=== PATIENT | male | born 1970 | race Caucasian/White ===

== ENCOUNTER 2021-06-06 06:29 | Inpatient (IN) | payer OTHER, SELFPAY ==
[2021-06-06] VITALS (64 sets, daily range): BP systolic 69–163; BP diastolic 27–127; PULSE 107–150; RESP 20–95; TEMP 36.6; O2SAT 32–99; BMI 31.6
--- NOTE | ~2021-06-06 | XR_ITS ---
EXAMINATION: XR chest 1V portable DATE: 06/22/2021 06:17 INDICATION: Respiratory failure. TECHNIQUE: A single frontal view of the chest was obtained. COMPARISON: Chest single view 06/21/2021 FINDINGS: There are airspace opacities in the lower lung zones, left worse than right. No pleural eff usion or pneumothorax. The heart size is normal. The endotracheal tube tip is 5.4 cm above the sridevi . The nasogastric tube tip is in the stomach. The nasoenteric tube tip is beyond the inferior margin of the radiograph, but at least to the stomach. A right upper extremity peripherally inserted central venous catheter (PICC) is seen with tip in the superior vena cava. IMPRESSION: 1. Improved airspace opacities in the lower lung zones, consistent with atelectasis versus pneumonia. Reviewed, dictated and finalized at location E. [employer]ESSIONALS IMPRESSION: 1. Improved airspace opacities in the lower lung zones, consistent with atelect asis versus pneumonia.
--- NOTE | ~2021-06-06 | XR_ITS ---
XR chest 1V portable DATE: 06/06/2021 07:36 INDICATION: Cough, shortness of breath, chest pain TECHNIQUE: Portable AP chest on 06/06/2021 at 0732 hours COMPARISON: 05/18/2018 AP and lateral chest FINDINGS: Normal heart size. No hilar or mediastinal enlargement. The lungs are clear of infiltrate o r consolidation. No pleural effusion or pulmonary vascular congestion or pneumothorax is detected. IMPRESSION: No active cardiopulmonary disease Reviewed, dictated and finalized at location A. LINE WRITER
--- NOTE | ~2021-06-06 | XR_ITS ---
EXAMINATION: XR chest 1V portable DATE: 06/09/2021 08:23 INDICATION: Acute respiratory failure TECHNIQUE: frontal view of the chest was obtained. COMPARISON: Chest radiograph dated 06/08/2021 FINDINGS: Endotracheal tube tip 3.3 cm above the sridevi. Nasogastric tube tip in proximal side port in the body of the stomach. Dual-lumen right internal jugular central venous catheter with distal tip at the hig h right atrium. Persistent basilar predominant gradient of hazy airspace opacities throughout both lungs with more de nse opacities in the bilateral lower lung zones consistent with moderate left and qyizi-zq-ndptercq r ight pleural effusions with associated atelectasis and/or pneumonia. No pneumothorax. The cardiomedia stinal silhouette is normal. IMPRESSION: 1. Moderate left and [id number] right pleural effusions with associated atelectasis and/or pne umonia in the lower lung zones. Reviewed, dictated and finalized at location A. RUMENTATION ENGINEER IMPRESSION: 1. Moderate left and [id number] right pleural effusions with associated atelectasis and/or pneumonia in the lower lung zones.
--- NOTE | ~2021-06-06 | XR_ITS ---
EXAMINATION: XR chest 1V portable EXAM DATE: 06/13/2021 05:33 INDICATION: Acute respiratory failure TECHNIQUE: Portable AP frontal chest x-ray was obtained. Comparison is made to prior examination from 06/12/2021. FINDINGS: Endotracheal tube tip is 4 centimeters above the sridevi. There is a right-sided IJ double- lumen catheter. Feeding tube is in position. There is a nasogastric tube seen with tip collimated off the study, but below the left hemidiaphragm. Bibasilar linear opacities consistent with atelectasis. Suspect additional layering pleural effusion s and superimposed pneumonia or edema. There is no pneumothorax suspected. Cardiomediastinal silho uette is normal. The bones and soft tissues are unremarkable. There is no significant interval change compared to prior exam. IMPRESSION: 1. Line and tube(s) in position. 2. Stable airspace disease and other findings as above. OS ARCHITECT Reviewed, dictated and finalized at location A.
--- NOTE | ~2021-06-06 | XR_ITS ---
EXAMINATION: XR chest 1V portable EXAM DATE: 06/15/2021 06:14 INDICATION: Acute respiratory failure . TECHNIQUE: Portable AP frontal chest x-ray was obtained. Comparison is made to prior examination from 06/14/2021. FINDINGS: Endotracheal tube tip is 4 centimeters above the sridevi. There is a right-sided IJ double -lumen catheter. There is a Dobhoff tube seen with tip collimated off the study, but below the left h emidiaphragm. Bibasilar linear opacities consistent with atelectasis. Suspect additional layering pleural effusion s and superimposed pneumonia or edema. There is no pneumothorax suspected. Cardiomediastinal silho uette is normal. The bones and soft tissues are unremarkable. There is no significant interval change compared to prior exam. IMPRESSION: 1. Line and tube(s) in position. 2. Stable airspace disease and other findings as above. ICE SUPERINTENDENT Reviewed, dictated and finalized at location A.
--- NOTE | ~2021-06-06 | XR_ITS ---
EXAMINATION: XR chest 1V portable DATE: 06/23/2021 06:10 INDICATION: Respiratory failure. TECHNIQUE: A single frontal view of the chest was obtained. COMPARISON: Chest single view 06/22/2021, chest CT 06/16/2021 FINDINGS: There are airspace opacities in the lower lung zones and left perihilar region. There is a small left pleural effusion. No pneumothorax. The heart size is normal. The endotracheal tube tip is 4.8 cm above the sridevi. The nasogastric tube tip is in the stomach. The nasoenteric tube tip is beyo nd the inferior margin of the radiograph, but at least to the proximal duodenum. A right upper extrem ity peripherally inserted central venous catheter (PICC) is seen with tip in the superior vena cava. IMPRESSION: 1. Worsened airspace opacities in the lower lung zones and left perihilar region, consistent with ate lectasis versus pneumonia. 2. Stable small left pleural effusion. Reviewed, dictated and finalized at location E. EMIC RECORDS SPECIALIST IMPRESSION: 1. Worsened airspace opacities in the lower lung zones and left perihilar regio n, consistent with atelectasis versus pneumonia. 2. Stable small left pleural effusion.
--- NOTE | ~2021-06-06 | XR_ITS ---
XR chest 1V portable DATE: 06/08/2021 10:33 INDICATION: Shortness of breath. Hypoxia. History of hypertension. TECHNIQUE: Portable AP chest on 06/08/2021 1025 hours COMPARISON: 06/06/2021 portable AP chest FINDINGS: There is pulmonary vascular congestion and redistribution. There is thickening of the minor fissure or fluid in the minor fissure. Bilateral pleural effusions. There are prominent bilateral pulmonary infiltrates, which are dilated centrally and in the lower eunice g zones, suggesting pulmonary edema. These findings are new since 06/06/2021. IMPRESSION: Congestive changes, pulmonary edema, bilateral pleural effusions, all new since 06/06/2021 Reviewed, dictated and finalized at location A. ATTENDANT IMPRESSION: Congestive changes, pulmonary edema, bilateral pleural effusions, a ll new since 06/06/2021
--- NOTE | ~2021-06-06 | XR_ITS ---
EXAMINATION: XR fl Dobhoff insert/rad w img DATE: 06/14/2021 13:40 INDICATION: Acute pancreatitis. TECHNIQUE: I inserted a wire into the nasoenteric tube and redirected into the duodenum under fluoros copic guidance. Fluoroscopy exposure time was 3.0 minutes. The number of images was 1. COMPARISON: Abdomen radiograph 06/14/21 FINDINGS: The nasoenteric tube tip is at the junction of the second and third portions of the duodenu m. IMPRESSION: 1. Fluoroscopy guided nasoenteric tube adjustment with tip at the junction of the second and third po rtions of the duodenum. Reviewed, dictated and finalized at location A. ABLE TRACKMAN IMPRESSION: 1. Fluoroscopy guided nasoenteric tube adjustment with tip at the junction of t he second and third portions of the duodenum.
--- NOTE | ~2021-06-06 | US_ITS ---
EXAMINATION: US abdomen limited EXAM DATE: 06/06/2021 14:35 INDICATION: Elevated liver enzymes. TECHNIQUE: Multiple grayscale and Doppler images of the abdomen right upper quadrant were obtained (michell y a technologist who performed the scan) and subsequently reviewed. Correlation is made to CT abdome n pelvis same date FINDINGS: Small amount of perihepatic fluid identified, ascites. Small amount of pericholecystic flui d as well. Pancreas not well-visualized due to bowel gas. There is echogenic liver parenchyma, hepatic steatosi s. There are no focal liver lesions identified. There is no evidence of intrahepatic biliary duct dilation. Portal venous flow was seen in the hepatopedal, normal direction and has normal Doppler wa veform. No right-sided hydronephrosis. Common bile duct measures 4 mm, which is normal. The gallbladder wall is normal in thickness, with mo derate amount of distention. No cholelithiasis. Technologist performing exam reports patient did not demonstrate sonographic Terry's sign. Please note that this sign is less reliable in patients who h ave received pain medication. IMPRESSION: 1. Small amount of ascites. 2. Hepatic steatosis. Reviewed, dictated and finalized at location G. HEALTH REGISTERED NURSE
--- NOTE | ~2021-06-06 | XR_ITS ---
EXAMINATION: XR chest PICC line DATE: 06/18/2021 12:09 INDICATION: Central line placement. TECHNIQUE: A single frontal view of the chest was obtained. COMPARISON: Chest single view 06/15/2021, CT abdomen and pelvis 06/14/2021 FINDINGS: There are airspace opacities in the mid and lower lung zones. There is a small left pleural effusion. No pneumothorax. The heart size is normal. The endotracheal tube tip is 4.5 cm above the c taylor. A right internal jugular central venous catheter is seen with tip in the right atrium. A right upper extremity peripherally inserted central venous catheter (PICC) is seen with tip in the superio r vena cava. The nasoenteric tube tip is beyond the inferior margin of the radiograph, but at least t o the stomach. IMPRESSION: 1. PICC tip in the superior vena cava. 2. Airspace opacities in the mid and lower lung zones with worsening on the right, consistent with at electasis versus pneumonia. 3. Stable small left pleural effusion. Reviewed, dictated and finalized at location A. NSIC ACCOUNTANT IMPRESSION: 1. PICC tip in the superior vena cava. 2. Airspace opacities in the mid and lower lung zones with worsening on the rig ht, consistent with atelectasis versus pneumonia. 3. Stable small left pleural effusion.
--- NOTE | ~2021-06-06 | CT_ITS ---
EXAMINATION: CT chest high resolution [facility] EXAM DATE: 06/16/2021 12:18 INDICATION: Pneumonia, severe sepsis. TECHNIQUE: Spiral CT of the chest without contrast. HRCT. Axial, coronal and sagittal images of the chest were reviewed. Coronal maximum intensity pixel images of chest reviewed. The dose-length prod uct (DLP) for this examination was 447.30 mGy-cm. The exposure was tailored according to patient siz e (auto mA exposure control), and iterative reconstruction (ASIR) was used as additional dose reducti on technique. There is no prior study for comparison. FINDINGS: Endotracheal tube is in position. There is small to moderate left pleural effusion. Small r ight pleural effusion. Completely collapsed left lower lobe, and multisegmental right lower lobe atel ectasis. Small amount of bronchus intermedius debris. No intralobular septal thickening on the HRCT. No coronary artery calcifications. Heart is normal in size. The interventricular septum is perceptibl e, suggesting patient is anemic. There is a right-sided venous line in position. Dobhoff feeding tube . Small to moderate perihepatic ascites. Retroperitoneal inflammation from acute pancreatitis. IMPRESSION: 1. Small to moderate left, small right pleural effusions. 2. Left lower lobe collapse, multi segmental right lower lobe atelectasis. 3. Small amount of bronchus intermedius debris. Reviewed, dictated and finalized at location A. NSED PRACTICAL NURSE CLINIC NURSE
--- NOTE | ~2021-06-06 | US_ITS ---
EXAMINATION: US renal BI EXAM DATE: 06/07/2021 10:56 INDICATION: Acute renal failure. TECHNIQUE: Multiple grayscale and Doppler images of the kidneys were obtained (by a technologist who performed the scan) and subsequently reviewed. There is no prior study for comparison. FINDINGS: Incidental note made of hepatic steatosis and small amount of the perihepatic ascites. Right kidney: There is normal contour and echogenicity. It measures 10.9 x 5.9 x 6.2 centimeters. T here are no focal renal lesions identified. There is no hydronephrosis. Left kidney: Poorly visualized. It measures 10.5 6.5 x 6.0 centimeters. No hydronephrosis. Quiroz catheter within a collapsed bladder. IMPRESSION: 1. No hydronephrosis. 2. Hepatic steatosis. Small ascites. Reviewed, dictated and finalized at location B. ITION PARTNER
--- NOTE | ~2021-06-06 | XR_ITS ---
EXAMINATION: XR chest 1V portable DATE: 06/19/2021 07:09 INDICATION: Respiratory failure. TECHNIQUE: A single frontal view of the chest was obtained. COMPARISON: Chest single view 06/18/2021 FINDINGS: There are airspace opacities in the mid and lower lung zones. There are small pleural effus ions. No pneumothorax. The heart size is normal. The endotracheal tube tip is 4.8 cm above the sridevi . A right internal jugular central venous catheter is seen with tip at the superior cavoatrial juncti on. A right upper extremity peripherally inserted central venous catheter (PICC) is seen with tip in the superior vena cava. The nasoenteric tube tip is beyond the inferior margin of the radiograph, but at least to the stomach. IMPRESSION: 1. Airspace opacities in the mid and lower lung zones with worsening on the right, consistent with at electasis versus pneumonia. 2. Small pleural effusions. Reviewed, dictated and finalized at location A. TRONICS INSPECTOR IMPRESSION: 1. Airspace opacities in the mid and lower lung zones with worsening on the rig ht, consistent with atelectasis versus pneumonia. 2. Small pleural effusions.
--- NOTE | ~2021-06-06 | XR_ITS ---
EXAMINATION: XR abdomen/kub 1V DATE: 06/06/2021 22:43 INDICATION: Nasogastric tube placement. TECHNIQUE: A supine view of the abdomen was obtained. COMPARISON: CT abdomen and pelvis 06/06/2021 FINDINGS: The lower abdomen is excluded. There are no visible dilated loops of bowel. The nasogastric tube tip is in the midesophagus. There is mild atelectasis in left lower lung zone. IMPRESSION: 1. Nasogastric tube tip in the midesophagus. Reviewed, dictated and finalized at location A. MAN
--- NOTE | ~2021-06-06 | XR_ITS ---
EXAMINATION: XR abdomen NG/feed tube insert DATE: 06/20/2021 08:24 INDICATION: Orogastric tube placement TECHNIQUE: A supine view of the abdomen and lower chest was obtained for evaluation of feeding tube placement. COMPARISON: None. FINDINGS: The weighted tip of a Dobbhoff type enteric feeding tube is positioned in the second portion of the d uodenum. The tip of a nasogastric tube is in the body of the stomach with proximal side-port at the l evel of the gastroesophageal junction. Small amount of gas in the stomach and gas throughout the marc sverse colon. No dilated loops of gas-filled bowel in the visualized abdomen. A central venous cathet er descends from the inferior vena cava with distal tip at the level of the superior cavoatrial junct ion. Mild opacities at the bilateral lung bases which could represent atelectasis and/or pneumonia. IMPRESSION: 1. Lines and tubes in expected position. The nasogastric tube tip is in the stomach would consider ad vancement by 2-[address] the proximal side-port below the level of the gastroesophageal junction. Reviewed, dictated and finalized at location A. DUMPER OPERATOR HELPER IMPRESSION: 1. Lines and tubes in expected position. The nasogastric tube tip is in the sto mach would consider advancement by 2-[address] the proximal side-port below the level of the gastroesophageal junction.
--- NOTE | ~2021-06-06 | XR_ITS ---
EXAMINATION: XR abdomen NG/feed tube insert DATE: 06/07/2021 08:43 INDICATION: Is a gastric tube placement TECHNIQUE: A supine view of the abdomen and lower chest was obtained for evaluation of feeding tube placement. COMPARISON: 06/06/2021 at 10:31 PM FINDINGS: Nasogastric tube has been advanced with distal tip at the gastric antrum and proximal side port in th e body of the stomach. Gas within a few nondilated loops of large and small bowel within the abdomen. Opacities the bilateral lower lung zones consistent with small bilateral pleural effusions and assoc iated basilar atelectasis and/or pneumonia. Heart size is normal. IMPRESSION: 1. Nasogastric tube in the stomach. 2. Bilateral small pleural effusions with associated basilar atelectasis and/or pneumonia. Reviewed, dictated and finalized at location A. TRONIC ASSEMBLY
--- NOTE | ~2021-06-06 | XR_ITS ---
EXAMINATION: XR chest ET placement DATE: 06/20/2021 00:56 INDICATION: Intubation. TECHNIQUE: A single frontal view of the chest was obtained. COMPARISON: Chest single view 06/19/2021, chest CT 06/16/2021 FINDINGS: There are mild airspace opacities in all right lung zones and left mid and lower lung zones . No pleural effusion or pneumothorax. The heart size is normal. The endotracheal tube tip is 3.9 cm above the sridevi. The nasoenteric tube tip is beyond the inferior margin of the radiograph, but at le ast to the stomach. A right upper extremity peripherally inserted central venous catheter (PICC) is s een with tip at the superior cavoatrial junction. A right internal jugular central venous catheter is seen with tip in the superior vena cava. IMPRESSION: 1. Airspace opacities in right lung and left mid and lower lung zones with worsening on the right and improvement on the left, consistent with atelectasis versus pneumonia. Reviewed, dictated and finalized at location A. GER CT IMPRESSION: 1. Airspace opacities in right lung and left mid and lower lung zones with wors ening on the right and improvement on the left, consistent with atelectasis chemo jacky pneumonia.
--- NOTE | ~2021-06-06 | CT_ITS ---
EXAMINATION: CT abdomen pelvis wo con EXAM DATE: 06/16/2021 12:18 INDICATION: Abdominal distension, pancreatitis, fevers. TECHNIQUE: Spiral CT of the abdomen and pelvis was performed without contrast. Axial, coronal and s agittal images of the abdomen and pelvis were reviewed. The dose-length product (DLP) for this exami [facility] was 1571.16 mGy-cm. The exposure was tailored according to patient size (auto mA exposure con trol), and iterative reconstruction (ASIR) was used as additional dose reduction technique. Compariso n is made to prior examination from 06/06/2021. FINDINGS: Small to moderate amount of ascites, mild increase in volume. Again there is extensive cho creatic inflammation. On prior study the pancreas was diffusely low in density, edematous. On this ex am there is more focal decreased density in the pancreatic body which could be pancreatic necrosis. Liver, adrenal glands, spleen are unremarkable. Probable small gallstones. There is no nephrolithias is or hydronephrosis. The prostate is unremarkable. The bladder is collapsed with Quiroz catheter b alloon anchor inside. There is no retroperitoneal or pelvic lymphadenopathy. Development of moderately edematous colonic wall consistent with cho colitis without pneumatosis or p ortal venous gas. There is colonic fluid, diarrhea. There is a rectal tube. The stomach and small bow el are unremarkable. No free intraperitoneal gas. Heart is normal in size. The interventricular sep shae is perceptible, suggesting patient is anemic. Small to moderate left, small right pleural effusio ns. Collapsed left lower lobe, multi segmental right lower lobe atelectasis. There are no osteoblasti c or osteolytic lesions identified. Dobhoff feeding tube is in position. IMPRESSION: 1. Severe acute pancreatitis with suspicion of developing sizable region of pancreatic necrosis. 2. Development of cho colitis and diarrhea. 3. Small to moderate left, small right pleural effusions. 4. Left lower lobe collapse, right lower lobe multisegmental atelectasis. Reviewed, dictated and finalized at location A. IBILITY CONSULTANT IMPRESSION: 1. Severe acute pancreatitis with suspicion of developing sizable region of pa ncreatic necrosis. 2. Development of cho colitis and diarrhea. 3. Small to moderate left, small right pleural effusions. 4. Left lower lobe collapse, right lower lobe multisegmental atelectasis.
--- NOTE | ~2021-06-06 | XR_ITS ---
EXAMINATION: XR chest 1V portable INDICATION: Respiratory distress TECHNIQUE: Portable AP chest at 1453 hours COMPARISON: 1253 hours FINDINGS: The endotracheal tube ends approximately 5.2 cm above the sridevi. The nasoenteric tube is f ollowed as far as the stomach. Its tip is beyond the inferior margin of the radiograph. There is a la rge bore right internal jugular catheter ending with its tip at the superior cavoatrial junction. A r ight upper extremity PICC ends with its tip in the midsuperior vena cava. There is no pneumothorax. S mall pleural effusions are present. There are minimal airspace opacities of the lung bases, unchanged . The cardiomediastinal silhouette is stable. IMPRESSION: 1. Stable bibasilar airspace opacities, consistent with atelectasis versus new. 2. Small pleural effusions. Reviewed, dictated and finalized at location B. ION SUPERVISOR
--- NOTE | ~2021-06-06 | XR_ITS ---
EXAMINATION: XR fl Dobhoff insert/rad w img DATE: 06/13/2021 15:13 INDICATION: Not tolerating tube feeds. TECHNIQUE: I placed a nasoenteric tube under fluoroscopic guidance. The number of images was 1. The f luoroscopy exposure time was 0.5 minutes. COMPARISON: CT abdomen and pelvis 06/06/2021 FINDINGS: The nasoenteric tube tip is in the stomach. IMPRESSION: 1. Fluoroscopy guided nasoenteric tube placement with tip in the stomach. Reviewed, dictated and finalized at location A. RVIEWING CLERK
--- NOTE | ~2021-06-06 | CT_ITS ---
EXAMINATION: CT brain wo con DATE: 06/06/2021 18:40 INDICATION: Altered mental status. TECHNIQUE: Computed tomography (CT) of the head was performed without intravenous contrast. The mA wa s adjusted according to patient size. Iterative reconstruction technique was employed. The dose-lengt h product was 605.33 mGy-cm. COMPARISON: Head CT 05/01/2018, brain MRI 05/02/2018 FINDINGS: There is no intracranial hemorrhage, acute infarction, or abnormal intracranial mass lesion . The ventricles are normal in size. Cavum septum pellucidum and vergae are noted. There is mild muco juan m thickening in the ethmoid sinuses. The orbits are normal. The mastoid air cells are normal. IMPRESSION: 1. Normal brain. Reviewed, dictated and finalized at location A. GROUND EQUIPMENT ERECTOR IMPRESSION: 1. Normal brain.
--- NOTE | ~2021-06-06 | XR_ITS ---
EXAMINATION: XR chest 1V portable EXAM DATE: 06/14/2021 06:07 INDICATION: Acute respiratory failure . TECHNIQUE: Portable AP frontal chest x-ray was obtained. Comparison is made to prior examination from 06/13/2021. FINDINGS: Endotracheal tube tip is 4 centimeters above the sridevi. There is a right-sided IJ double- lumen catheter. Feeding tube is in position. There is a Dobhoff tube seen with tip collimated off the study, but below the left hemidiaphragm. Bibasilar linear opacities consistent with atelectasis. Suspect additional layering pleural effusion s and superimposed pneumonia or edema. There is no pneumothorax suspected. Cardiomediastinal silho uette is normal. The bones and soft tissues are unremarkable. There is no significant interval change compared to prior exam. IMPRESSION: 1. Line and tube(s) in position. 2. Stable airspace disease and other findings as above. NEERING TECH Reviewed, dictated and finalized at location A.
--- NOTE | ~2021-06-06 | XR_ITS ---
EXAMINATION: XR abdomen NG/feed tube insert EXAM DATE: 06/08/2021 11:17 INDICATION: OG tube insertion. TECHNIQUE: Frontal projection(s) of the abdomen for interpretation. Comparison is made to prior exami nation from 06/07/2021, 06/06. FINDINGS: Feeding tube is in position. Lungs described on chest x-ray obtained same time, with notic eable worsening compared to 06/06. No dilated upper abdominal small bowel. There are no osseous abnorm alities identified. IMPRESSION: Feeding tube in position. Reviewed, dictated and finalized at location B. NSED MARRIAGE AND FAMILY THERAPIST IMPRESSION: Feeding tube in position.
--- NOTE | ~2021-06-06 | XR_ITS ---
EXAMINATION: XR abdomen obstructive series EXAM DATE: 06/13/2021 09:19 INDICATION: Not tolerating tube feeds TECHNIQUE: Frontal portable upright projection of the upper abdomen, frontal projection of the lower abdomen for interpretation. Comparison is made to prior examination from 06/08/2021. FINDINGS: Feeding tube is in expected position, tip and side-port both project over the gastric bubbl e. There is a single loop of severely distended air-filled upper abdominal small bowel, most likely f ocal ileus given patient's severe acute pancreatitis identified on recent CT. There is no evidence of free intraperitoneal gas on the upright projection. No other dilated loops of bowel, relative paucit y of bowel gas otherwise. There are mild bony degenerative changes. Small amount of basilar atelectas is. IMPRESSION: Single loop severely distended small bowel in the upper abdomen probably focal ileus give n recent CT findings. Feeding tube in position. Reviewed, dictated and finalized at location A. STED LIVING ASSOCIATE IMPRESSION: Single loop severely distended small bowel in the upper abdomen pro bably focal ileus given recent CT findings. Feeding tube in position.
--- NOTE | ~2021-06-06 | XR_ITS ---
EXAMINATION: XR chest ET placement EXAM DATE: 06/08/2021 11:16 INDICATION: check ET tube placement and central line placement TECHNIQUE: Portable AP frontal chest x-ray was obtained. Comparison is made to prior examination from earlier same date. FINDINGS: Endotracheal tube is in position. The nasogastric tube is in position. There is a right IJ double-lumen dialysis catheter. Moderate bilateral layering pleural effusions with adjacent atelectasis. Superimposed pneumonia or ed meagan also likely. There is no pneumothorax suspected. There is cardiomegaly. The bones and soft tis sues are unremarkable. IMPRESSION: 1. Line and tube(s) in position. 2. Diffuse pneumonia and/or edema. 3. Cardiomegaly, moderate pleural effusions. Reviewed, dictated and finalized at location B. PMENT OPERATOR WAREHOUSE
--- NOTE | ~2021-06-06 | US_ITS ---
EXAMINATION: US thoracentesis DATE: 06/19/2021 12:57 INDICATION: pleural effusion TECHNIQUE: The procedure and its risks, benefits, and alternatives were discussed with Sherly Fermin. Potential risks discussed included bleeding, infection, and pneumothorax. She understood the risks a nd agreed to proceed. The skin was prepped and draped in sterile fashion. 1% lidocaine was used for l ocal anesthesia. Under ultrasound guidance, a 5 Fr catheter with trochar was advanced into the left p leural effusion. Fluid was aspirated. The catheter was removed, and a dressing was applied. There wer e no immediate complications. FINDINGS: Ultrasound images demonstrate a left pleural effusion and the catheter within the fluid. IMPRESSION: 1. Successful ultrasound-guided thoracentesis yielding 175 mL of yellow fluid. Reviewed, dictated and finalized at location A. TRIMMER
--- NOTE | ~2021-06-06 | CT_ITS ---
EXAMINATION: CT abdomen pelvis wo con EXAM DATE: 06/06/2021 10:09 INDICATION: Abdominal pain. TECHNIQUE: Spiral CT of the abdomen and pelvis was performed without contrast. Axial, coronal and s agittal images of the abdomen and pelvis were reviewed. The dose-length product (DLP) for this exami nation was 777.46 mGy-cm. The exposure was tailored according to patient size (auto mA exposure cont rol), and iterative reconstruction (ASIR) was used as additional dose reduction technique. There is no prior study for comparison. FINDINGS: Extensive pancreatic, peripancreatic inflammation extending into the mesentery, retroperi toneum. Appearance suggests acute pancreatitis. Small amount of perihepatic, perisplenic fluid, small free pelvic fluid, probably reactive ascites. There is hepatic steatosis. Spleen, adrenal glands are unremarkable. Several low-density right renal lesions probably small cysts . Gallbladder is unremarkable. No biliary obstruction. There is no nephrolithiasis or hydronephros is. The prostate is unremarkable. High riding right testicle. The bladder is collapsed at time of imaging limiting evaluation. There is no retroperitoneal or pelvic lymphadenopathy. There is mild scattered arteriosclerotic disease. There are no findings to suggest appendicitis. The stomach and small bowel are unremarkable. There is expected amount of colonic stool. No free intraperitoneal gas. Bibasilar subsegmental atelecta sis. Small left pleural effusion. There are no osteoblastic or osteolytic lesions identified. IMPRESSION: 1. Findings consistent with severe acute pancreatitis. Small reactive ascites. Correlate with amylas e, lipase levels. 2. Basilar subsegmental atelectasis. 3. Small left pleural effusion. 4. Hepatic steatosis. Reviewed, dictated and finalized at location B. E SOLE WIRE BRUSHER IMPRESSION: 1. Findings consistent with severe acute pancreatitis. Small reactive ascites. Correlate with amylase, lipase levels. 2. Basilar subsegmental atelectasis. 3. Small left pleural effusion. 4. Hepatic steatosis.
--- NOTE | ~2021-06-06 | XR_ITS ---
XR chest 1V portable DATE: 06/11/2021 06:28 INDICATION: Acute respiratory failure TECHNIQUE: Portable AP chest on 06/11/2021 0516 hours COMPARISON: 06/09/2021 portable AP chest at 0817 hours FINDINGS: ET tube tip 3.9 cm above sridevi. NG tube in gastric fundus, proximal side-port approximatel y 6 cm distal to the diaphragmatic hiatus. Right internal jugular central venous catheter in right atrium. No pneumothorax. Heart size is normal. Mild congestive changes and interstitial prominence and mild pleural effusions. There are relatively central and to a greater extent lower lung infiltrates and bilateral lower lung atelectasis. IMPRESSION: Little interval change since 06/09/2021 Reviewed, dictated and finalized at location A. RVISOR SHUTTLE FITTING
--- NOTE | ~2021-06-06 | XR_ITS ---
EXAMINATION: XR chest 1V portable DATE: 06/21/2021 06:10 INDICATION: Respiratory failure. TECHNIQUE: A single frontal view of the chest was obtained. COMPARISON: Chest single view 06/20/2021, CT abdomen and pelvis 06/16/2021 FINDINGS: There are airspace opacities in right perihilar region and in left mid and lower lung zones . There is a small left pleural effusion. No pneumothorax. The heart size is normal. The endotracheal tube tip is 5.8 cm above the sridevi. The nasogastric tube tip is in the stomach. The nasoenteric tub e tip is beyond the inferior margin of the radiograph, but at least to the duodenum. A right upper ex tremity peripherally inserted central venous catheter (PICC) is seen with tip in the superior vena ca va. IMPRESSION: 1. Worsened airspace opacities in right perihilar region and in left mid and lower lung zones, consis tent with atelectasis versus pneumonia. 2. Worsened small left pleural effusion. Reviewed, dictated and finalized at location E. F DEVELOPMENT EDUCATOR IMPRESSION: 1. Worsened airspace opacities in right perihilar region and in left mid and lo wer lung zones, consistent with atelectasis versus pneumonia. 2. Worsened small left pleural effusion.
--- NOTE | ~2021-06-06 | XR_ITS ---
EXAMINATION: XR chest 1V portable EXAM DATE: 06/12/2021 06:00 INDICATION: Acute respiratory failure. TECHNIQUE: Portable AP frontal chest x-ray was obtained. Comparison is made to prior examination from 06/11/2021. FINDINGS: Endotracheal tube tip is 3 centimeters above the sridevi. There is a right-sided IJ double- lumen catheter. Feeding tube is in position. Bibasilar linear opacities consistent with atelectasis. Suspect additional layering pleural effusion s and superimposed pneumonia or edema. There is no pneumothorax suspected. The cardiomediastinal s ilhouette is prominent but magnified on this AP technique. The bones and soft tissues are unremarka ble. There is no significant interval change compared to prior exam. IMPRESSION: 1. Line and tube(s) in position. 2. Stable airspace disease and other findings as above. Reviewed, dictated and finalized at location A. WEAVER
--- NOTE | ~2021-06-06 | XR_ITS ---
EXAMINATION: XR abdomen NG/feed tube rechec DATE: 06/14/2021 11:52 INDICATION: Nasogastric tube placement. TECHNIQUE: An upright view of the abdomen was obtained. COMPARISON: Abdomen radiographs 06/13/2021 FINDINGS: The lower abdomen is excluded. The nasoenteric tube tip is in the stomach. There is a centr al venous catheter tip at superior cavoatrial junction. There are small pleural effusions. IMPRESSION: 1. Nasoenteric tube tip in the stomach. 2. Small pleural effusions. Reviewed, dictated and finalized at location A. OGRAPHIC PRINTING PRESS OPERATOR
--- NOTE | ~2021-06-06 | XR_ITS ---
EXAMINATION: XR_[id number]_CR DATE: 06/19/2021 12:58 INDICATION: Left pleural effusion. TECHNIQUE: A single frontal view of the chest was obtained. COMPARISON: Chest single view at 5:31 AM FINDINGS: There are airspace opacities at the lung bases. No pleural effusion or pneumothorax. The he art size is normal. The endotracheal tube tip is 7.6 cm above the sridevi. A right internal jugular ce ntral venous catheter is seen with tip at the superior cavoatrial junction. A right upper extremity p eripherally inserted central venous catheter (PICC) is seen with tip in the superior vena cava. The n asoenteric tube tip is beyond the inferior margin of the radiograph, but at least to the stomach. IMPRESSION: 1. Airspace opacities at the lung bases, consistent with atelectasis versus pneumonia. Reviewed, dictated and finalized at location A. WELL PULLER IMPRESSION: 1. Airspace opacities at the lung bases, consistent with atelectasis versus pne umonia.
--- NOTE | 2021-06-06 06:54 | ECG_ITS ---
Measurements Intervals [place] Rate: 142 P: 50 NM: 124 QRS: 56 QRSD: 70 T: 60 QT: 272 QTc: 419 Interpretive Statements SINUS TACHYCARDIA ABNORMAL ECG Electronically Signed On 06-06-2021 8:17:50 MATHEMATICS EDUCATION PROFESSOR by Justin Wing D.O.
[2021-06-06 07:27] LABS: Basophils Absolute Auto 0.1 K/mm3 (0.0-0.1); Basophils Percent Auto 0.7 % (0.2-1.2); Eosinophils Absolute Auto 0.2 K/mm3 (0-0.3); Eosinophils Percent Auto 1.6 % (0-4.4); Hematocrit 59.5 % (42.0-52.0); Hemoglobin 20.2 g/dL (14.0-18.0); Immature Granulocyte Absolute 0.07 K/mm3 (0.00-0.031); Immature Granulocyte Percent A 0.5 % (0-0.5); Lymphocytes Absolute Auto 0.82 K/mm3 (0.9-3.2); Lymphocytes Percent Auto 6.1 % (18.3-44.2); Mean Corpuscular HGB Conc 33.9 g/dl (32-36); Mean Corpuscular Hemoglobin 35.6 pg (26-34); Mean Corpuscular Volume 104.9 fl (80-100); Monocytes Absolute Auto 0.7 K/mm3 (0.1-0.6); Monocytes Percent Auto 5.1 % (2.6-8.5); Neutrophils Absolute Auto 11.5 K/mm3 (1.3-6.7); Nucleated Red Blood Cells Perc 0.2 % (0.0-0.2); Platelet Count Result 231 k/mm3 (150-375); Red Blood Count 5.67 M/mm3 (4.6-6.20); White Blood Count 13.4 K/mm3 (4.5-10.0)
[2021-06-06 07:55] LABS: Alveolar/Arterial O2 Gradient 29.3 mmHg; Base Excess ABG -13.9 mEq/l (+/-2.0); Fractional Inspired Oxygen 21 %; HCO3 ABG 7.8 mEq/l (22.0-26.0); Oxygen Content ABG 28.8 %vol (16.0-22.0); Oxygen Saturation ABG 97.5 % (95.0-100.0); Oxyhemoglobin 96.7 % THb (90.0-100.0); PO2 ABG 102.2 mmHg (80.0-100.0); PO2 FiO2 Ratio Arterial Blood 4.87 %; Total Hemoglobin 21.2 g/dL (12.0-18.0); pH ABG 7.328 (7.350-7.450)
[2021-06-06 07:57] LABS: Device ROOM AIR; Modified Allen's Test Pass; PCO2 ABG 15.2 mmHg (35.0-45.0); Site Drawn RIGHT RADIAL
[2021-06-06 07:59] LABS: Alanine Aminotransferase 68 U/L (4-50); Albumin Level 4.7 g/dL (3.5-5.1); Alkaline Phosphatase 65 U/L (38-126); Anion Gap 25 mmol/L (8-16); Aspartate Amino Transferase 90 U/L (17-59); Bilirubin,Total 1.3 mg/dL (0.2-1.3); Blood Urea Nitrogen 19 mg/dL (9-20); Calcium 10.3 mg/dL (8.4-10.2); Carbon Dioxide 14 mmol/L (22-30); Chloride 95 mmol/L (98-107); Estimated CRCL calculation 29 ml/min; Estimated Glomerular Filt Rate 24; Glucose 204 mg/dL (65-110); Potassium 4.2 mmol/L (3.4-5.0); Sodium 134 mmol/L (137-145)
--- NOTE | 2021-06-06 08:02 | ED.SOB ---
HPI - SOB/Dyspnea General Chief Complaint: Shortness of Breath/Dyspnea Stated Complaint: SOB, constipation Time Seen by Provider: 06/06/21 07:30 Source: patient and family Mode of arrival: ambulatory Limitations: no limitations History of Present Illness HPI Narrative: 50 years old white male presents with abdominal pain started yesterday at 11 AM, constant, diffuse associated with fever, chills, nausea, vomiting. History of exploratory appendectomy. Possible COVID exposure few days ago. Patient denies any coughing or headache. History of alcohol abuse, patient drinks daily. Last drink was 4 days ago Related Data Allergies Allergy/AdvReac Type Severity Reaction Status Date / Time cephalexin Allergy Unknown Rash Verified 06/06/21 06:47 Sulfa (Sulfonamide Allergy Swelling Verified 06/06/21 06:48 Antibiotics) of Lip/Tongue/Throat Review of Systems Review of Systems: CONSTITUTIONAL: Denies fever, chills, or sweats. EYES: Denies visual changes, redness, or discharge. ENT: Denies rhinorrhea, congestion, sore throat, or otalgia. CARDIOVASCULAR: Denies chest pain, palpitations, or edema. RESPIRATORY: Denies cough or dyspnea. GASTROINTESTINAL: Denies abdominal pain, nausea, vomiting, or diarrhea. GENITOURINARY: Denies dysuria or hematuria. SKIN: Denies rash or itching. MUSCULOSKELETAL: Denies back pain, joint pain, or myalgia. NEUROLOGIC: Denies headache, numbness, or weakness. PSYCHIATRIC: Denies anxiety or depression. PMFSH Family History Family History Mother Family history of malignant neoplasm of stomach Other Family history of malignant neoplasm Social History Social History Smoking status: Current every day smoker Smoking end date: 05/20/12 Alcohol intake: current Exam Narrative: General appearance: Well-developed, well-nourished Skin: Normal color Head: Normocephalic, nontraumatic Eyes: Clear conjunctiva ENT: Oropharynx normal, ears normal, nose normal Neck: Supple, nontender Chest and respiratory: Airway patent, no respiratory distress, no accessory muscle use Heart: Regular rate/rhythm Abdomen: Severe diffuse abdominal tenderness, guarding, rebound. Vascular: Normal peripheral pulses, normal capillary refill. Musculoskeletal: Normal range of motion, nontender back Neurologic: Alert and oriented ?3, TANNING DRUM OPERATOR is normal as tested, no gross motor deficit Course Course Emergency Course: Stable Consultations Consultation #1: Dr. Orellana Admit to hospitalist Date: 06/06/21 Time: 11:02 Vital Signs Vital signs: Vital Signs Temperature 36.6 C 06/06/21 06:41 Pulse Rate 143 H 06/06/21 06:41 Respiratory Rate 30 H 06/06/21 06:41 Blood Pressure 152/127 H 06/06/21 06:41 Pulse Oximetry 96 06/06/21 06:41 Temperature 36.6 C 06/06/21 06:41 Pulse Rate 143 H 06/06/21 06:53 Respiratory Rate 28 H 06/06/21 06:53 Blood Pressure 126/97 H 06/06/21 06:53 Pulse Oximetry 98 06/06/21 06:53 MDM - SOB/Dyspnea MDM Narrative Medical decision making narrative: Patient presents with abdominal pain. Differential diagnosis as below Differential Diagnosis Differential diagnosis: Likely other (Diverticulitis, diverticulitis with perforation, cystitis, small bowel obstruction, urinary tract infection) Lab Data Result diagrams: 06/06/21 07:16 06/06/21 07:16 Labs: Lab Results 06/06/21 06/06/21 06/06/21 Range/Units 07:16 07:16 07:16 WBC 13.4 H (4.5-10.0) K/mm3 RBC 5.67 (4.6-6.20) M/mm3 Hgb 20.2 H (14.0-18.0) g/dL Hct 59.5 H (42.0-52.0) % MCV 104.9 H (
[2021-06-06] MEDS: SODIUM CHLORIDE 0.9% IV 2,000 ML 999 ML IV CONT (08:49)
[2021-06-06 08:58] LABS: Prothrombin Time 13.4 Seconds (11.1-14.7)
[2021-06-06 08:59] LABS: Partial Thromboplastin Time 24.1 SECONDS (22.3-36.8)
[2021-06-06 09:18] LABS: CRP 14.4 mg/dL (<1.0)
[2021-06-06 09:27] LABS: Lactic Acid Reflex 8.6 mmol/L (0.7-2.1)
[2021-06-06] MEDS: HYDROmorphone HCL INJ (*CRX) 1 MG/ML SYR 0.5 MG IV PUSH (10:28)
[2021-06-06] MEDS: ONDANSETRON INJ 4 MG/2 ML VIAL IV PUSH (10:28)
[2021-06-06] MEDS: ERTAPENEM 1 GM/NS 50 ML 1 GM/50 ML BAG IVPB (10:30)
[2021-06-06] MEDS: SODIUM CHLORIDE 0.9% IV 2,700 ML/1,000 ML BAG 999 ML IV CONT (11:09)
[2021-06-06 11:28] LABS: SARS-CoV-2 RNA PCR Negative
[2021-06-06 12:03] LABS: Magnesium 2.9 mg/dL (1.6-2.3); Phosphorus 5.7 mg/dL (2.5-4.5)
[2021-06-06 12:08] LABS: Reflex Lactic Acid Yes or No Add Lactic
[2021-06-06 12:30] LABS: Lipase 4735 U/L (23-300)
--- NOTE | 2021-06-06 12:40 | PM.IMHP ---
H&P: HPI History of Present Illness Date/Time: 06/06/21 12:40 this is a 50-year-old male patient who came to the emergency room due to abdominal pain. This abdominal pain started around 11:00 a.m. yesterday. The patient does have a history of IBS with diarrhea but this cramping was different than his IBS. The patient was having difficulty breathing because his abdomen was distended. Patient has diffuse abdominal tenderness. The patient is not sure if he has been exposed to COVID-19 or not. The patient tells me he has not had any fever but he has had nausea vomiting and chills. He drinks on a daily basis at least 2 beers and a shot of whiskey every day. He last drank about 4 days ago. Patient's white count 13.4 H&H is 20.2 and 59.5 patient appears severely dehydrated. Arterial blood gas pH 7.3-8. CO2 was 15.2. Initially the patient's lactic was 8.6 and it did come down to 4.2. Phosphorus 5.7 magnesium 2.9. AST is 90 and ALT is 68. Patient was bolused with IV fluids the patient's stated that the patient's blood pressure dropped and that he turned rodriguez. There is no documentation to support that his blood pressure dropped. COVID test was negative. Abdominal CT was read as the following 1. Findings consistent with severe acute pancreatitis. Small reactive ascites. Correlate with amylase, lipase levels. 2. Basilar subsegmental atelectasis. 3. Small left pleural effusion. 4. Hepatic steatosis. Creatinine 2.8. C reactive protein is 14.4. His lipase was found to be 4735. Initially the patient was thought to be septic and he was initially started on Invanz and vancomycin as well as Levaquin. Those have been discontinued. The patient is on IV fluids and Dilaudid. The patient is being admitted to inpatient services on the date of service of 06/06/2021. Chief Complaint: Abdominal pain Review of Systems Review of Systems: All systems reviewed & are unremarkable except as noted in HPI and below Constitutional: Constitutional: Reports as per HPI and Reports no additional constitutional complaints Eyes: Eyes: Reports as per HPI and Reports no additional eye complaints ENT: Reports system reviewed and no additional complaints, except as documented and Reports Normal hearing present Cardiovascular: Cardiovascular: Reports no additional cardiovascular complaints Respiratory: Respiratory: Reports no additional respiratory complaints and Reports no additional respiratory complaints Gastrointestinal: Gastrointestinal: Reports as per HPI and Reports no additional gastrointestinal complaints Musculoskeletal: Musculoskeletal: Reports no additional musculoskeletal complaints Integumentary/Breasts: Skin/Breast: Reports system reviewed and no additional complaints, except as docu and Reports as per HPI Neurologic: Reports system reviewed and no additional complaints, except as documented, Reports as per HPI and Reports Normal hearing present Psychiatric: Psychiatric: Reports no additional psychiatric complaints and Reports as per HPI Endocrine: Endocrine: Reports no additional endocrine complaints Hematologic/Lymphatic: Hematologic/Lymphatic: Reports no additional hematologic/lymphatic complaints Allergic/Immunologic: Allergic/Immunologic: Reports no additional allergic/immunologic complaints [facility] Past Medical History Medical History (Updated 06/06/21 @ 13:36 by Renetta Mendez NP) IBS (irritable bowel syndrome) Surgical History Surgical History (Updated 06/06/21 @ 12:42 by Renetta Mendez NP) History of appendectomy S/P ORIF (open reduction internal fixation) fracture left arm left hand Family History Family History Mother Family history of malignant neoplasm of stomach Other Family history of malignant neoplasm Social History Social History (Updated 06/06/21 @ 13:24 by Renetta Mendez NP) Social History: The patient vapes and is not sure how much nicot
[2021-06-06 13:12] LABS: Lactic Acid 4.2 mmol/L (0.7-2.1)
[2021-06-06] MEDS: THIAMINE HCL INJ 100 MG, FOLIC ACID INJ 1 MG, MULTIVITAMINS-12 INJ VIAL 1 5 ML, MULTIVI... 125 MG IV CONT (13:15)
[2021-06-06] MEDS: LORazepam INJ (*CRX) 2 MG/ML VIAL 1 MG IV PUSH (13:16)
[2021-06-06 13:33] LABS: Cholesterol 293 mg/dL (0-200); HDL Direct 61 mg/dL; Triglycerides 474 mg/dL (<150)
[2021-06-06 13:44] LABS: LDL Cholesterol Direct 137 mg/dL
[2021-06-06 14:15] LABS: Add Urine Microscopic? YES; Bacteria Urine Trace /hpf; Squamous Epithelial Cell Urine Few /hpf (Few); WBC Urine 16-20 /hpf
[2021-06-06 14:16] LABS: Hyaline Casts Urine 20-29 /lpf; Mucus Urine Heavy /lpf
[2021-06-06 14:17] LABS: Appearance Urine Cloudy (Clear); Bilirubin Urine 1+ (Negative); Blood Urine 2+ (Negative); Glucose Urine UA Negative (Negative); Ketones Urine 1+ mg/dL (Negative); Leukocyte Esterase Ur Negative LEU/UL (Negative); Nitrate Urine Negative (Negative); Protein Urine 2+ mg/dL (Negative); Specific Grav Ur >= 1.030 (1.001-1.035); Urobilinogen Urine 0.2 mg/dL (<2.0)
[2021-06-06 14:18] LABS: Color Urine Dark Yellow (Yellow)
[2021-06-06 14:51] LABS: Lactic Acid Reflex 5.4 mmol/L (0.7-2.1)
[2021-06-06] MEDS: LORazepam INJ (*CRX) 2 MG/ML VIAL 0.5 MG IV PUSH (16:53)
[2021-06-06] MEDS: HYDROmorphone HCL INJ (*CRX) 1 MG/ML SYR IV PUSH ×2 (16:53→20:29)
--- NOTE | 2021-06-06 17:25 | PC.NURSE ---
hospitalist called and discussed patient's condition. states she will come assess and re-evaluate
[2021-06-06] MEDS: SODIUM CHLORIDE 0.9% IV 1,000 ML 250 ML IV CONT (17:40)
[2021-06-06 17:42] LABS: Lactic Acid Reflex 6.3 mmol/L (0.7-2.1)
[2021-06-06 18:12] LABS: Glucose Point of Care 101 mg/dl (65-105)
--- NOTE | 2021-06-06 18:20 | PC.NURSE ---
patient resting at this time. at bedside. O2 increased to 3L/NC by provider at this time
[2021-06-06 18:26] LABS: Alveolar/Arterial O2 Gradient 95.6 mmHg; Device NASAL CANNULA; Fractional Inspired Oxygen 28 %; HCO3 ABG 10.3 mEq/l (22.0-26.0); Modified Allen's Test Pass; Oxygen Content ABG 20.5 %vol (16.0-22.0); Oxygen Saturation ABG 91.2 % (95.0-100.0); Oxyhemoglobin 90.7 % THb (90.0-100.0); PCO2 ABG 27.2 mmHg (35.0-45.0); PO2 ABG 71.9 mmHg (80.0-100.0); PO2 FiO2 Ratio Arterial Blood 2.57 %; Site Drawn LEFT RADIAL; Total Hemoglobin 16.1 g/dL (12.0-18.0); pH ABG 7.198 (7.350-7.450)
[2021-06-06] MEDS: SODIUM CHLORIDE 0.9% IV 1,000 ML 999 ML IV CONT (18:50)
[2021-06-06] MEDS: SODIUM BICARBONATE 8.4% 150 MEQ in WATER, STERILE FOR INJECTION 950 ML 50 MEQ IV CONT (20:55)
[2021-06-06] MEDS: dexmedeTOMIDine 400 MCG/100 ML 400 MCG/100 ML BAG IV CONT (20:56)
--- NOTE | 2021-06-06 21:14 | ADMGEN ---
This patient, Rashid Fermin, was admitted to Intensive Care Unit-9. Patient/family oriented to hospital policies and general routines including ID bracelet, bed and alarms, visiting hours, pain management, procedures, bathroom and other care routines, personal items, smoking policy, room service/diet, and visiting hours. Information on how to activate the Rapid Response Team has been discussed. Patient/Family are encouraged to report perceived risks to care and to ask questions if they do not understand what they are told or what they should do.
[2021-06-06 21:49] LABS: Lactic Acid Reflex 5.1 mmol/L (0.7-2.1)
[2021-06-06 23:21] LABS: Glucose Point of Care 96 mg/dl (65-105)
--- NOTE | 2021-06-06 23:25 | PC.NURSE ---
Notified MELVA Jackson, of Lactic Acid results and continue to trend down, inserted NG tube and xray here to verify it, charge nurse present, it had curled in the esophagu, attempted to slide it down more, it just curled more, removed, inserted several more times and it appeared to be in the lung, inserted a couple more times with one it hannah out the mouth, will pass on to days
[2021-06-06 23:54] LABS: Alanine Aminotransferase 500 U/L (4-50); Albumin Level 3.4 g/dL (3.5-5.1); Alkaline Phosphatase 50 U/L (38-126); Anion Gap 13 mmol/L (8-16); Bilirubin,Total 1.1 mg/dL (0.2-1.3); Blood Urea Nitrogen 29 mg/dL (9-20); Calcium 7.2 mg/dL (8.4-10.2); Carbon Dioxide 13 mmol/L (22-30); Chloride 108 mmol/L (98-107); Estimated CRCL calculation 24 ml/min; Estimated Glomerular Filt Rate 16; Glucose 97 mg/dL (65-110); Magnesium 2.5 mg/dL (1.6-2.3); Potassium 5.9 mmol/L (3.4-5.0); Sodium 134 mmol/L (137-145)
[2021-06-07] VITALS (19 sets, daily range): BP systolic 88–154; BP diastolic 50–89; PULSE 122–139; RESP 23–39; TEMP 36.9–38.4; O2SAT 90–94
[2021-06-07 00:12] LABS: Aspartate Amino Transferase 1860 U/L (17-59)
[2021-06-07 00:34] LABS: Reflex Lactic Acid Yes or No Add Lactic
[2021-06-07] MEDS: ALBUTEROL SULFATE NEB 2.5 MG/0.5 ML INH 5 MG INHALATION (00:58)
[2021-06-07] MEDS: CALCIUM GLUC 1,000 MG/NS 50 ML 1,000 MG/50 ML BAG 100 MG IVPB (01:17)
[2021-06-07] MEDS: FUROSEMIDE INJ 40 MG/4 ML VIAL 20 MG IV PUSH (01:18)
[2021-06-07] MEDS: DEXTROSE 50% 25 GM/50 ML SYRINGE IV PUSH ×2 (01:18→07:45)
[2021-06-07] MEDS: INSULIN HUMAN REGULAR (*BKC) 100 UNITS/ML 10 UNITS IV PUSH (01:19)
[2021-06-07] MEDS: LACTATED RINGERS 1,000 ML 100 ML IV CONT (05:53)
--- NOTE | 2021-06-07 06:45 | PC.NURSE ---
Notified of pt not making any urine, of high potassium that was treated and unable to get labs at this time, pt staying cold and clammy
--- NOTE | 2021-06-07 07:27 | PM.CNNEP ---
Assessment and Plan Assessment and plan (1) Renal failure: Qualifiers: Renal failure chronicity: unspecified chronicity Qualified Code(s): N19 - Unspecified kidney failure Code(s): N19 - Unspecified kidney failure Status: Acute Assessment and Plan: The patient has no history of kidney disease according to him. His creatinine was normal in 2018 that we have nothing in between. His creatinine was 2.8 when he got here and 3.9 now. He is not making any urine. The ultrasound did not show any hydronephrosis. His urine has protein blood ketones and bilirubin. It is a very concentrated specimen as well. I suspect that the patient has at least dehydration but also probably ATN from pancreatitis. With his little urine as he is making, this would be beyond simple dehydration Rhabdo is a possibility because of his alcohol history we. Will check a CPK Acute GN and interstitial nephritis are unlikely in this clinical scenario. Will get an ultrasound of the kidneys to make sure there is nothing else going on. Will get urine electrolytes. Volume status is a question. His mouth is dry his urine is very concentrated and it would make sense that he has 3rd spacing into his belly causing intravascular volume depletion. His blood pressure is been somewhat soft as well and he has been getting IV fluids overnight. His chest x-ray is clear. His blood gas shows significant metabolic acidosis with respiratory acidosis. His abdominal distension may be inhibiting his ability to keep up. Will give him some IV bicarb. He is currently getting LR. His potassium is high at 5.9. He can not get Kayexalate because of his GI tract. I think we might need to do dialysis. Will see as potassium is after we supplement his bicarb and go from there. Will stop his LR and changed to a bicarb drip. (2) Acute pancreatitis: Qualifiers: Acute pancreatitis complication: unspecified Pancreatitis type: unspecified pancreatitis type Qualified Code(s): K85.90 - Acute pancreatitis without necrosis or infection, unspecified Code(s): K85.90 - Acute pancreatitis without necrosis or infection, unspecified Status: Acute Assessment and Plan: Getting supportive care. GI and surgery have been consulted. (3) Alcohol abuse: Code(s): F10.10 - Alcohol abuse, uncomplicated Status: Acute Assessment and Plan: Encouraged to stop. (4) IBS (irritable bowel syndrome): Code(s): K58.9 - Irritable bowel syndrome without diarrhea Status: Chronic History of Present Illness Reason for Consult Consult date: 06/07/21 Chief Complaint Chief complaint: acute pancreatitis History of Present Illness Narrative: Rashid is an unfortunate 50-year-old gentleman who has irritable bowel syndrome and heavy alcohol use, hepatic steatosis, and now pancreatitis. The patient tells me he was well until a couple of days ago when he started getting abdominal pain in abdominal distension. He also has had diarrhea. He has been short of breath since he got here because he can not take a deep breath he says. He has had some nausea and some vomiting but not much. He has not had anything to drink for about 4 days. He was seen in the emergency room. CT scan was done. Pancreatitis was diagnosed. His blood pressure was low so he has been given some IV fluids. He has not required pressors yet. He was admitted to the ICU. His creatinine was checked and was elevated so renal consultation was requested. He has made very little urine. They put a Quiroz catheter in and even flush the catheter to be sure but urine output is minimal. He says he has never had any problems with kidney disease. No bloody urine, foamy urine, kidney stones, or bladder infections. Review of Systems Constitutional: Constitutional: Reports no additional constitutional complaints Eyes: Eyes: Reports no additional eye complaints ENT: Report
[2021-06-07 07:59] LABS: Glucose Point of Care 63 mg/dl (65-105)
[2021-06-07] MEDS: SODIUM BICARBONATE 8.4% 50 MEQ/50 ML SYRINGE 150 MEQ IV PUSH (08:03)
[2021-06-07 08:10] LABS: Glucose Point of Care 121 mg/dl (65-105)
[2021-06-07 08:11] LABS: Hematocrit 44.5 % (42.0-52.0); Hemoglobin 14.4 g/dL (14.0-18.0); Mean Corpuscular HGB Conc 32.4 g/dl (32-36); Mean Corpuscular Hemoglobin 35.6 pg (26-34); Mean Corpuscular Volume 109.9 fl (80-100); Mean Platelet Volume 9.8 fl (7.4-10.4); Platelet Count Result 106 k/mm3 (150-375); Red Blood Count 4.05 M/mm3 (4.6-6.20); Red Cell Distribution Width 13.2 % (11.5-14.5); White Blood Count 8.1 K/mm3 (4.5-10.0)
[2021-06-07 08:13] LABS: Alveolar/Arterial O2 Gradient 133.6 mmHg; Base Excess ABG -14.2 mEq/l (+/-2.0); Fractional Inspired Oxygen 32 %; HCO3 ABG 11.1 mEq/l (22.0-26.0); Oxygen Content ABG 19.5 %vol (16.0-22.0); Oxygen Saturation ABG 89.8 % (95.0-100.0); Oxyhemoglobin 90.3 % THb (90.0-100.0); PCO2 ABG 25.7 mmHg (35.0-45.0); PO2 ABG 64.5 mmHg (80.0-100.0); PO2 FiO2 Ratio Arterial Blood 2.02 %; Total Hemoglobin 15.4 g/dL (12.0-18.0)
[2021-06-07 08:14] LABS: Device NASAL CANNULA; Modified Allen's Test Pass; Site Drawn RIGHT RADIAL; pH ABG 7.253 (7.350-7.450)
[2021-06-07 08:16] LABS: Ammonia 11 umol/L (9-30)
[2021-06-07 08:21] LABS: Lactic Acid Reflex 3.3 mmol/L (0.7-2.1)
[2021-06-07 08:39] LABS: Albumin Level 2.9 g/dL (3.5-5.1); Alkaline Phosphatase 57 U/L (38-126); Anion Gap 15 mmol/L (8-16); Bilirubin,Total 0.9 mg/dL (0.2-1.3); Blood Urea Nitrogen 40 mg/dL (9-20); Calcium 6.4 mg/dL (8.4-10.2); Carbon Dioxide 11 mmol/L (22-30); Chloride 108 mmol/L (98-107); Estimated CRCL calculation 16 ml/min; Estimated Glomerular Filt Rate 11; Glucose 141 mg/dL (65-110); Magnesium 2.4 mg/dL (1.6-2.3); Potassium 5.4 mmol/L (3.4-5.0); Sodium 134 mmol/L (137-145)
[2021-06-07] MEDS: SODIUM BICARBONATE 8.4% 150 MEQ in DEXTROSE 5% 1,000 ML 950 ML IV CONT (08:40)
[2021-06-07 08:45] LABS: Alanine Aminotransferase 2156 U/L (4-50)
[2021-06-07] MEDS: SODIUM BICARBONATE 8.4% 50 MEQ/50 ML SYRINGE 100 MEQ IV PUSH (09:03)
[2021-06-07] MEDS: HYDROmorphone HCL INJ (*CRX) 1 MG/ML SYR IV PUSH ×4 (09:04→20:12)
[2021-06-07 09:13] LABS: Aspartate Amino Transferase > 7500 U/L (17-59)
[2021-06-07 09:14] LABS: Creatine Kinase 6223 U/L (55-170); Lipase 4331 U/L (23-300)
[2021-06-07 09:15] LABS: Hepatitis B Surface Antigen Negative (Negative)
[2021-06-07] MEDS: CALCIUM GLUC 2,000 MG/NS 100ML 2,000 MG/100 ML BAG 100 MG IVPB (09:17)
[2021-06-07] MEDS: ERTAPENEM SODIUM 0.5 GM in SODIUM CHLORIDE 0.9% IV 50 ML IVPB (09:17)
[2021-06-07 09:22] LABS: Hepatitis B Core IgM Result Negative (Negative)
[2021-06-07 09:31] LABS: Hepatitis C Virus Antibody Negative (Negative)
--- NOTE | 2021-06-07 09:31 | WPDCNINT ---
Assessment and Plan Assessment and plan (1) Acute pancreatitis: Qualifiers: Acute pancreatitis complication: unspecified Pancreatitis type: unspecified pancreatitis type Qualified Code(s): K85.90 - Acute pancreatitis without necrosis or infection, unspecified Code(s): K85.90 - Acute pancreatitis without necrosis or infection, unspecified Status: Acute Assessment and Plan: Abdominal CT was read as the following 1. Findings consistent with severe acute pancreatitis. Small reactive ascites. Correlate with amylase, lipase levels. 2. Basilar subsegmental atelectasis. 3. Small left pleural effusion. 4. Hepatic steatosis. Lipase 4735 -> 4331 [address]PO NG tube in place IV fluids Pain control with IV p.r.n. Dilaudid GI and Surgery Consulted (2) Sepsis: Code(s): A41.9 - Sepsis, unspecified organism Status: Acute Assessment and Plan: Patient met criteria for sepsis with elevated lactic acid, WBC Likely secondary to severe pancreatitis Patient is on Invanz and vancomycin Blood and urine culture have been sent Patient received close to 6 L of fluid in last 24 hours Lactic acid is improving Continue IV fluids but change to IV bicarb due to hyperchloremia and metabolic acidosis He is maintaining his blood pressure hence does not in vasopressors at this (3) Dehydration: Code(s): E86.0 - Dehydration Status: Acute Assessment and Plan: Patient presented with significant hypovolemia and has received close to 6 L of fluid in last 24 hours Add albumin to minimize third-spacing Continue IV fluids with bicarb (4) Renal failure: Qualifiers: Renal failure chronicity: unspecified chronicity Qualified Code(s): N19 - Unspecified kidney failure Code(s): N19 - Unspecified kidney failure Status: Acute Assessment and Plan: Secondary to sepsis, it is hypokalemia, also has rhabdomyolysis He appears to have developed ATN IV fluids with bicarb Ultrasound did not show any hydronephrosis Nephrology consulted May need hemodialysis (5) Alcohol withdrawal: Code(s): F10.239 - Alcohol dependence with withdrawal, unspecified Status: Acute Assessment and Plan: Continue Precedex infusion Thiamine and folic acid (6) Metabolic acidosis: Code(s): E87.2 - Acidosis Status: Acute Assessment and Plan: Change IV fluids to IV fluid with bicarb He was given 2 amps of bicarb IV push this morning (7) Rhabdomyolysis: Code(s): M62.82 - Rhabdomyolysis Status: Acute Assessment and Plan: Continue IV fluids with bicarb Monitor CK level (8) Elevated liver enzymes: Code(s): R74.8 - Abnormal levels of other serum enzymes Status: Acute Assessment and Plan: Likely secondary to sepsis and shock Significant elevation of AST likely from rhabdomyolysis also Monitor levels Abdominal ultrasound reviewed Additional Plan DVT prophylaxis -Lovenox subQ Stress ulcer prophylaxis -PPI Nutrition -NPO Code Status - Full Code Total Critical Care Time - 35 minutes Due to a high probability of clinically significant, life threatening deterioration, the patient required my highest level of preparedness to intervene emergently and I personally spent this critical care time directly and personally managing the patient. This critical care time included obtaining a history; examining the patient; pulse oximetry; ordering and review of studies; arranging urgent treatment with development of a management plan; evaluation of patient's response to treatment; frequent reassessment; and discussions with other providers. It was exclusive of separately billable procedures and treating other patients and teaching time. Please see Assessment and Plan section and the rest of the note for further information on patient assessment and treatment Methods Study Analyst Consult Note Consult date: 06/07/21 HPI: Rashid Fermin is a 50 year old ma
[2021-06-07 09:56] LABS: Band Neutrophils Percent 21 % (0-6); Basophils Absolute Manual 0.08 K/mm3 (0.0-0.1); Basophils Percent Manual 1 % (0-1); Lymphocytes Absolute Manual 1.29 K/mm3 (1.1-4.5); Metamyelocytes Percent 1 %; Monocytes Absolute Manual 0.72 K/mm3 (0.1-0.90); Monocytes Percent Manual 9 % (3-9); Neutrophils Absolute Manual 5.91 K/mm3 (1.3-6.7); Neutrophils Percent Manual 52 % (46-73); Platelet Estimate Decreased (Adequate); Total Cells Counted 100
[2021-06-07] MEDS: FOLIC ACID 1 MG/0.2 ML INJ IV PUSH (10:02)
[2021-06-07] MEDS: PANTOPRAZOLE SODIUM IV 40 MG VIAL IV PUSH (10:02)
[2021-06-07 10:03] LABS: Lactate Dehydrogenase > 10000 U/L (313-618)
[2021-06-07 10:07] LABS: Hemoglobin A1C 5.2 % (<5.7)
[2021-06-07] MEDS: THIAMINE HCL 200 MG/2 ML VIAL 100 MG IV PUSH (10:19)
[2021-06-07 10:37] LABS: Ferritin > 2000.00 ng/mL (11.1-264)
--- NOTE | 2021-06-07 11:35 | PM.CNGS ---
Assessment and Plan Assessment and plan (1) Acute pancreatitis: Qualifiers: Acute pancreatitis complication: unspecified Pancreatitis type: unspecified pancreatitis type Qualified Code(s): K85.90 - Acute pancreatitis without necrosis or infection, unspecified Code(s): K85.90 - Acute pancreatitis without necrosis or infection, unspecified Status: Acute Assessment and Plan: The patient presents with severe acute pancreatitis likely secondary to alcohol abuse. CT scan reviewed and discussed with the patient. No evidence of cholelithiasis or biliary duct dilatation to suggest biliary pancreatitis. There is no evidence of necrotizing pancreatitis or fluid collection on imaging. He does appear septic and has now been transferred to the ICU. We would agree with current critical care management, IV fluid resuscitation, and pain control. Indication for surgery would be either infected pancreatic necrosis or a pancreatic abscess, which he does not have evidence of at this time. We may need to consider repeating a CT scan in the future depending on how he progresses, but would recommend to continue with current treatment for now. Could also consider using a [employer] pump for pain management if pain is poorly controlled once he is more alert. Continue to trend labs. Thank you for allowing us to see the patient in consultation and we will continue to follow along with you. (2) Sepsis: Code(s): A41.9 - Sepsis, unspecified organism Status: Acute Assessment and Plan: Sepsis criteria met with tachycardia, leukocytosis, tachypnea, fever, and lactic acidosis in the presence of known infection. He also has evidence of organ failure. Patient was started on empiric broad-spectrum IV antibiotics and has been receiving IV fluid resuscitation currently under critical care management. Lactic acid trending down. Continue to monitor labs. Blood cultures pending. Urine culture ordered, patient is currently not making any urine. (3) Renal failure: Qualifiers: Renal failure chronicity: unspecified chronicity Qualified Code(s): N19 - Unspecified kidney failure Code(s): N19 - Unspecified kidney failure Status: Acute Assessment and Plan: Acute renal failure with no known history of chronic kidney disease. Likely multifactorial. CK 6223. Creatinine climbing to 5.7, he is hyperkalemic, and is not making any urine. Renal ultrasound showed no hydronephrosis. Nephrology following. There is a concern that he may require hemodialysis. Monitor labs and how he progresses. (4) Rhabdomyolysis: Code(s): M62.82 - Rhabdomyolysis Status: Acute (5) Metabolic acidosis: Code(s): E87.2 - Acidosis Status: Acute Assessment and Plan: Currently on a bicarb drip in the ICU. (6) Dehydration: Code(s): E86.0 - Dehydration Status: Acute Assessment and Plan: Receiving IV fluid hydration. See plan above. (7) Elevated liver enzymes: Code(s): R74.8 - Abnormal levels of other serum enzymes Status: Acute Assessment and Plan: AST and ALT elevated. No evidence of cholelithiasis or biliary duct dilatation on imaging. Alk phos and bilirubin normal. Hepatitis panel ordered. Trend labs. (8) Alcohol withdrawal: Code(s): F10.239 - Alcohol dependence with withdrawal, unspecified Status: Acute Assessment and Plan: Currently on a Precedex drip. Additional Plan I have discussed the patient's case and plan of care with Dr. Hawley. History of Present Illness Consult details Consult date: 06/07/21 Reason for consult: other (Acute pancreatitis) Requesting physician: Renetta Mendez NP Narrative: This is a 50-year-old male with a history of alcohol abuse, hypertension, and IBS, who presented to the ER with complaints of abdominal pain starting about 2 days ago. He also reported chills, nausea, and vomiting. He is unsure if he had fever. Due t
[2021-06-07 12:17] LABS: Glucose Point of Care 91 mg/dl (65-105)
--- NOTE | 2021-06-07 13:41 | PC.NURSE ---
Updated spouse, lawson, on patient current condition and plan of care. Also mentioned location of belongings including patient's wedding ring.
--- NOTE | 2021-06-07 14:14 | WPDGICN ---
Assessment and Plan Assessment and plan (1) Acute pancreatitis: Qualifiers: Acute pancreatitis complication: unspecified Pancreatitis type: unspecified pancreatitis type Qualified Code(s): K85.90 - Acute pancreatitis without necrosis or infection, unspecified Code(s): K85.90 - Acute pancreatitis without necrosis or infection, unspecified Status: Acute Assessment and Plan: he has severe pancreatitis with multiorgan failure (TERENCE, metabolic acidosis, etc) currently in ICU, npo status, ngt in place CT scan reviewed (2) Alcohol withdrawal: Code(s): F10.239 - Alcohol dependence with withdrawal, unspecified Status: Acute Assessment and Plan: managed by ICU team thiamine, supportive care (3) Metabolic acidosis: Code(s): E87.2 - Acidosis Status: Acute Assessment and Plan: here with severe pancreatitis, dehydration and terence (4) Rhabdomyolysis: Code(s): M62.82 - Rhabdomyolysis Status: Acute Assessment and Plan: monitor (5) Elevated liver enzymes: Code(s): R74.8 - Abnormal levels of other serum enzymes Status: Acute Assessment and Plan: worsening liver function, will monitor for coagulopathy and DIC liver ultrasound showed steatosis but no cirrhosis also noted rhabdomyolysis that will cause more elevation of transaminases will check hepatitis panel and hiv (6) Renal failure: Qualifiers: Renal failure chronicity: unspecified chronicity Qualified Code(s): N19 - Unspecified kidney failure Code(s): N19 - Unspecified kidney failure Status: Acute Assessment and Plan: on fluids supportive care (7) Dehydration: Code(s): E86.0 - Dehydration Status: Acute (8) Sepsis: Code(s): A41.9 - Sepsis, unspecified organism Status: Acute Assessment and Plan: leukocytosis and fever on antibiotics GI Consult Note Consult date/time: 06/07/21 14:14 Reason for consult: severe acute pancreatitis, alcohol withdrawal, elevated liver enzymes, terence HPI: Rashid Fermin is a 50 year old male who is an alcoholic and was admitted yesterday with severe abdominal pain, nausea and vomiting. He is poor historian now as he is confused and currently in ICU because concerned of withdrawal. On arrival to ER he was found to have lactic acidosis with dehydration, TERENCE and severe acute pancreatitis. Also was tachycardic with a heart rate of 143, tachypneic. CT scan of the abdomen and pelvis reviewed and showed acute pancreatitis, small volume of ascites, and hepatic steatosis. Gallbladder appears normal with no cholelithiasis. Abdominal ultrasound showed hepatic steatosis and small volume of ascites, no cholelithiasis, and a normal caliber common bile duct. Labs showed a white blood cell count of 13,400, lactic acid 8.6 down to 3 now, creatinine 2.8 but climbed to 5.7, and lipase 4735. Chest x-ray showed no acute cardiopulmonary disease. He also became more confused when he was in the floor, CT brain was ordered, which was normal and transferred to ICU. NGT in place, abdomen is distended. He has not required pressors. Had fever 101F, COVID negative. Review of Systems Constitutional: Constitutional: Reports lethargy Eyes: Eyes: Reports no additional eye complaints ENT: Reports Normal hearing present Cardiovascular: Cardiovascular: Denies chest pain Respiratory: Respiratory: Denies hemoptysis Gastrointestinal: Gastrointestinal: Reports abdominal pain, Reports nausea and Reports vomiting Genitourinary: Genitourinary: Denies dysuria Integumentary/Breasts: Skin/Breast: Denies dry skin Neurologic: Reports confusion Psychiatric: Psychiatric: Reports anxiety and Reports confusion [facility] Past Medical History Medical History Hypertension IBS (irritable bowel syndrome) Surgical History Surgical History (Reviewed 06/07/21 @ 12:10 by Holley Merino
[2021-06-07 14:56] LABS: Anion Gap 11 mmol/L (8-16); Blood Urea Nitrogen 49 mg/dL (9-20); Calcium 6.2 mg/dL (8.4-10.2); Carbon Dioxide 24 mmol/L (22-30); Chloride 98 mmol/L (98-107); Estimated CRCL calculation 15 ml/min; Estimated Glomerular Filt Rate 9; Glucose 114 mg/dL (65-110); Potassium 5.3 mmol/L (3.4-5.0); Sodium 133 mmol/L (137-145)
[2021-06-07 14:59] LABS: HAV RESULT Negative (Negative)
[2021-06-07 15:46] LABS: Glucose Point of Care 131 mg/dl (65-105)
[2021-06-07] MEDS: DEXTROSE 5%/0.9% SOD CHL 1,000 ML 150 ML IV CONT ×2 (15:54→22:31)
[2021-06-07 16:33] LABS: Creatinine Urine 204.8 mg/dL; Sodium Urine Random 64 meq/L
[2021-06-07 17:05] LABS: Total Protein Urine Random 534 mg/dL; Ur Ttl Prot Creatinine Ratio 2.61 mg/mg (0-0.20)
[2021-06-07] MEDS: SODIUM POLYSTYRENE SULFONONATE 15 GM/60 ML BTL 60 GM RECTAL (18:30)
[2021-06-07 20:36] LABS: Glucose Point of Care 129 mg/dl (65-105)
[2021-06-07] MEDS: dexmedeTOMIDine 400 MCG/100 ML 400 MCG/100 ML BAG 8.98 MCG IV CONT (20:52)
[2021-06-07 23:13] LABS: Anion Gap 12 mmol/L (8-16); Blood Urea Nitrogen 51 mg/dL (9-20); Calcium 5.8 mg/dL (8.4-10.2); Carbon Dioxide 22 mmol/L (22-30); Chloride 103 mmol/L (98-107); Estimated CRCL calculation 13 ml/min; Estimated Glomerular Filt Rate 8; Glucose 150 mg/dL (65-110); Potassium 4.8 mmol/L (3.4-5.0); Sodium 137 mmol/L (137-145)
[2021-06-07 23:53] LABS: Glucose Point of Care 146 mg/dl (65-105)
[2021-06-08] VITALS (32 sets, daily range): BP systolic 41–132; BP diastolic 16–108; PULSE 96–139; RESP 25–43; TEMP 36.6–39.1; O2SAT 91–100
[2021-06-08] MEDS: HYDROmorphone HCL INJ (*CRX) 1 MG/ML SYR IV PUSH (01:52)
[2021-06-08 04:19] LABS: Glucose Point of Care 145 mg/dl (65-105)
[2021-06-08 04:53] LABS: Hematocrit 41.3 % (42.0-52.0); Hemoglobin 13.6 g/dL (14.0-18.0); Mean Corpuscular HGB Conc 32.9 g/dl (32-36); Mean Corpuscular Hemoglobin 35.7 pg (26-34); Mean Corpuscular Volume 108.4 fl (80-100); Mean Platelet Volume 10.1 fl (7.4-10.4); Platelet Count Result 107 k/mm3 (150-375); Red Blood Count 3.81 M/mm3 (4.6-6.20); Red Cell Distribution Width 13.6 % (11.5-14.5); White Blood Count 7.4 K/mm3 (4.5-10.0)
[2021-06-08] MEDS: DEXTROSE 5%/0.9% SOD CHL 1,000 ML 150 ML IV CONT ×3 (05:02→21:55)
[2021-06-08] MEDS: dexmedeTOMIDine 400 MCG/100 ML 400 MCG/100 ML BAG 15.72 MCG IV CONT (05:03)
[2021-06-08 05:06] LABS: Lactic Acid Reflex 2.2 mmol/L (0.7-2.1)
[2021-06-08 05:09] LABS: INR 1.1; Prothrombin Time 14.4 Seconds (11.1-14.7)
[2021-06-08 05:47] LABS: HIV 1/2 Ab P24 Ag Result Negative (Negative)
[2021-06-08 06:24] LABS: Alkaline Phosphatase 58 U/L (38-126); Anion Gap 13 mmol/L (8-16); Bilirubin,Total 0.8 mg/dL (0.2-1.3); Blood Urea Nitrogen 55 mg/dL (9-20); Calcium 5.5 mg/dL (8.4-10.2); Carbon Dioxide 23 mmol/L (22-30); Chloride 104 mmol/L (98-107); Creatine Kinase 9428 U/L (55-170); Estimated CRCL calculation 13 ml/min; Estimated Glomerular Filt Rate 8; Glucose 150 mg/dL (65-110); Lipase 1181 U/L (23-300); Magnesium 2.1 mg/dL (1.6-2.3); Phosphorus 6.4 mg/dL (2.5-4.5); Potassium 4.4 mmol/L (3.4-5.0); Sodium 140 mmol/L (137-145)
[2021-06-08 06:27] LABS: Alanine Aminotransferase 1096 U/L (4-50); Aspartate Amino Transferase 3865 U/L (17-59)
[2021-06-08 07:41] LABS: Glucose Point of Care 154 mg/dl (65-105)
[2021-06-08 07:49] LABS: Reflex Lactic Acid Yes or No Add Lactic
[2021-06-08 08:34] LABS: Lactic Acid 1.2 mmol/L (0.7-2.1)
--- NOTE | 2021-06-08 09:04 | PM.PNNEP ---
Progress Note: A&P Assessment and Plan (1) Renal failure: Qualifiers: Renal failure chronicity: unspecified chronicity Qualified Code(s): N19 - Unspecified kidney failure Code(s): N19 - Unspecified kidney failure Status: Acute Assessment and Plan: The patient has no history of kidney disease according to him. His creatinine was normal in 2018 that we have nothing in between. renal ultrasound shows no hydro, normal size kidneys. Urine electrolytes are borderline pre renal CPK is elevated at 9000 the patient has acute kidney injury. This is multifactorial. Dehydration is part of it. He is getting IV fluids. Pancreatitis is probably leading to ATN. Rhabdomyolysis also can be contributing to ATN He made a little bit more urine yesterday. Will try diuretics to see if we can stimulate any more urine output. Not that we want to diurese him but this would be more for a prognostic issue as if he started making more urine it would make the decision for /against dialysis a little easier. his electrolytes are not too bad. We would not take fluid off in dialysis. So I do not think we need to necessarily start dialysis today. Discussed at length wi th he had metabolic acidosis. This is now resolved. Is off the bicarb drip. (2) Acute pancreatitis: Qualifiers: Acute pancreatitis complication: unspecified Pancreatitis type: unspecified pancreatitis type Qualified Code(s): K85.90 - Acute pancreatitis without necrosis or infection, unspecified Code(s): K85.90 - Acute pancreatitis without necrosis or infection, unspecified Status: Acute Assessment and Plan: Getting supportive care. GI and surgery have been consulted. (3) Alcohol abuse: Code(s): F10.10 - Alcohol abuse, uncomplicated Status: Acute Assessment and Plan: Encouraged to stop. (4) IBS (irritable bowel syndrome): Code(s): K58.9 - Irritable bowel syndrome without diarrhea Status: Chronic Subjective Date/time seen: 06/08/21 09:04 Interval history: Rashid feels terrible. He denies shortness of breath but he is dyspneic. He still has a lot of belly pain. He is generally weak and just worn out. Review of Systems Cardiovascular: Cardiovascular: Reports no additional cardiovascular complaints Respiratory: Respiratory: Reports no additional respiratory complaints Gastrointestinal: Gastrointestinal: Reports no additional gastrointestinal complaints Genitourinary: Genitourinary: Reports no additional male genitourinary complaints Exam Narrative: WDWN male looks uncomfortable, confused, dyspneic. skin no rash head ncat lungs clear but decreased breath sounds at the bases cor reg no rub Or gallop abd BS+ distended and tender ext no edema. Objective Data Vital Signs Vital Signs: Vital Signs - 24 hr 06/07/21 09:52 06/07/21 10:00 06/07/21 12:00 Temperature 37.5 C 37.6 C Pulse Rate 139 H 127 H Respiratory Rate 29 H 25 H Blood Pressure 122/78 105/70 Pulse Oximetry 91 91 90 06/07/21 14:00 06/07/21 16:00 06/07/21 18:00 Temperature 38.2 C H Pulse Rate 124 H 128 H 134 H Respiratory Rate 23 H 29 H 34 H Blood Pressure 106/79 118/73 88/70 L Pulse Oximetry 93 92 94 06/07/21 19:03 06/07/21 20:00 06/07/21 20:52 Temperature 36.9 C Pulse Rate 134 H 134 H 134 H Respiratory Rate 34 H 34 H 34 H Blood Pressure 116/66 Pulse Oximetry 92 06/07/21 22:00 06/08/21 00:00 06/08/21 02:00 Temperature 37.3 C Pulse Rate 122 H 126 H 125 H Respiratory Rate 29 H 34 H 26 H Blood Pressure 127/77 128/108 H 114/57 L Pulse Oximetry 93 94 92 06/08/21 04:00 06/08/21 05:03 06/08/21 06:00 Temperature 36.6 C Pulse Rate 131 H 131 H 133 H Respiratory Rate 28 H 28 H 33 H Blood Pressure 127/75 132/77 Pulse Oximetry 95 91 Intake/Output Intake/Output: Intake & Output 06/05/21 06/06/21 06/07/21 06/08/21
[2021-06-08] MEDS: dexmedeTOMIDine 400 MCG/100 ML 400 MCG/100 ML BAG 22.45 MCG IV CONT (09:34)
[2021-06-08] MEDS: BUMETANIDE INJ 1 MG/4 ML VIAL 2 MG IV PUSH ×2 (09:36→16:35)
[2021-06-08] MEDS: ENOXAPARIN 30 MG/0.3 ML SYRINGE SUB-Q (09:37)
[2021-06-08] MEDS: THIAMINE HCL 200 MG/2 ML VIAL 100 MG IV PUSH (09:38)
[2021-06-08] MEDS: PANTOPRAZOLE SODIUM IV 40 MG VIAL IV PUSH (09:38)
[2021-06-08] MEDS: FOLIC ACID 1 MG/0.2 ML INJ IV PUSH (09:38)
[2021-06-08] MEDS: ERTAPENEM SODIUM 0.5 GM in SODIUM CHLORIDE 0.9% IV 50 ML IVPB (09:41)
--- NOTE | 2021-06-08 10:00 | WPDGIPROGNO ---
Progress Note: A&P Assessment and Plan (1) Acute pancreatitis: Qualifiers: Acute pancreatitis complication: unspecified Pancreatitis type: unspecified pancreatitis type Qualified Code(s): K85.90 - Acute pancreatitis without necrosis or infection, unspecified Code(s): K85.90 - Acute pancreatitis without necrosis or infection, unspecified Status: Acute Assessment and Plan: severe pancreatitis with multiorgan failure, now also encephalopathy with respiratory failure and he is intubated, also worsening renal failure lactic acid has improved elevated liver enzymes also could be related to ongoing SIRS with renal failure and rhabdomyolysis (2) Acute respiratory failure: Code(s): J96.00 - Acute respiratory failure, unspecified whether with hypoxia or hypercapnia Status: Acute Assessment and Plan: intubated today (3) Encephalopathy: Code(s): G93.40 - Encephalopathy, unspecified Status: Acute (4) Elevated liver enzymes: Code(s): R74.8 - Abnormal levels of other serum enzymes Status: Acute Assessment and Plan: continue to monitor inr normal (5) Rhabdomyolysis: Code(s): M62.82 - Rhabdomyolysis Status: Acute (6) Metabolic acidosis: Code(s): E87.2 - Acidosis Status: Acute Assessment and Plan: improved (7) Alcohol withdrawal: Code(s): F10.239 - Alcohol dependence with withdrawal, unspecified Status: Acute Assessment and Plan: banana bag, icu support (8) Sepsis: Code(s): A41.9 - Sepsis, unspecified organism Status: Acute (9) Renal failure: Qualifiers: Renal failure chronicity: unspecified chronicity Qualified Code(s): N19 - Unspecified kidney failure Code(s): N19 - Unspecified kidney failure Status: Acute Assessment and Plan: probably will need dialysis he just got HD catheter Subjective Date/time seen: 06/08/21 10:00 he was intubated earlier after was tachypneic and more confused, also noted worsening renal failure and now has dialysis catheter. NPO. Review of Systems Review of Systems: All systems reviewed & are unremarkable except as noted in HPI and below Exam Const: Other: acutely ill, now intubated HENMT: Other: ngt in place Neck: Neck: supple Resp: Auscultation: diminished lung sounds Cardio: Rate: regular rate GI: Inspection: distended Other: hypoactive bowel sounds Urinary Catheter: Urinary Catheter: patent and draining Skin: General skin exam: erythema Other: mottled skin legs Neuro: Other: unable to assess- just intubated Extrem: General: pedal edema Psych: Other: uanble to assess Objective Data Vital Signs Vital Signs: Vital Signs - 24 hr 06/07/21 16:00 06/07/21 18:00 06/07/21 19:03 Temperature 100.8 F H Pulse Rate 128 H 134 H 134 H Respiratory Rate 29 H 34 H 34 H Blood Pressure 118/73 88/70 L Pulse Oximetry 92 94 06/07/21 20:00 06/07/21 20:52 06/07/21 22:00 Temperature 98.5 F Pulse Rate 134 H 134 H 122 H Respiratory Rate 34 H 34 H 29 H Blood Pressure 116/66 127/77 Pulse Oximetry 92 93 06/08/21 00:00 06/08/21 02:00 06/08/21 04:00 Temperature 99.2 F 98 F Pulse Rate 126 H 125 H 131 H Respiratory Rate 34 H 26 H 28 H Blood Pressure 128/108 H 114/57 L 127/75 Pulse Oximetry 94 92 95 06/08/21 05:03 06/08/21 06:00 06/08/21 08:00 Temperature Pulse Rate 131 H 133 H 131 H Respiratory Rate 28 H 33 H 30 H Blood Pressure 132/77 127/73 Pulse Oximetry 91 92 06/08/21 09:30 06/08/21 09:34 06/08/21 09:44 Temperature Pulse Rate 139 H 138 H 129 H Respiratory Rate 33 H 30 H Blood Pressure Pulse Oximetry 94 06/08/21 10:00 06/08/21 11:00 06/08/21 11:19 Temperature Pulse Rate 133 H 106 H 104 H Respiratory Rate 43 H 25 H Blood Pressure 113/62 Pulse Oximetry 94 97 06/08/21 11:30 06/08/21 11:31 06/08/21 12:00 Temperature 99.2 F Pulse Rate 102 H
--- NOTE | 2021-06-08 11:15 | WPDPROCEDUR ---
Procedures Intubation Intubation Date: 06/08/21 Intubation Time: 10:30 Consent: Patient was full code and was obtunded. He was tachypneic in respiratory distress and hypoxic. Procedure done emergently. I did talk to him yesterday when he was awake that he may need intubation if clinically deteriorates and he was agreeable to it A pre-procedural Time-Out was completed immediately before starting the procedure and confirmed: Patient Identification, Site, Procedure, Patient Position and the Availability of Requisite Equipment: Yes Sedative: etomidate Mg given: 20 Paralytic: rocuronium Mg given: 50 Laryngoscope: fiber optic video scope Assist device used: fiber optic device ET tube size: 8 Tube secured depth (cm): 25 Tube secured location: lips Tube placement confirmation: visualized tube passing through cords, equal breath sounds bilaterally, no breath sounds over epigastrium and confirmation by capnometry Patient tolerated procedure: well Intubation complications: none
--- NOTE | 2021-06-08 11:16 | WPDPROCEDUR ---
Procedures Hemodialysis Catheter Placement Right IJ: Discussed w/ patient and/or surrogate, the non-emergent placement of a hemodialysis catheter, including it's clinincal necessity/indication & associated potential risks & complications.: Yes The patient and/or surrogate understand(s) and acknowledge(s) the need to proceed with hemodialysis catheter insertion as an important element of the patient's clinical management.: Yes Consent: Yesterday when patient per was admitted with renal failure, I spoke to patient and explained him that he may need dialysis if his kidney function worsens and we will need to place a dialysis catheter either in his groin or neck for hemodialysis. I explained him the procedure risks and benefits at that time. Patient was agreeable to hemodialysis and catheter placed. Today patient was obtunded. Patient has worsening renal function, rhabdomyolysis and now volume overload. Patient also had poor IV access. Hence dialysis catheter with pigtail was placed. HD Catheter Date: 06/08/21 HD Catheter Time: 10:45 Pre-procedural Time-Out was completed immediately before starting the procedure and confirmed: Patient Identification, Site, Procedure, Patient Position and the Availability of Requisite Equipment.: Yes Patient Position: supine Patient Placed on Monitor/Pulse Ox: Yes Provider Prep: mask, sterile gown, sterile gloves, Max. sterile barrier precautions, cap and hand hygiene Hemodialysis Catheter Prep: Chlorhexidine scrub and sterile full body sheet applied Ultrasound Used for Placement: Yes Hemodialysis Catheter Inserted: triple Length (cm): 20 Depth of Insertion (cm): 19 Post Procedure: sutured in place, good blood return, all ports aspirated, flushed, capped, transparent dressing and aseptic technique maintained throughout procedure Post Procedure X-Ray: tip of catheter in good position and no pneumothorax seen Patient Tolerated Procedure: well Complications: none
[2021-06-08] MEDS: MIDAZOLAM 100MG/NS 100ML(*CRX) 100 MG/100 ML BAG IV CONT (11:19)
[2021-06-08] MEDS: FENTANYL 2,500MCG/NS250ML(*CRX 2,500 MCG/250 ML BAG 10 MCG IV CONT (11:19)
--- NOTE | 2021-06-08 11:19 | WPDINTPN ---
Progress Note: A&P Assessment and Plan (1) Acute respiratory failure: Code(s): J96.00 - Acute respiratory failure, unspecified whether with hypoxia or hypercapnia Status: Acute Assessment and Plan: Secondary to pulmonary edema and pleural effusion Patient emergently intubated due to poor mental status and hypoxia Chest x-ray reviewed ABGs pending Vent settings reviewed He is on broad-spectrum antibiotics (2) Encephalopathy: Code(s): G93.40 - Encephalopathy, unspecified Status: Acute Assessment and Plan: Metabolic encephalopathy His ammonia and head CT were normal on presentation Currently sedated (3) Sepsis: Code(s): A41.9 - Sepsis, unspecified organism Status: Acute Assessment and Plan: Patient met criteria for sepsis with elevated lactic acid, WBC Likely secondary to severe pancreatitis Patient is on Invanz and vancomycin Blood and urine culture have been sent and pending till Patient received close to 10 L of fluid since admission appears to have developed volume overload Lactic acid has normalized Levophed to maintain blood pressure (4) Renal failure: Qualifiers: Renal failure chronicity: unspecified chronicity Qualified Code(s): N19 - Unspecified kidney failure Code(s): N19 - Unspecified kidney failure Status: Acute Assessment and Plan: Secondary to sepsis, it is hypokalemia, also has rhabdomyolysis He appears to have developed ATN IV fluids with bicarb were discontinued yesterday as patient's acidosis and improved and was switched to normal saline Ultrasound did not show any hydronephrosis Nephrology following His acidosis and potassium level adequate but his rhabdomyolysis is worse with elevated CK level. His urine output has remained poor. I spoke to Dr. Cerda this morning and he was given Bumex. Patient did not respond and and only 200 cc of urine output.Now patient appears to have developed volume overload and was intubated. Dialysis catheter has been placed. I will discuss with Dr. Cerda regarding initiating hemodialysis (5) Rhabdomyolysis: Code(s): M62.82 - Rhabdomyolysis Status: Acute Assessment and Plan: Continue IV fluids but at conservative level as patient now has volume overload CK level increased to 9428 (6) Acute pancreatitis: Qualifiers: Acute pancreatitis complication: unspecified Pancreatitis type: unspecified pancreatitis type Qualified Code(s): K85.90 - Acute pancreatitis without necrosis or infection, unspecified Code(s): K85.90 - Acute pancreatitis without necrosis or infection, unspecified Status: Acute Assessment and Plan: Abdominal CT was read as the following 1. Findings consistent with severe acute pancreatitis. Small reactive ascites. Correlate with amylase, lipase levels. 2. Basilar subsegmental atelectasis. 3. Small left pleural effusion. 4. Hepatic steatosis. Lipase 4735 -> 4331->11[address]PO NG tube in place IV fluids Pain control with IV fentanyl infusion GI and Surgery following (7) Dehydration: Code(s): E86.0 - Dehydration Status: Acute Assessment and Plan: Patient has received adequate amount of IV fluids (8) Alcohol withdrawal: Code(s): F10.239 - Alcohol dependence with withdrawal, unspecified Status: Acute Assessment and Plan: Patient was on Precedex infusion but now he has been switched to Versed and fentanyl Continue Thiamine and folic acid (9) Metabolic acidosis: Code(s): E87.2 - Acidosis Status: Acute Assessment and Plan: Improved after IV fluids bicarb which is off (10) Elevated liver enzymes: Code(s): R74.8 - Abnormal levels of other serum enzymes Status: Acute Assessment and Plan: Likely secondary to sepsis and shock Significant elevation of AST likely from rhabdomyolysis also Monitor levels which are improving Abdominal ultrasound revie
[2021-06-08 11:30] LABS: Alveolar/Arterial O2 Gradient 538.4 mmHg; Base Excess ABG -6.7 mEq/l (+/-2.0); Fractional Inspired Oxygen 90 %; HCO3 ABG 18.7 mEq/l (22.0-26.0); Oxygen Content ABG 15.8 %vol (16.0-22.0); Oxygen Saturation ABG 91.6 % (95.0-100.0); Oxyhemoglobin 91.5 % THb (90.0-100.0); PCO2 ABG 36.8 mmHg (35.0-45.0); PO2 ABG 65.6 mmHg (80.0-100.0); PO2 FiO2 Ratio Arterial Blood 0.73 %; Total Hemoglobin 12.3 g/dL (12.0-18.0); pH ABG 7.323 (7.350-7.450)
[2021-06-08] MEDS: NOREPINEPHRINE 8 MG/D5W 250 ML 8 MG/250 ML BAG 9.4 MG (11:30)
[2021-06-08 11:31] LABS: Arterial Blood Gas PEEP 5 cmH2O; Arterial Blood Gas Tidal Volume 450 ml; Arterial Blood Gas Vent Mode CMV; Arterial Blood Gas Ventilator rate 25 /MIN; Device VENTILATOR; Site Drawn LEFT BRACHIAL
[2021-06-08] MEDS: NOREPINEPHRINE 8 MG/D5W 250 ML 8 MG/250 ML BAG 9.38 MG IV CONT (11:31)
[2021-06-08] MEDS: SODIUM CHLORIDE 0.9% IV 500 ML IV CONT (11:31)
--- NOTE | 2021-06-08 11:31 | PM.PNGS ---
Progress Note: A&P Assessment and Plan (1) Acute pancreatitis: Qualifiers: Acute pancreatitis complication: unspecified Pancreatitis type: unspecified pancreatitis type Qualified Code(s): K85.90 - Acute pancreatitis without necrosis or infection, unspecified Code(s): K85.90 - Acute pancreatitis without necrosis or infection, unspecified Status: Acute Assessment and Plan: Severe acute pancreatitis with sepsis and now respiratory failure requiring intubation this morning. Lipase trending down to 1181, lactic acid down to 1.2 today. Continue IV fluids and critical care management. May consider repeating a CT scan of the abdomen and pelvis in the next 1-2 days to re-evaluate the pancreatitis. (2) Sepsis: Code(s): A41.9 - Sepsis, unspecified organism Status: Acute Assessment and Plan: Sepsis criteria met with tachycardia, leukocytosis, tachypnea, fever, and lactic acidosis in the presence of known infection. He also has evidence of multi-organ failure. Patient was started on empiric broad-spectrum IV antibiotics and has been receiving IV fluid resuscitation currently under critical care management. Lactic acid trending down to normal today. Continue to monitor labs. Blood cultures NGTD. Urine culture, no growth. (3) Rhabdomyolysis: Code(s): M62.82 - Rhabdomyolysis Status: Acute Assessment and Plan: CK up to 9,000 today. Creatinine climbing with minimal urine output. Temporary dialysis cath with pigtail being placed by Sonographer this morning and he is planning to speak to Nephrology about starting hemodialysis. (4) Acute respiratory failure: Code(s): J96.00 - Acute respiratory failure, unspecified whether with hypoxia or hypercapnia Status: Acute Assessment and Plan: Patient is volume overloaded with acute renal failure, and now with acute respiratory failure, being intubated this morning in the ICU. Management per Sonographer. (5) Alcohol withdrawal: Code(s): F10.239 - Alcohol dependence with withdrawal, unspecified Status: Acute Assessment and Plan: Currently on a Precedex drip. Sedation being managed by Sonographer. Additional Plan I have discussed the patient's case and plan of care with Dr. Hawley. Subjective Subjective Date/Time Seen: 06/08/21 10:31 Patient reports: diarrhea and fever ( Temp max of 101.2 F yesterday, afebrile this morning) Interval history: Patient seen and examined in the ICU this morning. He appears tachypneic with respiratory distress and somewhat lethargic. Sonographer is at the bedside and planning to intubate the patient shortly. The patient still reports having abdominal pain and appears uncomfortable. He reports nausea. With his respiratory distress, he is unable to answer other questions or hold any conversation. Lactic acid down to 1.2 this morning. Creatinine climbing with only 175 cc of urine output overnight. Review of Systems Review of Systems: ROS unobtainable: Yes unobtainable due to medical condition and unobtainable due to mental status Exam Const: General: acute distress respiratory, ill appearing acutely, lethargic and uncomfortable Limitations: altered mental status Resp: Effort & Inspection: labored, respiratory distress and tachypneic Auscultation: diminished lung sounds Cardio: Rate: tachycardic Rhythm: regular rhythm GI: Inspection: distended and no visible herniation GI Palp: Yes Firmness to palpation present (GI), Yes Tenderness to palpation present (GI) and Yes Guarding due to palpation present (GI) Auscultation: Hypoactive bowel sounds present Urinary Catheter: Urinary Catheter: patent and draining Skin: General skin exam: no jaundice, mottling (on rodrigo lower extremities from knees down to feet) and other (face appears flushed) Neuro: General: moves all extremities and no focal motor deficits Extrem: General: edema bilateral (1-2+ bilateral hands) Psych: Insight: L
[2021-06-08] MEDS: CALCIUM GLUC 2,000 MG/NS 100ML 2,000 MG/100 ML BAG 100 MG IVPB (12:10)
[2021-06-08 12:11] LABS: Glucose Point of Care 119 mg/dl (65-105)
[2021-06-08] MEDS: CENTRAL LINE FLUSH 10 ML IV PUSH ×3 (14:36→21:35)
[2021-06-08 16:22] LABS: Glucose Point of Care 136 mg/dl (65-105)
[2021-06-08] MEDS: ACETAMINOPHEN 325 MG TABLET 650 MG PO (16:50)
[2021-06-08] MEDS: MINERAL OIL/WHITE PETROLATUM OINTMENT 1 APPLIC EACH EYE (21:35)
[2021-06-08 21:40] LABS: Glucose Point of Care 148 mg/dl (65-105)
[2021-06-09] VITALS (48 sets, daily range): BP systolic 87–130; BP diastolic 62–79; PULSE 100–121; RESP 24–29; TEMP 37.9–38.5; O2SAT 96–100; BMI 33.5
[2021-06-09 00:15] LABS: Glucose Point of Care 245 mg/dl (65-105)
[2021-06-09] MEDS: INSULIN ASPART (*BKC) 100 UNITS/ML SUB-Q (00:18)
[2021-06-09] MEDS: ACETAMINOPHEN 325 MG TABLET 650 MG PO ×2 (01:00→16:10)
[2021-06-09 04:58] LABS: Glucose Point of Care 159 mg/dl (65-105)
[2021-06-09 05:16] LABS: Hematocrit 32.8 % (42.0-52.0); Hemoglobin 10.9 g/dL (14.0-18.0); Mean Corpuscular HGB Conc 33.2 g/dl (32-36); Mean Corpuscular Hemoglobin 35.3 pg (26-34); Mean Corpuscular Volume 106.1 fl (80-100); Platelet Count Result 90 k/mm3 (150-375); Red Blood Count 3.09 M/mm3 (4.6-6.20); White Blood Count 7.7 K/mm3 (4.5-10.0)
[2021-06-09 05:18] LABS: Alveolar/Arterial O2 Gradient 446.7 mmHg; Base Excess ABG -6.2 mEq/l (+/-2.0); Carboxyhemoglobin 0.3 % THb (0-2.0); Fractional Inspired Oxygen 80 %; HCO3 ABG 17.8 mEq/l (22.0-26.0); Methemoglobin ABG 0.2 %THb (0-1.5); Oxygen Content ABG 16.4 %vol (16.0-22.0); Oxyhemoglobin 95.7 % THb (90.0-100.0); PCO2 ABG 30.8 mmHg (35.0-45.0); PO2 ABG 91.4 mmHg (80.0-100.0); PO2 FiO2 Ratio Arterial Blood 1.14 %; Reduced Hemoglobin 3.8 %THb (0-5.0); Total Hemoglobin 12.1 g/dL (12.0-18.0)
[2021-06-09 05:19] LABS: Device VENTILATOR; Modified Allen's Test Pass; Site Drawn LEFT RADIAL
[2021-06-09] MEDS: DEXTROSE 5%/0.9% SOD CHL 1,000 ML 150 ML IV CONT ×3 (05:19→17:10)
[2021-06-09 05:20] LABS: Arterial Blood Gas PEEP 8 cmH2O; Arterial Blood Gas Tidal Volume 450 ml; Arterial Blood Gas Vent Mode CMV; Arterial Blood Gas Ventilator rate 25 /MIN
[2021-06-09] MEDS: CENTRAL LINE FLUSH 10 ML IV PUSH ×4 (05:20→19:50)
[2021-06-09 05:39] LABS: Alanine Aminotransferase 501 U/L (4-50); Albumin Level 2.6 g/dL (3.5-5.1); Alkaline Phosphatase 53 U/L (38-126); Anion Gap 9 mmol/L (8-16); Blood Urea Nitrogen 61 mg/dL (9-20); Calcium 4.8 mg/dL (8.4-10.2); Carbon Dioxide 20 mmol/L (22-30); Chloride 109 mmol/L (98-107); Estimated CRCL calculation 14 ml/min; Estimated Glomerular Filt Rate 8; Glucose 160 mg/dL (65-110); Lipase 338 U/L (23-300); Phosphorus 4.5 mg/dL (2.5-4.5); Potassium 3.7 mmol/L (3.4-5.0); Sodium 138 mmol/L (137-145)
[2021-06-09 05:47] LABS: Aspartate Amino Transferase 1113 U/L (17-59)
[2021-06-09 06:28] LABS: Creatine Kinase 5589 U/L (55-170)
--- NOTE | 2021-06-09 07:00 | PC.NURSE ---
rate change on levophed infusion on 06/08/21 at 2200 incorrect, wrong patient. Rate corrected at 2201
[2021-06-09] MEDS: NOREPINEPHRINE 8 MG/D5W 250 ML 8 MG/250 ML BAG 9.38 MG IV CONT (07:15)
[2021-06-09] MEDS: FENTANYL 2,500MCG/NS250ML(*CRX 2,500 MCG/250 ML BAG 12.5 MCG IV CONT (07:19)
[2021-06-09] MEDS: FOLIC ACID 1 MG/0.2 ML INJ IV PUSH (08:01)
[2021-06-09] MEDS: ENOXAPARIN 30 MG/0.3 ML SYRINGE SUB-Q (08:01)
[2021-06-09] MEDS: ERTAPENEM SODIUM 0.5 GM in SODIUM CHLORIDE 0.9% IV 50 ML IVPB (08:01)
[2021-06-09 08:02] LABS: Glucose Point of Care 147 mg/dl (65-105)
[2021-06-09] MEDS: PANTOPRAZOLE SODIUM IV 40 MG VIAL IV PUSH (08:02)
[2021-06-09] MEDS: BUMETANIDE INJ 1 MG/4 ML VIAL 2 MG IV PUSH ×2 (08:02→16:15)
[2021-06-09] MEDS: THIAMINE HCL 200 MG/2 ML VIAL 100 MG IV PUSH (08:02)
[2021-06-09] MEDS: MINERAL OIL/WHITE PETROLATUM OINTMENT 1 APPLIC EACH EYE ×2 (08:02→19:50)
--- NOTE | 2021-06-09 08:21 | PM.PNGS ---
Progress Note: A&P Assessment and Plan (1) Acute pancreatitis: Qualifiers: Acute pancreatitis complication: unspecified Pancreatitis type: unspecified pancreatitis type Qualified Code(s): K85.90 - Acute pancreatitis without necrosis or infection, unspecified Code(s): K85.90 - Acute pancreatitis without necrosis or infection, unspecified Status: Acute Assessment and Plan: severe acute pancreatitis with sepsis, multi-system organ failure, rhabdomyolysis, and either encephalopathy due to sepsis or alcohol withdrawal, difficult to tell. No indication for surgical treatment at this time. In fact does seem to be slowly improving with current critical care measures. Will follow peripherally. Discussed with multicultural internship, Dr. Patel. (2) Sepsis: Code(s): A41.9 - Sepsis, unspecified organism Status: Acute Assessment and Plan: With multi-system failure -respiratory, mental status, renal, as low platelets as well. (3) Acute respiratory failure: Code(s): J96.00 - Acute respiratory failure, unspecified whether with hypoxia or hypercapnia Status: Acute (4) Encephalopathy: Code(s): G93.40 - Encephalopathy, unspecified Status: Acute (5) Rhabdomyolysis: Code(s): M62.82 - Rhabdomyolysis Status: Acute (6) Alcohol withdrawal: Code(s): F10.239 - Alcohol dependence with withdrawal, unspecified Status: Acute (7) Renal failure: Qualifiers: Renal failure chronicity: unspecified chronicity Qualified Code(s): N19 - Unspecified kidney failure Code(s): N19 - Unspecified kidney failure Status: Acute Subjective Subjective Date/Time Seen: 06/09/21 08:21 Patient reports: other ( Intubated but arouses to tactile or verbal stimulus) Review of Systems Review of Systems: ROS unobtainable: Yes unobtainable due to endotracheal tube Exam GI: Inspection: Abdominal wall edema and distended GI Palp: Yes Firmness to palpation present (GI), Yes Tenderness to palpation present (GI), No Hernia present and No Palpable mass present Auscultation: absent bowel sounds Objective Data Vital Signs Vital Signs: Vital Signs - 24 hr 06/08/21 09:30 06/08/21 09:34 06/08/21 09:44 Temperature Pulse Rate 139 H 138 H 129 H Respiratory Rate 33 H 30 H Blood Pressure Pulse Oximetry 94 06/08/21 10:00 06/08/21 11:00 06/08/21 11:19 Temperature Pulse Rate 133 H 106 H 104 H Respiratory Rate 43 H 25 H Blood Pressure 113/62 Pulse Oximetry 94 97 06/08/21 11:30 06/08/21 11:31 06/08/21 12:00 Temperature 37.3 C Pulse Rate 102 H 102 H 101 H Respiratory Rate 25 H Blood Pressure 71/46 L 71/46 L 89/64 L Pulse Oximetry 100 06/08/21 14:00 06/08/21 14:15 06/08/21 14:23 Temperature 38.1 C H Pulse Rate 99 99 100 Respiratory Rate 25 H Blood Pressure 83/53 L 80/57 L Pulse Oximetry 100 99 06/08/21 15:36 06/08/21 16:00 06/08/21 16:02 Temperature 39.1 C H Pulse Rate 99 98 98 Respiratory Rate 25 H 25 H Blood Pressure 82/56 L 82/56 L Pulse Oximetry 99 99 06/08/21 16:50 06/08/21 17:33 06/08/21 17:40 Temperature 38.6 C H 38.7 C H Pulse Rate 97 Respiratory Rate Blood Pressure Pulse Oximetry 98 06/08/21 17:47 06/08/21 18:00 06/08/21 19:30 Temperature 38.7 C H Pulse Rate 97 96 96 Respiratory Rate 25 H 25 H Blood Pressure 86/61 L Pulse Oximetry 98 06/08/21 20:00 06/08/21 20:02 06/08/21 22:00 Temperature 38.4 C H 38.2 C H Pulse Rate 97 100 108 H Respiratory Rate 25 H 25 H Blood Pressure 106/75 41/16 L Pulse Oximetry 98 98 96 06/08/21 22:01 06/08/21 23:35 06/09/21 00:00 Temperature 38.2 C H Pulse Rate 115 H 105 H 101 H Respiratory Rate 25 H Blood Pressure 113/69 111/68 Pulse Oximetry 96 96 06/09/21 01:00 06/09/21 02:00 06/09/21 02:40 Temperature 38.5 C H 38.4 C H Pulse Rate 109 H 106 H Respiratory Rate 25 H Blood Pressure 113/74 Pulse
[2021-06-09] MEDS: MIDAZOLAM 100MG/NS 100ML(*CRX) 100 MG/100 ML BAG IV CONT (08:37)
[2021-06-09] MEDS: LORazepam INJ (*CRX) 2 MG/ML VIAL 0.5 MG IV PUSH (09:53)
--- NOTE | 2021-06-09 11:27 | P.PNNP_ITS ---
Progress Note: A&P Assessment and Plan (1) Renal failure: Qualifiers: Renal failure chronicity: unspecified chronicity Qualified Code(s): N19 - Unspecified kidney failure Code(s): N19 - Unspecified kidney failure Status: Acute Assessment and Plan: * no reported history of renal insufficiency/CKD * creatinine normal in 2018 but no more recent labs/blood work * evaluation to date: * renal ultrasound normal * borderline prerenal urine electrolytes * CPK elevated at 9000 * suspect multifactorial ATN: * dehydration/volume depletion * pancreatitis * rhabdomyolysis * HD today to optimize clearance and stabilize electrolytes and volume status * follow trend of repeat labs and UOP to assess for potential renal recovery (2) Acute pancreatitis: Qualifiers: Acute pancreatitis complication: unspecified Pancreatitis type: unspecified pancreatitis type Qualified Code(s): K85.90 - Acute pancreatitis without necrosis or infection, unspecified Code(s): K85.90 - Acute pancreatitis without necrosis or infection, unspecified Status: Acute Assessment and Plan: * as evidenced by admission imaging and lipase * lipase is trending down * s/p IVF resuscitation * pain control * GI and Surgery following (3) Acute respiratory failure: Code(s): J96.00 - Acute respiratory failure, unspecified whether with hypoxia or hypercapnia Status: Acute Assessment and Plan: * secondary to pulmonary edema + pleural effusion * intubated due to worsening mentatation, hypoxia, and inability to protect airway * follow CXR and ABGs - continue mechanical ventilation * weaning as tolerated (4) Sepsis: Code(s): A41.9 - Sepsis, unspecified organism Status: Acute Assessment and Plan: * as noted with elevated lactic acid and leukocytosis * lactic acid has since normalized * presumably due to severe pancreatitis * follow culture data (nagative so far) * on IV antibiotics * vasopressor support to maintain MAP (5) Alcohol abuse: Code(s): F10.10 - Alcohol abuse, uncomplicated Status: Acute Assessment and Plan: * watch for signs of withdrawal * sedated at this time Will continue to follow. Subjective Date/time seen: 06/09/21 11:27 Chart reviewed - assuming care from Dr. Cerda; tolerated hemodialysis treatmen t at the time of my visit (seen on HD at ~ 11:05); remains on low dose levophed along with sedation in association with mechanical ventilation; febrile on the last 24 hours; tolerating IV antibiotic therapy; no apparent distress noted. Exam Narrative: General: WD/WN male intubated/sedated Heart: normal S1 and S2; no rub Lungs: decreased breath sounds at bases Abdomen: soft, nontender, nondistended, decreased bowel sounds Extremities: no cyanosis or clubbing; no edema Skin: warm and dry Objective Data Vital Signs Vital Signs: Vital Signs Temp Pulse Resp BP Pulse Ox 06/09/21 11:15 121 H 87/71 L 06/09/21 10:00 37.9 C H 112 H 27 H 99/69 L 98 06/09/21 09:45 111 H 101/79 06/09/21 09:31 113 H 29 H 06/09/21 09:30 114 H 29 H 130/76 06/09/21 09:00 108 H 116/75 06/09/21 08:37 107 H 25 H 06/09/21 08:15 108 H 98 06/09/21 08:00 38.1 C H 107 H 25 H 111/74 98 06/09/21 07:51 107 H 113/75
--- NOTE | 2021-06-09 11:27 | PM.PNNEP ---
Progress Note: A&P Assessment and Plan (1) Renal failure: Qualifiers: Renal failure chronicity: unspecified chronicity Qualified Code(s): N19 - Unspecified kidney failure Code(s): N19 - Unspecified kidney failure Status: Acute Assessment and Plan: no reported history of renal insufficiency/CKD creatinine normal in 2018 but no more recent labs/blood work evaluation to date: renal ultrasound normal borderline prerenal urine electrolytes CPK elevated at 9000 suspect multifactorial ATN: dehydration/volume depletion pancreatitis rhabdomyolysis HD today to optimize clearance and stabilize electrolytes and volume status follow trend of repeat labs and UOP to assess for potential renal recovery (2) Acute pancreatitis: Qualifiers: Acute pancreatitis complication: unspecified Pancreatitis type: unspecified pancreatitis type Qualified Code(s): K85.90 - Acute pancreatitis without necrosis or infection, unspecified Code(s): K85.90 - Acute pancreatitis without necrosis or infection, unspecified Status: Acute Assessment and Plan: as evidenced by admission imaging and lipase lipase is trending down s/p IVF resuscitation pain control GI and Surgery following (3) Acute respiratory failure: Code(s): J96.00 - Acute respiratory failure, unspecified whether with hypoxia or hypercapnia Status: Acute Assessment and Plan: secondary to pulmonary edema + pleural effusion intubated due to worsening mentatation, hypoxia, and inability to protect airway follow CXR and ABGs - continue mechanical ventilation weaning as tolerated (4) Sepsis: Code(s): A41.9 - Sepsis, unspecified organism Status: Acute Assessment and Plan: as noted with elevated lactic acid and leukocytosis lactic acid has since normalized presumably due to severe pancreatitis follow culture data (nagative so far) on IV antibiotics vasopressor support to maintain MAP (5) Alcohol abuse: Code(s): F10.10 - Alcohol abuse, uncomplicated Status: Acute Assessment and Plan: watch for signs of withdrawal sedated at this time Will continue to follow. Subjective Date/time seen: 06/09/21 11:27 Chart reviewed - assuming care from Dr. Cerda; tolerated hemodialysis treatment at the time of my visit (seen on HD at ~ 11:05); remains on low dose levophed along with sedation in association with mechanical ventilation; febrile on the last 24 hours; tolerating IV antibiotic therapy; no apparent distress noted. Exam Narrative: General: WD/WN male intubated/sedated Heart: normal S1 and S2; no rub Lungs: decreased breath sounds at bases Abdomen: soft, nontender, nondistended, decreased bowel sounds Extremities: no cyanosis or clubbing; no edema Skin: warm and dry Objective Data Vital Signs Vital Signs: Vital Signs Temp Pulse Resp BP Pulse Ox 06/09/21 11:15 121 H 87/71 L 06/09/21 10:00 37.9 C H 112 H 27 H 99/69 L 98 06/09/21 09:45 111 H 101/79 06/09/21 09:31 113 H 29 H 06/09/21 09:30 114 H 29 H 130/76 06/09/21 09:00 108 H 116/75 06/09/21 08:37 107 H 25 H 06/09/21 08:15 108 H 98 06/09/21 08:00 38.1 C H 107 H 25 H 111/74 98 06/09/21 07:51 107 H 113/75 06/09/21 07:45 108 H 113/74 06/09/21 07:31 109 H 113/74 06/09/21 07:25 106 H 26 H 98 06/09/21 07:21 106 H 27 H 06/09/21 07:19 106 H 27 H 06/09/21 07:15 106 H 122/76 06/09/21 06:00 38.1 C H 102 H 25 H 122/76 99 06/09/21 05:59 102 H 27 H 06/09/21 04:45 103 H 99 06/09/21 04:00 38.3 C H 104 H 25 H 117/74 99 06/09/21 02:40 106 H 96 06/09/21 02:00 38.4 C H 109 H 25 H 113/74 96 06/09/21 01:00 38.5 C H 06/09/21 00:00 38.2 C H 101 H 25 H 111/68 96 06/08/21 23:35 105 H 96 06/08/21 22:01 115 H 113/69 06/08/21 22:00 38.2 C H
[2021-06-09 11:43] LABS: Glucose Point of Care 132 mg/dl (65-105)
[2021-06-09 12:00] LABS: Hepatitis B Surface Antigen Negative (Negative)
--- NOTE | 2021-06-09 12:58 | WPDINTPN ---
Progress Note: A&P Assessment and Plan (1) Acute respiratory failure: Code(s): J96.00 - Acute respiratory failure, unspecified whether with hypoxia or hypercapnia Status: Acute Assessment and Plan: Secondary to pulmonary edema and pleural effusion Patient emergently intubated on 06/08/2021 due to poor mental status and hypoxia Chest x-ray and ABGs reviewed, ventilator adjusted, currently on peep of 8 and 55% FiO2 Patient dialyzed on 06/09/2021 with removal of 3.5 L of fluid. Continue ertapenem and vancomycin (2) Encephalopathy: Code(s): G93.40 - Encephalopathy, unspecified Status: Acute Assessment and Plan: Metabolic encephalopathy His ammonia and head CT were normal on presentation Currently sedated (3) Sepsis: Code(s): A41.9 - Sepsis, unspecified organism Status: Acute Assessment and Plan: Patient met criteria for sepsis with elevated lactic acid, WBC Likely secondary to severe pancreatitis Patient is on Invanz and vancomycin 06/06/2021 blood and urine cultures are negative so far Patient received close to 10 L of fluid since admission appears to have developed volume overload Lactic acid has normalized Levophed to maintain blood pressure (4) Renal failure: Qualifiers: Renal failure chronicity: unspecified chronicity Qualified Code(s): N19 - Unspecified kidney failure Code(s): N19 - Unspecified kidney failure Status: Acute Assessment and Plan: Secondary to sepsis, it is hypokalemia, also has rhabdomyolysis He appears to have developed ATN Ultrasound did not show any hydronephrosis Nephrology following His acidosis and potassium level adequate but his rhabdomyolysis is worse with elevated CK level. His urine output has remained poor. Patient did receive Bumex 06/08/2021 per Nephrology -dialysis catheter was placed on 06/08/2021 and received his 1st dialysis on 06/09/2021 with removal 3500 mL of fluid (5) Rhabdomyolysis: Code(s): M62.82 - Rhabdomyolysis Status: Acute Assessment and Plan: Continue IV fluids but at conservative level as patient now has volume overload CK levels trending (6) Acute pancreatitis: Qualifiers: Acute pancreatitis complication: unspecified Pancreatitis type: unspecified pancreatitis type Qualified Code(s): K85.90 - Acute pancreatitis without necrosis or infection, unspecified Code(s): K85.90 - Acute pancreatitis without necrosis or infection, unspecified Status: Acute Assessment and Plan: Abdominal CT was read as the following 1. Findings consistent with severe acute pancreatitis. Small reactive ascites. Correlate with amylase, lipase levels. 2. Basilar subsegmental atelectasis. 3. Small left pleural effusion. 4. Hepatic steatosis. Lipase 4735 -> 4331->1181-> [address] NPO NG tube in place IV fluids Pain control with IV fentanyl infusion GI and Surgery following (7) Dehydration: Code(s): E86.0 - Dehydration Status: Acute Assessment and Plan: Patient has received adequate amount of IV fluids (8) Alcohol withdrawal: Code(s): F10.239 - Alcohol dependence with withdrawal, unspecified Status: Acute Assessment and Plan: Patient was on Precedex infusion but now he has been switched to Versed and fentanyl Continue Thiamine and folic acid (9) Metabolic acidosis: Code(s): E87.2 - Acidosis Status: Acute Assessment and Plan: Improved after IV fluids bicarb which is off -started dialysis 06/09/2021 (10) Elevated liver enzymes: Code(s): R74.8 - Abnormal levels of other serum enzymes Status: Acute Assessment and Plan: Likely secondary to sepsis and shock Significant elevation of AST likely from rhabdomyolysis also Monitor levels which are improving Abdominal ultrasound reviewed Additional Plan DVT prophylaxis -Lovenox subQ Stress ulcer prophylaxis -PPI Nutrition -NPO. Will give bow
--- NOTE | 2021-06-09 16:02 | WPDGIPROGNO ---
Progress Note: A&P Assessment and Plan (1) Acute pancreatitis: Qualifiers: Acute pancreatitis complication: unspecified Pancreatitis type: unspecified pancreatitis type Qualified Code(s): K85.90 - Acute pancreatitis without necrosis or infection, unspecified Code(s): K85.90 - Acute pancreatitis without necrosis or infection, unspecified Status: Acute Assessment and Plan: severe pancreatitis with multiorgan failure, intubated and low dose levophed, also covered with abx lactic acid, ck, liver enzymes trending down elevated liver enzymes related to ongoing sepsis, renal failure and rhabdomyolysis, probably also component of alcohol hepatitis but bilirubin is normal continue to monitor (2) Acute respiratory failure: Code(s): J96.00 - Acute respiratory failure, unspecified whether with hypoxia or hypercapnia Status: Acute Assessment and Plan: intubated, 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 (3) Encephalopathy: Code(s): G93.40 - Encephalopathy, unspecified Status: Acute (4) Elevated liver enzymes: Code(s): R74.8 - Abnormal levels of other serum enzymes Status: Acute Assessment and Plan: continue to monitor inr and bilirubin normal trending down (5) Rhabdomyolysis: Code(s): M62.82 - Rhabdomyolysis Status: Acute Assessment and Plan: s/p dialysis trending down (6) Metabolic acidosis: Code(s): E87.2 - Acidosis Status: Acute Assessment and Plan: improved (7) Alcohol withdrawal: Code(s): F10.239 - Alcohol dependence with withdrawal, unspecified Status: Acute Assessment and Plan: banana bag, icu support (8) Sepsis: Code(s): A41.9 - Sepsis, unspecified organism Status: Acute (9) Renal failure: Qualifiers: Renal failure chronicity: unspecified chronicity Qualified Code(s): N19 - Unspecified kidney failure Code(s): N19 - Unspecified kidney failure Status: Acute Assessment and Plan: s/p dialysis nephrology on board Subjective Date/time seen: 06/09/21 16:02 Interval history: s/p dialysis, he is on low dose of levophe. LFT's, CK and lipase trending down. Still intubated and sedated, opening eyes to stimuli Review of Systems Review of Systems: All systems reviewed & are unremarkable except as noted in HPI and below Exam Const: Other: intubated and sedated HENMT: Other: ngt in place Eyes: Other: eyes open to stimuli Neck: Neck: supple Resp: Auscultation: diminished lung sounds Cardio: Rate: regular rate GI: Inspection: distended GI Palp: Yes Tenderness to palpation present (GI) Other: hypoactive bowel sounds Urinary Catheter: Urinary Catheter: patent and draining Skin: General skin exam: no erythema Neuro: Other: unable to assess Extrem: General: pedal edema Psych: Other: uanble to assess Objective Data Vital Signs Vital Signs: Vital Signs - 24 hr 06/08/21 16:50 06/08/21 17:33 06/08/21 17:40 Temperature 101.4 F H 101.7 F H Pulse Rate 97 Respiratory Rate Blood Pressure Pulse Oximetry 98 06/08/21 17:47 06/08/21 18:00 06/08/21 19:30 Temperature 101.7 F H Pulse Rate 97 96 96 Respiratory Rate 25 H 25 H Blood Pressure 86/61 L Pulse Oximetry 98 06/08/21 20:00 06/08/21 20:02 06/08/21 22:00 Temperature 101.1 F H 100.8 F H Pulse Rate 97 100 108 H Respiratory Rate 25 H 25 H Blood Pressure 106/75 41/16 L Pulse Oximetry 98 98 96 06/08/21 22:01 06/08/21 23:35 06/09/21 00:00 Temperature 100.8 F H Pulse Rate 115 H 105 H 101 H Respiratory Rate 25 H Blood Pressure 113/69 111/68 Pulse Oximetry 96 96 06/09/21 01:00 06/09/21 02:00 06/09/21 02:40 Temperature 101.3 F H 101.2 F H Pulse Rate 109 H 106 H Respiratory Rate 25 H Blood Pressure 113/74 Pulse Oximetry 96 96 06/09/21 04:00 06/09/21 04:45 06/09/21 05:59 Temperature 101 F H Pulse Rate 104 H 103 H 102 H Respirato
[2021-06-09 16:21] LABS: Glucose Point of Care 154 mg/dl (65-105)
[2021-06-09 19:44] LABS: Glucose Point of Care 157 mg/dl (65-105)
[2021-06-09] MEDS: FENTANYL 2,500MCG/NS250ML(*CRX 2,500 MCG/250 ML BAG 17.5 MCG IV CONT (21:38)
[2021-06-09] MEDS: MIDAZOLAM 100MG/NS 100ML(*CRX) 100 MG/100 ML BAG 7 MG IV CONT (22:33)
[2021-06-10] VITALS (34 sets, daily range): BP systolic 107–127; BP diastolic 66–83; PULSE 103–114; RESP 22–28; TEMP 37.8–38.2; O2SAT 94–100
[2021-06-10 00:50] LABS: Glucose Point of Care 154 mg/dl (65-105)
[2021-06-10] MEDS: DEXTROSE 5%/0.9% SOD CHL 1,000 ML 150 ML IV CONT (01:24)
[2021-06-10 04:26] LABS: Hematocrit 31.5 % (42.0-52.0); Hemoglobin 10.4 g/dL (14.0-18.0); Mean Corpuscular Volume 106.1 fl (80-100); Mean Platelet Volume 10.7 fl (7.4-10.4); Platelet Count Result 93 k/mm3 (150-375); Red Blood Count 2.97 M/mm3 (4.6-6.20); Red Cell Distribution Width 14.1 % (11.5-14.5); White Blood Count 8.2 K/mm3 (4.5-10.0)
[2021-06-10 04:55] LABS: Lactic Acid Reflex 1.1 mmol/L (0.7-2.1)
[2021-06-10 05:10] LABS: Alanine Aminotransferase 296 U/L (4-50); Albumin Level 2.5 g/dL (3.5-5.1); Alkaline Phosphatase 58 U/L (38-126); Anion Gap 8 mmol/L (8-16); Aspartate Amino Transferase 362 U/L (17-59); Bilirubin,Total 1.4 mg/dL (0.2-1.3); Blood Urea Nitrogen 39 mg/dL (9-20); Calcium 5.6 mg/dL (8.4-10.2); Carbon Dioxide 25 mmol/L (22-30); Chloride 108 mmol/L (98-107); Creatine Kinase 2260 U/L (55-170); Estimated CRCL calculation 24 ml/min; Estimated Glomerular Filt Rate 16; Glucose 182 mg/dL (65-110); Lipase 111 U/L (23-300); Magnesium 1.8 mg/dL (1.6-2.3); Potassium 3.1 mmol/L (3.4-5.0); Sodium 141 mmol/L (137-145)
[2021-06-10 05:12] LABS: Alveolar/Arterial O2 Gradient 213.8 mmHg; Base Excess ABG -0.8 mEq/l (+/-2.0); Carboxyhemoglobin 0.3 % THb (0-2.0); Fractional Inspired Oxygen 45 %; HCO3 ABG 21.5 mEq/l (22.0-26.0); Methemoglobin ABG 0.1 %THb (0-1.5); Oxygen Content ABG 15.4 %vol (16.0-22.0); Oxygen Saturation ABG 96.2 % (95.0-100.0); Oxyhemoglobin 94.3 % THb (90.0-100.0); PCO2 ABG 28.4 mmHg (35.0-45.0); PO2 ABG 74.7 mmHg (80.0-100.0); PO2 FiO2 Ratio Arterial Blood 1.66 %; Reduced Hemoglobin 5.3 %THb (0-5.0); Total Hemoglobin 11.6 g/dL (12.0-18.0); pH ABG 7.497 (7.350-7.450)
[2021-06-10] MEDS: CENTRAL LINE FLUSH 10 ML IV PUSH ×4 (05:12→19:51)
[2021-06-10 05:13] LABS: Device VENTILATOR; Modified Allen's Test Unable to perform; Site Drawn RIGHT RADIAL
[2021-06-10 05:14] LABS: Arterial Blood Gas Ventilator rate 25 /MIN
[2021-06-10 05:15] LABS: Arterial Blood Gas PEEP 8 cmH2O; Arterial Blood Gas Tidal Volume 450 ml; Arterial Blood Gas Vent Mode CMV
[2021-06-10 07:42] LABS: Glucose Point of Care 178 mg/dl (65-105)
[2021-06-10] MEDS: FOLIC ACID 1 MG/0.2 ML INJ IV PUSH (08:17)
[2021-06-10] MEDS: KCL 20 MEQ/SW 100 ML 100 ML 50 MEQ IVPB (08:17)
[2021-06-10] MEDS: THIAMINE HCL 200 MG/2 ML VIAL 100 MG IV PUSH (08:18)
[2021-06-10] MEDS: MINERAL OIL/WHITE PETROLATUM OINTMENT 1 APPLIC EACH EYE ×2 (08:18→19:51)
[2021-06-10] MEDS: BUMETANIDE INJ 1 MG/4 ML VIAL 2 MG IV PUSH ×2 (08:18→16:31)
[2021-06-10] MEDS: PANTOPRAZOLE SODIUM IV 40 MG VIAL IV PUSH (08:18)
[2021-06-10] MEDS: ERTAPENEM SODIUM 0.5 GM in SODIUM CHLORIDE 0.9% IV 50 ML IVPB (09:05)
[2021-06-10] MEDS: MIDAZOLAM 100MG/NS 100ML(*CRX) 100 MG/100 ML BAG 7 MG IV CONT (10:04)
[2021-06-10] MEDS: FENTANYL 2,500MCG/NS250ML(*CRX 2,500 MCG/250 ML BAG 17.5 MCG IV CONT ×2 (10:07→23:24)
--- NOTE | 2021-06-10 12:02 | P.PNNP_ITS ---
Progress Note: A&P Assessment and Plan (1) Renal failure: Qualifiers: Renal failure chronicity: unspecified chronicity Qualified Code(s): N19 - Unspecified kidney failure Code(s): N19 - Unspecified kidney failure Status: Acute Assessment and Plan: * no reported history of renal insufficiency/CKD * creatinine normal in 2018 but no more recent labs/blood work * evaluation to date: * renal ultrasound normal * borderline prerenal urine electrolytes * CPK elevated at 9000 * suspect multifactorial ATN: * dehydration/volume depletion * pancreatitis * rhabdomyolysis * HD yesterdagto optimize clearance and stabilize electrolytes and volume status * increased urine output in the last 24 hours -- possible recovery? * follow trend of repeat labs and UOP (2) Acute pancreatitis: Qualifiers: Acute pancreatitis complication: unspecified Pancreatitis type: unspecified pancreatitis type Qualified Code(s): K85.90 - Acute pancreatitis without necrosis or infection, unspecified Code(s): K85.90 - Acute pancreatitis without necrosis or infection, unspecified Status: Acute Assessment and Plan: * as evidenced by admission imaging and lipase * lipase is trending down * s/p IVF resuscitation * pain control * GI and Surgery following (3) Acute respiratory failure: Code(s): J96.00 - Acute respiratory failure, unspecified whether with hypoxia or hypercapnia Status: Acute Assessment and Plan: * secondary to pulmonary edema + pleural effusion * intubated due to worsening mentatation, hypoxia, and inability to protect airway * follow CXR and ABGs - continue mechanical ventilation * weaning as tolerated (4) Sepsis: Code(s): A41.9 - Sepsis, unspecified organism Status: Acute Assessment and Plan: * as noted with elevated lactic acid and leukocytosis * lactic acid has since normalized * presumably due to severe pancreatitis * follow culture data (nagative so far) * on IV antibiotics * off vasopressor support (5) Alcohol abuse: Code(s): F10.10 - Alcohol abuse, uncomplicated Status: Acute Assessment and Plan: * watch for signs of withdrawal * sedated at this time Will continue to follow. Subjective Date/time seen: 06/10/21 12:02 Tolerated dialysis treatment yesterday without any issues or problems; low grade temperature overnight; remains hemodynamically stable off vasopressor support; improved urine output overnight noted; remains intubated/sedated and on mechanical ventilatory support. Exam Narrative: General: WD/WN male intubated/sedated Heart: normal S1 and S2; no rub Lungs: decreased breath sounds at bases Abdomen: soft, nontender, nondistended, decreased bowel sounds Extremities: no cyanosis or clubbing; no edema Skin: warm and intact Objective Data Vital Signs Vital Signs: Vital Signs Temp Pulse Resp BP Pulse Ox 06/10/21 12:00 38.2 C H 109 H 22 H 114/81 100 06/10/21 11:07 110 H 23 H 100 06/10/21 10:35 109 H 100 06/10/21 10:07 113 H 28 H 06/10/21 10:04 110 H 23 H 06/10/21 10:00 110 H 22 H 109/76 100 06/10/21 09:05 109 H 120/80 06/10/21 08:10 105 H 98 06/10/21 08:00 38.1 C H 103 H 25 H 119/75 99 06/10/21 07:21 107 H 25 H 98 06/10/21
--- NOTE | 2021-06-10 12:02 | PM.PNNEP ---
Progress Note: A&P Assessment and Plan (1) Renal failure: Qualifiers: Renal failure chronicity: unspecified chronicity Qualified Code(s): N19 - Unspecified kidney failure Code(s): N19 - Unspecified kidney failure Status: Acute Assessment and Plan: no reported history of renal insufficiency/CKD creatinine normal in 2018 but no more recent labs/blood work evaluation to date: renal ultrasound normal borderline prerenal urine electrolytes CPK elevated at 9000 suspect multifactorial ATN: dehydration/volume depletion pancreatitis rhabdomyolysis HD yesterdagto optimize clearance and stabilize electrolytes and volume status increased urine output in the last 24 hours -- possible recovery? follow trend of repeat labs and UOP (2) Acute pancreatitis: Qualifiers: Acute pancreatitis complication: unspecified Pancreatitis type: unspecified pancreatitis type Qualified Code(s): K85.90 - Acute pancreatitis without necrosis or infection, unspecified Code(s): K85.90 - Acute pancreatitis without necrosis or infection, unspecified Status: Acute Assessment and Plan: as evidenced by admission imaging and lipase lipase is trending down s/p IVF resuscitation pain control GI and Surgery following (3) Acute respiratory failure: Code(s): J96.00 - Acute respiratory failure, unspecified whether with hypoxia or hypercapnia Status: Acute Assessment and Plan: secondary to pulmonary edema + pleural effusion intubated due to worsening mentatation, hypoxia, and inability to protect airway follow CXR and ABGs - continue mechanical ventilation weaning as tolerated (4) Sepsis: Code(s): A41.9 - Sepsis, unspecified organism Status: Acute Assessment and Plan: as noted with elevated lactic acid and leukocytosis lactic acid has since normalized presumably due to severe pancreatitis follow culture data (nagative so far) on IV antibiotics off vasopressor support (5) Alcohol abuse: Code(s): F10.10 - Alcohol abuse, uncomplicated Status: Acute Assessment and Plan: watch for signs of withdrawal sedated at this time Will continue to follow. Subjective Date/time seen: 06/10/21 12:02 Tolerated dialysis treatment yesterday without any issues or problems; low grade temperature overnight; remains hemodynamically stable off vasopressor support; improved urine output overnight noted; remains intubated/sedated and on mechanical ventilatory support. Exam Narrative: General: WD/WN male intubated/sedated Heart: normal S1 and S2; no rub Lungs: decreased breath sounds at bases Abdomen: soft, nontender, nondistended, decreased bowel sounds Extremities: no cyanosis or clubbing; no edema Skin: warm and intact Objective Data Vital Signs Vital Signs: Vital Signs Temp Pulse Resp BP Pulse Ox 06/10/21 12:00 38.2 C H 109 H 22 H 114/81 100 06/10/21 11:07 110 H 23 H 100 06/10/21 10:35 109 H 100 06/10/21 10:07 113 H 28 H 06/10/21 10:04 110 H 23 H 06/10/21 10:00 110 H 22 H 109/76 100 06/10/21 09:05 109 H 120/80 06/10/21 08:10 105 H 98 06/10/21 08:00 38.1 C H 103 H 25 H 119/75 99 06/10/21 07:21 107 H 25 H 98 06/10/21 05:55 105 H 25 H 125/79 100 06/10/21 05:54 107 H 06/10/21 05:25 110 H 99 06/10/21 04:00 38.1 C H 107 H 25 H 107/66 100 06/10/21 02:35 112 H 100 06/10/21 02:00 38.1 C H 109 H 25 H 115/73 100 06/10/21 00:00 38.1 C H 108 H 25 H 115/71 100 06/09/21 23:10 109 H 99 06/09/21 22:00 37.9 C H 100 25 H 106/65 100 06/09/21 21:38 102 H 25 H 06/09/21 20:54 102 H 99 06/09/21 20:00 37.9 C H 104 H 25 H 106/64 100 Intake/Output Intake/Output: Intake & Output 06/07/21 06/08/21 06/09/21 06/10/21 23:59 23:59 23:59 23:59 Intake Total 2690 3750 5000 2130 Output Total
[2021-06-10] MEDS: ACETAMINOPHEN 325 MG TABLET 650 MG PO (12:10)
[2021-06-10 12:20] LABS: Glucose Point of Care 133 mg/dl (65-105)
--- NOTE | 2021-06-10 12:27 | WPDINTPN ---
Progress Note: A&P Assessment and Plan (1) Acute respiratory failure: Code(s): J96.00 - Acute respiratory failure, unspecified whether with hypoxia or hypercapnia Status: Acute Assessment and Plan: Secondary to pulmonary edema and pleural effusion Patient emergently intubated on 06/08/2021 due to poor mental status and hypoxia Chest x-ray and ABGs reviewed, ventilator adjusted, currently on peep of 8 and 45% FiO2 Patient dialyzed on 06/09/2021 with removal of 3500 mL of fluid. -patient also made adequate urine overnight Continue ertapenem and vancomycin (2) Encephalopathy: Code(s): G93.40 - Encephalopathy, unspecified Status: Acute Assessment and Plan: Metabolic encephalopathy His ammonia and head CT were normal on presentation Currently sedated (3) Sepsis: Code(s): A41.9 - Sepsis, unspecified organism Status: Acute Assessment and Plan: Patient met criteria for sepsis with elevated lactic acid, WBC Likely secondary to severe pancreatitis Patient is on Invanz and vancomycin 06/06/2021 blood and urine cultures are negative so far Patient received close to 10 L of fluid since admission appears to have developed volume overload Lactic acid has normalized Levophed to maintain blood pressure (4) Renal failure: Qualifiers: Renal failure chronicity: unspecified chronicity Qualified Code(s): N19 - Unspecified kidney failure Code(s): N19 - Unspecified kidney failure Status: Acute Assessment and Plan: Secondary to sepsis, it is hypokalemia, also has rhabdomyolysis He appears to have developed ATN Ultrasound did not show any hydronephrosis Nephrology following His acidosis and potassium level adequate but his rhabdomyolysis is worse with elevated CK level. His urine output has remained poor. Patient did receive Bumex 06/08/2021 per Nephrology -dialysis catheter was placed on 06/08/2021 and received his 1st dialysis on 06/09/2021 with removal 3500 mL of fluid -patient also started to put out adequate urine (5) Rhabdomyolysis: Code(s): M62.82 - Rhabdomyolysis Status: Acute Assessment and Plan: Continue IV fluids but at conservative level as patient now has volume overload CK levels trending (6) Acute pancreatitis: Qualifiers: Acute pancreatitis complication: unspecified Pancreatitis type: unspecified pancreatitis type Qualified Code(s): K85.90 - Acute pancreatitis without necrosis or infection, unspecified Code(s): K85.90 - Acute pancreatitis without necrosis or infection, unspecified Status: Acute Assessment and Plan: Abdominal CT was read as the following 1. Findings consistent with severe acute pancreatitis. Small reactive ascites. Correlate with amylase, lipase levels. 2. Basilar subsegmental atelectasis. 3. Small left pleural effusion. 4. Hepatic steatosis. Lipase 4735 -> 4331->1181-> 338-> [address] Will discontinue IV fluids, -start trickle tube feeds Pain control with IV fentanyl infusion GI and Surgery following (7) Dehydration: Code(s): E86.0 - Dehydration Status: Acute Assessment and Plan: Patient has received adequate amount of IV fluids (8) Alcohol withdrawal: Code(s): F10.239 - Alcohol dependence with withdrawal, unspecified Status: Acute Assessment and Plan: Patient was on Precedex infusion but now he has been switched to Versed and fentanyl Continue Thiamine and folic acid (9) Metabolic acidosis: Code(s): E87.2 - Acidosis Status: Acute Assessment and Plan: Improved after IV fluids bicarb which is off -started dialysis 06/09/2021 (10) Elevated liver enzymes: Code(s): R74.8 - Abnormal levels of other serum enzymes Status: Acute Assessment and Plan: Likely secondary to sepsis and shock Significant elevation of AST likely from rhabdomyolysis also Monitor levels which are improving
[2021-06-10] MEDS: ENOXAPARIN 30 MG/0.3 ML SYRINGE SUB-Q (12:45)
--- NOTE | 2021-06-10 13:08 | WPDGIPROGNO ---
Progress Note: A&P Assessment and Plan (1) Acute pancreatitis: Qualifiers: Acute pancreatitis complication: unspecified Pancreatitis type: unspecified pancreatitis type Qualified Code(s): K85.90 - Acute pancreatitis without necrosis or infection, unspecified Code(s): K85.90 - Acute pancreatitis without necrosis or infection, unspecified Status: Acute Assessment and Plan: severe pancreatitis with multiorgan failure, intubated, also covered with abx (low grade fever) off levophed and better urine output ck, liver enzymes continue to improve on low dose tube feeding now (2) Acute respiratory failure: Code(s): J96.00 - Acute respiratory failure, unspecified whether with hypoxia or hypercapnia Status: Acute Assessment and Plan: intubated, 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 (3) Encephalopathy: Code(s): G93.40 - Encephalopathy, unspecified Status: Acute Assessment and Plan: CT head on admission was ok (4) Elevated liver enzymes: Code(s): R74.8 - Abnormal levels of other serum enzymes Status: Acute Assessment and Plan: continue to monitor inr and bilirubin normal improving (5) Rhabdomyolysis: Code(s): M62.82 - Rhabdomyolysis Status: Acute Assessment and Plan: s/p dialysis trending down and making more urine now (6) Metabolic acidosis: Code(s): E87.2 - Acidosis Status: Acute Assessment and Plan: resolved (7) Alcohol withdrawal: Code(s): F10.239 - Alcohol dependence with withdrawal, unspecified Status: Acute Assessment and Plan: s/p banana bag, icu support (8) Sepsis: Code(s): A41.9 - Sepsis, unspecified organism Status: Acute (9) Renal failure: Qualifiers: Renal failure chronicity: unspecified chronicity Qualified Code(s): N19 - Unspecified kidney failure Code(s): N19 - Unspecified kidney failure Status: Acute Assessment and Plan: s/p dialysis nephrology on board Subjective Date/time seen: 06/10/21 13:08 Interval history: off levophed, urine output better, low grade fever 100.7, started on 10 ml/h tube feeding. Still intubated. Review of Systems Review of Systems: All systems reviewed & are unremarkable except as noted in HPI and below Exam Const: Other: intubated and sedated HENMT: Other: ngt in place, tube feeding Eyes: Other: eyes open to stimuli Neck: Neck: supple Resp: Auscultation: diminished lung sounds Cardio: Rate: regular rate GI: GI Palp: Yes Tenderness to palpation present (GI) Other: hypoactive bowel sounds, less distended Urinary Catheter: Urinary Catheter: patent and draining Skin: General skin exam: no erythema Neuro: Other: unable to assess Psych: Other: uanble to assess Objective Data Vital Signs Vital Signs: Vital Signs - 24 hr 06/09/21 13:13 06/09/21 13:14 06/09/21 13:15 Temperature Pulse Rate 109 H 108 H 109 H Respiratory Rate 25 H 25 H Blood Pressure 108/68 Pulse Oximetry 06/09/21 13:40 06/09/21 13:48 06/09/21 14:00 Temperature 100.5 F H Pulse Rate 108 H 107 H 111 H Respiratory Rate 24 H Blood Pressure 102/66 103/78 Pulse Oximetry 96 06/09/21 14:10 06/09/21 15:18 06/09/21 16:00 Temperature 100.6 F H Pulse Rate 112 H 104 H 104 H Respiratory Rate 25 H 25 H Blood Pressure 103/62 Pulse Oximetry 96 97 97 06/09/21 16:10 06/09/21 17:00 06/09/21 17:10 Temperature 100.6 F H 100.5 F H Pulse Rate 104 H Respiratory Rate Blood Pressure Pulse Oximetry 96 06/09/21 18:00 06/09/21 20:00 06/09/21 20:54 Temperature 100.2 F H 100.2 F H Pulse Rate 100 104 H 102 H Respiratory Rate 25 H 25 H Blood Pressure 101/64 106/64 Pulse Oximetry 97 100 99 06/09/21 21:38 06/09/21 22:00 06/09/21 23:10 Temperature 100.2 F H Pulse Rate 102 H 100 109 H Respiratory Rate 25 H 25 H Blood Pressure 106/65 Pulse Oximetry 100 99 06/10/21
[2021-06-10 16:29] LABS: Glucose Point of Care 117 mg/dl (65-105)
[2021-06-10 20:32] LABS: Glucose Point of Care 123 mg/dl (65-105)
[2021-06-10] MEDS: MIDAZOLAM 100MG/NS 100ML(*CRX) 100 MG/100 ML BAG 8 MG IV CONT (23:25)
[2021-06-10 23:39] LABS: Glucose Point of Care 125 mg/dl (65-105)
[2021-06-11] VITALS (28 sets, daily range): BP systolic 117–141; BP diastolic 77–92; PULSE 105–120; RESP 12–22; TEMP 37.2–38.2; O2SAT 95–100
[2021-06-11] MEDS: LORazepam INJ (*CRX) 2 MG/ML VIAL 0.5 MG IV PUSH (00:30)
[2021-06-11 05:03] LABS: Base Excess ABG -1.3 mEq/l (+/-2.0); pH ABG 7.535 (7.350-7.450)
[2021-06-11 05:04] LABS: Oxygen Content ABG 16.3 %vol (16.0-22.0); Total Hemoglobin 11.6 g/dL (12.0-18.0)
[2021-06-11 05:05] LABS: Carboxyhemoglobin 0.3 % THb (0-2.0); Device VENTILATOR; Fractional Inspired Oxygen 45 %; Methemoglobin ABG 0.3 %THb (0-1.5); Modified Allen's Test Pass; PO2 FiO2 Ratio Arterial Blood 3.65 %; Reduced Hemoglobin 1.5 %THb (0-5.0); Site Drawn RIGHT RADIAL
[2021-06-11 05:07] LABS: Arterial Blood Gas PEEP 8 cmH2O; Arterial Blood Gas Tidal Volume 450 ml; Arterial Blood Gas Vent Mode CMV; Arterial Blood Gas Ventilator rate 22 /MIN
[2021-06-11 06:16] LABS: Basophils Absolute Auto 0.1 K/mm3 (0.0-0.1); Basophils Percent Auto 0.7 % (0.2-1.2); Eosinophils Absolute Auto 0.1 K/mm3 (0-0.3); Eosinophils Percent Auto 0.4 % (0-4.4); Hematocrit 31.2 % (42.0-52.0); Hemoglobin 10.4 g/dL (14.0-18.0); Immature Granulocyte Absolute 0.54 K/mm3 (0.00-0.031); Immature Granulocyte Percent A 4.7 % (0-0.5); Lymphocytes Percent Auto 5.2 % (18.3-44.2); Mean Corpuscular HGB Conc 33.3 g/dl (32-36); Mean Corpuscular Hemoglobin 34.8 pg (26-34); Mean Corpuscular Volume 104.3 fl (80-100); Mean Platelet Volume 10.5 fl (7.4-10.4); Monocytes Percent Auto 8.7 % (2.6-8.5); Neutrophils Absolute Auto 9.2 K/mm3 (1.3-6.7); Neutrophils Percent Auto 80.3 % (45.5-73.1); Nucleated Red Blood Cells Absolute Auto 0.1 K/mm3 (0.0-0.012); Nucleated Red Blood Cells Perc 0.4 % (0.0-0.2); Platelet Count Result 172 k/mm3 (150-375); Red Blood Count 2.99 M/mm3 (4.6-6.20); Red Cell Distribution Width 14.6 % (11.5-14.5); White Blood Count 11.4 K/mm3 (4.5-10.0)
[2021-06-11 06:25] LABS: Lactic Acid Reflex 0.9 mmol/L (0.7-2.1); Partial Thromboplastin Time 27.5 SECONDS (22.3-36.8)
[2021-06-11] MEDS: CENTRAL LINE FLUSH 10 ML IV PUSH ×4 (06:46→21:02)
[2021-06-11 06:51] LABS: Glucose Point of Care 104 mg/dl (65-105)
[2021-06-11 07:29] LABS: Alanine Aminotransferase 187 U/L (4-50); Albumin Level 2.8 g/dL (3.5-5.1); Alkaline Phosphatase 70 U/L (38-126); Anion Gap 11 mmol/L (8-16); Aspartate Amino Transferase 136 U/L (17-59); Bilirubin,Total 1.4 mg/dL (0.2-1.3); Blood Urea Nitrogen 44 mg/dL (9-20); Calcium 6.6 mg/dL (8.4-10.2); Carbon Dioxide 24 mmol/L (22-30); Chloride 109 mmol/L (98-107); Creatine Kinase 924 U/L (55-170); Estimated CRCL calculation 33 ml/min; Estimated Glomerular Filt Rate 24; Glucose 121 mg/dL (65-110); Lipase 73 U/L (23-300); Magnesium 1.8 mg/dL (1.6-2.3); Sodium 144 mmol/L (137-145)
[2021-06-11 07:40] LABS: CRP 34.8 mg/dL (<1.0)
[2021-06-11 07:52] LABS: Glucose Point of Care 120 mg/dl (65-105)
[2021-06-11] MEDS: KCL 40 MEQ/WATER 100 ML 100 ML 25 ML IVPB (09:24)
[2021-06-11] MEDS: FOLIC ACID 1 MG/0.2 ML INJ IV PUSH (09:24)
[2021-06-11] MEDS: ERTAPENEM SODIUM 0.5 GM in SODIUM CHLORIDE 0.9% IV 50 ML IVPB (09:24)
[2021-06-11] MEDS: CALCIUM GLUC 2,000 MG/NS 100ML 2,000 MG/100 ML BAG 100 MG IVPB (09:25)
[2021-06-11] MEDS: PANTOPRAZOLE SODIUM IV 40 MG VIAL IV PUSH (09:26)
[2021-06-11] MEDS: MINERAL OIL/WHITE PETROLATUM OINTMENT 1 APPLIC EACH EYE ×2 (09:27→21:02)
[2021-06-11] MEDS: BUMETANIDE INJ 1 MG/4 ML VIAL 2 MG IV PUSH ×2 (09:27→16:10)
[2021-06-11] MEDS: THIAMINE HCL 200 MG/2 ML VIAL 100 MG IV PUSH (09:27)
[2021-06-11] MEDS: ENOXAPARIN 30 MG/0.3 ML SYRINGE SUB-Q (09:27)
--- NOTE | 2021-06-11 11:05 | WPDGIPROGNO ---
Progress Note: A&P Assessment and Plan (1) Acute pancreatitis: Qualifiers: Acute pancreatitis complication: unspecified Pancreatitis type: unspecified pancreatitis type Qualified Code(s): K85.90 - Acute pancreatitis without necrosis or infection, unspecified Code(s): K85.90 - Acute pancreatitis without necrosis or infection, unspecified Status: Acute Assessment and Plan: severe pancreatitis with multiorgan failure, intubated, also covered with abx (low grade fever) ck, liver enzymes continue to improve tube feeding on hold now because was symptomatic probably will need to ask radiology to advance Dobbhoff tube past the ligament of Treitz (post-pyloric) if unable to tolerate again (currently in gastric). (2) Acute respiratory failure: Code(s): J96.00 - Acute respiratory failure, unspecified whether with hypoxia or hypercapnia Status: Acute Assessment and Plan: intubated, check weigher on board (3) Encephalopathy: Code(s): G93.40 - Encephalopathy, unspecified Status: Acute Assessment and Plan: CT head on admission was ok (4) Elevated liver enzymes: Code(s): R74.8 - Abnormal levels of other serum enzymes Status: Acute Assessment and Plan: continue to monitor inr and bilirubin normal transaminases much improved since admission (5) Rhabdomyolysis: Code(s): M62.82 - Rhabdomyolysis Status: Acute Assessment and Plan: trending down (6) Metabolic acidosis: Code(s): E87.2 - Acidosis Status: Acute Assessment and Plan: resolved (7) Alcohol withdrawal: Code(s): F10.239 - Alcohol dependence with withdrawal, unspecified Status: Acute Assessment and Plan: s/p banana bag, icu support (8) Sepsis: Code(s): A41.9 - Sepsis, unspecified organism Status: Acute Assessment and Plan: low grade fever, on abx (9) Renal failure: Qualifiers: Renal failure chronicity: unspecified chronicity Qualified Code(s): N19 - Unspecified kidney failure Code(s): N19 - Unspecified kidney failure Status: Acute Assessment and Plan: creatinine is improving nephrology on board Subjective Date/time seen: 06/11/21 11:05 Interval history: RN noted that patient had more abdominal distension with tube feeding which was discontinued. Still intubated Review of Systems Review of Systems: All systems reviewed & are unremarkable except as noted in HPI and below Exam Const: Other: intubated and sedated, will open eyes to pain stimuli HENMT: Other: enteral tube in place Eyes: Other: eyes open to stimuli Neck: Neck: supple Resp: Auscultation: diminished lung sounds Cardio: Rate: regular rate GI: GI Palp: Yes Tenderness to palpation present (GI) Other: hypoactive bowel sounds, distended Urinary Catheter: Urinary Catheter: patent and draining Skin: General skin exam: no erythema Neuro: Other: unable to assess Extrem: General: normal to inspection Psych: Other: uanble to assess Objective Data Vital Signs Vital Signs: Vital Signs - 24 hr 06/10/21 11:07 06/10/21 12:00 06/10/21 12:10 Temperature 100.7 F H 100.7 F H Pulse Rate 110 H 109 H Respiratory Rate 23 H 22 H Blood Pressure 114/81 Pulse Oximetry 100 100 06/10/21 13:10 06/10/21 13:53 06/10/21 14:00 Temperature 100.6 F H 100.2 F H Pulse Rate 112 H 111 H Respiratory Rate 23 H Blood Pressure 119/81 Pulse Oximetry 100 98 06/10/21 15:15 06/10/21 16:00 06/10/21 17:05 Temperature 100.1 F H Pulse Rate 108 H 106 H 107 H Respiratory Rate 22 H 22 H Blood Pressure 117/83 Pulse Oximetry 98 98 97 06/10/21 18:00 06/10/21 18:40 06/10/21 19:10 Temperature Pulse Rate 110 H 113 H 108 H Respiratory Rate 22 H 28 H Blood Pressure 124/82 Pulse Oximetry 97 97 06/10/21 20:00 06/10/21 21:20 06/10/21 22:00 Temperature 100.5 F H Pulse Rate 108 H 107 H 110
--- NOTE | 2021-06-11 11:32 | WPDINTPN ---
Progress Note: A&P Assessment and Plan (1) Acute respiratory failure: Code(s): J96.00 - Acute respiratory failure, unspecified whether with hypoxia or hypercapnia Status: Acute Assessment and Plan: Secondary to pulmonary edema and pleural effusion Patient emergently intubated on 06/08/2021 due to poor mental status and hypoxia Chest x-ray and ABGs reviewed, ventilator adjusted, currently on peep of 8 and 45% FiO2 Patient dialyzed on 06/09/2021 with removal of 3500 mL of fluid. -patient also made adequate urine overnight Continue ertapenem and vancomycin (2) Encephalopathy: Code(s): G93.40 - Encephalopathy, unspecified Status: Acute Assessment and Plan: Metabolic encephalopathy His ammonia and head CT were normal on presentation Currently sedated (3) Sepsis: Code(s): A41.9 - Sepsis, unspecified organism Status: Acute Assessment and Plan: Patient met criteria for sepsis with elevated lactic acid, WBC Likely secondary to severe pancreatitis Patient is on Invanz and vancomycin 06/06/2021 blood and urine cultures are negative so far Patient received close to 10 L of fluid since admission appears to have developed volume overload Lactic acid has normalized Levophed to maintain blood pressure - multi organ failure likely related to acute pancreatitis (4) Renal failure: Qualifiers: Renal failure chronicity: unspecified chronicity Qualified Code(s): N19 - Unspecified kidney failure Code(s): N19 - Unspecified kidney failure Status: Acute Assessment and Plan: Secondary to sepsis, it is hypokalemia, also has rhabdomyolysis He appears to have developed ATN Ultrasound did not show any hydronephrosis Nephrology following -dialysis catheter was placed on 06/08/2021 and received his 1st dialysis on 06/09/2021 with removal 3500 mL of fluid - patient's CK level, creatinine in, lipase LFTs all trending in the right direction - continue Bumex per Nephrology, patient has had adequate urine output, urine creatinine improving (5) Rhabdomyolysis: Code(s): M62.82 - Rhabdomyolysis Status: Acute Assessment and Plan: improving Continue IV fluids but at conservative level as patient now has volume overload CK levels trending (6) Acute pancreatitis: Qualifiers: Acute pancreatitis complication: unspecified Pancreatitis type: unspecified pancreatitis type Qualified Code(s): K85.90 - Acute pancreatitis without necrosis or infection, unspecified Code(s): K85.90 - Acute pancreatitis without necrosis or infection, unspecified Status: Acute Assessment and Plan: Abdominal CT was read as the following 1. Findings consistent with severe acute pancreatitis. Small reactive ascites. Correlate with amylase, lipase levels. 2. Basilar subsegmental atelectasis. 3. Small left pleural effusion. 4. Hepatic steatosis. Lipase 4735 -> 4331->1181-> 338-> 111-> [address] Will discontinue IV fluids, - patient started on trickle tube feeds at 10 mL on 06/10/2021: Did not tolerate so tube feeds were held. Will restart her tube feeds again today, if he does not tolerate will have to start him on TPN Pain control with IV fentanyl infusion GI and Surgery following (7) Dehydration: Code(s): E86.0 - Dehydration Status: Acute Assessment and Plan: Patient has received adequate amount of IV fluids (8) Alcohol withdrawal: Code(s): F10.239 - Alcohol dependence with withdrawal, unspecified Status: Acute Assessment and Plan: currently on fentanyl and Versed infusion, may start Precedex infusion and start to wean fentanyl and Versed in preparation for spontaneous breathing trial Continue Thiamine and folic acid (9) Metabolic acidosis: Code(s): E87.2 - Acidosis Status: Acute Assessment and Plan: Improved after IV fluids bicarb which is off -started dialysis 06/09/2021 (
[2021-06-11 11:55] LABS: Glucose Point of Care 116 mg/dl (65-105)
--- NOTE | 2021-06-11 12:20 | P.PNNP_ITS ---
Progress Note: A&P Assessment and Plan (1) Renal failure: Qualifiers: Renal failure chronicity: unspecified chronicity Qualified Code(s): N19 - Unspecified kidney failure Code(s): N19 - Unspecified kidney failure Status: Acute Assessment and Plan: * no reported history of renal insufficiency/CKD * creatinine normal in 2018 but no more recent labs/blood work * evaluation to date: * renal ultrasound normal * borderline prerenal urine electrolytes * CPK elevated at 9000 * suspect multifactorial ATN: * dehydration/volume depletion * pancreatitis * rhabdomyolysis * last HD on Saturday (06/09/21) to optimize clearance and stabilize electrolytes along with volume status * increased urine output in the last 24 - 48 hours -- possible recovery? * tentatively plan holding HD tomorrow * follow trend of repeat labs and UOP (2) Acute pancreatitis: Qualifiers: Acute pancreatitis complication: unspecified Pancreatitis type: unspecified pancreatitis type Qualified Code(s): K85.90 - Acute pancreatitis without necrosis or infection, unspecified Code(s): K85.90 - Acute pancreatitis without necrosis or infection, unspecified Status: Acute Assessment and Plan: * as evidenced by admission imaging and lipase * lipase is trending down * s/p IVF resuscitation * pain control * GI and Surgery following (3) Acute respiratory failure: Code(s): J96.00 - Acute respiratory failure, unspecified whether with hypoxia or hypercapnia Status: Acute Assessment and Plan: * secondary to pulmonary edema + pleural effusion * intubated due to worsening mentatation, hypoxia, and inability to protect airway * follow CXR and ABGs - continue mechanical ventilation * weaning as tolerated (4) Sepsis: Code(s): A41.9 - Sepsis, unspecified organism Status: Acute Assessment and Plan: * as noted with elevated lactic acid and leukocytosis * lactic acid has since normalized * presumably due to severe pancreatitis * follow culture data (nagative so far) * on IV antibiotics * off vasopressor support (5) Alcohol abuse: Code(s): F10.10 - Alcohol abuse, uncomplicated Status: Acute Assessment and Plan: * watch for signs of withdrawal * sedated at this time Will continue to follow. Subjective Date/time seen: 06/11/21 12:20 Remains sedated and on mechanical ventilation; continues to make good urine output with improvement in creatinine noted; remains hemodynamically stable off vasopressor therapy as well; still with low grade temperatures/fevers; no apparent distress noted. Exam Narrative: General: WD/WN male intubated/sedated Heart: tachycardic, normal S1 and S2; no rub Lungs: decreased breath sounds at bases Abdomen: soft, nontender, nondistended, decreased bowel sounds Extremities: no cyanosis or clubbing; no edema Skin: no rash Objective Data Vital Signs Vital Signs: Vital Signs Temp Pulse Resp BP Pulse Ox 06/11/21 12:18 113 H 97 06/11/21 12:00 38.1 C H 114 H 21 H 132/82 100 06/11/21 10:00 38.2 C H 114 H 21 H 141/84 H 96 06/11/21 08:54 111 H 96 06/11/21 08:00 38.2 C H 111 H 22 H 125/82 96 06/11/21 06:00 38.2 C H 111 H 22 H 123/81 98 06/11/21 04:43 113 H 95 06/11/21 04:01 112 H 12
--- NOTE | 2021-06-11 12:20 | PM.PNNEP ---
Progress Note: A&P Assessment and Plan (1) Renal failure: Qualifiers: Renal failure chronicity: unspecified chronicity Qualified Code(s): N19 - Unspecified kidney failure Code(s): N19 - Unspecified kidney failure Status: Acute Assessment and Plan: no reported history of renal insufficiency/CKD creatinine normal in 2018 but no more recent labs/blood work evaluation to date: renal ultrasound normal borderline prerenal urine electrolytes CPK elevated at 9000 suspect multifactorial ATN: dehydration/volume depletion pancreatitis rhabdomyolysis last HD on Saturday (06/09/21) to optimize clearance and stabilize electrolytes along with volume status increased urine output in the last 24 - 48 hours -- possible recovery? tentatively plan holding HD tomorrow follow trend of repeat labs and UOP (2) Acute pancreatitis: Qualifiers: Acute pancreatitis complication: unspecified Pancreatitis type: unspecified pancreatitis type Qualified Code(s): K85.90 - Acute pancreatitis without necrosis or infection, unspecified Code(s): K85.90 - Acute pancreatitis without necrosis or infection, unspecified Status: Acute Assessment and Plan: as evidenced by admission imaging and lipase lipase is trending down s/p IVF resuscitation pain control GI and Surgery following (3) Acute respiratory failure: Code(s): J96.00 - Acute respiratory failure, unspecified whether with hypoxia or hypercapnia Status: Acute Assessment and Plan: secondary to pulmonary edema + pleural effusion intubated due to worsening mentatation, hypoxia, and inability to protect airway follow CXR and ABGs - continue mechanical ventilation weaning as tolerated (4) Sepsis: Code(s): A41.9 - Sepsis, unspecified organism Status: Acute Assessment and Plan: as noted with elevated lactic acid and leukocytosis lactic acid has since normalized presumably due to severe pancreatitis follow culture data (nagative so far) on IV antibiotics off vasopressor support (5) Alcohol abuse: Code(s): F10.10 - Alcohol abuse, uncomplicated Status: Acute Assessment and Plan: watch for signs of withdrawal sedated at this time Will continue to follow. Subjective Date/time seen: 06/11/21 12:20 Remains sedated and on mechanical ventilation; continues to make good urine output with improvement in creatinine noted; remains hemodynamically stable off vasopressor therapy as well; still with low grade temperatures/fevers; no apparent distress noted. Exam Narrative: General: WD/WN male intubated/sedated Heart: tachycardic, normal S1 and S2; no rub Lungs: decreased breath sounds at bases Abdomen: soft, nontender, nondistended, decreased bowel sounds Extremities: no cyanosis or clubbing; no edema Skin: no rash Objective Data Vital Signs Vital Signs: Vital Signs Temp Pulse Resp BP Pulse Ox 06/11/21 12:18 113 H 97 06/11/21 12:00 38.1 C H 114 H 21 H 132/82 100 06/11/21 10:00 38.2 C H 114 H 21 H 141/84 H 96 06/11/21 08:54 111 H 96 06/11/21 08:00 38.2 C H 111 H 22 H 125/82 96 06/11/21 06:00 38.2 C H 111 H 22 H 123/81 98 06/11/21 04:43 113 H 95 06/11/21 04:01 112 H 12 06/11/21 04:00 112 H 95 06/11/21 03:56 38.2 C H 112 H 22 H 126/81 96 06/11/21 02:10 111 H 97 06/11/21 02:00 111 H 22 H 122/78 97 06/11/21 00:00 112 H 06/10/21 23:58 98 06/10/21 23:42 38.2 C H 112 H 22 H 127/83 96 06/10/21 23:32 114 H 94 06/10/21 23:24 112 H 28 H 06/10/21 22:00 110 H 25 H 120/78 97 06/10/21 21:20 107 H 06/10/21 20:00 38.1 C H 108 H 22 H 124/79 97 06/10/21 19:10 108 H 97 06/10/21 18:40 113 H 28 H Intake/Output Intake/Output: Intake & Output 06/08/21 06/09/21 06/10/21 06/11/21 23:59 23:59 23:59 23:59 Intake Total 3
[2021-06-11] MEDS: FENTANYL 2,500MCG/NS250ML(*CRX 2,500 MCG/250 ML BAG 20 MCG IV CONT (12:28)
[2021-06-11] MEDS: MIDAZOLAM 100MG/NS 100ML(*CRX) 100 MG/100 ML BAG 8 MG IV CONT (12:30)
[2021-06-11 16:18] LABS: Glucose Point of Care 118 mg/dl (65-105)
[2021-06-11 18:55] LABS: Vancomycin Trough 8.7 ug/mL (10.0-20.0)
[2021-06-11 22:29] LABS: Glucose Point of Care 125 mg/dl (65-105)
[2021-06-12] VITALS (25 sets, daily range): BP systolic 120–136; BP diastolic 79–86; PULSE 103–125; RESP 17–27; TEMP 37.2–37.7; O2SAT 94–100
[2021-06-12 00:04] LABS: Glucose Point of Care 126 mg/dl (65-105)
[2021-06-12] MEDS: FENTANYL 2,500MCG/NS250ML(*CRX 2,500 MCG/250 ML BAG 20 MCG IV CONT ×2 (01:39→13:56)
[2021-06-12] MEDS: MIDAZOLAM 100MG/NS 100ML(*CRX) 100 MG/100 ML BAG 8 MG IV CONT ×2 (01:40→13:57)
[2021-06-12 03:42] LABS: Basophils Absolute Auto 0.1 K/mm3 (0.0-0.1); Basophils Percent Auto 0.7 % (0.2-1.2); Eosinophils Absolute Auto 0.1 K/mm3 (0-0.3); Eosinophils Percent Auto 0.4 % (0-4.4); Hematocrit 32.2 % (42.0-52.0); Hemoglobin 10.4 g/dL (14.0-18.0); Immature Granulocyte Absolute 0.67 K/mm3 (0.00-0.031); Immature Granulocyte Percent A 4.3 % (0-0.5); Lymphocytes Absolute Auto 0.78 K/mm3 (0.9-3.2); Mean Corpuscular HGB Conc 32.3 g/dl (32-36); Mean Corpuscular Hemoglobin 34.6 pg (26-34); Mean Platelet Volume 10.4 fl (7.4-10.4); Monocytes Percent Auto 6.2 % (2.6-8.5); Neutrophils Absolute Auto 13.1 K/mm3 (1.3-6.7); Neutrophils Percent Auto 83.4 % (45.5-73.1); Nucleated Red Blood Cells Perc 0.1 % (0.0-0.2); Platelet Count Result 246 k/mm3 (150-375); Red Blood Count 3.01 M/mm3 (4.6-6.20); Red Cell Distribution Width 14.9 % (11.5-14.5); White Blood Count 15.7 K/mm3 (4.5-10.0)
[2021-06-12 03:54] LABS: Lactic Acid Reflex 0.9 mmol/L (0.7-2.1)
[2021-06-12 03:57] LABS: Alanine Aminotransferase 132 U/L (4-50); Albumin Level 2.8 g/dL (3.5-5.1); Alkaline Phosphatase 75 U/L (38-126); Anion Gap 7 mmol/L (8-16); Aspartate Amino Transferase 94 U/L (17-59); Bilirubin,Total 1.1 mg/dL (0.2-1.3); Blood Urea Nitrogen 48 mg/dL (9-20); Calcium 7.8 mg/dL (8.4-10.2); Carbon Dioxide 28 mmol/L (22-30); Chloride 112 mmol/L (98-107); Creatine Kinase 309 U/L (55-170); Estimated CRCL calculation 39 ml/min; Estimated Glomerular Filt Rate 29; Glucose 144 mg/dL (65-110); Lipase 69 U/L (23-300); Partial Thromboplastin Time 32.6 SECONDS (22.3-36.8); Phosphorus 4.8 mg/dL (2.5-4.5); Potassium 3.1 mmol/L (3.4-5.0); Sodium 147 mmol/L (137-145)
[2021-06-12] MEDS: CENTRAL LINE FLUSH 10 ML IV PUSH ×4 (04:11→21:19)
[2021-06-12 05:13] LABS: Alveolar/Arterial O2 Gradient 110.6 mmHg; Base Excess ABG -1.6 mEq/l (+/-2.0); Carboxyhemoglobin 0.3 % THb (0-2.0); Fractional Inspired Oxygen 30 %; HCO3 ABG 21.7 mEq/l (22.0-26.0); Methemoglobin ABG 0.2 %THb (0-1.5); Oxygen Content ABG 14.6 %vol (16.0-22.0); Oxyhemoglobin 90.9 % THb (90.0-100.0); PO2 ABG 65.7 mmHg (80.0-100.0); PO2 FiO2 Ratio Arterial Blood 2.19 %; Reduced Hemoglobin 8.6 %THb (0-5.0); Total Hemoglobin 11.4 g/dL (12.0-18.0)
[2021-06-12 05:14] LABS: Arterial Blood Gas PEEP 8 cmH2O; Arterial Blood Gas Tidal Volume 450 ml; Arterial Blood Gas Vent Mode CMV; Arterial Blood Gas Ventilator rate 18 /MIN; Device VENTILATOR; Modified Allen's Test Pass; Site Drawn RIGHT RADIAL
--- NOTE | 2021-06-12 06:35 | P.PNNP_ITS ---
Progress Note: A&P Assessment and Plan (1) Renal failure: Qualifiers: Renal failure chronicity: unspecified chronicity Qualified Code(s): N19 - Unspecified kidney failure Code(s): N19 - Unspecified kidney failure Status: Acute Assessment and Plan: * no reported history of renal insufficiency/CKD * creatinine normal in 2018 but no more recent labs/blood work * evaluation to date: * renal ultrasound normal * borderline prerenal urine electrolytes * CPK elevated at 9000 * suspect multifactorial ATN: * dehydration/volume depletion * pancreatitis * rhabdomyolysis * last HD on Saturday (06/09/21) to optimize clearance and stabilize electrolytes along with volume status * He had 2750 of urine out yesterday. * His creatinine is dropping. It is 2.4 today. * Continue same diuretics because chest x-ray still has some fluid. Consider reducing dose down the line to improve DrDot Emerson issues. * We can hold off on dialysis today. * He has hypokalemia. Will supplement. * He has hypernatremia. * Probably due to free water loss. * Check urine osmolality but I doubt if this is DI. (2) Acute pancreatitis: Qualifiers: Acute pancreatitis complication: unspecified Pancreatitis type: un specified pancreatitis type Qualified Code(s): K85.90 - Acute pancreatitis without necrosis or infection, unspecified Code(s): K85.90 - Acute pancreatitis without necrosis or infection, unspecified Status: Acute Assessment and Plan: * as evidenced by admission imaging and lipase * lipase is now normal * To feedings were not tolerated yesterday. * pain control * GI and Surgery following (3) Acute respiratory failure: Code(s): J96.00 - Acute respiratory failure, unspecified whether with hypoxia or hypercapnia Status: Acute Assessment and Plan: * secondary to pulmonary edema + pleural effusion * intubated due to worsening mentatation, hypoxia, and inability to protect airway * follow CXR and ABGs - continue mechanical ventilation * weaning as tolerated (4) Sepsis: Code(s): A41.9 - Sepsis, unspecified organism Status: Acute Assessment and Plan: * as noted with elevated lactic acid and leukocytosis * lactic acid has since normalized * presumably due to severe pancreatitis * Blood cultures negative * on vancomycin and ertapenem * off vasopressor support (5) Alcohol abuse: Code(s): F10.10 - Alcohol abuse, uncomplicated Status: Acute Assessment and Plan: * watch for signs of withdrawal * sedated at this time Will continue to follow. Subjective Date/time seen: 06/12/21 06:35 Interval history: Patient is sedated on the ventilator. He is on antibiotics and sedatives. Exam Narrative: General: WD/WN male intubated/sedated Heart: tachycardic, normal S1 and S2; no rub or gallop Lungs: decreased breath sounds at bases Abdomen: soft, nontender, nondistended, decreased bowel sounds Extremities: no edema Skin: no rash Objective Data Vital Signs Vital Signs: Vital Signs - 24 hr 06/11/21 08:00 06/11/21 08:54 06/11/21 10:00 Temperature 38.2 C H 38.2 C H Pulse Rate 111 H 111 H 114 H Respiratory Rate 22 H 21 H Blood Pressure 125/82 141/84 H Pulse Oximetry 96 96 96 06/11/21 12:00 06/11/21 12:18 06/11/21 12:28 Temperature 38.1 C
--- NOTE | 2021-06-12 06:35 | PM.PNNEP ---
Progress Note: A&P Assessment and Plan (1) Renal failure: Qualifiers: Renal failure chronicity: unspecified chronicity Qualified Code(s): N19 - Unspecified kidney failure Code(s): N19 - Unspecified kidney failure Status: Acute Assessment and Plan: no reported history of renal insufficiency/CKD creatinine normal in 2018 but no more recent labs/blood work evaluation to date: renal ultrasound normal borderline prerenal urine electrolytes CPK elevated at 9000 suspect multifactorial ATN: dehydration/volume depletion pancreatitis rhabdomyolysis last HD on Saturday (06/09/21) to optimize clearance and stabilize electrolytes along with volume status He had 2750 of urine out yesterday. His creatinine is dropping. It is 2.4 today. Continue same diuretics because chest x-ray still has some fluid. Consider reducing dose down the line to improve Dr. Emerson issues. We can hold off on dialysis today. He has hypokalemia. Will supplement. He has hypernatremia. Probably due to free water loss. Check urine osmolality but I doubt if this is DI. (2) Acute pancreatitis: Qualifiers: Acute pancreatitis complication: unspecified Pancreatitis type: unspecified pancreatitis type Qualified Code(s): K85.90 - Acute pancreatitis without necrosis or infection, unspecified Code(s): K85.90 - Acute pancreatitis without necrosis or infection, unspecified Status: Acute Assessment and Plan: as evidenced by admission imaging and lipase lipase is now normal To feedings were not tolerated yesterday. pain control GI and Surgery following (3) Acute respiratory failure: Code(s): J96.00 - Acute respiratory failure, unspecified whether with hypoxia or hypercapnia Status: Acute Assessment and Plan: secondary to pulmonary edema + pleural effusion intubated due to worsening mentatation, hypoxia, and inability to protect airway follow CXR and ABGs - continue mechanical ventilation weaning as tolerated (4) Sepsis: Code(s): A41.9 - Sepsis, unspecified organism Status: Acute Assessment and Plan: as noted with elevated lactic acid and leukocytosis lactic acid has since normalized presumably due to severe pancreatitis Blood cultures negative on vancomycin and ertapenem off vasopressor support (5) Alcohol abuse: Code(s): F10.10 - Alcohol abuse, uncomplicated Status: Acute Assessment and Plan: watch for signs of withdrawal sedated at this time Will continue to follow. Subjective Date/time seen: 06/12/21 06:35 Interval history: Patient is sedated on the ventilator. He is on antibiotics and sedatives. Exam Narrative: General: WD/WN male intubated/sedated Heart: tachycardic, normal S1 and S2; no rub or gallop Lungs: decreased breath sounds at bases Abdomen: soft, nontender, nondistended, decreased bowel sounds Extremities: no edema Skin: no rash Objective Data Vital Signs Vital Signs: Vital Signs - 24 hr 06/11/21 08:00 06/11/21 08:54 06/11/21 10:00 Temperature 38.2 C H 38.2 C H Pulse Rate 111 H 111 H 114 H Respiratory Rate 22 H 21 H Blood Pressure 125/82 141/84 H Pulse Oximetry 96 96 96 06/11/21 12:00 06/11/21 12:18 06/11/21 12:28 Temperature 38.1 C H Pulse Rate 114 H 113 H 112 H Respiratory Rate 21 H 21 H Blood Pressure 132/82 Pulse Oximetry 100 97 06/11/21 12:30 06/11/21 14:00 06/11/21 14:45 Temperature 38.1 C H Pulse Rate 113 H 113 H 120 H Respiratory Rate 21 H 20 Blood Pressure 137/92 H Pulse Oximetry 98 96 06/11/21 16:00 06/11/21 16:52 06/11/21 18:00 Temperature 38.1 C H Pulse Rate 113 H 110 H 112 H Respiratory Rate 15 18 Blood Pressure 128/77 122/82 Pulse Oximetry 98 99 96 06/11/21 20:00 06/11/21 20:20 06/11/21 20:59 Temperature 37.3 C Pulse Rate 110 H 108 H 112 H Respiratory Rate 18 19 Blood Pressure 120/78 Pul
[2021-06-12] MEDS: PANTOPRAZOLE SODIUM IV 40 MG VIAL IV PUSH (07:59)
[2021-06-12] MEDS: KCL 40 MEQ/WATER 100 ML 100 ML 25 ML IVPB (07:59)
[2021-06-12] MEDS: FOLIC ACID 1 MG/0.2 ML INJ IV PUSH (07:59)
[2021-06-12] MEDS: MINERAL OIL/WHITE PETROLATUM OINTMENT 1 APPLIC EACH EYE ×2 (07:59→21:19)
[2021-06-12] MEDS: BUMETANIDE INJ 1 MG/4 ML VIAL 2 MG IV PUSH ×2 (07:59→17:35)
[2021-06-12] MEDS: ENOXAPARIN 30 MG/0.3 ML SYRINGE SUB-Q (08:00)
[2021-06-12] MEDS: THIAMINE HCL 200 MG/2 ML VIAL 100 MG IV PUSH (08:00)
[2021-06-12] MEDS: ERTAPENEM SODIUM 0.5 GM in SODIUM CHLORIDE 0.9% IV 50 ML IVPB (08:30)
--- NOTE | 2021-06-12 10:47 | WPDGIPROGNO ---
Progress Note: A&P Assessment and Plan (1) Acute pancreatitis: Qualifiers: Acute pancreatitis complication: unspecified Pancreatitis type: unspecified pancreatitis type Qualified Code(s): K85.90 - Acute pancreatitis without necrosis or infection, unspecified Code(s): K85.90 - Acute pancreatitis without necrosis or infection, unspecified Status: Acute Assessment and Plan: severe pancreatitis with multiorgan failure, intubated, also covered with abx (low grade fever) but laboratory data is improving (ck, liver enzymes) tolerating low dose of tube feeding at 20 ml/h, advance slowly on iv protonix (2) Acute respiratory failure: Code(s): J96.00 - Acute respiratory failure, unspecified whether with hypoxia or hypercapnia Status: Acute Assessment and Plan: 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, 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 (3) Encephalopathy: Code(s): G93.40 - Encephalopathy, unspecified Status: Acute Assessment and Plan: CT head on admission was ok now sedated but withdrawing to pain (4) Elevated liver enzymes: Code(s): R74.8 - Abnormal levels of other serum enzymes Status: Acute Assessment and Plan: transaminases keep coming down (5) Rhabdomyolysis: Code(s): M62.82 - Rhabdomyolysis Status: Acute Assessment and Plan: trending down (6) Alcohol withdrawal: Code(s): F10.239 - Alcohol dependence with withdrawal, unspecified Status: Acute Assessment and Plan: s/p banana bag, icu support thiamine iv (7) Sepsis: Code(s): A41.9 - Sepsis, unspecified organism Status: Acute Assessment and Plan: cultures negative, still on anbiotics wbc 15k (8) Renal failure: Qualifiers: Renal failure chronicity: unspecified chronicity Qualified Code(s): N19 - Unspecified kidney failure Code(s): N19 - Unspecified kidney failure Status: Acute Assessment and Plan: creatinine is improving nephrology on board last dialysis Saturday Subjective Date/time seen: 06/12/21 10:47 Interval history: still intubated, tolerating tube feeding at 20 ml/h, abdomen less distended Review of Systems Review of Systems: All systems reviewed & are unremarkable except as noted in HPI and below Exam Const: Other: intubated and sedated, will open eyes to pain stimuli HENMT: Other: OGT in place, tube feeding at 20ml/h Eyes: Other: eyes open to stimuli Neck: Neck: supple Resp: Auscultation: diminished lung sounds Cardio: Rate: regular rate GI: GI Palp: Yes Tenderness to palpation present (GI) Other: less distended,+ bowel sounds Urinary Catheter: Urinary Catheter: patent and draining Skin: General skin exam: no erythema Neuro: Other: unable to assess Extrem: General: normal to inspection Psych: Other: uanble to assess Objective Data Vital Signs Vital Signs: Vital Signs - 24 hr 06/11/21 12:00 06/11/21 12:18 06/11/21 12:28 Temperature 100.6 F H Pulse Rate 114 H 113 H 112 H Respiratory Rate 21 H 21 H Blood Pressure 132/82 Pulse Oximetry 100 97 06/11/21 12:30 06/11/21 14:00 06/11/21 14:45 Temperature 100.5 F H Pulse Rate 113 H 113 H 120 H Respiratory Rate 21 H 20 Blood Pressure 137/92 H Pulse Oximetry 98 96 06/11/21 16:00 06/11/21 16:52 06/11/21 18:00 Temperature 100.5 F H Pulse Rate 113 H 110 H 112 H Respiratory Rate 15 18 Blood Pressure 128/77 122/82 Pulse Oximetry 98 99 96 06/11/21 20:00 06/11/21 20:20 06/11/21 20:59 Temperature 99.2 F Pulse Rate 110 H 108 H 112 H Respiratory Rate 18 19 Blood Pressure 120/78 Pulse Oximetry 97 100 06/11/21 22:00 06/11/21 23:00 06/11/21 23:15 Temperature Pulse Rate 108 H 106 H 111 H Respiratory Rate 18 19 Blood Pressure 129/80 117/77 Pulse Oximetry 100 98 98 06/11/21 23:47 06/11/21 23:57 06/12/21 00:00 Temperature 99.0 F Pulse Rate 105 H 103 H Respiratory Rate 18 17 Blood Pressure 131
[2021-06-12 11:45] LABS: Glucose Point of Care 141 mg/dl (65-105)
--- NOTE | 2021-06-12 12:17 | PCFNICU ---
ICU Rounding Note: Pt current nutrition is Nepro at 20 ml/hr goal rate at 50 ml/hr over 22 hours. Last recorded weight is 102.1 kg-stable Bowel Motility:FMS Labs Reviewed:Mg 4.8,GFR 29, Alb 2.8,Hct 32.2,Hgb 10.4,BUN 48, Cr 2.4, Na 147, K 3.1 Meds Noted:Bumex, Fentanyl, Versed, Vancomycin, Thiamine, Folic Acid, Lovenox, Protonix Skin: WNL Additional Notes: Patient remains on mechanical vent and tube feedings of Nepro current at 20 ml/hr due to high residuals overnight. Plans to increased rate today. Goal rate at 50 ml/hr providing 1980 kcals/89 gms protein/800 ml water. Free water flush increased today to 70 ml q 4 hours due to Na 147 today. Agree with diet orders. Following daily in ICU rounds. Will monitor every Saturday and Saturday..
--- NOTE | 2021-06-12 13:42 | WPDINTPN ---
Progress Note: A&P Assessment and Plan (1) Acute respiratory failure: Code(s): J96.00 - Acute respiratory failure, unspecified whether with hypoxia or hypercapnia Status: Acute Assessment and Plan: Secondary to pulmonary edema and pleural effusion Patient emergently intubated on 06/08/2021 due to poor mental status and hypoxia Chest x-ray and ABGs reviewed, ventilator adjusted, currently on peep of 8 and 30% FiO2 Patient dialyzed on 06/09/2021 with removal of 3500 mL of fluid. -patient also made adequate urine overnight Continue ertapenem and vancomycin (2) Encephalopathy: Code(s): G93.40 - Encephalopathy, unspecified Status: Acute Assessment and Plan: Metabolic encephalopathy His ammonia and head CT were normal on presentation Currently sedated (3) Sepsis: Code(s): A41.9 - Sepsis, unspecified organism Status: Acute Assessment and Plan: Patient met criteria for sepsis with elevated lactic acid, WBC Likely secondary to severe pancreatitis Patient is on Invanz and vancomycin 06/06/2021 blood and urine cultures are negative so far Patient received close to 10 L of fluid since admission appears to have developed volume overload Lactic acid has normalized Levophed to maintain blood pressure - multi organ failure likely related to acute pancreatitis (4) Renal failure: Qualifiers: Renal failure chronicity: unspecified chronicity Qualified Code(s): N19 - Unspecified kidney failure Code(s): N19 - Unspecified kidney failure Status: Acute Assessment and Plan: Secondary to sepsis, it is hypokalemia, also has rhabdomyolysis He appears to have developed ATN Ultrasound did not show any hydronephrosis Nephrology following -dialysis catheter was placed on 06/08/2021 and received his 1st dialysis on 06/09/2021 with removal 3500 mL of fluid - patient's CK level, creatinine in, lipase, LFTs are all trending in the right direction - continue Bumex per Nephrology, patient has had adequate urine output, urine creatinine improving (5) Rhabdomyolysis: Code(s): M62.82 - Rhabdomyolysis Status: Acute Assessment and Plan: improving Continue IV fluids but at conservative level as patient now has volume overload CK levels trending (6) Acute pancreatitis: Qualifiers: Acute pancreatitis complication: unspecified Pancreatitis type: unspecified pancreatitis type Qualified Code(s): K85.90 - Acute pancreatitis without necrosis or infection, unspecified Code(s): K85.90 - Acute pancreatitis without necrosis or infection, unspecified Status: Acute Assessment and Plan: Abdominal CT was read as the following 1. Findings consistent with severe acute pancreatitis. Small reactive ascites. Correlate with amylase, lipase levels. 2. Basilar subsegmental atelectasis. 3. Small left pleural effusion. 4. Hepatic steatosis. Lipase 4735 -> 4331->1181-> 338-> 111-> 73-->[address] Will discontinue IV fluids, -patient tolerating tube feeds at 20 mL hour lesions to goal, GI is agreeable Pain control with IV fentanyl infusion GI and Surgery following (7) Dehydration: Code(s): E86.0 - Dehydration Status: Acute Assessment and Plan: Patient has received adequate amount of IV fluids (8) Alcohol withdrawal: Code(s): F10.239 - Alcohol dependence with withdrawal, unspecified Status: Acute Assessment and Plan: currently on fentanyl and Versed infusion, may start Precedex infusion and start to wean fentanyl and Versed in preparation for spontaneous breathing trial Continue Thiamine and folic acid (9) Metabolic acidosis: Code(s): E87.2 - Acidosis Status: Acute Assessment and Plan: Improved after IV fluids bicarb which is off -started dialysis 06/09/2021 (10) Elevated liver enzymes: Code(s): R74.8 - Abnormal levels of other serum enzymes Status: Acute
[2021-06-12 18:13] LABS: Glucose Point of Care 140 mg/dl (65-105)
[2021-06-13] VITALS (33 sets, daily range): BP systolic 108–166; BP diastolic 70–109; PULSE 104–146; RESP 18–37; TEMP 36.4–37.9; O2SAT 93–100
[2021-06-13] MEDS: ACETAMINOPHEN 325 MG TABLET 650 MG PO (00:16)
[2021-06-13 00:19] LABS: Glucose Point of Care 185 mg/dl (65-105)
[2021-06-13] MEDS: FENTANYL 2,500MCG/NS250ML(*CRX 2,500 MCG/250 ML BAG 20 MCG IV CONT ×2 (02:20→17:07)
[2021-06-13] MEDS: MIDAZOLAM 100MG/NS 100ML(*CRX) 100 MG/100 ML BAG 8 MG IV CONT ×2 (02:21→17:09)
[2021-06-13 04:52] LABS: Basophils Absolute Auto 0.2 K/mm3 (0.0-0.1); Basophils Percent Auto 0.9 % (0.2-1.2); Eosinophils Absolute Auto 0.2 K/mm3 (0-0.3); Eosinophils Percent Auto 0.8 % (0-4.4); Hematocrit 33.7 % (42.0-52.0); Hemoglobin 10.4 g/dL (14.0-18.0); Immature Granulocyte Absolute 0.67 K/mm3 (0.00-0.031); Immature Granulocyte Percent A 3.5 % (0-0.5); Lymphocytes Absolute Auto 0.73 K/mm3 (0.9-3.2); Lymphocytes Percent Auto 3.8 % (18.3-44.2); Mean Corpuscular HGB Conc 30.9 g/dl (32-36); Mean Corpuscular Hemoglobin 34.4 pg (26-34); Mean Corpuscular Volume 111.6 fl (80-100); Mean Platelet Volume 10.3 fl (7.4-10.4); Monocytes Percent Auto 5.3 % (2.6-8.5); Neutrophils Absolute Auto 16.6 K/mm3 (1.3-6.7); Neutrophils Percent Auto 85.7 % (45.5-73.1); Nucleated Red Blood Cells Perc 0.1 % (0.0-0.2); Platelet Count Result 302 k/mm3 (150-375); Red Blood Count 3.02 M/mm3 (4.6-6.20); White Blood Count 19.3 K/mm3 (4.5-10.0)
[2021-06-13 05:01] LABS: Partial Thromboplastin Time 24.7 SECONDS (22.3-36.8)
[2021-06-13 05:10] LABS: Alveolar/Arterial O2 Gradient 100.4 mmHg; Base Excess ABG 1.6 mEq/l (+/-2.0); Carboxyhemoglobin 0.1 % THb (0-2.0); Fractional Inspired Oxygen 30 %; Methemoglobin ABG 0.2 %THb (0-1.5); Oxygen Content ABG 14.4 %vol (16.0-22.0); Oxygen Saturation ABG 93.7 % (95.0-100.0); Oxyhemoglobin 92.2 % THb (90.0-100.0); PO2 ABG 66.5 mmHg (80.0-100.0); PO2 FiO2 Ratio Arterial Blood 2.22 %; Reduced Hemoglobin 7.5 %THb (0-5.0); Total Hemoglobin 11.1 g/dL (12.0-18.0); pH ABG 7.431 (7.350-7.450)
[2021-06-13 05:10] LABS: Alanine Aminotransferase 96 U/L (4-50); Alkaline Phosphatase 97 U/L (38-126); Anion Gap 6 mmol/L (8-16); Aspartate Amino Transferase 77 U/L (17-59); Bilirubin,Total 1.2 mg/dL (0.2-1.3); Blood Urea Nitrogen 52 mg/dL (9-20); Calcium 8.6 mg/dL (8.4-10.2); Carbon Dioxide 29 mmol/L (22-30); Chloride 115 mmol/L (98-107); Estimated CRCL calculation 41 ml/min; Estimated Glomerular Filt Rate 30; Glucose 147 mg/dL (65-110); Magnesium 2.3 mg/dL (1.6-2.3); Phosphorus 4.5 mg/dL (2.5-4.5); Potassium 3.3 mmol/L (3.4-5.0); Sodium 150 mmol/L (137-145)
[2021-06-13 05:11] LABS: Arterial Blood Gas PEEP 8 cmH2O; Arterial Blood Gas Tidal Volume 450 ml; Arterial Blood Gas Vent Mode CMV; Arterial Blood Gas Ventilator rate 18 /MIN; Device VENTILATOR; Modified Allen's Test Unable to perform; Site Drawn RIGHT RADIAL
[2021-06-13] MEDS: CENTRAL LINE FLUSH 10 ML IV PUSH ×3 (05:30→16:00)
[2021-06-13 05:32] LABS: Glucose Point of Care 128 mg/dl (65-105)
--- NOTE | 2021-06-13 06:19 | P.PNNP_ITS ---
Progress Note: A&P Assessment and Plan (1) Renal failure: Qualifiers: Renal failure chronicity: unspecified chronicity Qualified Code(s): N19 - Unspecified kidney failure Code(s): N19 - Unspecified kidney failure Status: Acute Assessment and Plan: * no reported history of renal insufficiency/CKD * creatinine normal in 2018 but no more recent labs/blood work * evaluation to date: * renal ultrasound normal * borderline prerenal urine electrolytes * CPK elevated at 9000 * suspect multifactorial ATN: * dehydration/volume depletion * pancreatitis * rhabdomyolysis * last HD on Saturday (06/09/21) to optimize clearance and stabilize electrolytes along with volume status * He had 2950 urine yesterday and 675 overnight. also has some output from the FMS * His creatinine is dropping mor slowly. It is 2.3 today. BUN sanna a bit. probably due to diuretics. * CXR shows some infiltrates. FiO2 is down to 30%. will reduce diuretics. to 1 bid. * no dialysis today. * He has hypokalemia. * probably due to diuretics and diarrhea. * Will supplement. Reducing bumex will help as well. * He has hypernatremia. * Probably due to free water loss. * U osmo pending. * on tf flushes. * give d5w for a liter. (2) Acute pancreatitis: Qualifiers: Acute pancreatitis complication: unspecified Pancreatitis type: unspecified pancreatitis type Qualified Code(s): K85.90 - Acute pancreatitis without necrosis or infection, unspecified Code(s): K85.90 - Acute pancreatitis without necrosis or infection, unspecified Status: Acute Assessment and Plan: * as evidenced by admission imaging and lipase * lipase is now normal * To feedings were not tolerated yesterday. * pain control * GI and Surgery following (3) Acute respiratory failure: Code(s): J96.00 - Acute respiratory failure, unspecified whether with hypoxia or hypercapnia Status: Acute Assessment and Plan: * secondary to pulmonary edema + pleural effusion * intubated due to worsening mentatation, hypoxia, and inability to protect airway * follow CXR and ABGs - continue mechanical ventilation * weaning as tolerated (4) Sepsis: Code(s): A41.9 - Sepsis, unspecified organism Status: Acute Assessment and Plan: * as noted with elevated lactic acid and leukocytosis * lactic acid has since normalized * presumably due to severe pancreatitis * Blood cultures negative * WBC on its way up. * on vancomycin and ertapenem (5) Alcohol abuse: Code(s): F10.10 - Alcohol abuse, uncomplicated Status: Acute Assessment and Plan: * watch for signs of withdrawal * sedated at this time Will continue to follow. Subjective Date/time seen: 06/13/21 06:19 Interval history: Patient is sedated on the ventilator. He is on antibiotics. getting TFs on fentanyl and midazolam. Exam Narrative: General: WD/WN male intubated/sedated Heart: tachycardic, normal S1 and S2; no rub or gallop Lungs: decreased breath sounds at bases Abdomen: distended, decreased bowel sounds, a little softer. Extremities: no edema nor cyanosis. Skin: no rash or sq nodules Objective Data Vital Signs Vital Signs: Vital Signs - 24 hr 06/12/21 08:00 06/12/21 08:22 06/12/21 10:00 Temperature 37.4 C Pulse Rate 104 H 108 H 104 H Respiratory Rate 27 H
--- NOTE | 2021-06-13 06:19 | PM.PNNEP ---
Progress Note: A&P Assessment and Plan (1) Renal failure: Qualifiers: Renal failure chronicity: unspecified chronicity Qualified Code(s): N19 - Unspecified kidney failure Code(s): N19 - Unspecified kidney failure Status: Acute Assessment and Plan: no reported history of renal insufficiency/CKD creatinine normal in 2018 but no more recent labs/blood work evaluation to date: renal ultrasound normal borderline prerenal urine electrolytes CPK elevated at 9000 suspect multifactorial ATN: dehydration/volume depletion pancreatitis rhabdomyolysis last HD on Saturday (06/09/21) to optimize clearance and stabilize electrolytes along with volume status He had 2950 urine yesterday and 675 overnight. also has some output from the FMS His creatinine is dropping mor slowly. It is 2.3 today. BUN sanna a bit. probably due to diuretics. CXR shows some infiltrates. FiO2 is down to 30%. will reduce diuretics. to 1 bid. no dialysis today. He has hypokalemia. probably due to diuretics and diarrhea. Will supplement. Reducing bumex will help as well. He has hypernatremia. Probably due to free water loss. U osmo pending. on tf flushes. give d5w for a liter. (2) Acute pancreatitis: Qualifiers: Acute pancreatitis complication: unspecified Pancreatitis type: unspecified pancreatitis type Qualified Code(s): K85.90 - Acute pancreatitis without necrosis or infection, unspecified Code(s): K85.90 - Acute pancreatitis without necrosis or infection, unspecified Status: Acute Assessment and Plan: as evidenced by admission imaging and lipase lipase is now normal To feedings were not tolerated yesterday. pain control GI and Surgery following (3) Acute respiratory failure: Code(s): J96.00 - Acute respiratory failure, unspecified whether with hypoxia or hypercapnia Status: Acute Assessment and Plan: secondary to pulmonary edema + pleural effusion intubated due to worsening mentatation, hypoxia, and inability to protect airway follow CXR and ABGs - continue mechanical ventilation weaning as tolerated (4) Sepsis: Code(s): A41.9 - Sepsis, unspecified organism Status: Acute Assessment and Plan: as noted with elevated lactic acid and leukocytosis lactic acid has since normalized presumably due to severe pancreatitis Blood cultures negative WBC on its way up. on vancomycin and ertapenem (5) Alcohol abuse: Code(s): F10.10 - Alcohol abuse, uncomplicated Status: Acute Assessment and Plan: watch for signs of withdrawal sedated at this time Will continue to follow. Subjective Date/time seen: 06/13/21 06:19 Interval history: Patient is sedated on the ventilator. He is on antibiotics. getting TFs on fentanyl and midazolam. Exam Narrative: General: WD/WN male intubated/sedated Heart: tachycardic, normal S1 and S2; no rub or gallop Lungs: decreased breath sounds at bases Abdomen: distended, decreased bowel sounds, a little softer. Extremities: no edema nor cyanosis. Skin: no rash or sq nodules Objective Data Vital Signs Vital Signs: Vital Signs - 24 hr 06/12/21 08:00 06/12/21 08:22 06/12/21 10:00 Temperature 37.4 C Pulse Rate 104 H 108 H 104 H Respiratory Rate 27 H 18 Blood Pressure 131/86 124/79 Pulse Oximetry 95 96 95 06/12/21 10:50 06/12/21 12:00 06/12/21 13:20 Temperature Pulse Rate 105 H 109 H 108 H Respiratory Rate 18 Blood Pressure 127/85 Pulse Oximetry 96 94 94 06/12/21 13:56 06/12/21 13:57 06/12/21 14:00 Temperature 37.7 C H Pulse Rate 110 H 107 H 108 H Respiratory Rate 18 18 18 Blood Pressure 120/84 Pulse Oximetry 94 06/12/21 16:00 06/12/21 17:15 06/12/21 18:00 Temperature 37.2 C Pulse Rate 115 H 111 H 109 H Respiratory Rate 18 18 Blood Pressure 123/81 136/83 Pulse Oximetry 95 94 94 06/12/21 20:
[2021-06-13] MEDS: KCL 40 MEQ/WATER 100 ML 100 ML 25 ML IVPB (08:26)
[2021-06-13] MEDS: DEXTROSE 5% 1,000 ML 1,000 ML 100 ML IV CONT (08:37)
[2021-06-13] MEDS: BUMETANIDE INJ 1 MG/4 ML VIAL IV PUSH ×2 (08:39→17:11)
[2021-06-13] MEDS: MINERAL OIL/WHITE PETROLATUM OINTMENT 1 APPLIC EACH EYE ×2 (08:40→19:32)
[2021-06-13] MEDS: ENOXAPARIN 30 MG/0.3 ML SYRINGE SUB-Q (08:40)
[2021-06-13] MEDS: THIAMINE HCL 200 MG/2 ML VIAL 100 MG IV PUSH (08:41)
[2021-06-13] MEDS: PANTOPRAZOLE SODIUM IV 40 MG VIAL IV PUSH (08:41)
[2021-06-13] MEDS: FOLIC ACID 1 MG/0.2 ML INJ IV PUSH (08:49)
[2021-06-13] MEDS: ERTAPENEM 1 GM/NS 50 ML 1 GM/50 ML BAG IVPB (09:54)
[2021-06-13] MEDS: PROPOFOL IV EMULSION 100 ML 3.03 MG IV CONT (10:53)
--- NOTE | 2021-06-13 12:09 | PCNFU ---
Nutrition Follow-Up Complete: Inadequate Oral Intake as related to Mechanical vent as evidenced by NPO. Goal: Meet estimated nutritional needs Patient has limited progress towards goal. We will continue current goal. Pt current nutrition is Nepro. Last recorded weight is 101.1 kg, stable Bowel Motility:FMS Labs Reviewed:Glu 147,BUN 52, K 3.3,Na 150, Cr 2.3,Hct 33.7,Hgb 10.4,Alb 3.0 Meds Noted:Bumex,Versed, Fentanyl, Propofol 10 mics-160 kcals, Thiamine, Folic Acid, Lovenox, Vancomycin, Dextrose 5%, Potassium Chloride. Skin: WNL Additional Notes: Patient currently on mechanical vent. Abdominal obstructive series showing ileus. Tube feeding on hold. OG tube to suction. Propofol 10 mics is providing an additional 150 kcals. Will monitor in ICU rounds and reassessing every Saturday and Saturday.
--- NOTE | 2021-06-13 12:22 | WPDGIPROGNO ---
Progress Note: A&P Assessment and Plan (1) Acute pancreatitis: Qualifiers: Acute pancreatitis complication: unspecified Pancreatitis type: unspecified pancreatitis type Qualified Code(s): K85.90 - Acute pancreatitis without necrosis or infection, unspecified Code(s): K85.90 - Acute pancreatitis without necrosis or infection, unspecified Status: Acute Assessment and Plan: severe pancreatitis with multiorgan failure, intubated, also covered with abx (low grade fever) did not tolerate tube feeding, KUB showed dilated single small bowel probably ileus recommend IR to place Dobbhoff tube beyond ligament Treitz and hopefully he could tolerate enteral feeding that way on iv protonix (2) Acute respiratory failure: Code(s): J96.00 - Acute respiratory failure, unspecified whether with hypoxia or hypercapnia Status: Acute Assessment and Plan: 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, 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 (3) Encephalopathy: Code(s): G93.40 - Encephalopathy, unspecified Status: Acute Assessment and Plan: CT head on admission was ok now sedated but withdrawing to pain (4) Elevated liver enzymes: Code(s): R74.8 - Abnormal levels of other serum enzymes Status: Acute Assessment and Plan: transaminases down to 70's (5) Rhabdomyolysis: Code(s): M62.82 - Rhabdomyolysis Status: Acute Assessment and Plan: trending down (6) Alcohol withdrawal: Code(s): F10.239 - Alcohol dependence with withdrawal, unspecified Status: Acute Assessment and Plan: s/p banana bag, icu support thiamine iv (7) Sepsis: Code(s): A41.9 - Sepsis, unspecified organism Status: Acute Assessment and Plan: cultures negative, still on anbiotics wbc elevated continue to monitor, if persistent then may need CT scan a/p (8) Renal failure: Qualifiers: Renal failure chronicity: unspecified chronicity Qualified Code(s): N19 - Unspecified kidney failure Code(s): N19 - Unspecified kidney failure Status: Acute Assessment and Plan: creatinine is improving nephrology on board Subjective Date/time seen: 06/13/21 12:22 Interval history: he had high residuals again and OGT now to suction. Review of Systems Review of Systems: All systems reviewed & are unremarkable except as noted in HPI and below Exam Const: Other: intubated and sedated, will open eyes to pain stimuli HENMT: Other: OGT in place,now to suction Eyes: Other: eyes open to stimuli Neck: Neck: supple Resp: Auscultation: diminished lung sounds Cardio: Rate: regular rate GI: Inspection: distended GI Palp: Yes Tenderness to palpation present (GI) Other: + bowel sounds Urinary Catheter: Urinary Catheter: patent and draining Skin: General skin exam: no erythema Neuro: Other: unable to assess Extrem: General: normal to inspection Psych: Other: uanble to assess Objective Data Vital Signs Vital Signs: Vital Signs - 24 hr 06/12/21 13:20 06/12/21 13:56 06/12/21 13:57 Temperature Pulse Rate 108 H 110 H 107 H Respiratory Rate 18 18 Blood Pressure Pulse Oximetry 94 06/12/21 14:00 06/12/21 16:00 06/12/21 17:15 Temperature 99.9 F H Pulse Rate 108 H 115 H 111 H Respiratory Rate 18 18 Blood Pressure 120/84 123/81 Pulse Oximetry 94 95 94 06/12/21 18:00 06/12/21 20:00 06/12/21 22:00 Temperature 99.0 F 99.5 F Pulse Rate 109 H 116 H 111 H Respiratory Rate 18 18 18 Blood Pressure 136/83 127/86 120/82 Pulse Oximetry 94 95 95 06/12/21 23:00 06/13/21 00:00 06/13/21 00:16 Temperature 100.2 F H 100.2 F H Pulse Rate 110 H 111 H Respiratory Rate 20 Blood Pressure 125/85 Pulse Oximetry 98 96 06/13/21 01:00 06/13/21 02:00 06/13/21 02:20 Temperature 97.6 F Pulse Rate 110 H 109 H Respiratory Rate 18 18 Blood Pressure 128/80 Pulse Oximetry 97 06/13/21 02:21 06/13/21 04:00 06/13/21 05:05 Tempera
[2021-06-13 12:24] LABS: Glucose Point of Care 161 mg/dl (65-105)
--- NOTE | 2021-06-13 14:11 | P.PNINT_ITS ---
Progress Note: A&P Assessment and Plan (1) Acute respiratory failure: Code(s): J96.00 - Acute respiratory failure, unspecified whether with hypoxia or hypercapnia Status: Acute Assessment and Plan: Secondary to pulmonary edema and pleural effusion Patient emergently intubated on 06/08/2021 due to poor mental status and hypoxia Chest x-ray and ABGs reviewed, ventilator adjusted, currently on peep of 8 and 40% FiO2 Patient dialyzed on 06/09/2021 with removal of 3500 mL of fluid. -patient also made adequate urine overnight Continue ertapenem and vancomycin (2) Encephalopathy: Code(s): G93.40 - Encephalopathy, unspecified Status: Acute Assessment and Plan: Metabolic encephalopathy His ammonia and head CT were normal on presentation Currently sedated (3) Sepsis: Code(s): A41.9 - Sepsis, unspecified organism Status: Acute Assessment and Plan: Patient met criteria for sepsis with elevated lactic acid, WBC Likely secondary to severe pancreatitis Patient is on Invanz and vancomycin 06/06/2021 blood and urine cultures are negative so far Patient received close to 10 L of fluid since admission appears to have developed volume overload Lactic acid has normalized Levophed to maintain blood pressure - multi organ failure likely related to acute pancreatitis (4) Renal failure: Qualifiers: Renal failure chronicity: unspecified chronicity Qualified Code(s): N19 - Unspecified kidney failure Code(s): N19 - Unspecified kidney failure Status: Acute Assessment and Plan: Secondary to sepsis, it is hypokalemia, also has rhabdomyolysis He appears to have developed ATN Ultrasound did not show any hydronephrosis Nephrology following -dialysis catheter was placed on 06/08/2021 and received his 1st dialysis on 06/09/2021 with removal 3500 mL of fluid - patient's CK level, creatinine in, lipase, LFTs are all trending in the right direction - continue Bumex per Nephrology, patient has had adequate urine output, urine creatinine improving (5) Rhabdomyolysis: Code(s): M62.82 - Rhabdomyolysis Status: Acute Assessment and Plan: improving Continue IV fluids but at conservative level as patient now has volume overload CK levels trending (6) Acute pancreatitis: Qualifiers: Acute pancreatitis complication: unspecified Pancreatitis type: unspecified pancreatitis type Qualified Code(s): K85.90 - Acute pancreatitis without necrosis or infection, unspecified Code(s): K85.90 - Acute pancreatitis without necrosis or infection, unspecified Status: Acute Assessment and Plan: Abdominal CT was read as the following 1. Findings consistent with severe acute pancreatitis. Small reactive ascites. Correlate with amylase, lipase levels. 2. Basilar subsegmental atelectasis. 3. Small left pleural effusion. 4. Hepatic steatosis. Lipase 4735 -> 4331->1181-> 338-> 111-> 73-->[address] Will discontinue IV fluids, -patient tolerating tube feeds at 20 mL hour lesions to goal, GI is agreeable Pain control with IV fentanyl infusion GI and Surgery following (7) Dehydration: Code(s): E86.0 - Dehydration Status: Acute Assessment and Plan: Patient has received adequate amount of IV fluids (8) Alcohol withdrawal: Code(s): F10.239 - Alcohol dependence with withdrawal, unspecified Status: Acute Assessment and Plan: currently on fentanyl and Versed infusion, may start Precedex infusion and start to wean fentany
[2021-06-13 19:27] LABS: Glucose Point of Care 109 mg/dl (65-105)
[2021-06-13 23:41] LABS: Glucose Point of Care 151 mg/dl (65-105)
[2021-06-14] VITALS (35 sets, daily range): BP systolic 103–120; BP diastolic 60–73; PULSE 96–118; RESP 16–20; TEMP 36.7–38.8; O2SAT 95–100
[2021-06-14] MEDS: CENTRAL LINE FLUSH 10 ML IV PUSH ×5 (00:06→22:43)
[2021-06-14] MEDS: MIDAZOLAM 100MG/NS 100ML(*CRX) 100 MG/100 ML BAG 8 MG IV CONT ×2 (04:03→16:38)
[2021-06-14 04:10] LABS: Hematocrit 31.6 % (42.0-52.0); Hemoglobin 9.9 g/dL (14.0-18.0); Mean Corpuscular HGB Conc 31.3 g/dl (32-36); Mean Corpuscular Hemoglobin 35.4 pg (26-34); Mean Corpuscular Volume 112.9 fl (80-100); Mean Platelet Volume 10.7 fl (7.4-10.4); Platelet Count Result 338 k/mm3 (150-375); White Blood Count 20.4 K/mm3 (4.5-10.0)
[2021-06-14 04:21] LABS: Alanine Aminotransferase 75 U/L (4-50); Albumin Level 2.8 g/dL (3.5-5.1); Alkaline Phosphatase 101 U/L (38-126); Anion Gap 9 mmol/L (8-16); Aspartate Amino Transferase 75 U/L (17-59); Bilirubin,Total 1.6 mg/dL (0.2-1.3); Blood Urea Nitrogen 57 mg/dL (9-20); Calcium 8.5 mg/dL (8.4-10.2); Carbon Dioxide 24 mmol/L (22-30); Chloride 117 mmol/L (98-107); Estimated CRCL calculation 36 ml/min; Estimated Glomerular Filt Rate 26; Glucose 124 mg/dL (65-110); Magnesium 2.3 mg/dL (1.6-2.3); Phosphorus 5.3 mg/dL (2.5-4.5); Potassium 3.4 mmol/L (3.4-5.0); Sodium 150 mmol/L (137-145)
[2021-06-14 04:33] LABS: Partial Thromboplastin Time 23.4 SECONDS (22.3-36.8)
[2021-06-14 04:51] LABS: Band Neutrophils Percent 4 % (0-6); Lymphocytes Absolute Manual 0.61 K/mm3 (1.1-4.5); Monocytes Absolute Manual 0.61 K/mm3 (0.1-0.90); Monocytes Percent Manual 3 % (3-9); Neutrophils Absolute Manual 19.17 K/mm3 (1.3-6.7); Neutrophils Percent Manual 90 % (46-73); Platelet Estimate Adequate (Adequate); Stomatocytes 1+ (NORMAL); Total Cells Counted 100
[2021-06-14 04:51] LABS: Alveolar/Arterial O2 Gradient 94.2 mmHg; Base Excess ABG -1.5 mEq/l (+/-2.0); Carboxyhemoglobin 0.3 % THb (0-2.0); Fractional Inspired Oxygen 30 %; HCO3 ABG 22.6 mEq/l (22.0-26.0); Methemoglobin ABG 0.3 %THb (0-1.5); Oxygen Content ABG 15.5 %vol (16.0-22.0); Oxygen Saturation ABG 95.7 % (95.0-100.0); Oxyhemoglobin 93.8 % THb (90.0-100.0); PCO2 ABG 36.1 mmHg (35.0-45.0); PO2 ABG 77.3 mmHg (80.0-100.0); PO2 FiO2 Ratio Arterial Blood 2.58 %; Reduced Hemoglobin 5.6 %THb (0-5.0); Total Hemoglobin 11.7 g/dL (12.0-18.0); pH ABG 7.415 (7.350-7.450)
[2021-06-14 04:52] LABS: Device VENTILATOR; Modified Allen's Test Pass; Site Drawn RIGHT RADIAL
[2021-06-14 04:53] LABS: Arterial Blood Gas PEEP 8 cmH2O; Arterial Blood Gas Tidal Volume 450 ml; Arterial Blood Gas Vent Mode CMV; Arterial Blood Gas Ventilator rate 18 /MIN
[2021-06-14 05:14] LABS: Glucose Point of Care 119 mg/dl (65-105)
[2021-06-14] MEDS: FENTANYL 2,500MCG/NS250ML(*CRX 2,500 MCG/250 ML BAG 20 MCG IV CONT ×2 (05:23→16:39)
[2021-06-14] MEDS: PANTOPRAZOLE SODIUM IV 40 MG VIAL IV PUSH (08:21)
[2021-06-14] MEDS: THIAMINE HCL 200 MG/2 ML VIAL 100 MG IV PUSH (08:21)
[2021-06-14] MEDS: ENOXAPARIN 30 MG/0.3 ML SYRINGE SUB-Q (08:21)
[2021-06-14] MEDS: FOLIC ACID 1 MG/0.2 ML INJ IV PUSH (08:21)
[2021-06-14] MEDS: BUMETANIDE INJ 1 MG/4 ML VIAL IV PUSH (08:21)
[2021-06-14] MEDS: MINERAL OIL/WHITE PETROLATUM OINTMENT 1 APPLIC EACH EYE ×2 (08:22→20:35)
[2021-06-14] MEDS: KCL 40 MEQ/WATER 100 ML 100 ML 25 ML IVPB (09:20)
[2021-06-14] MEDS: ERTAPENEM 1 GM/NS 50 ML 1 GM/50 ML BAG IVPB (09:32)
[2021-06-14] MEDS: levoFLOXacin 500 MG/D5W 100 ML 500 MG/100 ML BAG 100 MG IVPB (09:32)
[2021-06-14 09:53] LABS: Add Urine Microscopic? YES; Appearance Urine Turbid (Clear); Bilirubin Urine Negative (Negative); Blood Urine 2+ (Negative); Color Urine Yellow (Yellow); Glucose Urine UA Negative (Negative); Ketones Urine Negative (Negative); Leukocyte Esterase Ur Negative LEU/UL (Negative); Nitrate Urine Negative (Negative); Protein Urine Negative (Negative); Specific Grav Ur 1.011 (1.001-1.035); Urobilinogen Urine Negative mg/dL (<2.0)
--- NOTE | 2021-06-14 11:50 | WPDGIPROGNO ---
Progress Note: A&P Assessment and Plan (1) Acute pancreatitis: Qualifiers: Acute pancreatitis complication: unspecified Pancreatitis type: unspecified pancreatitis type Qualified Code(s): K85.90 - Acute pancreatitis without necrosis or infection, unspecified Code(s): K85.90 - Acute pancreatitis without necrosis or infection, unspecified Status: Acute Assessment and Plan: severe pancreatitis with multiorgan failure, intubated, also covered with abx (low grade fever) IR placed Dobbhoff tube but in the stomach, will try to advance beyond ligament Treitz and hopefully he could tolerate enteral feeding on iv protonix (2) Acute respiratory failure: Code(s): J96.00 - Acute respiratory failure, unspecified whether with hypoxia or hypercapnia Status: Acute Assessment and Plan: 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, 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 (3) Encephalopathy: Code(s): G93.40 - Encephalopathy, unspecified Status: Acute Assessment and Plan: CT head on admission was ok now sedated but withdrawing to pain (4) Elevated liver enzymes: Code(s): R74.8 - Abnormal levels of other serum enzymes Status: Acute Assessment and Plan: transaminases down to 70's (5) Alcohol withdrawal: Code(s): F10.239 - Alcohol dependence with withdrawal, unspecified Status: Acute Assessment and Plan: s/p banana bag, icu support thiamine iv (6) Sepsis: Code(s): A41.9 - Sepsis, unspecified organism Status: Acute Assessment and Plan: cultures negative, still on anbiotics wbc elevated continue to monitor, if persistent then may need CT scan a/p (7) Renal failure: Qualifiers: Renal failure chronicity: unspecified chronicity Qualified Code(s): N19 - Unspecified kidney failure Code(s): N19 - Unspecified kidney failure Status: Acute Assessment and Plan: creatinine mid 2's nephrology on board Subjective Date/time seen: 06/14/21 11:50 Interval history: DHT placed and tip is in stomach, he was started on tube feeding and tolerating for now. Review of Systems Review of Systems: All systems reviewed & are unremarkable except as noted in HPI and below Exam Const: Other: intubated and sedated, will open eyes to pain stimuli HENMT: Other: DHT in place Eyes: Other: eyes open to stimuli Neck: Neck: supple Resp: Auscultation: diminished lung sounds Cardio: Rate: regular rate GI: Inspection: distended GI Palp: Yes Tenderness to palpation present (GI) Other: + bowel sounds Urinary Catheter: Urinary Catheter: patent and draining Skin: General skin exam: no erythema Neuro: Other: unable to assess Extrem: General: normal to inspection Psych: Other: uanble to assess Objective Data Vital Signs Vital Signs: Vital Signs - 24 hr 06/13/21 12:00 06/13/21 13:23 06/13/21 14:00 Temperature 99.5 F Pulse Rate 131 H 127 H 116 H Respiratory Rate 21 H 19 Blood Pressure 166/109 H 117/78 Pulse Oximetry 95 95 98 06/13/21 15:03 06/13/21 15:04 06/13/21 16:00 Temperature 99.4 F Pulse Rate 108 H 108 H 108 H Respiratory Rate 18 18 18 Blood Pressure 108/73 Pulse Oximetry 100 06/13/21 17:00 06/13/21 17:07 06/13/21 17:09 Temperature Pulse Rate 109 H 108 H 108 H Respiratory Rate 18 18 Blood Pressure Pulse Oximetry 99 06/13/21 17:39 06/13/21 18:00 06/13/21 20:00 Temperature 97.9 F Pulse Rate 110 H 112 H 108 H Respiratory Rate 18 18 18 Blood Pressure 113/70 119/71 Pulse Oximetry 98 98 06/13/21 20:41 06/13/21 22:00 06/13/21 23:20 Temperature Pulse Rate 107 H 108 H 109 H Respiratory Rate 18 Blood Pressure 116/71 Pulse Oximetry 98 98 98 06/14/21 00:00 06/14/21 02:00 06/14/21 02:22 Temperature 98.2 F Pulse Rate 108 H 110 H 112 H Respiratory Rate 18 18 Blood Pressure 112/69 112/73 Pulse Oximetry 97 99 97 06/14/21 04:00 06/14/21 04:03 06/14/21 04:12 Temperature 9
[2021-06-14 12:09] LABS: Glucose Point of Care 104 mg/dl (65-105)
--- NOTE | 2021-06-14 12:11 | PCFNICU ---
ICU Rounding Note: Pt current nutrition is Nepro at 30 ml/hr Last recorded weight is 96.1 kg, down from 102.9 kg on admit. Bowel Motility:FMS Labs Reviewed: Glu 124,BUN 26, Na 150, Hct 31.6,Hgb 9.9,BUN 26, Alb 2.8,Hct 31.8 Meds Noted:Versed, Fentanyl, Bumex, Thiamine, Protonix, Lovenox, Folic Acid, Potassium Chloride. Skin: WNL Additional Notes: Patient remains on mechanical vent and tube feedings of Nepro at 30 ml/hr had been on hold. Dobbhoff placed and tube feedings to restart. Propofol has been discontinued. Recommend: goal rate of tube feedings 55 ml/hr, which would provide 2178 kcals/98 gms protein/880 ml water. Free water flush 30 ml q 4 hours. White count elevated. Agree with diet orders at this time. Following daily in ICU rounds. Will monitor every Saturday and Saturday.
--- NOTE | 2021-06-14 12:28 | P.PNNP_ITS ---
Progress Note: A&P Assessment and Plan (1) Renal failure: Qualifiers: Renal failure chronicity: unspecified chronicity Qualified Code(s): N19 - Unspecified kidney failure Code(s): N19 - Unspecified kidney failure Status: Acute Assessment and Plan: * no reported history of renal insufficiency/CKD * creatinine normal in 2018 but no more recent labs/blood work * evaluation to date: * renal ultrasound normal * borderline prerenal urine electrolytes * CPK elevated at 9000 * suspect multifactorial ATN: * dehydration/volume depletion * pancreatitis * rhabdomyolysis * last HD on Saturday (06/09/21) to optimize clearance and stabilize electrolytes along with volume status * Urine output 3475 yesterday. * Creatinine is up a little bit. * He does not have any swelling and his FiO2 is only 30% so I think we could stop the IV diuretics.. * He has hypokalemia. * probably due to diuretics and diarrhea. * Will supplement. Stopping bumex will help as well. * He has hypernatremia. * Probably due to free water loss. * U osmo pending. * on tf flushes. * give d5w for a liter * Stopping diuretics will help this as well (2) Acute pancreatitis: Qualifiers: Acute pancreatitis complication: unspecified Pancreatitis type: unspecified pancreatitis type Qualified Code(s): K85.90 - Acute pancreatitis without necrosis or infection, unspecified Code(s): K85.90 - Acute pancreatitis without necrosis or infection, unspecified Status: Acute Assessment and Plan: * as evidenced by admission imaging and lipase * lipase is now normal * To feedings were not tolerated yesterday. * pain control * GI and Surgery following (3) Acute respiratory failure: Code(s): J96.00 - Acute respiratory failure, unspecified whether with hypoxia or hypercapnia Status: Acute Assessment and Plan: * secondary to pulmonary edema + pleural effusion * intubated due to worsening mentatation, hypoxia, and inability to protect airway * follow CXR and ABGs - continue mechanical ventilation * weaning as tolerated * Oxygenation is much improved. (4) Sepsis: Code(s): A41.9 - Sepsis, unspecified organism Status: Acute Assessment and Plan: * as noted with elevated lactic acid and leukocytosis * lactic acid has since normalized * presumably due to severe pancreatitis * Blood cultures negative * WBC seems to be plateauing * on vancomycin and ertapenem (5) Alcohol abuse: Code(s): F10.10 - Alcohol abuse, uncomplicated Status: Acute Assessment and Plan: * sedated at this time Will continue to follow. Subjective Date/time seen: 06/14/21 12:28 Interval history: Patient is sedated on the ventilator. He is sedated. Tolerating tube feeding at a slow rate Exam Narrative: General: WD/WN male intubated/sedated Heart: tachycardic, normal S1 and S2; no rub Lungs: Mildly coarse bilaterally Abdomen: distended, decreased bowel sounds, a little softer. Extremities: no edema nor cyanosis. Skin: no rash Objective Data Vital Signs Vital Signs: Vital Signs - 24 hr 06/13/21 13:23 06/13/21 14:00 06/13/21 15:03 Temperature Pulse Rate 127 H 116 H 108 H Respiratory Rate 19 18 Blood Pressure 117/78 Pulse Oximetry 95 98 06/13/21 15:04 06/13/21 16:00
--- NOTE | 2021-06-14 12:28 | PM.PNNEP ---
Progress Note: A&P Assessment and Plan (1) Renal failure: Qualifiers: Renal failure chronicity: unspecified chronicity Qualified Code(s): N19 - Unspecified kidney failure Code(s): N19 - Unspecified kidney failure Status: Acute Assessment and Plan: no reported history of renal insufficiency/CKD creatinine normal in 2018 but no more recent labs/blood work evaluation to date: renal ultrasound normal borderline prerenal urine electrolytes CPK elevated at 9000 suspect multifactorial ATN: dehydration/volume depletion pancreatitis rhabdomyolysis last HD on Saturday (06/09/21) to optimize clearance and stabilize electrolytes along with volume status Urine output 3475 yesterday. Creatinine is up a little bit. He does not have any swelling and his FiO2 is only 30% so I think we could stop the IV diuretics.. He has hypokalemia. probably due to diuretics and diarrhea. Will supplement. Stopping bumex will help as well. He has hypernatremia. Probably due to free water loss. U osmo pending. on tf flushes. give d5w for a liter Stopping diuretics will help this as well (2) Acute pancreatitis: Qualifiers: Acute pancreatitis complication: unspecified Pancreatitis type: unspecified pancreatitis type Qualified Code(s): K85.90 - Acute pancreatitis without necrosis or infection, unspecified Code(s): K85.90 - Acute pancreatitis without necrosis or infection, unspecified Status: Acute Assessment and Plan: as evidenced by admission imaging and lipase lipase is now normal To feedings were not tolerated yesterday. pain control GI and Surgery following (3) Acute respiratory failure: Code(s): J96.00 - Acute respiratory failure, unspecified whether with hypoxia or hypercapnia Status: Acute Assessment and Plan: secondary to pulmonary edema + pleural effusion intubated due to worsening mentatation, hypoxia, and inability to protect airway follow CXR and ABGs - continue mechanical ventilation weaning as tolerated Oxygenation is much improved. (4) Sepsis: Code(s): A41.9 - Sepsis, unspecified organism Status: Acute Assessment and Plan: as noted with elevated lactic acid and leukocytosis lactic acid has since normalized presumably due to severe pancreatitis Blood cultures negative WBC seems to be plateauing on vancomycin and ertapenem (5) Alcohol abuse: Code(s): F10.10 - Alcohol abuse, uncomplicated Status: Acute Assessment and Plan: sedated at this time Will continue to follow. Subjective Date/time seen: 06/14/21 12:28 Interval history: Patient is sedated on the ventilator. He is sedated. Tolerating tube feeding at a slow rate Exam Narrative: General: WD/WN male intubated/sedated Heart: tachycardic, normal S1 and S2; no rub Lungs: Mildly coarse bilaterally Abdomen: distended, decreased bowel sounds, a little softer. Extremities: no edema nor cyanosis. Skin: no rash Objective Data Vital Signs Vital Signs: Vital Signs - 24 hr 06/13/21 13:23 06/13/21 14:00 06/13/21 15:03 Temperature Pulse Rate 127 H 116 H 108 H Respiratory Rate 19 18 Blood Pressure 117/78 Pulse Oximetry 95 98 06/13/21 15:04 06/13/21 16:00 06/13/21 17:00 Temperature 37.4 C Pulse Rate 108 H 108 H 109 H Respiratory Rate 18 18 Blood Pressure 108/73 Pulse Oximetry 100 99 06/13/21 17:07 06/13/21 17:09 06/13/21 17:39 Temperature Pulse Rate 108 H 108 H 110 H Respiratory Rate 18 18 18 Blood Pressure Pulse Oximetry 06/13/21 18:00 06/13/21 20:00 06/13/21 20:41 Temperature 36.6 C Pulse Rate 112 H 108 H 107 H Respiratory Rate 18 18 Blood Pressure 113/70 119/71 Pulse Oximetry 98 98 98 06/13/21 22:00 06/13/21 23:20 06/14/21 00:00 Temperature 36.8 C Pulse Rate 108 H 109 H 108 H Respiratory Rate 18 18 Blood Pressure 116/71 112/6
[2021-06-14] MEDS: DEXTROSE 5% 1,000 ML 1,000 ML 100 ML IV CONT (12:49)
--- NOTE | 2021-06-14 13:35 | WPDINTPN ---
Progress Note: A&P Assessment and Plan (1) Acute respiratory failure: Code(s): J96.00 - Acute respiratory failure, unspecified whether with hypoxia or hypercapnia Status: Acute Assessment and Plan: Secondary to pulmonary edema and pleural effusion Patient emergently intubated on 06/08/2021 due to poor mental status and hypoxia Chest x-ray and ABGs reviewed, ventilator adjusted, currently on peep of 8 and 40% FiO2 Patient dialyzed on 06/09/2021 with removal of 3500 mL of fluid. -patient also made adequate urine overnight Continue ertapenem and vancomycin (2) Encephalopathy: Code(s): G93.40 - Encephalopathy, unspecified Status: Acute Assessment and Plan: Metabolic encephalopathy His ammonia and head CT were normal on presentation Currently sedated (3) Sepsis: Code(s): A41.9 - Sepsis, unspecified organism Status: Acute Assessment and Plan: Patient met criteria for sepsis with elevated lactic acid, WBC Likely secondary to severe pancreatitis Patient is on Invanz and vancomycin 06/06/2021 blood and urine cultures are negative so far Patient received close to 10 L of fluid since admission appears to have developed volume overload Lactic acid has normalized Levophed to maintain blood pressure - multi organ failure likely related to acute pancreatitis inside according storm secondary to acute pancreatitis -patient has been febrile, with elevated WBC count, will add levofloxacin -will send panculture 06/14/2021 (4) Renal failure: Qualifiers: Renal failure chronicity: unspecified chronicity Qualified Code(s): N19 - Unspecified kidney failure Code(s): N19 - Unspecified kidney failure Status: Acute Assessment and Plan: Secondary to sepsis, it is hypokalemia, also has rhabdomyolysis He appears to have developed ATN Ultrasound did not show any hydronephrosis Nephrology following -dialysis catheter was placed on 06/08/2021 and received his 1st dialysis on 06/09/2021 with removal 3500 mL of fluid - patient's CK level, creatinine in, lipase, LFTs are all trending in the right direction -discussed with Nephrology, HYPERNATREMIA; hold bumex, added D5 water (5) Rhabdomyolysis: Code(s): M62.82 - Rhabdomyolysis Status: Acute Assessment and Plan: improving Continue IV fluids but at conservative level as patient now has volume overload CK levels trending (6) Acute pancreatitis: Qualifiers: Acute pancreatitis complication: unspecified Pancreatitis type: unspecified pancreatitis type Qualified Code(s): K85.90 - Acute pancreatitis without necrosis or infection, unspecified Code(s): K85.90 - Acute pancreatitis without necrosis or infection, unspecified Status: Acute Assessment and Plan: Abdominal CT was read as the following 1. Findings consistent with severe acute pancreatitis. Small reactive ascites. Correlate with amylase, lipase levels. 2. Basilar subsegmental atelectasis. 3. Small left pleural effusion. 4. Hepatic steatosis. Lipase 4735 -> 4331->1181-> 338-> 111-> 73-->[address] Will discontinue IV fluids, -patient tolerating tube feeds at 20 mL hour lesions to goal, GI is agreeable Pain control with IV fentanyl infusion GI and Surgery following (7) Dehydration: Code(s): E86.0 - Dehydration Status: Acute Assessment and Plan: Patient has received adequate amount of IV fluids (8) Alcohol withdrawal: Code(s): F10.239 - Alcohol dependence with withdrawal, unspecified Status: Acute Assessment and Plan: currently on fentanyl and Versed infusion, may start Precedex infusion and start to wean fentanyl and Versed in preparation for spontaneous breathing trial Continue Thiamine and folic acid (9) Metabolic acidosis: Code(s): E87.2 - Acidosis Status: Acute Assessment and Plan: Improved after IV fluids bicarb which is off -started di
[2021-06-14 15:56] LABS: Sodium 149 mmol/L (137-145)
[2021-06-14 18:09] LABS: Glucose Point of Care 140 mg/dl (65-105)
[2021-06-15] VITALS (48 sets, daily range): BP systolic 103–129; BP diastolic 60–73; PULSE 100–124; RESP 17–26; TEMP 36.6–39.1; O2SAT 94–100; BMI 30.9
[2021-06-15] MEDS: DEXTROSE 5% 1,000 ML 1,000 ML 100 ML IV CONT ×2 (00:17→10:11)
[2021-06-15 00:32] LABS: Glucose Point of Care 169 mg/dl (65-105)
[2021-06-15] MEDS: ACETAMINOPHEN 325 MG TABLET 650 MG PO ×2 (03:50→20:23)
[2021-06-15 05:01] LABS: Basophils Absolute Auto 0.1 K/mm3 (0.0-0.1); Basophils Percent Auto 0.6 % (0.2-1.2); Eosinophils Absolute Auto 0.2 K/mm3 (0-0.3); Eosinophils Percent Auto 1.2 % (0-4.4); Hematocrit 31.2 % (42.0-52.0); Hemoglobin 9.6 g/dL (14.0-18.0); Immature Granulocyte Absolute 0.59 K/mm3 (0.00-0.031); Immature Granulocyte Percent A 3.1 % (0-0.5); Lymphocytes Absolute Auto 0.83 K/mm3 (0.9-3.2); Lymphocytes Percent Auto 4.4 % (18.3-44.2); Mean Corpuscular HGB Conc 30.8 g/dl (32-36); Mean Corpuscular Hemoglobin 35.3 pg (26-34); Mean Corpuscular Volume 114.7 fl (80-100); Mean Platelet Volume 11.2 fl (7.4-10.4); Neutrophils Absolute Auto 16.1 K/mm3 (1.3-6.7); Neutrophils Percent Auto 85.7 % (45.5-73.1); Nucleated Red Blood Cells Perc 0.1 % (0.0-0.2); Platelet Count Result 356 k/mm3 (150-375); Red Blood Count 2.72 M/mm3 (4.6-6.20); Red Cell Distribution Width 15.1 % (11.5-14.5); White Blood Count 18.9 K/mm3 (4.5-10.0)
[2021-06-15 05:11] LABS: Partial Thromboplastin Time 28.1 SECONDS (22.3-36.8)
[2021-06-15 05:15] LABS: Alveolar/Arterial O2 Gradient 76.8 mmHg; Carboxyhemoglobin 0.3 % THb (0-2.0); Fractional Inspired Oxygen 28 %; HCO3 ABG 21.2 mEq/l (22.0-26.0); Methemoglobin ABG 0.2 %THb (0-1.5); Oxygen Content ABG 16.5 %vol (16.0-22.0); Oxygen Saturation ABG 96.1 % (95.0-100.0); Oxyhemoglobin 94.5 % THb (90.0-100.0); PCO2 ABG 34.9 mmHg (35.0-45.0); PO2 ABG 81.7 mmHg (80.0-100.0); PO2 FiO2 Ratio Arterial Blood 2.92 %; Total Hemoglobin 12.4 g/dL (12.0-18.0); pH ABG 7.401 (7.350-7.450)
[2021-06-15 05:16] LABS: Device VENTILATOR; Modified Allen's Test Pass; Site Drawn LEFT RADIAL
[2021-06-15 05:17] LABS: Arterial Blood Gas PEEP 8 cmH2O; Arterial Blood Gas Tidal Volume 450 ml; Arterial Blood Gas Vent Mode CMV; Arterial Blood Gas Ventilator rate 18 /MIN
[2021-06-15] MEDS: MIDAZOLAM 100MG/NS 100ML(*CRX) 100 MG/100 ML BAG 8 MG IV CONT ×2 (05:28→16:59)
[2021-06-15] MEDS: FENTANYL 2,500MCG/NS250ML(*CRX 2,500 MCG/250 ML BAG 20 MCG IV CONT ×2 (05:33→16:57)
[2021-06-15] MEDS: CENTRAL LINE FLUSH 10 ML IV PUSH ×4 (05:59→20:23)
[2021-06-15 06:01] LABS: Glucose Point of Care 170 mg/dl (65-105)
[2021-06-15] MEDS: FOLIC ACID 1 MG/0.2 ML INJ IV PUSH (08:32)
[2021-06-15] MEDS: PANTOPRAZOLE SODIUM IV 40 MG VIAL IV PUSH (08:32)
[2021-06-15] MEDS: levoFLOXacin 250 MG/D5W 50 ML 250 MG/50 ML BAG 50 MG IVPB (08:32)
[2021-06-15] MEDS: ENOXAPARIN 30 MG/0.3 ML SYRINGE SUB-Q (08:32)
[2021-06-15] MEDS: THIAMINE HCL 200 MG/2 ML VIAL 100 MG IV PUSH (08:32)
[2021-06-15] MEDS: MINERAL OIL/WHITE PETROLATUM OINTMENT 1 APPLIC EACH EYE ×2 (08:32→20:23)
[2021-06-15] MEDS: ERTAPENEM 1 GM/NS 50 ML 1 GM/50 ML BAG IVPB (08:33)
[2021-06-15 09:26] LABS: Alanine Aminotransferase 66 U/L (4-50); Albumin Level 2.4 g/dL (3.5-5.1); Alkaline Phosphatase 107 U/L (38-126); Anion Gap 12 mmol/L (8-16); Aspartate Amino Transferase 80 U/L (17-59); Bilirubin,Total 0.9 mg/dL (0.2-1.3); Blood Urea Nitrogen 68 mg/dL (9-20); Calcium 8.4 mg/dL (8.4-10.2); Carbon Dioxide 21 mmol/L (22-30); Chloride 114 mmol/L (98-107); Estimated CRCL calculation 33 ml/min; Estimated Glomerular Filt Rate 25; Glucose 183 mg/dL (65-110); Magnesium 2.4 mg/dL (1.6-2.3); Phosphorus 5.6 mg/dL (2.5-4.5); Potassium 4.1 mmol/L (3.4-5.0); Sodium 147 mmol/L (137-145)
--- NOTE | 2021-06-15 10:46 | P.PNNP_ITS ---
Progress Note: A&P Assessment and Plan (1) Renal failure: Qualifiers: Renal failure chronicity: unspecified chronicity Qualified Code(s): N19 - Unspecified kidney failure Code(s): N19 - Unspecified kidney failure Status: Acute Assessment and Plan: * no reported history of renal insufficiency/CKD * creatinine normal in 2018 but no more recent labs/blood work * evaluation to date: * renal ultrasound normal * borderline prerenal urine electrolytes * CPK elevated at 9000 * suspect multifactorial ATN: * dehydration/volume depletion * pancreatitis * rhabdomyolysis * last HD on Saturday (06/09/21) to optimize clearance and stabilize electrolytes along with volume status * Urine output 2100 yesterday. * Creatinine is up a little bit again. He does have diarrhea so could have some volume depletion. * He is off the diuretics. * Will change tube feedings to see if that helps the diarrhea. * He is getting some fluid with his D5W * He has hypokalemia. * This is good today. * He has hypernatremia. * Probably due to free water loss. Due to diarrhea and high insensible loss from his fevers. * U osmo pending. * on tf flushes. * giving d5w as well. * Tube feedings to change from Nepro to vital which has more free water. (2) Acute pancreatitis: Qualifiers: Acute pancreatitis complication: unspecified Pancreatitis type: unspecified pancreatitis type Qualified Code(s): K85.90 - Acute pancreatitis without necrosis or infection, unspecified Code(s): K85.90 - Acute pancreatitis without necrosis or infection, unspecified Status: Acute Assessment and Plan: * as evidenced by admission imaging and lipase * lipase is now normal * To feedings were not tolerated yesterday. * pain control * GI and Surgery following (3) Acute respiratory failure: Code(s): J96.00 - Acute respiratory failure, unspecified whether with hypoxia or hypercapnia Status: Acute Assessment and Plan: * secondary to pulmonary edema + pleural effusion * intubated due to worsening mentatation, hypoxia, and inability to protect airway * follow CXR and ABGs - continue mechanical ventilation * weaning as tolerated * Oxygenation is much improved. (4) Sepsis: Code(s): A41.9 - Sepsis, unspecified organism Status: Acute Assessment and Plan: * as noted with elevated lactic acid and leukocytosis * lactic acid has since normalized * presumably due to severe pancreatitis * Blood cultures negative * WBC down a little bit. * on vancomycin and ertapenem (5) Alcohol abuse: Code(s): F10.10 - Alcohol abuse, uncomplicated Status: Acute Assessment and Plan: * sedated at this time Will continue to follow. Subjective Date/time seen: 06/15/21 10:47 Interval history: Patient is sedated on the ventilator. He is sedated. Tolerating Nepro tube feedings. He does have diarrhea. Exam Narrative: General: WD/WN male intubated/sedated Heart: tachycardic, normal S1 and S2; no rub Lungs: Mildly coarse bilaterally Abdomen: distended, decreased bowel sounds, a little softer. Extremities: no edema nor cyanosis. Skin: Moist. No rash or subQ nodules Objective Data Vital Signs Vital Signs: Vital Signs - 24 hr 06/14/21 11:42 06/14/21 12:00 06/14/21 14:00 Temperature 37.4 C Pulse Rate 110
--- NOTE | 2021-06-15 10:46 | PM.PNNEP ---
Progress Note: A&P Assessment and Plan (1) Renal failure: Qualifiers: Renal failure chronicity: unspecified chronicity Qualified Code(s): N19 - Unspecified kidney failure Code(s): N19 - Unspecified kidney failure Status: Acute Assessment and Plan: no reported history of renal insufficiency/CKD creatinine normal in 2018 but no more recent labs/blood work evaluation to date: renal ultrasound normal borderline prerenal urine electrolytes CPK elevated at 9000 suspect multifactorial ATN: dehydration/volume depletion pancreatitis rhabdomyolysis last HD on Saturday (06/09/21) to optimize clearance and stabilize electrolytes along with volume status Urine output 2100 yesterday. Creatinine is up a little bit again. He does have diarrhea so could have some volume depletion. He is off the diuretics. Will change tube feedings to see if that helps the diarrhea. He is getting some fluid with his D5W He has hypokalemia. This is good today. He has hypernatremia. Probably due to free water loss. Due to diarrhea and high insensible loss from his fevers. U osmo pending. on tf flushes. giving d5w as well. Tube feedings to change from Nepro to vital which has more free water. (2) Acute pancreatitis: Qualifiers: Acute pancreatitis complication: unspecified Pancreatitis type: unspecified pancreatitis type Qualified Code(s): K85.90 - Acute pancreatitis without necrosis or infection, unspecified Code(s): K85.90 - Acute pancreatitis without necrosis or infection, unspecified Status: Acute Assessment and Plan: as evidenced by admission imaging and lipase lipase is now normal To feedings were not tolerated yesterday. pain control GI and Surgery following (3) Acute respiratory failure: Code(s): J96.00 - Acute respiratory failure, unspecified whether with hypoxia or hypercapnia Status: Acute Assessment and Plan: secondary to pulmonary edema + pleural effusion intubated due to worsening mentatation, hypoxia, and inability to protect airway follow CXR and ABGs - continue mechanical ventilation weaning as tolerated Oxygenation is much improved. (4) Sepsis: Code(s): A41.9 - Sepsis, unspecified organism Status: Acute Assessment and Plan: as noted with elevated lactic acid and leukocytosis lactic acid has since normalized presumably due to severe pancreatitis Blood cultures negative WBC down a little bit. on vancomycin and ertapenem (5) Alcohol abuse: Code(s): F10.10 - Alcohol abuse, uncomplicated Status: Acute Assessment and Plan: sedated at this time Will continue to follow. Subjective Date/time seen: 06/15/21 10:47 Interval history: Patient is sedated on the ventilator. He is sedated. Tolerating Nepro tube feedings. He does have diarrhea. Exam Narrative: General: WD/WN male intubated/sedated Heart: tachycardic, normal S1 and S2; no rub Lungs: Mildly coarse bilaterally Abdomen: distended, decreased bowel sounds, a little softer. Extremities: no edema nor cyanosis. Skin: Moist. No rash or subQ nodules Objective Data Vital Signs Vital Signs: Vital Signs - 24 hr 06/14/21 11:42 06/14/21 12:00 06/14/21 14:00 Temperature 37.4 C Pulse Rate 110 H 101 H 96 Respiratory Rate 18 18 Blood Pressure 106/66 105/68 Pulse Oximetry 98 98 98 06/14/21 14:17 06/14/21 15:50 06/14/21 16:00 Temperature 37.7 C H Pulse Rate 99 99 Respiratory Rate 18 Blood Pressure 103/65 Pulse Oximetry 99 97 100 06/14/21 16:39 06/14/21 16:50 06/14/21 18:00 Temperature Pulse Rate 103 H 99 104 H Respiratory Rate 18 18 Blood Pressure 113/66 Pulse Oximetry 96 100 06/14/21 19:01 06/14/21 20:00 06/14/21 20:01 Temperature 37.1 C Pulse Rate 110 H 108 H 107 H Respiratory Rate 17 18 18 Blood Pressure 115/60 115/70 Pulse Oximetry 100
--- NOTE | 2021-06-15 11:36 | PCFNICU ---
ICU Rounding Note: Pt current nutrition is Vital High Protein at 70 ml/hr over 22 hours. Last recorded weight is 95.2 kg, down from 102.9 kg Bowel Motility: FMS Labs Reviewed:Na 147, Hct 31.2,Hgb 9.6, PO4 5.6,Cr 2.7,BUN 68 Meds Noted:Fentanyl, Versed, Bumex, Vancomycin, Lovenox, Folic Acid, Thiamine, Protonix, Levophed. Skin: WNL Additional Notes: Patient remains on mechanical vent. Tube feeding formula change today to low fat formula of Vital High Protein at 70 ml/hr over 22 hours. Tube feeding will providing 1540 kcals/135 gms protein/ 1287 ml water. Meeting 77% caloric needs/100% protein needs. Free water flush 30 ml q 4 hours, Na 147 today. Agree with diet order. Following daily in ICU rounds. Will monitor every Saturday and Saturday.
[2021-06-15 12:00] LABS: Glucose Point of Care 154 mg/dl (65-105)
--- NOTE | 2021-06-15 12:57 | WPDINTPN ---
Progress Note: A&P Assessment and Plan (1) Acute respiratory failure: Code(s): J96.00 - Acute respiratory failure, unspecified whether with hypoxia or hypercapnia Status: Acute Assessment and Plan: Secondary to pulmonary edema and pleural effusion Patient emergently intubated on 06/08/2021 due to poor mental status and hypoxia Chest x-ray and ABGs reviewed, ventilator adjusted, currently on peep of 8 and 30% FiO2 Patient dialyzed on 06/09/2021 with removal of 3500 mL of fluid. After which she has been having adequate urine output. -continue bronchodilators -sedated with fentanyl, Versed and propofol infusion Continue ertapenem and vancomycin, added Levaquin 06/14/2021 (2) Encephalopathy: Code(s): G93.40 - Encephalopathy, unspecified Status: Acute Assessment and Plan: Metabolic encephalopathy His ammonia and head CT were normal on presentation Currently sedated (3) Sepsis: Code(s): A41.9 - Sepsis, unspecified organism Status: Acute Assessment and Plan: Patient met criteria for sepsis with elevated lactic acid, WBC Likely secondary to severe pancreatitis 06/06/2021 blood and urine cultures are negative so far Patient received close to 10 L of fluid since admission appears to have developed volume overload, urology started diuresing the patient. After which she became hypernatremic so diuretics which discontinued. Lactic acid has normalized Patient currently off all pressors - multi organ failure likely related to acute pancreatitis inside according storm secondary to acute pancreatitis -patient has been febrile, continue Invanz, vancomycin, added Levaquin -06/14/2021: Blood cultures negative x2, sputum and urine cultures are pending 06/14/2021: UA was negative WBC count trending down (4) Renal failure: Qualifiers: Renal failure chronicity: unspecified chronicity Qualified Code(s): N19 - Unspecified kidney failure Code(s): N19 - Unspecified kidney failure Status: Acute Assessment and Plan: Secondary to sepsis, it is hypokalemia, also has rhabdomyolysis He appears to have developed ATN Ultrasound did not show any hydronephrosis Nephrology following -dialysis catheter was placed on 06/08/2021 and received his 1st dialysis on 06/09/2021 with removal 3500 mL of fluid - patient's CK level, creatinine in, lipase, LFTs are all trending in the right direction -discussed with Nephrology, HYPERNATREMIA; hold bumex, patient was started on D5 water, sodium levels improving (5) Rhabdomyolysis: Code(s): M62.82 - Rhabdomyolysis Status: Acute Assessment and Plan: Resolved Continue IV fluids but at conservative level as patient now has volume overload (6) Acute pancreatitis: Qualifiers: Acute pancreatitis complication: unspecified Pancreatitis type: unspecified pancreatitis type Qualified Code(s): K85.90 - Acute pancreatitis without necrosis or infection, unspecified Code(s): K85.90 - Acute pancreatitis without necrosis or infection, unspecified Status: Acute Assessment and Plan: Abdominal CT was read as the following 1. Findings consistent with severe acute pancreatitis. Small reactive ascites. Correlate with amylase, lipase levels. 2. Basilar subsegmental atelectasis. 3. Small left pleural effusion. 4. Hepatic steatosis. Lipase 4735 -> 4331->1181-> 338-> 111-> 73-->[address] Will discontinue IV fluids, -patient tolerating tube feeds at 20 mL hour lesions to goal, GI is agreeable Pain control with IV fentanyl infusion GI and Surgery following (7) Dehydration: Code(s): E86.0 - Dehydration Status: Acute Assessment and Plan: Resolved (8) Alcohol withdrawal: Code(s): F10.239 - Alcohol dependence with withdrawal, unspecified Status: Acute Assessment and Plan: currently on fentanyl and Versed infusion, may start Precedex infusion and start to wea
--- NOTE | 2021-06-15 12:59 | WPDGIPROGNO ---
Progress Note: A&P Assessment and Plan (1) Acute pancreatitis: Qualifiers: Acute pancreatitis complication: unspecified Pancreatitis type: unspecified pancreatitis type Qualified Code(s): K85.90 - Acute pancreatitis without necrosis or infection, unspecified Code(s): K85.90 - Acute pancreatitis without necrosis or infection, unspecified Status: Acute Assessment and Plan: severe pancreatitis with multiorgan failure, intubated, also covered with abx IR advanced Dobbhoff tube beyond ligament Treitz and now he is back on tube feeding but will change formula because he has been having more loose stool on iv protonix I think that he will benefit from pancreatic enzymes to treat diarrhea once he can start having diet but difficult to use right now because small lumen of DH tube and risk of tube blockage (2) Acute respiratory failure: Code(s): J96.00 - Acute respiratory failure, unspecified whether with hypoxia or hypercapnia Status: Acute Assessment and Plan: 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, 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 (3) Elevated liver enzymes: Code(s): R74.8 - Abnormal levels of other serum enzymes Status: Acute Assessment and Plan: transaminases down to 70-80's and stable last few days (4) Alcohol withdrawal: Code(s): F10.239 - Alcohol dependence with withdrawal, unspecified Status: Acute Assessment and Plan: s/p banana bag, icu support thiamine iv (5) Sepsis: Code(s): A41.9 - Sepsis, unspecified organism Status: Acute Assessment and Plan: cultures negative, still on anbiotics wbc elevated (6) Renal failure: Qualifiers: Renal failure chronicity: unspecified chronicity Qualified Code(s): N19 - Unspecified kidney failure Code(s): N19 - Unspecified kidney failure Status: Acute Assessment and Plan: creatinine mid 2's, has not required more dialysis nephrology on board Subjective Date/time seen: 06/15/21 12:59 Interval history: DHT advanced yesterday to duodenum, patient tolerating feeding at 50 ml/h, noted more stool output yesterday, he is also making urine and has not required dialysis lately. Review of Systems Review of Systems: All systems reviewed & are unremarkable except as noted in HPI and below Exam Const: Other: intubated and sedated, will open eyes to pain stimuli HENMT: Other: DHT in place Eyes: Other: eyes open to stimuli Neck: Neck: supple Resp: Auscultation: diminished lung sounds Cardio: Rate: regular rate GI: Inspection: distended GI Palp: Yes Tenderness to palpation present (GI) Other: + bowel sounds Urinary Catheter: Urinary Catheter: patent and draining Skin: General skin exam: no erythema Neuro: Other: unable to assess Extrem: General: normal to inspection Psych: Other: uanble to assess Objective Data Vital Signs Vital Signs: Vital Signs - 24 hr 06/14/21 14:00 06/14/21 14:17 06/14/21 15:50 Temperature Pulse Rate 96 99 Respiratory Rate 18 Blood Pressure 105/68 Pulse Oximetry 98 99 97 06/14/21 16:00 06/14/21 16:39 06/14/21 16:50 Temperature 99.9 F H Pulse Rate 99 103 H 99 Respiratory Rate 18 18 Blood Pressure 103/65 Pulse Oximetry 100 96 06/14/21 18:00 06/14/21 19:01 06/14/21 20:00 Temperature 98.7 F Pulse Rate 104 H 110 H 108 H Respiratory Rate 18 17 18 Blood Pressure 113/66 115/60 Pulse Oximetry 100 100 100 06/14/21 20:01 06/14/21 20:35 06/14/21 21:01 Temperature Pulse Rate 107 H 109 H 114 H Respiratory Rate 18 19 Blood Pressure 115/70 118/68 Pulse Oximetry 99 100 06/14/21 22:00 06/14/21 22:01 06/14/21 22:14 Temperature Pulse Rate 114 H 110 H 116 H Respiratory Rate 16 19 Blood Pressure 120/68 Pulse Oximetry 06/14/21 22:15 06/14/21 23:01 06/14/21 23:30 Temperature Pulse Rate 111 H 117 H 118 H Respiratory Rate 16 20 20 Blood Pressure 108/71 Pulse Oximetry 100 100 06/14/21 23
[2021-06-15] MEDS: IPRATROPIUM BR 0.02% INH SOLN 0.5 MG/2.5 ML VIAL INHALATION ×2 (14:40→20:06)
[2021-06-15] MEDS: LEVALBUTEROL NEB 1.25 MG/3 ML 0.63 MG INHALATION ×2 (14:40→20:07)
[2021-06-15 17:25] LABS: Glucose Point of Care 145 mg/dl (65-105)
[2021-06-15 19:31] LABS: Vancomycin Trough 15.3 ug/mL (10.0-20.0)
--- NOTE | 2021-06-15 19:54 | PC.NURSE ---
Per pharmacy, vanc trough 15.3. Administer dose.
[2021-06-15] MEDS: DEXTROSE 5% 1,000 ML 1,000 ML 50 ML IV CONT (22:31)
[2021-06-15 23:54] LABS: Glucose Point of Care 149 mg/dl (65-105)
[2021-06-16] VITALS (36 sets, daily range): BP systolic 102–139; BP diastolic 56–76; PULSE 101–119; RESP 16–23; TEMP 37.5–39.1; O2SAT 97–100
[2021-06-16] MEDS: ACETAMINOPHEN 325 MG TABLET 650 MG PO ×4 (00:34→23:48)
[2021-06-16] MEDS: IPRATROPIUM BR 0.02% INH SOLN 0.5 MG/2.5 ML VIAL INHALATION ×4 (01:45→19:45)
[2021-06-16] MEDS: LEVALBUTEROL NEB 1.25 MG/3 ML 0.63 MG INHALATION ×4 (01:45→19:45)
[2021-06-16 03:43] LABS: Osmolality, Urine 399 mOsm/kg (50-1200)
[2021-06-16 04:55] LABS: Alveolar/Arterial O2 Gradient 24.7 mmHg; Base Excess ABG -6.6 mEq/l (+/-2.0); Carboxyhemoglobin 0.2 % THb (0-2.0); Fractional Inspired Oxygen 25 %; HCO3 ABG 17.5 mEq/l (22.0-26.0); Methemoglobin ABG 0.2 %THb (0-1.5); Oxygen Content ABG 10.2 %vol (16.0-22.0); Oxygen Saturation ABG 98.4 % (95.0-100.0); PO2 ABG 119.1 mmHg (80.0-100.0); PO2 FiO2 Ratio Arterial Blood 4.76 %; Reduced Hemoglobin 2.6 %THb (0-5.0); pH ABG 7.399 (7.350-7.450)
[2021-06-16 04:57] LABS: Arterial Blood Gas PEEP 8 cmH2O; Arterial Blood Gas Vent Mode CMV; Arterial Blood Gas Ventilator rate 18 /MIN; Device VENTILATOR; Site Drawn RIGHT BRACHIAL; Total Hemoglobin 7.3 g/dL (12.0-18.0)
[2021-06-16 04:58] LABS: Arterial Blood Gas Tidal Volume 450 ml
[2021-06-16 05:24] LABS: Hematocrit 33.5 % (42.0-52.0); Hemoglobin 9.3 g/dL (14.0-18.0); Mean Corpuscular HGB Conc 27.8 g/dl (32-36); Mean Corpuscular Hemoglobin 35.1 pg (26-34); Mean Corpuscular Volume 126.4 fl (80-100); Mean Platelet Volume 11.1 fl (7.4-10.4); Platelet Count Result 293 k/mm3 (150-375); Red Blood Count 2.65 M/mm3 (4.6-6.20); Red Cell Distribution Width 15.5 % (11.5-14.5); White Blood Count 15.1 K/mm3 (4.5-10.0)
[2021-06-16 05:41] LABS: Albumin Level 2.6 g/dL (3.5-5.1); Anion Gap 8 mmol/L (8-16); Blood Urea Nitrogen 69 mg/dL (9-20); Calcium 8.2 mg/dL (8.4-10.2); Carbon Dioxide 18 mmol/L (22-30); Chloride 116 mmol/L (98-107); Creatine Kinase 188 U/L (55-170); Estimated CRCL calculation 33 ml/min; Estimated Glomerular Filt Rate 25; Glucose 148 mg/dL (65-110); Phosphorus 6.3 mg/dL (2.5-4.5); Potassium 3.6 mmol/L (3.4-5.0); Sodium 142 mmol/L (137-145)
[2021-06-16 05:53] LABS: Alanine Aminotransferase 68 U/L (4-50); Albumin Level 2.6 g/dL (3.5-5.1); Alkaline Phosphatase 100 U/L (38-126); Anion Gap 11 mmol/L (8-16); Aspartate Amino Transferase 75 U/L (17-59); Bilirubin,Total 0.8 mg/dL (0.2-1.3); Blood Urea Nitrogen 70 mg/dL (9-20); Calcium 8.3 mg/dL (8.4-10.2); Carbon Dioxide 16 mmol/L (22-30); Chloride 116 mmol/L (98-107); Estimated CRCL calculation 33 ml/min; Estimated Glomerular Filt Rate 25; Glucose 147 mg/dL (65-110); Magnesium 2.7 mg/dL (1.6-2.3); Phosphorus 6.3 mg/dL (2.5-4.5); Potassium 3.6 mmol/L (3.4-5.0); Sodium 143 mmol/L (137-145)
[2021-06-16] MEDS: FENTANYL 2,500MCG/NS250ML(*CRX 2,500 MCG/250 ML BAG 20 MCG IV CONT ×2 (06:04→17:14)
[2021-06-16] MEDS: MIDAZOLAM 100MG/NS 100ML(*CRX) 100 MG/100 ML BAG 8 MG IV CONT (06:05)
[2021-06-16] MEDS: CENTRAL LINE FLUSH 10 ML IV PUSH ×4 (06:06→20:00)
[2021-06-16] MEDS: SODIUM BICARBONATE 8.4% 50 MEQ/50 ML SYRINGE IV PUSH (08:28)
[2021-06-16] MEDS: MINERAL OIL/WHITE PETROLATUM OINTMENT 1 APPLIC EACH EYE ×2 (08:29→20:00)
[2021-06-16] MEDS: THIAMINE HCL 200 MG/2 ML VIAL 100 MG IV PUSH (08:29)
[2021-06-16] MEDS: PANTOPRAZOLE SODIUM IV 40 MG VIAL IV PUSH (08:29)
[2021-06-16] MEDS: ERTAPENEM 1 GM/NS 50 ML 1 GM/50 ML BAG IVPB (08:30)
[2021-06-16] MEDS: FOLIC ACID 1 MG/0.2 ML INJ IV PUSH (08:30)
[2021-06-16] MEDS: ENOXAPARIN 30 MG/0.3 ML SYRINGE SUB-Q (08:31)
[2021-06-16] MEDS: levoFLOXacin 250 MG/D5W 50 ML 250 MG/50 ML BAG 50 MG IVPB (09:18)
--- NOTE | 2021-06-16 09:57 | P.PNNP_ITS ---
Progress Note: A&P Assessment and Plan (1) Renal failure: Qualifiers: Renal failure chronicity: unspecified chronicity Qualified Code(s): N19 - Unspecified kidney failure Code(s): N19 - Unspecified kidney failure Status: Acute Assessment and Plan: * no reported history of renal insufficiency/CKD * creatinine normal in 2018 but no more recent labs/blood work * evaluation to date: * renal ultrasound normal * borderline prerenal urine electrolytes * CPK elevated at 9000 * suspect multifactorial ATN: * dehydration/volume depletion * pancreatitis * rhabdomyolysis * last HD on Saturday (06/09/21) to optimize clearance and stabilize electrolytes along with volume status * Urine output 1200 yesterday. * Creatinine is the same today at 2.7. * He is off the diuretics. * Current intake includes obligate medications, vital, tube feeding flushes, and D5W at 50. * He had hypokalemia. This is resolved. * He had hypernatremia. This is resolved. * he has non anion gap metabolic acidosis. * This is likely related to his diarrhea and also his renal insufficiency with poor ammonia secretion. * Will give bicarbonate tablets. (2) Acute pancreatitis: Qualifiers: Acute pancreatitis complication: unspecified Pancreatitis type: unspecified pancreatitis type Qualified Code(s): K85.90 - Acute pancreatitis without necrosis or infection, unspecified Code(s): K85.90 - Acute pancreatitis without necrosis or infection, unspecified Status: Acute Assessment and Plan: * as evidenced by admission imaging and lipase * lipase is now normal * Tube feedings tolerated. (3) Acute respiratory failure: Code(s): J96.00 - Acute respiratory failure, unspecified whether with hypoxia or hypercapnia Status: Acute Assessment and Plan: * secondary to pulmonary edema + pleural effusion * on supportive care, pulm toilet, (4) Sepsis: Code(s): A41.9 - Sepsis, unspecified organism Status: Acute Assessment and Plan: * as noted with elevated lactic acid and leukocytosis * lactic acid has since normalized * presumably due to severe pancreatitis * on vancomycin, levofloxacin and ertapenem (5) Alcohol abuse: Code(s): F10.10 - Alcohol abuse, uncomplicated Status: Acute Assessment and Plan: * sedated at this time Subjective Date/time seen: 06/16/21 09:57 Interval history: Patient is sedated on the ventilator. He is sedated. He cannot give a history or review of systems. Tolerating Nepro tube feedings. These were changed from Nepro to vital yesterday. He does have diarrhea. Exam Narrative: General: WD/WN male intubated/sedated Heart: tachycardic, normal S1 and S2; no rub or gallop Lungs: Mildly coarse to auscultation Abdomen: distended, decreased bowel sounds, a little softer. Extremities: no edema nor cyanosis. Skin: Moist. No rash or subQ nodules Objective Data Vital Signs Vital Signs: Vital Signs - 24 hr 06/15/21 10:00 06/15/21 12:00 06/15/21 14:00 Temperature 37.2 C Pulse Rate 109 H 116 H 112 H Respiratory Rate 18 20 18 Blood Pressure 121/61 129/61 120/71 Pulse Oximetry 98 98 98 06/15/21 14:41 06/15/21 14:44 06/15/21 14:45 Temperature Pulse Rate 112 H 111 H 111 H Respiratory Rate 18
--- NOTE | 2021-06-16 09:57 | PM.PNNEP ---
Progress Note: A&P Assessment and Plan (1) Renal failure: Qualifiers: Renal failure chronicity: unspecified chronicity Qualified Code(s): N19 - Unspecified kidney failure Code(s): N19 - Unspecified kidney failure Status: Acute Assessment and Plan: no reported history of renal insufficiency/CKD creatinine normal in 2018 but no more recent labs/blood work evaluation to date: renal ultrasound normal borderline prerenal urine electrolytes CPK elevated at 9000 suspect multifactorial ATN: dehydration/volume depletion pancreatitis rhabdomyolysis last HD on Saturday (06/09/21) to optimize clearance and stabilize electrolytes along with volume status Urine output 1200 yesterday. Creatinine is the same today at 2.7. He is off the diuretics. Current intake includes obligate medications, vital, tube feeding flushes, and D5W at 50. He had hypokalemia. This is resolved. He had hypernatremia. This is resolved. he has non anion gap metabolic acidosis. This is likely related to his diarrhea and also his renal insufficiency with poor ammonia secretion. Will give bicarbonate tablets. (2) Acute pancreatitis: Qualifiers: Acute pancreatitis complication: unspecified Pancreatitis type: unspecified pancreatitis type Qualified Code(s): K85.90 - Acute pancreatitis without necrosis or infection, unspecified Code(s): K85.90 - Acute pancreatitis without necrosis or infection, unspecified Status: Acute Assessment and Plan: as evidenced by admission imaging and lipase lipase is now normal Tube feedings tolerated. (3) Acute respiratory failure: Code(s): J96.00 - Acute respiratory failure, unspecified whether with hypoxia or hypercapnia Status: Acute Assessment and Plan: secondary to pulmonary edema + pleural effusion on supportive care, pulm toilet, (4) Sepsis: Code(s): A41.9 - Sepsis, unspecified organism Status: Acute Assessment and Plan: as noted with elevated lactic acid and leukocytosis lactic acid has since normalized presumably due to severe pancreatitis on vancomycin, levofloxacin and ertapenem (5) Alcohol abuse: Code(s): F10.10 - Alcohol abuse, uncomplicated Status: Acute Assessment and Plan: sedated at this time Subjective Date/time seen: 06/16/21 09:57 Interval history: Patient is sedated on the ventilator. He is sedated. He cannot give a history or review of systems. Tolerating Nepro tube feedings. These were changed from Nepro to vital yesterday. He does have diarrhea. Exam Narrative: General: WD/WN male intubated/sedated Heart: tachycardic, normal S1 and S2; no rub or gallop Lungs: Mildly coarse to auscultation Abdomen: distended, decreased bowel sounds, a little softer. Extremities: no edema nor cyanosis. Skin: Moist. No rash or subQ nodules Objective Data Vital Signs Vital Signs: Vital Signs - 24 hr 06/15/21 10:00 06/15/21 12:00 06/15/21 14:00 Temperature 37.2 C Pulse Rate 109 H 116 H 112 H Respiratory Rate 18 20 18 Blood Pressure 121/61 129/61 120/71 Pulse Oximetry 98 98 98 06/15/21 14:41 06/15/21 14:44 06/15/21 14:45 Temperature Pulse Rate 112 H 111 H 111 H Respiratory Rate 18 17 Blood Pressure Pulse Oximetry 99 06/15/21 15:53 06/15/21 16:00 06/15/21 16:32 Temperature 37.4 C Pulse Rate 114 H 115 H Respiratory Rate 17 20 Blood Pressure 123/60 Pulse Oximetry 99 100 06/15/21 16:57 06/15/21 17:11 06/15/21 18:00 Temperature Pulse Rate 115 H 116 H 120 H Respiratory Rate 20 20 Blood Pressure 127/69 Pulse Oximetry 98 96 06/15/21 20:00 06/15/21 20:07 06/15/21 20:14 Temperature 39.1 C H Pulse Rate 121 H 123 H 124 H Respiratory Rate 23 H 20 Blood Pressure 128/66 Pulse Oximetry 96 97 06/15/21 20:18 06/15/21 20:23 06/15/21 21:23 Temperature 39.1 C H 38.3 C H Pulse
[2021-06-16 11:12] LABS: Glucose Point of Care 134 mg/dl (65-105)
--- NOTE | 2021-06-16 12:21 | PCNFU ---
Nutrition Follow-Up Complete: Inadequate Oral Intake as related to Mechanical vent as evidenced by NPO. Goal: Meet estimated nutritional needs We will continue current goal. Pt current nutrition is Vital HP at 60 ml/hr over 22 hours. Last recorded weight is 100.2 kg-stable Bowel Motility:FMS Labs Reviewed:GFR 25, BUN 70, Cr 2.7, Glu 147,Ca 8.3, Alb 2.6 Meds Noted:Fentanyl, Versed, Vancomycin, Lovenox, Folic Acid, Protonix, Thiamine, Bumex Skin: WNL Additional Notes: Patient remains on mechanical vent. Tube feedings had been stopped of Vital HP. Awaiting CT scan. Nutrition Recommendation: Tube feedings of Vital HP at goal rate of 70 ml/hr provide 1540 kcals/135 gms protein/1287 ml water. Free water flush 30 ml q 4 hours. Agree with diet orders. Will reassess every Saturday and Saturday, following in ICU rounds.
--- NOTE | 2021-06-16 12:23 | WPDGIPROGNO ---
Progress Note: A&P Assessment and Plan (1) Acute pancreatitis: Qualifiers: Acute pancreatitis complication: unspecified Pancreatitis type: unspecified pancreatitis type Qualified Code(s): K85.90 - Acute pancreatitis without necrosis or infection, unspecified Code(s): K85.90 - Acute pancreatitis without necrosis or infection, unspecified Status: Acute Assessment and Plan: severe pancreatitis due to alcohol with multiorgan failure, intubated, also covered with abx since admission transaminases were quite high on admission and now down to 70's, renal failure improved but last 2 days with fever and metabolic acidosis again despite antibiotics (also could be explained from recent diarrhea)- will give oral bicarb, also persistent leukocytosis ~ 15k probably eventually he will need pancreatic enzymes if persistent diarrhea agree with getting another CT scan a/p IR advanced Dobbhoff tube beyond ligament Treitz, he has been tolerating tube feeding (2) Acute respiratory failure: Code(s): J96.00 - Acute respiratory failure, unspecified whether with hypoxia or hypercapnia Status: Acute Assessment and Plan: 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, 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 (3) Elevated liver enzymes: Code(s): R74.8 - Abnormal levels of other serum enzymes Status: Acute Assessment and Plan: transaminases down to 70-80's and stable last few days will repeat CT Scan a/p (4) Alcohol withdrawal: Code(s): F10.239 - Alcohol dependence with withdrawal, unspecified Status: Acute Assessment and Plan: s/p banana bag, icu support thiamine iv (5) Sepsis: Code(s): A41.9 - Sepsis, unspecified organism Status: Acute Assessment and Plan: cultures negative, still on anbiotics wbc elevated will get CT scan (6) Renal failure: Qualifiers: Renal failure chronicity: unspecified chronicity Qualified Code(s): N19 - Unspecified kidney failure Code(s): N19 - Unspecified kidney failure Status: Acute Assessment and Plan: creatinine stable at 2.7, he has not required more dialysis nephrology on board Subjective Date/time seen: 06/16/21 12:23 Interval history: he was tolerating tube feeding using DH tube but last couple of days with fever, also noted metabolic acidosis again therefore he is getting CT Scan a/p Review of Systems Review of Systems: All systems reviewed & are unremarkable except as noted in HPI and below Exam Const: Other: intubated and sedated, will open eyes to pain stimuli HENMT: Other: DHT in place Eyes: Other: eyes open to stimuli Neck: Neck: supple Resp: Auscultation: diminished lung sounds Cardio: Rate: regular rate GI: Inspection: distended GI Palp: Yes Tenderness to palpation present (GI) Other: + bowel sounds Urinary Catheter: Urinary Catheter: patent and draining Skin: General skin exam: no erythema Neuro: Other: unable to assess Extrem: General: normal to inspection Psych: Other: uanble to assess Objective Data Vital Signs Vital Signs: Vital Signs - 24 hr 06/15/21 14:00 06/15/21 14:41 06/15/21 14:44 Temperature Pulse Rate 112 H 112 H 111 H Respiratory Rate 18 18 Blood Pressure 120/71 Pulse Oximetry 98 99 06/15/21 14:45 06/15/21 15:53 06/15/21 16:00 Temperature 99.3 F Pulse Rate 111 H 114 H Respiratory Rate 17 17 Blood Pressure 123/60 Pulse Oximetry 99 100 06/15/21 16:32 06/15/21 16:57 06/15/21 17:11 Temperature Pulse Rate 115 H 115 H 116 H Respiratory Rate 20 20 Blood Pressure Pulse Oximetry 98 06/15/21 18:00 06/15/21 20:00 06/15/21 20:07 Temperature 102.4 F H Pulse Rate 120 H 121 H 123 H Respiratory Rate 20 23 H 20 Blood Pressure 127/69 128/66 Pulse Oximetry 96 96 06/15/21 20:14 06/15/21 20:18 06/15/21 20:23 Temperature 102.4 F H Pulse Rate 124 H 124 H Respiratory Rate 26 H Blood Pressure Pulse Oximetry 97 06/15/21 2
--- NOTE | 2021-06-16 13:38 | WPDINTPN ---
Progress Note: A&P Assessment and Plan (1) Acute respiratory failure: Code(s): J96.00 - Acute respiratory failure, unspecified whether with hypoxia or hypercapnia Status: Acute Assessment and Plan: Secondary to pulmonary edema and pleural effusion Patient emergently intubated on 06/08/2021 due to poor mental status and hypoxia Chest x-ray and ABGs reviewed, ventilator adjusted, currently on peep of 8 and 30% FiO2 Patient dialyzed on 06/09/2021 with removal of 3500 mL of fluid. After which she has been having adequate urine output. -continue bronchodilators -sedated with fentanyl, Versed and propofol infusion Continue ertapenem and vancomycin, added Levaquin 06/14/2021 -added Pulmozyme (06/16) as chest CT showed left lower lobe collapse, right lower lobe multi segmental atelectasis. (2) Encephalopathy: Code(s): G93.40 - Encephalopathy, unspecified Status: Acute Assessment and Plan: Metabolic encephalopathy His ammonia and head CT were normal on presentation Currently sedated (3) Sepsis: Code(s): A41.9 - Sepsis, unspecified organism Status: Acute Assessment and Plan: Patient met criteria for sepsis with elevated lactic acid, WBC Likely secondary to severe pancreatitis 06/06/2021 blood and urine cultures are negative so far Patient received close to 10 L of fluid since admission appears to have developed volume overload, urology started diuresing the patient. After which she became hypernatremic so diuretics which discontinued. Lactic acid has normalized Patient currently off all pressors - multi organ failure likely related to acute pancreatitis inside according storm secondary to acute pancreatitis -patient has been febrile, continue Invanz, vancomycin, added Levaquin -06/14/2021: Blood cultures negative x2, sputum and urine cultures are pending 06/14/2021: UA was negative WBC count trending down. CONTINUES TO BE FEBRILE CT CHEST ABDOMEN AND PELVIS ON 06/16/2021 -severe acute pancreatitis with suspicion of developing sizable region of pancreatic necrosis, pancolitis and diarrhea, small to moderate left, small right pleural effusion, left lower lobe collapse, right lower lobe multi segmental atelectasis. (4) Renal failure: Qualifiers: Renal failure chronicity: unspecified chronicity Qualified Code(s): N19 - Unspecified kidney failure Code(s): N19 - Unspecified kidney failure Status: Acute Assessment and Plan: Secondary to sepsis, it is hypokalemia, also has rhabdomyolysis He appears to have developed ATN Ultrasound did not show any hydronephrosis Nephrology following -dialysis catheter was placed on 06/08/2021 and received his 1st dialysis on 06/09/2021 with removal 3500 mL of fluid - patient's CK level, creatinine in, lipase, LFTs are all trending in the right direction -discussed with Nephrology, HYPERNATREMIA; improving, currently 143 this morning continue D5 water (5) Rhabdomyolysis: Code(s): M62.82 - Rhabdomyolysis Status: Acute Assessment and Plan: Resolved Continue IV fluids but at conservative level as patient now has volume overload (6) Acute pancreatitis: Qualifiers: Acute pancreatitis complication: unspecified Pancreatitis type: unspecified pancreatitis type Qualified Code(s): K85.90 - Acute pancreatitis without necrosis or infection, unspecified Code(s): K85.90 - Acute pancreatitis without necrosis or infection, unspecified Status: Acute Assessment and Plan: Abdominal CT was read as the following 1. Findings consistent with severe acute pancreatitis. Small reactive ascites. Correlate with amylase, lipase levels. 2. Basilar subsegmental atelectasis. 3. Small left pleural effusion. 4. Hepatic steatosis. Lipase 4735 -> 4331->1181-> 338-> 111-> 73-->[address] Will discontinue IV fluids, -patient tolerating tube feeds at 20 mL hour lesions to goal, GI is agreeable Pa
[2021-06-16] MEDS: SODIUM BICARBONATE TAB 650 MG TABLET 1300 MG FEED TUBE (16:11)
[2021-06-16] MEDS: MIDAZOLAM 100MG/NS 100ML(*CRX) 100 MG/100 ML BAG 7 MG IV CONT (17:12)
[2021-06-16 17:15] LABS: Glucose Point of Care 147 mg/dl (65-105)
[2021-06-16] MEDS: DEXTROSE 5% 1,000 ML 1,000 ML 50 ML IV CONT (17:22)
[2021-06-16] MEDS: DORNASE ALFA INH SOLN 1 MG/ML 2.5 ML AMP 2.5 MG INHALATION (19:45)
[2021-06-16 23:49] LABS: Glucose Point of Care 177 mg/dl (65-105)
[2021-06-17] VITALS (47 sets, daily range): BP systolic 104–126; BP diastolic 60–73; PULSE 102–124; RESP 18–27; TEMP 37.3–38.8; O2SAT 92–100
[2021-06-17] MEDS: IPRATROPIUM BR 0.02% INH SOLN 0.5 MG/2.5 ML VIAL INHALATION ×2 (01:50→14:14)
[2021-06-17] MEDS: LEVALBUTEROL NEB 1.25 MG/3 ML 0.63 MG INHALATION ×3 (01:50→20:33)
[2021-06-17 05:03] LABS: Base Excess ABG -4.6 mEq/l (+/-2.0); HCO3 ABG 18.6 mEq/l (22.0-26.0); Total Hemoglobin 9.4 g/dL (12.0-18.0); pH ABG 7.444 (7.350-7.450)
[2021-06-17 05:04] LABS: Carboxyhemoglobin 0.2 % THb (0-2.0); Methemoglobin ABG 0.4 %THb (0-1.5); Oxygen Content ABG 13.3 %vol (16.0-22.0); PO2 FiO2 Ratio Arterial Blood 6.79 %; Reduced Hemoglobin 1.9 %THb (0-5.0)
[2021-06-17 05:05] LABS: Device VENTILATOR; Modified Allen's Test Pass; Site Drawn LEFT RADIAL
[2021-06-17 05:06] LABS: Arterial Blood Gas PEEP 8 cmH2O; Arterial Blood Gas Tidal Volume 450 ml; Arterial Blood Gas Vent Mode CMV; Arterial Blood Gas Ventilator rate 18 /MIN; Fractional Inspired Oxygen 25 %
[2021-06-17 05:06] LABS: Hematocrit 27.9 % (42.0-52.0); Hemoglobin 8.4 g/dL (14.0-18.0); Mean Corpuscular HGB Conc 30.1 g/dl (32-36); Mean Corpuscular Hemoglobin 34.7 pg (26-34); Mean Corpuscular Volume 115.3 fl (80-100); Mean Platelet Volume 11.6 fl (7.4-10.4); Platelet Count Result 291 k/mm3 (150-375); Red Blood Count 2.42 M/mm3 (4.6-6.20); Red Cell Distribution Width 14.8 % (11.5-14.5); White Blood Count 14.3 K/mm3 (4.5-10.0)
[2021-06-17 05:35] LABS: Alanine Aminotransferase 52 U/L (4-50); Albumin Level 2.5 g/dL (3.5-5.1); Alkaline Phosphatase 100 U/L (38-126); Anion Gap 6 mmol/L (8-16); Aspartate Amino Transferase 68 U/L (17-59); Bilirubin,Total 0.6 mg/dL (0.2-1.3); Blood Urea Nitrogen 86 mg/dL (9-20); Calcium 7.9 mg/dL (8.4-10.2); Carbon Dioxide 20 mmol/L (22-30); Chloride 113 mmol/L (98-107); Estimated CRCL calculation 33 ml/min; Estimated Glomerular Filt Rate 24; Glucose 180 mg/dL (65-110); Magnesium 2.6 mg/dL (1.6-2.3); Potassium 3.8 mmol/L (3.4-5.0); Sodium 139 mmol/L (137-145)
[2021-06-17] MEDS: FENTANYL 2,500MCG/NS250ML(*CRX 2,500 MCG/250 ML BAG 17.5 MCG IV CONT ×2 (06:02→19:06)
[2021-06-17] MEDS: CENTRAL LINE FLUSH 10 ML IV PUSH ×4 (06:03→19:55)
[2021-06-17] MEDS: ENOXAPARIN 30 MG/0.3 ML SYRINGE SUB-Q (08:53)
[2021-06-17] MEDS: SODIUM BICARBONATE TAB 650 MG TABLET 1300 MG FEED TUBE ×2 (08:53→16:00)
[2021-06-17] MEDS: PANTOPRAZOLE SODIUM IV 40 MG VIAL IV PUSH (08:54)
[2021-06-17] MEDS: MIDAZOLAM 100MG/NS 100ML(*CRX) 100 MG/100 ML BAG IV CONT (08:54)
[2021-06-17] MEDS: THIAMINE HCL 200 MG/2 ML VIAL 100 MG IV PUSH (08:54)
[2021-06-17] MEDS: MINERAL OIL/WHITE PETROLATUM OINTMENT 1 APPLIC EACH EYE ×2 (08:54→19:55)
--- NOTE | 2021-06-17 08:55 | P.PNNP_ITS ---
Progress Note: A&P Assessment and Plan (1) Renal failure: Qualifiers: Renal failure chronicity: unspecified chronicity Qualified Code(s): N19 - Unspecified kidney failure Code(s): N19 - Unspecified kidney failure Status: Acute Assessment and Plan: * no reported history of renal insufficiency/CKD * creatinine normal in 2018 but no more recent labs/blood work * evaluation to date: * renal ultrasound normal * borderline prerenal urine electrolytes * CPK elevated at 9000 * suspect multifactorial ATN: * dehydration/volume depletion * pancreatitis * rhabdomyolysis * last HD on Saturday (06/09/21) to optimize clearance and stabilize electrolytes along with volume status * Urine output 1500 yesterday. * Creatinine is stable. * He is off the diuretics. * Current intake includes obligate medications, vital, tube feeding flushes, and D5W at 50. * He has a little bit of swelling. Will stop the D5. * He had hypokalemia. This is resolved. * He had hypernatremia. This is resolved. * he has non anion gap metabolic acidosis. * This is likely related to his diarrhea and also his renal insufficiency with poor ammonia secretion. * On bicarbonate tablets. (2) Acute pancreatitis: Qualifiers: Acute pancreatitis complication: unspecified Pancreatitis type: unspecified pancreatitis type Qualified Code(s): K85.90 - Acute pancreatitis without necrosis or infection, unspecified Code(s): K85.90 - Acute pancreatitis without necrosis or infection, unspecified Status: Acute Assessment and Plan: * as evidenced by admission imaging and lipase * lipase is now normal * Tube feedings tolerated. (3) Acute respiratory failure: Code(s): J96.00 - Acute respiratory failure, unspecified whether with hypoxia or hypercapnia Status: Acute Assessment and Plan: * secondary to pulmonary edema + pleural effusion * on supportive care, pulm toilet, (4) Sepsis: Code(s): A41.9 - Sepsis, unspecified organism Status: Acute Assessment and Plan: * as noted with elevated lactic acid and leukocytosis * lactic acid has since normalized * presumably due to severe pancreatitis * on vancomycin, levofloxacin and ertapenem (5) Alcohol abuse: Code(s): F10.10 - Alcohol abuse, uncomplicated Status: Acute Assessment and Plan: * sedated at this time Subjective Date/time seen: 06/17/21 08:55 Interval history: Patient is on the ventilator. He is sedated. He cannot give a history or review of systems. Tolerating Nepro tube feedings. These were changed from Nepro to vital yesterday. He does have diarrhea. He has an FMS. Stool output 1100 yesterday. Exam Narrative: General: WD/WN male intubated/sedated Heart: Regular rhythm, fast heart rate, no rub or gallop. Lungs: Mildly coarse to auscultation Abdomen: distended, decreased bowel sounds, a little softer. Extremities: 1+ bilateral edema but no cyanosis. Skin: Moist. No rash or subQ nodules Objective Data Vital Signs Vital Signs: Vital Signs - 24 hr 06/16/21 09:17 06/16/21 10:00 06/16/21 12:00 Temperature 37.5 C 37.5 C 37.7 C H Pulse Rate 106 H 110 H Respiratory Rate 16 17 Blood Pressure 107/65 113/59 L Pulse Oximetry 100 100 06/16/21 12:20 06/16/21 13:28 06/16/21 14:00
--- NOTE | 2021-06-17 08:55 | PM.PNNEP ---
Progress Note: A&P Assessment and Plan (1) Renal failure: Qualifiers: Renal failure chronicity: unspecified chronicity Qualified Code(s): N19 - Unspecified kidney failure Code(s): N19 - Unspecified kidney failure Status: Acute Assessment and Plan: no reported history of renal insufficiency/CKD creatinine normal in 2018 but no more recent labs/blood work evaluation to date: renal ultrasound normal borderline prerenal urine electrolytes CPK elevated at 9000 suspect multifactorial ATN: dehydration/volume depletion pancreatitis rhabdomyolysis last HD on Saturday (06/09/21) to optimize clearance and stabilize electrolytes along with volume status Urine output 1500 yesterday. Creatinine is stable. He is off the diuretics. Current intake includes obligate medications, vital, tube feeding flushes, and D5W at 50. He has a little bit of swelling. Will stop the D5. He had hypokalemia. This is resolved. He had hypernatremia. This is resolved. he has non anion gap metabolic acidosis. This is likely related to his diarrhea and also his renal insufficiency with poor ammonia secretion. On bicarbonate tablets. (2) Acute pancreatitis: Qualifiers: Acute pancreatitis complication: unspecified Pancreatitis type: unspecified pancreatitis type Qualified Code(s): K85.90 - Acute pancreatitis without necrosis or infection, unspecified Code(s): K85.90 - Acute pancreatitis without necrosis or infection, unspecified Status: Acute Assessment and Plan: as evidenced by admission imaging and lipase lipase is now normal Tube feedings tolerated. (3) Acute respiratory failure: Code(s): J96.00 - Acute respiratory failure, unspecified whether with hypoxia or hypercapnia Status: Acute Assessment and Plan: secondary to pulmonary edema + pleural effusion on supportive care, pulm toilet, (4) Sepsis: Code(s): A41.9 - Sepsis, unspecified organism Status: Acute Assessment and Plan: as noted with elevated lactic acid and leukocytosis lactic acid has since normalized presumably due to severe pancreatitis on vancomycin, levofloxacin and ertapenem (5) Alcohol abuse: Code(s): F10.10 - Alcohol abuse, uncomplicated Status: Acute Assessment and Plan: sedated at this time Subjective Date/time seen: 06/17/21 08:55 Interval history: Patient is on the ventilator. He is sedated. He cannot give a history or review of systems. Tolerating Nepro tube feedings. These were changed from Nepro to vital yesterday. He does have diarrhea. He has an FMS. Stool output 1100 yesterday. Exam Narrative: General: WD/WN male intubated/sedated Heart: Regular rhythm, fast heart rate, no rub or gallop. Lungs: Mildly coarse to auscultation Abdomen: distended, decreased bowel sounds, a little softer. Extremities: 1+ bilateral edema but no cyanosis. Skin: Moist. No rash or subQ nodules Objective Data Vital Signs Vital Signs: Vital Signs - 24 hr 06/16/21 09:17 06/16/21 10:00 06/16/21 12:00 Temperature 37.5 C 37.5 C 37.7 C H Pulse Rate 106 H 110 H Respiratory Rate 16 17 Blood Pressure 107/65 113/59 L Pulse Oximetry 100 100 06/16/21 12:20 06/16/21 13:28 06/16/21 14:00 Temperature 37.7 C H Pulse Rate 110 H 107 H 108 H Respiratory Rate 18 18 Blood Pressure 111/57 L Pulse Oximetry 100 98 06/16/21 15:21 06/16/21 16:00 06/16/21 16:10 Temperature 38.4 C H 38.4 C H Pulse Rate 111 H 112 H Respiratory Rate 18 Blood Pressure 107/68 Pulse Oximetry 98 99 06/16/21 17:06 06/16/21 17:10 06/16/21 17:12 Temperature 37.6 C H Pulse Rate 108 H 108 H Respiratory Rate 17 21 H Blood Pressure Pulse Oximetry 06/16/21 17:14 06/16/21 17:40 06/16/21 18:00 Temperature 37.6 C H Pulse Rate 108 H 104 H 104 H Respiratory Rate 21 H 19 Blood Pressure 102/56 L
[2021-06-17] MEDS: ACETAMINOPHEN 325 MG TABLET 650 MG PO ×3 (09:12→20:00)
[2021-06-17] MEDS: FOLIC ACID 1 MG/0.2 ML INJ IV PUSH (09:14)
[2021-06-17] MEDS: ERTAPENEM 1 GM/NS 50 ML 1 GM/50 ML BAG IVPB (09:14)
[2021-06-17] MEDS: levoFLOXacin 250 MG/D5W 50 ML 250 MG/50 ML BAG 50 MG IVPB (09:15)
--- NOTE | 2021-06-17 10:51 | WPDINTPN ---
Progress Note: A&P Assessment and Plan (1) Acute respiratory failure: Code(s): J96.00 - Acute respiratory failure, unspecified whether with hypoxia or hypercapnia Status: Acute Assessment and Plan: Secondary to pulmonary edema and pleural effusion Patient emergently intubated on 06/08/2021 due to poor mental status and hypoxia Chest x-ray and ABGs reviewed, ventilator adjusted, currently on peep of 8 and 30% FiO2 Patient dialyzed on 06/09/2021 with removal of 3500 mL of fluid. After which she has been having adequate urine output. -continue bronchodilators -sedated with fentanyl, Versed and propofol infusion Continue ertapenem and vancomycin, added Levaquin 06/14/2021 -continue Pulmozyme (06/16) -continue bronchodilators (2) Encephalopathy: Code(s): G93.40 - Encephalopathy, unspecified Status: Acute Assessment and Plan: Metabolic encephalopathy His ammonia and head CT were normal on presentation Currently sedated (3) Sepsis: Code(s): A41.9 - Sepsis, unspecified organism Status: Acute Assessment and Plan: Patient met criteria for sepsis with elevated lactic acid, WBC Likely secondary to severe pancreatitis 06/06/2021 blood and urine cultures are negative so far Patient received close to 10 L of fluid since admission appears to have developed volume overload, urology started diuresing the patient. After which she became hypernatremic so diuretics which discontinued. Lactic acid has normalized Patient currently off all pressors - multi organ failure likely related to acute pancreatitis inside according storm secondary to acute pancreatitis -patient has been febrile, continue Invanz, vancomycin, added Levaquin -06/14/2021: Blood cultures negative x2, sputum and urine cultures are pending 06/14/2021: UA was negative WBC count trending down. CONTINUES TO BE FEBRILE CT CHEST ABDOMEN AND PELVIS ON 06/16/2021 -severe acute pancreatitis with suspicion of developing sizable region of pancreatic necrosis, pancolitis and diarrhea, small to moderate left, small right pleural effusion, left lower lobe collapse, right lower lobe multi segmental atelectasis. 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 Will check with Interventional Radiology. (4) Renal failure: Qualifiers: Renal failure chronicity: unspecified chronicity Qualified Code(s): N19 - Unspecified kidney failure Code(s): N19 - Unspecified kidney failure Status: Acute Assessment and Plan: Secondary to sepsis, it is hypokalemia, also has rhabdomyolysis He appears to have developed ATN Ultrasound did not show any hydronephrosis Nephrology following -dialysis catheter was placed on 06/08/2021 and received his 1st dialysis on 06/09/2021 with removal 3500 mL of fluid - patient's CK level, creatinine in, lipase, LFTs are all trending in the right direction -discussed with Nephrology, HYPERNATREMIA; improving, currently 139 this morning, discontinue D5 water. Nephrology is agreeable also (5) Rhabdomyolysis: Code(s): M62.82 - Rhabdomyolysis Status: Acute Assessment and Plan: Resolved Off all IV fluids (6) Acute pancreatitis: Qualifiers: Acute pancreatitis complication: unspecified Pancreatitis type: unspecified pancreatitis type Qualified Code(s): K85.90 - Acute pancreatitis without necrosis or infection, unspecified Code(s): K85.90 - Acute pancreatitis without necrosis or infection, unspecified Status: Acute Assessment and Plan: Abdominal CT was read as the following 1. Findings consistent with severe acute pancreatitis. Small reactive ascites. Correlate with amylase, lipase levels. 2. Basilar subsegmental atelectasis. 3. Small left pleural effusion. 4. Hepatic steatosis. Lipase 4735 -> 4331->1181-> 338-> 111-
[2021-06-17 12:38] LABS: Glucose Point of Care 158 mg/dl (65-105)
[2021-06-17] MEDS: TOLNAFTATE 1% POWDER 45 GM BTL 1 APPLIC TOPICAL (15:35)
[2021-06-17 18:14] LABS: Glucose Point of Care 156 mg/dl (65-105)
[2021-06-17] MEDS: DORNASE ALFA INH SOLN 1 MG/ML 2.5 ML AMP 2.5 MG INHALATION (20:33)
[2021-06-17 23:42] LABS: Glucose Point of Care 194 mg/dl (65-105)
[2021-06-18] VITALS (37 sets, daily range): BP systolic 106–144; BP diastolic 60–92; PULSE 101–121; RESP 18–30; TEMP 37.3–38.3; O2SAT 96–100
[2021-06-18] MEDS: MIDAZOLAM 100MG/NS 100ML(*CRX) 100 MG/100 ML BAG 6 MG IV CONT ×2 (01:56→18:36)
[2021-06-18] MEDS: LEVALBUTEROL NEB 1.25 MG/3 ML 0.63 MG INHALATION ×4 (02:21→19:21)
[2021-06-18] MEDS: IPRATROPIUM BR 0.02% INH SOLN 0.5 MG/2.5 ML VIAL INHALATION ×4 (02:21→19:21)
[2021-06-18 04:19] LABS: Alveolar/Arterial O2 Gradient 101.9 mmHg; Base Excess ABG -3.5 mEq/l (+/-2.0); Carboxyhemoglobin 0.3 % THb (0-2.0); Fractional Inspired Oxygen 30 %; HCO3 ABG 18.5 mEq/l (22.0-26.0); Methemoglobin ABG 0.3 %THb (0-1.5); Oxygen Saturation ABG 96.9 % (95.0-100.0); Oxyhemoglobin 94.8 % THb (90.0-100.0); PCO2 ABG 25.6 mmHg (35.0-45.0); PO2 ABG 81.9 mmHg (80.0-100.0); PO2 FiO2 Ratio Arterial Blood 2.73 %; Reduced Hemoglobin 4.6 %THb (0-5.0); Total Hemoglobin 13.5 g/dL (12.0-18.0); pH ABG 7.476 (7.350-7.450)
[2021-06-18 04:20] LABS: Arterial Blood Gas Vent Mode PRESSURE CONTROL; Arterial Blood Gas Ventilator rate 18 /MIN; Device VENTILATOR; Modified Allen's Test Pass; Site Drawn LEFT RADIAL
[2021-06-18 04:21] LABS: Arterial Blood Gas PEEP 5 cmH2O; Arterial Blood Gas Pressure Support 40 cmH2O
[2021-06-18] MEDS: CENTRAL LINE FLUSH 10 ML IV PUSH ×3 (05:26→20:36)
[2021-06-18 05:48] LABS: Hemoglobin 8.2 g/dL (14.0-18.0); Mean Corpuscular HGB Conc 30.4 g/dl (32-36); Mean Corpuscular Hemoglobin 34.6 pg (26-34); Mean Corpuscular Volume 113.9 fl (80-100); Mean Platelet Volume 11.7 fl (7.4-10.4); Platelet Count Result 315 k/mm3 (150-375); Red Blood Count 2.37 M/mm3 (4.6-6.20); Red Cell Distribution Width 14.8 % (11.5-14.5); White Blood Count 12.8 K/mm3 (4.5-10.0)
[2021-06-18 06:10] LABS: Alanine Aminotransferase 55 U/L (4-50); Albumin Level 2.5 g/dL (3.5-5.1); Alkaline Phosphatase 130 U/L (38-126); Anion Gap 8 mmol/L (8-16); Aspartate Amino Transferase 75 U/L (17-59); Bilirubin,Total 0.4 mg/dL (0.2-1.3); Blood Urea Nitrogen 93 mg/dL (9-20); Calcium 8.1 mg/dL (8.4-10.2); Carbon Dioxide 19 mmol/L (22-30); Chloride 116 mmol/L (98-107); Estimated CRCL calculation 37 ml/min; Estimated Glomerular Filt Rate 27; Glucose 212 mg/dL (65-110); Phosphorus 4.2 mg/dL (2.5-4.5); Potassium 3.1 mmol/L (3.4-5.0); Sodium 143 mmol/L (137-145)
[2021-06-18 06:45] LABS: Glucose Point of Care 179 mg/dl (65-105)
[2021-06-18] MEDS: ENOXAPARIN 30 MG/0.3 ML SYRINGE SUB-Q (08:10)
[2021-06-18] MEDS: THIAMINE HCL 200 MG/2 ML VIAL 100 MG IV PUSH (08:10)
[2021-06-18] MEDS: PANTOPRAZOLE SODIUM IV 40 MG VIAL IV PUSH (08:10)
[2021-06-18] MEDS: SODIUM BICARBONATE TAB 650 MG TABLET 1300 MG FEED TUBE ×2 (08:10→16:38)
[2021-06-18] MEDS: FOLIC ACID 1 MG/0.2 ML INJ IV PUSH (08:11)
[2021-06-18] MEDS: levoFLOXacin 250 MG/D5W 50 ML 250 MG/50 ML BAG 50 MG IVPB (08:11)
[2021-06-18] MEDS: MINERAL OIL/WHITE PETROLATUM OINTMENT 1 APPLIC EACH EYE ×2 (08:11→20:36)
[2021-06-18] MEDS: ERTAPENEM 1 GM/NS 50 ML 1 GM/50 ML BAG IVPB (08:12)
[2021-06-18] MEDS: DORNASE ALFA INH SOLN 1 MG/ML 2.5 ML AMP 2.5 MG INHALATION ×2 (08:19→19:20)
[2021-06-18] MEDS: FENTANYL 2,500MCG/NS250ML(*CRX 2,500 MCG/250 ML BAG 17.5 MCG IV CONT (09:15)
[2021-06-18] MEDS: KCL 40 MEQ/WATER 100 ML 100 ML 25 ML IVPB (09:17)
--- NOTE | 2021-06-18 09:49 | P.PNNP_ITS ---
Progress Note: A&P Assessment and Plan (1) Renal failure: Qualifiers: Renal failure chronicity: unspecified chronicity Qualified Code(s): N19 - Unspecified kidney failure Code(s): N19 - Unspecified kidney failure Status: Acute Assessment and Plan: * no reported history of renal insufficiency/CKD * creatinine normal in 2018 but no more recent labs/blood work * evaluation to date: * renal ultrasound normal * borderline prerenal urine electrolytes * CPK elevated at 9000 * suspect multifactorial ATN: * dehydration/volume depletion * pancreatitis * rhabdomyolysis * last HD on Saturday (06/09/21) to optimize clearance and stabilize electrolytes along with volume status * Urine output 1300 yesterday. * Creatinine is stable. * He is off the diuretics. * he is off IV fluids other than obligate fluids related to medications. * Creatinine is stable. Most likely he has persistent mild ATN due to the pancreatic necrosis. * He had hypokalemia. This is resolved. * He had hypernatremia. This is resolved. * he has non anion gap metabolic acidosis. * On bicarbonate tablets. * CO2 is up and down (2) Acute pancreatitis: Qualifiers: Acute pancreatitis complication: unspecified Pancreatitis type: unspecified pancreatitis type Qualified Code(s): K85.90 - Acute pancreatitis without necrosis or infection, unspecified Code(s): K85.90 - Acute pancreatitis without necrosis or infection, unspecified Status: Acute Assessment and Plan: * as evidenced by admission imaging and lipase * lipase is now normal * last CT shows areas of pancreatic necrosis. * Tube feedings tolerated. (3) Acute respiratory failure: Code(s): J96.00 - Acute respiratory failure, unspecified whether with hypoxia or hypercapnia Status: Acute Assessment and Plan: * secondary to pulmonary edema + pleural effusion * on supportive care, pulm toilet, (4) Sepsis: Code(s): A41.9 - Sepsis, unspecified organism Status: Acute Assessment and Plan: * as noted with elevated lactic acid and leukocytosis * lactic acid has since normalized * presumably due to severe pancreatitis * on vancomycin, levofloxacin and ertapenem * no fevers. Cell count down to 12. (5) Alcohol abuse: Code(s): F10.10 - Alcohol abuse, uncomplicated Status: Acute Assessment and Plan: * sedated at this time Subjective Date/time seen: 06/18/21 09:49 Interval history: Patient is on the ventilator. He is sedated. He cannot give a history or review of systems. Tolerating Vital tube feedings He does have diarrhea. He has an FMS. volume seems down. Exam Narrative: General: WD/WN male intubated/sedated Heart: Regular rhythm, fast heart rate, no rub or gallop. Lungs: Mildly coarse to auscultation Abdomen: distended, decreased bowel sounds, a little softer. Extremities: 1+ bilateral edema but no cyanosis. Skin: No rash Objective Data Vital Signs Vital Signs: Vital Signs - 24 hr 06/17/21 10:00 06/17/21 11:50 06/17/21 12:00 Temperature 38.1 C H Pulse Rate 115 H 115 H 117 H Respiratory Rate 21 H 23 H Blood Pressure 105/60 105/60 Pulse Oximetry 95 95 96 06/17/21 13:27 06/17/21 13:28 06/17/21 14:00 Temperature 38.1 C H Pulse Rate
--- NOTE | 2021-06-18 09:49 | PM.PNNEP ---
Progress Note: A&P Assessment and Plan (1) Renal failure: Qualifiers: Renal failure chronicity: unspecified chronicity Qualified Code(s): N19 - Unspecified kidney failure Code(s): N19 - Unspecified kidney failure Status: Acute Assessment and Plan: no reported history of renal insufficiency/CKD creatinine normal in 2018 but no more recent labs/blood work evaluation to date: renal ultrasound normal borderline prerenal urine electrolytes CPK elevated at 9000 suspect multifactorial ATN: dehydration/volume depletion pancreatitis rhabdomyolysis last HD on Saturday (06/09/21) to optimize clearance and stabilize electrolytes along with volume status Urine output 1300 yesterday. Creatinine is stable. He is off the diuretics. he is off IV fluids other than obligate fluids related to medications. Creatinine is stable. Most likely he has persistent mild ATN due to the pancreatic necrosis. He had hypokalemia. This is resolved. He had hypernatremia. This is resolved. he has non anion gap metabolic acidosis. On bicarbonate tablets. CO2 is up and down (2) Acute pancreatitis: Qualifiers: Acute pancreatitis complication: unspecified Pancreatitis type: unspecified pancreatitis type Qualified Code(s): K85.90 - Acute pancreatitis without necrosis or infection, unspecified Code(s): K85.90 - Acute pancreatitis without necrosis or infection, unspecified Status: Acute Assessment and Plan: as evidenced by admission imaging and lipase lipase is now normal last CT shows areas of pancreatic necrosis. Tube feedings tolerated. (3) Acute respiratory failure: Code(s): J96.00 - Acute respiratory failure, unspecified whether with hypoxia or hypercapnia Status: Acute Assessment and Plan: secondary to pulmonary edema + pleural effusion on supportive care, pulm toilet, (4) Sepsis: Code(s): A41.9 - Sepsis, unspecified organism Status: Acute Assessment and Plan: as noted with elevated lactic acid and leukocytosis lactic acid has since normalized presumably due to severe pancreatitis on vancomycin, levofloxacin and ertapenem no fevers. Cell count down to 12. (5) Alcohol abuse: Code(s): F10.10 - Alcohol abuse, uncomplicated Status: Acute Assessment and Plan: sedated at this time Subjective Date/time seen: 06/18/21 09:49 Interval history: Patient is on the ventilator. He is sedated. He cannot give a history or review of systems. Tolerating Vital tube feedings He does have diarrhea. He has an FMS. volume seems down. Exam Narrative: General: WD/WN male intubated/sedated Heart: Regular rhythm, fast heart rate, no rub or gallop. Lungs: Mildly coarse to auscultation Abdomen: distended, decreased bowel sounds, a little softer. Extremities: 1+ bilateral edema but no cyanosis. Skin: No rash Objective Data Vital Signs Vital Signs: Vital Signs - 24 hr 06/17/21 10:00 06/17/21 11:50 06/17/21 12:00 Temperature 38.1 C H Pulse Rate 115 H 115 H 117 H Respiratory Rate 21 H 23 H Blood Pressure 105/60 105/60 Pulse Oximetry 95 95 96 06/17/21 13:27 06/17/21 13:28 06/17/21 14:00 Temperature 38.1 C H Pulse Rate 117 H 124 H Respiratory Rate 24 H 26 H Blood Pressure 126/70 Pulse Oximetry 94 06/17/21 14:14 06/17/21 14:17 06/17/21 14:27 Temperature Pulse Rate 119 H 122 H 122 H Respiratory Rate 22 H 27 H Blood Pressure Pulse Oximetry 92 06/17/21 14:49 06/17/21 15:34 06/17/21 15:35 Temperature 37.8 C H Pulse Rate 124 H 117 H Respiratory Rate 19 Blood Pressure Pulse Oximetry 95 06/17/21 15:37 06/17/21 16:00 06/17/21 18:00 Temperature 37.8 C H 37.3 C Pulse Rate 117 H 115 H 104 H Respiratory Rate 19 18 18 Blood Pressure 106/62 107/66 Pulse Oximetry 98 100 06/17/21 18:03 06/17/21 18:04
[2021-06-18] MEDS: TOLNAFTATE 1% POWDER 45 GM BTL 1 APPLIC TOPICAL ×2 (11:21→20:48)
--- NOTE | 2021-06-18 11:26 | P.PNINT_ITS ---
Progress Note: A&P Assessment and Plan (1) Acute respiratory failure: Code(s): J96.00 - Acute respiratory failure, unspecified whether with hypoxia or hypercapnia Status: Acute Assessment and Plan: Secondary to pulmonary edema and pleural effusion Patient emergently intubated on 06/08/2021 due to poor mental status and hypoxia Chest x-ray and ABGs reviewed, ventilator adjusted, currently on peep of 8 and 30% FiO2 Patient dialyzed on 06/09/2021 with removal of 3500 mL of fluid. After which she has been having adequate urine output. -continue bronchodilators -sedated with fentanyl, Versed and propofol infusion Continue ertapenem and vancomycin, added Levaquin 06/14/2021 -continue Pulmozyme (06/16) -continue bronchodilators (2) Encephalopathy: Code(s): G93.40 - Encephalopathy, unspecified Status: Acute Assessment and Plan: Metabolic encephalopathy His ammonia and head CT were normal on presentation Currently sedated (3) Sepsis: Code(s): A41.9 - Sepsis, unspecified organism Status: Acute Assessment and Plan: Patient met criteria for sepsis with elevated lactic acid, WBC Likely secondary to severe pancreatitis 06/06/2021 blood and urine cultures are negative so far Patient received close to 10 L of fluid since admission appears to have developed volume overload, urology started diuresing the patient. After which she became hypernatremic so diuretics which discontinued. Lactic acid has normalized Patient currently off all pressors - multi organ failure likely related to acute pancreatitis inside according storm secondary to acute pancreatitis -patient has been febrile, continue Invanz, vancomycin, added Levaquin -06/14/2021: Blood cultures negative x2, sputum and urine cultures are pending 06/14/2021: UA was negative WBC count trending down. CONTINUES TO BE FEBRILE CT CHEST ABDOMEN AND PELVIS ON 06/16/2021 -severe acute pancreatitis with suspicion of developing sizable region of pancreatic necrosis, pancolitis and diarrhea, small to moderate left, small right pleural effusion, left lower lobe collapse, right lower lobe multi segmental atelectasis. 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 Will check with I nterventional Radiology. (4) Renal failure: Qualifiers: Renal failure chronicity: unspecified chronicity Qualified Code(s): N19 - Unspecified kidney failure Code(s): N19 - Unspecified kidney failure Status: Acute Assessment and Plan: Secondary to sepsis, it is hypokalemia, also has rhabdomyolysis He appears to have developed ATN Ultrasound did not show any hydronephrosis Nephrology following -dialysis catheter was placed on 06/08/2021 and received his 1st dialysis on 06/09/2021 with removal 3500 mL of fluid - patient's CK level, creatinine in, lipase, LFTs are all trending in the right direction -discussed with Nephrology, HYPERNATREMIA; improved. Continue tube feed flushes, D5 water was discontinued (5) Rhabdomyolysis: Code(s): M62.82 - Rhabdomyolysis Status: Acute Assessment and Plan: Resolved Off all IV fluids (6) Acute pancreatitis: Qualifiers: Acute pancreatitis complication: unspecified Pancreatitis type: unspecified pancreatitis type Qualified Code(s): K85.90 - Acute pancreatitis without necrosis or infection, unspecified Code(s): K85.90 - Acute pancreatitis without necrosis or infection, unspecified S
[2021-06-18] MEDS: ACETAMINOPHEN 325 MG TABLET 650 MG PO (11:31)
[2021-06-18 11:38] LABS: Glucose Point of Care 185 mg/dl (65-105)
[2021-06-18 17:41] LABS: Glucose Point of Care 180 mg/dl (65-105)
[2021-06-18] MEDS: ROCURONIUM BROMIDE 50 MG/5 ML VIAL IV PUSH (17:59)
[2021-06-18 19:59] LABS: Vancomycin Trough 17.6 ug/mL (10.0-20.0)
[2021-06-18] MEDS: FENTANYL 2,500MCG/NS250ML(*CRX 2,500 MCG/250 ML BAG 20 MCG IV CONT (22:44)
[2021-06-19] VITALS (39 sets, daily range): BP systolic 97–125; BP diastolic 55–72; PULSE 11–122; RESP 18–25; TEMP 37.6–38.4; O2SAT 93–98
[2021-06-19 00:45] LABS: Glucose Point of Care 190 mg/dl (65-105)
[2021-06-19] MEDS: IPRATROPIUM BR 0.02% INH SOLN 0.5 MG/2.5 ML VIAL INHALATION ×4 (02:33→20:00)
[2021-06-19] MEDS: LEVALBUTEROL NEB 1.25 MG/3 ML 0.63 MG INHALATION ×4 (02:34→20:00)
[2021-06-19] MEDS: CENTRAL LINE FLUSH 10 ML IV PUSH ×4 (04:38→20:41)
[2021-06-19 04:41] LABS: pH ABG 7.488 (7.350-7.450)
[2021-06-19 04:42] LABS: Base Excess ABG -2.4 mEq/l (+/-2.0)
[2021-06-19 04:46] LABS: Total Hemoglobin 7.8 g/dL (12.0-18.0)
[2021-06-19 04:47] LABS: Carboxyhemoglobin 0.3 % THb (0-2.0); Oxygen Content ABG 10.5 %vol (16.0-22.0)
[2021-06-19 04:48] LABS: Device VENTILATOR; Fractional Inspired Oxygen 30 %; Modified Allen's Test Pass; PO2 FiO2 Ratio Arterial Blood 2.71 %; Site Drawn RIGHT RADIAL
[2021-06-19 04:49] LABS: Arterial Blood Gas PEEP 5 cmH2O; Arterial Blood Gas Vent Mode PRESSURE CONTROL; Arterial Blood Gas Ventilator rate 18 /MIN; Peak Inspiratory Pressure 40 cmH2O
[2021-06-19 04:56] LABS: Basophils Absolute Auto 0.1 K/mm3 (0.0-0.1); Basophils Percent Auto 0.6 % (0.2-1.2); Eosinophils Absolute Auto 0.2 K/mm3 (0-0.3); Eosinophils Percent Auto 1.3 % (0-4.4); Hematocrit 25.8 % (42.0-52.0); Immature Granulocyte Percent A 2.5 % (0-0.5); Lymphocytes Absolute Auto 1.02 K/mm3 (0.9-3.2); Lymphocytes Percent Auto 8.7 % (18.3-44.2); Mean Corpuscular Hemoglobin 34.5 pg (26-34); Mean Corpuscular Volume 111.2 fl (80-100); Monocytes Absolute Auto 0.7 K/mm3 (0.1-0.6); Monocytes Percent Auto 6.3 % (2.6-8.5); Neutrophils Absolute Auto 9.5 K/mm3 (1.3-6.7); Neutrophils Percent Auto 80.6 % (45.5-73.1); Platelet Count Result 361 k/mm3 (150-375); Red Blood Count 2.32 M/mm3 (4.6-6.20); Red Cell Distribution Width 14.7 % (11.5-14.5); White Blood Count 11.8 K/mm3 (4.5-10.0)
[2021-06-19 05:05] LABS: INR 1.1; Prothrombin Time 14.2 Seconds (11.1-14.7)
[2021-06-19 05:06] LABS: Partial Thromboplastin Time 30.9 SECONDS (22.3-36.8)
[2021-06-19 05:09] LABS: Lactic Acid Reflex 1.6 mmol/L (0.7-2.1)
[2021-06-19 05:09] LABS: Alanine Aminotransferase 82 U/L (4-50); Albumin Level 2.4 g/dL (3.5-5.1); Alkaline Phosphatase 153 U/L (38-126); Anion Gap 5 mmol/L (8-16); Aspartate Amino Transferase 128 U/L (17-59); Bilirubin,Total 0.4 mg/dL (0.2-1.3); Blood Urea Nitrogen 91 mg/dL (9-20); Calcium 8.3 mg/dL (8.4-10.2); Carbon Dioxide 24 mmol/L (22-30); Chloride 123 mmol/L (98-107); Creatine Kinase 36 U/L (55-170); Estimated CRCL calculation 40 ml/min; Estimated Glomerular Filt Rate 30; Glucose 203 mg/dL (65-110); Lipase 69 U/L (23-300); Magnesium 3.3 mg/dL (1.6-2.3); Potassium 3.4 mmol/L (3.4-5.0); Sodium 152 mmol/L (137-145)
[2021-06-19 06:21] LABS: Glucose Point of Care 189 mg/dl (65-105)
[2021-06-19] MEDS: DORNASE ALFA INH SOLN 1 MG/ML 2.5 ML AMP 2.5 MG INHALATION ×3 (08:09→20:00)
[2021-06-19] MEDS: ERTAPENEM 1 GM/NS 50 ML 1 GM/50 ML BAG IVPB (09:16)
[2021-06-19] MEDS: levoFLOXacin 250 MG/D5W 50 ML 250 MG/50 ML BAG 50 MG IVPB (09:16)
[2021-06-19] MEDS: FOLIC ACID 1 MG/0.2 ML INJ IV PUSH (09:16)
[2021-06-19] MEDS: DEXTROSE 5% 1,000 ML 1,000 ML 75 ML IV CONT ×2 (09:17→20:30)
[2021-06-19] MEDS: THIAMINE HCL 200 MG/2 ML VIAL 100 MG IV PUSH (09:18)
[2021-06-19] MEDS: PANTOPRAZOLE SODIUM IV 40 MG VIAL IV PUSH (09:18)
[2021-06-19] MEDS: MINERAL OIL/WHITE PETROLATUM OINTMENT 1 APPLIC EACH EYE ×2 (09:18→20:30)
[2021-06-19] MEDS: SODIUM BICARBONATE TAB 650 MG TABLET 1300 MG FEED TUBE (09:18)
[2021-06-19] MEDS: TOLNAFTATE 1% POWDER 45 GM BTL 1 APPLIC TOPICAL ×2 (09:19→20:29)
[2021-06-19] MEDS: INSULIN GLARGINE (*BKC) 100 UNITS/ML 15 UNITS SUB-Q (09:19)
[2021-06-19] MEDS: FENTANYL 2,500MCG/NS250ML(*CRX 2,500 MCG/250 ML BAG 20 MCG IV CONT (10:26)
[2021-06-19] MEDS: MIDAZOLAM 100MG/NS 100ML(*CRX) 100 MG/100 ML BAG 6 MG IV CONT (10:27)
--- NOTE | 2021-06-19 10:57 | P.PNNP_ITS ---
Progress Note: A&P Assessment and Plan (1) Renal failure: Qualifiers: Renal failure chronicity: unspecified chronicity Qualified Code(s): N19 - Unspecified kidney failure Code(s): N19 - Unspecified kidney failure Status: Acute Assessment and Plan: * no reported history of renal insufficiency/CKD * creatinine normal in 2018 but no more recent labs/blood work * evaluation to date: * renal ultrasound normal * borderline prerenal urine electrolytes * CPK elevated at 9000 * suspect multifactorial ATN: * dehydration/volume depletion * pancreatitis * rhabdomyolysis * last HD on Saturday (06/09/21) to optimize clearance and stabilize electrolytes along with volume status * Urine output 01/06/2055 yesterday. * Creatinine is stable. * He is off the diuretics. * he is off IV fluids other than obligate fluids related to medications. * Creatinine is stable. Most likely he has persistent mild ATN due to the pancreatic necrosis. * He had hypokalemia. This is resolved. * He had hypernatremia. * This has returned. * This may be due to increased stool volume. He also has increased insensible loss. * Will restart D5W. * he has non anion gap metabolic acidosis. * This is better now. Will reduce bicarbonate supplement (2) Acute pancreatitis: Qualifiers: Acute pancreatitis complication: unspecified Pancreatitis type: unspecified pancreatitis type Qualified Code(s): K85.90 - Acute pancreatitis without necrosis or infection, unspecified Code(s): K85.90 - Acute pancreatitis without necrosis or infection, unspecified Status: Acute Assessment and Plan: * as evidenced by admission imaging and lipase * lipase is now normal * last CT shows areas of pancreatic necrosis. * Tube feedings tolerated. (3) Acute respiratory failure: Code(s): J96.00 - Acute respiratory failure, unspecified whether with hypoxia or hypercapnia Status: Acute Assessment and Plan: * secondary to pulmonary edema + pleural effusion * on supportive care, pulm toilet, (4) Sepsis: Code(s): A41.9 - Sepsis, unspecified organism Status: Acute Assessment and Plan: * as noted with elevated lactic acid and leukocytosis * lactic acid has since normalized * presumably due to severe pancreatitis * on vancomycin, levofloxacin and ertapenem * no fevers. Cell count down to 12. (5) Alcohol abuse: Code(s): F10.10 - Alcohol abuse, uncomplicated Status: Acute Assessment and Plan: * sedated at this time Subjective Date/time seen: 06/19/21 10:57 Interval history: Patient is on the ventilator. He is sedated. He cannot give a history or review of systems. Doing well with tube feedings. He still has quite a bit of liquid stool output Exam Narrative: WDWN ill looking gentleman on the ventilator and IVs skin no rash head ncat lungs course cor reg no rub abd BS+ nontender and soft ext no edema. Objective Data Vital Signs Vital Signs: Vital Signs - 24 hr 06/18/21 11:31 06/18/21 12:00 06/18/21 13:12 Temperature 37.8 C H 37.8 C H Pulse Rate 109 H 110 H Respiratory Rate 18 19 Blood Pressure 107/70 Pulse Oximetry 98 99 06/18/21 13:46 06/18/21 14:00 06/18/21 15:53 Temperature Pulse Rate 11
--- NOTE | 2021-06-19 10:57 | PM.PNNEP ---
Progress Note: A&P Assessment and Plan (1) Renal failure: Qualifiers: Renal failure chronicity: unspecified chronicity Qualified Code(s): N19 - Unspecified kidney failure Code(s): N19 - Unspecified kidney failure Status: Acute Assessment and Plan: no reported history of renal insufficiency/CKD creatinine normal in 2018 but no more recent labs/blood work evaluation to date: renal ultrasound normal borderline prerenal urine electrolytes CPK elevated at 9000 suspect multifactorial ATN: dehydration/volume depletion pancreatitis rhabdomyolysis last HD on Saturday (06/09/21) to optimize clearance and stabilize electrolytes along with volume status Urine output 01/06/2055 yesterday. Creatinine is stable. He is off the diuretics. he is off IV fluids other than obligate fluids related to medications. Creatinine is stable. Most likely he has persistent mild ATN due to the pancreatic necrosis. He had hypokalemia. This is resolved. He had hypernatremia. This has returned. This may be due to increased stool volume. He also has increased insensible loss. Will restart D5W. he has non anion gap metabolic acidosis. This is better now. 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 Tube feedings tolerated. (3) Acute respiratory failure: Code(s): J96.00 - Acute respiratory failure, unspecified whether with hypoxia or hypercapnia Status: Acute Assessment and Plan: secondary to pulmonary edema + pleural effusion on supportive care, pulm toilet, (4) Sepsis: Code(s): A41.9 - Sepsis, unspecified organism Status: Acute Assessment and Plan: as noted with elevated lactic acid and leukocytosis lactic acid has since normalized presumably due to severe pancreatitis on vancomycin, levofloxacin and ertapenem no fevers. Cell count down to 12. (5) Alcohol abuse: Code(s): F10.10 - Alcohol abuse, uncomplicated Status: Acute Assessment and Plan: sedated at this time Subjective Date/time seen: 06/19/21 10:57 Interval history: Patient is on the ventilator. He is sedated. He cannot give a history or review of systems. Doing well with tube feedings. He still has quite a bit of liquid stool output Exam Narrative: WDWN ill looking gentleman on the ventilator and IVs skin no rash head ncat lungs course cor reg no rub abd BS+ nontender and soft ext no edema. Objective Data Vital Signs Vital Signs: Vital Signs - 24 hr 06/18/21 11:31 06/18/21 12:00 06/18/21 13:12 Temperature 37.8 C H 37.8 C H Pulse Rate 109 H 110 H Respiratory Rate 18 19 Blood Pressure 107/70 Pulse Oximetry 98 99 06/18/21 13:46 06/18/21 14:00 06/18/21 15:53 Temperature Pulse Rate 112 H 110 H 120 H Respiratory Rate 18 18 18 Blood Pressure 106/64 Pulse Oximetry 98 06/18/21 15:54 06/18/21 16:00 06/18/21 16:30 Temperature 37.3 C 37.3 C Pulse Rate 120 H 121 H Respiratory Rate 18 20 Blood Pressure 144/92 H Pulse Oximetry 96 06/18/21 17:00 06/18/21 18:00 06/18/21 18:36 Temperature Pulse Rate 113 H 110 H 107 H Respiratory Rate 18 18 Blood Pressure 114/66 Pulse Oximetry 99 100 06/18/21 19:17 06/18/21 19:19 06/18/21 19:38 Temperature Pulse Rate 108 H 108 H 112 H Respiratory Rate 18 18 Blood Pressure Pulse Oximetry 98 06/18/21 20:00 06/18/21 20:48 06/18/21 20:49 Temperatur
[2021-06-19 11:15] LABS: Glucose Point of Care 235 mg/dl (65-105)
[2021-06-19] MEDS: INSULIN ASPART (*BKC) 100 UNITS/ML SUB-Q (11:23)
--- NOTE | 2021-06-19 11:39 | PCFNICU ---
ICU Rounding Note: Pt current nutrition is Vital HP at 70 ml/hr over 22 hours. Last recorded weight is 101.3 kg-stable Bowel Motility:FMS Labs Reviewed:Glu 203, Cr 2.3,BUN 91, Na 152, Alb 2.4 Meds Noted:Versed, Fentanyl, Bumex, Lovenox, Folic Acid, Thiamine, Protonix, Vancomycin, Versed, Atrovent, Levaquin. Skin: WNL Additional Notes: Patient remains on mechanical vent. Tube feeding of Vital HP are currently on hold for thoracenteses today. Free water flush increased to 200 ml q 4 hours, Na 152 today. Agree with diet orders. Following daily in ICU rounds. Will monitor every Saturday and Saturday.
--- NOTE | 2021-06-19 11:55 | WPDINTPN ---
Progress Note: A&P Assessment and Plan (1) Acute respiratory failure: Code(s): J96.00 - Acute respiratory failure, unspecified whether with hypoxia or hypercapnia Status: Acute Assessment and Plan: Secondary to pulmonary edema and pleural effusion Patient emergently intubated on 06/08/2021 due to poor mental status and hypoxia Chest x-ray and ABGs reviewed, ventilator adjusted, currently on peep of 8 and 30% FiO2 Patient dialyzed on 06/09/2021 with removal of 3500 mL of fluid. After which she has been having adequate urine output. CT shows collapse of left lower lobe -requested diagnostic and therapeutic thoracentesis on left side -continue bronchodilators, dornase -will place patient right side down and try to open up the left lower lobe -may need a bronchoscopy -sedated with fentanyl, Versed and propofol infusion - Continue ertapenem and vancomycin, added Levaquin 06/14/2021 (2) Sepsis: Code(s): A41.9 - Sepsis, unspecified organism Status: Acute Assessment and Plan: Patient met criteria for sepsis with elevated lactic acid, WBC Likely secondary to severe pancreatitis 06/06/2021 blood and urine cultures are negative so far Patient received close to 10 L of fluid since admission appears to have developed volume overload, urology started diuresing the patient. After which she became hypernatremic so diuretics which discontinued. Lactic acid has normalized Patient currently off all pressors - multi organ failure likely related to acute pancreatitis inside according storm secondary to acute pancreatitis -patient has been febrile, continue Invanz, vancomycin, added Levaquin -06/14/2021: Blood cultures negative x2, sputum and urine cultures are pending 06/14/2021: UA was negative WBC count trending down. CONTINUES TO BE FEBRILE CT CHEST ABDOMEN AND PELVIS ON 06/16/2021 -severe acute pancreatitis with suspicion of developing sizable region of pancreatic necrosis, pancolitis and diarrhea, small to moderate left, small right pleural effusion, left lower lobe collapse, right lower lobe multi segmental atelectasis. -discussed with GI, continue tube feeds Fever and elevated WBC count can be secondary to infection of necrosis versus pneumonia/atelectasis that he has -plan for diagnostic and therapeutic thoracentesis on left side today -will try non invasive measures to see if atelectasis on the left side improves otherwise he may need bronchoscopy. -called [facility] for transfer as he may need drainage versus surgery in case he developed infection of necrosis (3) Renal failure: Qualifiers: Renal failure chronicity: unspecified chronicity Qualified Code(s): N19 - Unspecified kidney failure Code(s): N19 - Unspecified kidney failure Status: Acute Assessment and Plan: Secondary to sepsis ands rhabdomyolysis He appears to have developed ATN Ultrasound did not show any hydronephrosis Nephrology following -dialysis catheter was placed on 06/08/2021 and received his 1st dialysis on 06/09/2021 with removal 3500 mL of fluid - patient's CK level, creatinine in, lipase, LFTs are all trending in the right direction -discussed with Nephrology, HYPERNATREMIA- Increase free water flushes (4) Rhabdomyolysis: Code(s): M62.82 - Rhabdomyolysis Status: Acute Assessment and Plan: Resolved Off all IV fluids (5) Acute pancreatitis: Qualifiers: Acute pancreatitis complication: unspecified Pancreatitis type: unspecified pancreatitis type Qualified Code(s): K85.90 - Acute pancreatitis without necrosis or infection, unspecified Code(s): K85.90 - Acute pancreatitis without necrosis or infection, unspecified Status: Acute Assessment and Plan: Abdominal CT was read as the following 1. Findings consistent with severe acute pancreatitis. Small reactive ascites. Correlate with amylase, lipase levels. 2. Basilar subsegmental atel
[2021-06-19 12:50] LABS: pH Pleural Fluid 7.405 (7.210-7.500)
--- NOTE | 2021-06-19 13:23 | WPDGIPROGNO ---
Progress Note: A&P Assessment and Plan (1) Acute pancreatitis: Qualifiers: Acute pancreatitis complication: unspecified Pancreatitis type: unspecified pancreatitis type Qualified Code(s): K85.90 - Acute pancreatitis without necrosis or infection, unspecified Code(s): K85.90 - Acute pancreatitis without necrosis or infection, unspecified Status: Acute Assessment and Plan: repeat CT scan Saturday showed pancreatic necrosis but no obvious collection to drain and bilirubin is normal but given severity of pancreatitis on presentation with multiorgan failure, I think will be reasonable to transfer to tertiary hospital in case he decompensates and if does not have significant improvement continue icu care, he has been tolerating tube feeding now that DHT is beyond 3rd portion duodenum will get thoracentesis today and pulmonary evaluation because CT chest findings. (2) Elevated liver enzymes: Code(s): R74.8 - Abnormal levels of other serum enzymes Status: Acute Assessment and Plan: transaminases 80-100 range now with normal bilirubin (3) Acute respiratory failure: Code(s): J96.00 - Acute respiratory failure, unspecified whether with hypoxia or hypercapnia Status: Acute Assessment and Plan: still intubated, thoracentesis pending and hopefully extubation soon- per icu (4) Renal failure: Qualifiers: Renal failure chronicity: unspecified chronicity Qualified Code(s): N19 - Unspecified kidney failure Code(s): N19 - Unspecified kidney failure Status: Acute Assessment and Plan: creatinine stable ~ 2.3 (5) Alcohol abuse: Code(s): F10.10 - Alcohol abuse, uncomplicated Status: Acute (6) Atelectasis: Code(s): J98.11 - Atelectasis Status: Acute Subjective Date/time seen: 06/19/21 13:23 Interval history: CT scan on Saturday showed necrotic pancreatitis and also had atelectasis with pleural effusion, still intubated and will get thoracentesis. He has been tolerating TF using DHT that is in 3rd portion duodenum. Review of Systems Review of Systems: All systems reviewed & are unremarkable except as noted in HPI and below Exam Const: Other: intubated and sedated, will open eyes to pain stimuli HENMT: Other: DHT in place Eyes: Other: eyes open to stimuli Neck: Neck: supple Resp: Auscultation: diminished lung sounds Cardio: Rate: regular rate GI: Inspection: distended GI Palp: Yes Tenderness to palpation present (GI) Other: + bowel sounds Urinary Catheter: Urinary Catheter: patent and draining Skin: General skin exam: no erythema Neuro: Other: unable to assess Extrem: General: pedal edema bilaterally Psych: Other: uanble to assess Objective Data Vital Signs Vital Signs: Vital Signs - 24 hr 06/18/21 13:46 06/18/21 14:00 06/18/21 15:53 Temperature Pulse Rate 112 H 110 H 120 H Respiratory Rate 18 18 18 Blood Pressure 106/64 Pulse Oximetry 98 06/18/21 15:54 06/18/21 16:00 06/18/21 16:30 Temperature 99.1 F 99.1 F Pulse Rate 120 H 121 H Respiratory Rate 18 20 Blood Pressure 144/92 H Pulse Oximetry 96 06/18/21 17:00 06/18/21 18:00 06/18/21 18:36 Temperature Pulse Rate 113 H 110 H 107 H Respiratory Rate 18 18 Blood Pressure 114/66 Pulse Oximetry 99 100 06/18/21 19:17 06/18/21 19:19 06/18/21 19:38 Temperature Pulse Rate 108 H 108 H 112 H Respiratory Rate 18 18 Blood Pressure Pulse Oximetry 98 06/18/21 20:00 06/18/21 20:48 06/18/21 20:49 Temperature 100.3 F H Pulse Rate 111 H 108 H 101 H Respiratory Rate 18 18 30 H Blood Pressure 115/60 Pulse Oximetry 100 06/18/21 22:00 06/18/21 22:44 06/18/21 23:02 Temperature Pulse Rate 103 H 106 H 105 H Respiratory Rate 18 30 H Blood Pressure 115/67 Pulse Oximetry 99 96 06/19/21 00:00 06/19/21 02:00 06/19/21 02:31 Temperature 100.2 F H Pulse Rate 106 H 108 H 108 H Respi
[2021-06-19 14:05] LABS: Albumin Level 2.4 g/dL (3.5-5.1); Cholesterol 82 mg/dL (0-200); Glucose 198 mg/dL (65-110); Lactate Dehydrogenase 1009 U/L (313-618)
[2021-06-19 14:08] LABS: Appearance Pleural Fluid Cloudy (Clear); Color Pleural Fluid Yellow (Colorless); Pleural fluid source Pleural fluid
[2021-06-19 14:09] LABS: Lymphocytes Pleural Fluid 14 %; Monocytes Pleural Fluid 1 %; Neutrophils Pleural Fluid 54 % (0-25)
[2021-06-19 14:10] LABS: Other Cells Pleural Fluid 31 %
[2021-06-19] MEDS: MIDAZOLAM HCL (*CRX) 2 MG/2 ML VIAL 4 MG IV PUSH (14:52)
[2021-06-19 17:08] LABS: Anion Gap 6 mmol/L (8-16); Blood Urea Nitrogen 92 mg/dL (9-20); Calcium 8.2 mg/dL (8.4-10.2); Carbon Dioxide 23 mmol/L (22-30); Chloride 121 mmol/L (98-107); Estimated CRCL calculation 39 ml/min; Estimated Glomerular Filt Rate 29; Glucose 110 mg/dL (65-110); Potassium 3.5 mmol/L (3.4-5.0); Sodium 150 mmol/L (137-145)
[2021-06-19 17:17] LABS: Glucose Point of Care 92 mg/dl (65-105)
[2021-06-19] MEDS: SODIUM BICARBONATE TAB 650 MG TABLET FEED TUBE (17:17)
[2021-06-19] MEDS: ACETAMINOPHEN 325 MG TABLET 650 MG PO (17:17)
[2021-06-19] MEDS: FENTANYL 2,500MCG/NS250ML(*CRX 2,500 MCG/250 ML BAG 15 MCG IV CONT (23:21)
[2021-06-20] VITALS (39 sets, daily range): BP systolic 104–142; BP diastolic 54–77; PULSE 101–135; RESP 18–21; TEMP 37.3–38.5; O2SAT 91–100
[2021-06-20] MEDS: ETOMIDATE 20 MG/10 ML AMPUL IV PUSH (00:45)
[2021-06-20] MEDS: SUCCINYLCHOLINE CHLORIDE 20 MG/ML 10 ML VIAL 100 MG IV PUSH (00:46)
[2021-06-20] MEDS: ROCURONIUM BROMIDE 50 MG/5 ML VIAL 100 MG IV PUSH (00:52)
--- NOTE | 2021-06-20 00:56 | ED.PROCEDURE ---
Procedures Intubation Intubation Date: 06/20/21 Intubation Time: 00:35 A pre-procedural Time-Out was completed immediately before starting the procedure and confirmed: Patient Identification, Site, Procedure, Patient Position and the Availability of Requisite Equipment: No Sedative: etomidate Mg given: 20 Paralytic: rocuronium Mg given: 100 Laryngoscope: fiber optic video scope ET tube size: cuffed Tube secured depth (cm): 24 Tube secured location: teeth Tube placement confirmation: visualized tube passing through cords, equal breath sounds bilaterally, no breath sounds over epigastrium and confirmation by capnometry Patient tolerated procedure: well Intubation complications: difficult intubation and other (Substantial regurgitation and extensive suctioning to visualize cords; success on first attempt)
--- NOTE | 2021-06-20 01:19 | PC.NURSE ---
ET tube pulled out while patient repositioning 06/20/21 at 0030. Pt bagged with oral airway in place and reintubated per Dr Ackerman with a 8.0 ET tube and 25 at the lip. Placement verified per Xray. FIO2 on ventilator increased to 100%.
[2021-06-20 01:43] LABS: Glucose Point of Care 116 mg/dl (65-105)
[2021-06-20] MEDS: IPRATROPIUM BR 0.02% INH SOLN 0.5 MG/2.5 ML VIAL INHALATION ×4 (01:55→19:39)
[2021-06-20] MEDS: LEVALBUTEROL NEB 1.25 MG/3 ML 0.63 MG INHALATION ×4 (01:55→19:39)
[2021-06-20] MEDS: MIDAZOLAM 100MG/NS 100ML(*CRX) 100 MG/100 ML BAG 6 MG IV CONT ×2 (04:51→18:04)
[2021-06-20] MEDS: CENTRAL LINE FLUSH 10 ML IV PUSH ×4 (04:54→21:26)
[2021-06-20 04:55] LABS: Hematocrit 26.5 % (42.0-52.0); Hemoglobin 8.2 g/dL (14.0-18.0); Mean Corpuscular HGB Conc 30.9 g/dl (32-36); Mean Corpuscular Hemoglobin 33.9 pg (26-34); Mean Corpuscular Volume 109.5 fl (80-100); Mean Platelet Volume 10.7 fl (7.4-10.4); Platelet Count Result 417 k/mm3 (150-375); Red Blood Count 2.42 M/mm3 (4.6-6.20); Red Cell Distribution Width 15.2 % (11.5-14.5); White Blood Count 12.5 K/mm3 (4.5-10.0)
[2021-06-20 04:56] LABS: Alveolar/Arterial O2 Gradient 194.3 mmHg; Base Excess ABG -3.2 mEq/l (+/-2.0); Carboxyhemoglobin 0.2 % THb (0-2.0); Fractional Inspired Oxygen 40 %; Methemoglobin ABG 0.3 %THb (0-1.5); Oxygen Content ABG 11.5 %vol (16.0-22.0); Oxygen Saturation ABG 94.3 % (95.0-100.0); PCO2 ABG 24.6 mmHg (35.0-45.0); PO2 ABG 62.6 mmHg (80.0-100.0); PO2 FiO2 Ratio Arterial Blood 1.56 %; Reduced Hemoglobin 8.5 %THb (0-5.0); Total Hemoglobin 8.9 g/dL (12.0-18.0)
[2021-06-20 04:58] LABS: Device VENTILATOR; Modified Allen's Test Pass; Site Drawn RIGHT RADIAL; pH ABG 7.505 (7.350-7.450)
[2021-06-20 04:59] LABS: Arterial Blood Gas PEEP 5 cmH2O; Arterial Blood Gas Vent Mode PRESSURE CONTROL; Arterial Blood Gas Ventilator rate 18 /MIN
[2021-06-20 05:09] LABS: Add Urine Microscopic? YES; Appearance Urine Cloudy (Clear); Bacteria Urine Trace /hpf; Bilirubin Urine Negative (Negative); Blood Urine 2+ (Negative); Color Urine Yellow (Yellow); Glucose Urine UA Negative (Negative); Ketones Urine Negative (Negative); Leukocyte Esterase Ur Negative LEU/UL (NEGATIVE); Mucus Urine Rare /lpf; Nitrate Urine Negative (Negative); Protein Urine Negative (Negative); Specific Grav Ur 1.014 (1.001-1.035); Urobilinogen Urine Negative mg/dL (<2.0)
[2021-06-20 05:15] LABS: Alanine Aminotransferase 248 U/L (4-50); Albumin Level 2.5 g/dL (3.5-5.1); Alkaline Phosphatase 208 U/L (38-126); Anion Gap 6 mmol/L (8-16); Aspartate Amino Transferase 418 U/L (17-59); Bilirubin,Total 0.5 mg/dL (0.2-1.3); Blood Urea Nitrogen 87 mg/dL (9-20); Calcium 8.2 mg/dL (8.4-10.2); Carbon Dioxide 24 mmol/L (22-30); Chloride 122 mmol/L (98-107); Estimated CRCL calculation 40 ml/min; Estimated Glomerular Filt Rate 30; Glucose 120 mg/dL (65-110); Lipase 68 U/L (23-300); Magnesium 3.2 mg/dL (1.6-2.3); Phosphorus 5.6 mg/dL (2.5-4.5); Potassium 3.4 mmol/L (3.4-5.0); Sodium 152 mmol/L (137-145)
[2021-06-20 05:58] LABS: Band Neutrophils Percent 18 % (0-6); Metamyelocytes Percent 2 %; Monocytes Absolute Manual 0.62 K/mm3 (0.1-0.90); Monocytes Percent Manual 5 % (3-9); Neutrophils Absolute Manual 10.12 K/mm3 (1.3-6.7); Neutrophils Percent Manual 63 % (46-73); Platelet Estimate Increased (Adequate); Total Cells Counted 100
[2021-06-20 05:59] LABS: Anisocytosis 2+ (NORMAL); Hypochromasia 2+ (NORMAL)
--- NOTE | 2021-06-20 06:40 | P.PNNP_ITS ---
Progress Note: A&P Assessment and Plan (1) Renal failure: Qualifiers: Renal failure chronicity: unspecified chronicity Qualified Code(s): N19 - Unspecified kidney failure Code(s): N19 - Unspecified kidney failure Status: Acute Assessment and Plan: * no reported history of renal insufficiency/CKD * creatinine normal in 2018 but no more recent labs/blood work * evaluation to date: * renal ultrasound normal * borderline prerenal urine electrolytes * CPK elevated at 9000 * suspect multifactorial ATN: * dehydration/volume depletion * pancreatitis: Now has necrosis * rhabdomyolysis: Resolved * last HD on Saturday (06/09/21) to optimize clearance and stabilize electrolytes along with volume status. We can pull out the temporary dialysis catheter. * Urine output 1355 yesterday. Stool output 100cc. * He is off the diuretics. * Persistent ATN due to pancreatic necrosis. * Creatinine is minimally better. * He has hypernatremia. * Most likely due to free water loss. * Urine specific gravity is somewhat inappropriately high although that is not a perfect surrogate for urine osmolality. The urine osmolality is pending. It seems like this is a combination of free water loss and may be some impairment of free water retention due to his ATN. Will continue D5W and free water per Dobbhoff tube. * Will continue D5W. * Non anion gap metabolic acidosis. * This is better. Will stop the bicarb. (2) Acute pancreatitis: Qualifiers: Acute pancreatitis complication: unspecified Pancreatitis type: unspecified pancreatitis type Qualified Code(s): K85.90 - Acute pancreatitis without necrosis or infection, unspecified Code(s): K85.90 - Acute pancreatitis without necrosis or infection, unspecified Status: Acute Assessment and Plan: * as evidenced by admission imaging and lipase * lipase is now normal * last CT shows areas of pancreatic necrosis. * Tube feedings tolerated. * Liver enzymes now on the rise. * Will recheck a CPK to make sure this is and rhabdo again. * Will check an LDH and haptoglobin as well, however his hemoglobin is relatively stable.. (3) Acute respiratory failure: Code(s): J96.00 - Acute respiratory failure, unspecified whether with hypoxia or hypercapnia Status: Acute Assessment and Plan: * secondary to pulmonary edema + pleural effusion * on supportive care, pulm toilet, (4) Sepsis: Code(s): A41.9 - Sepsis, unspecified organism Status: Acute Assessment and Plan: * Pleural fluid cultures are pending * Blood cultures from the 06/11 are negative * Sputum is growing yeast * on vancomycin, levofloxacin and ertapenem * T-max 38.5? overnight. White cell count 12.5 (5) Alcohol abuse: Code(s): F10.10 - Alcohol abuse, uncomplicated Status: Acute Assessment and Plan: * sedated at this time Subjective Date/time seen: 06/20/21 06:40 Interval history: Patient is on the ventilator. He is sedated. He cannot give a history or review of systems. Still very ill. He is tolerating tube feedings. He is getting free water flushes [id number] q.4 hours. Although both T feedings and free water flushes were interrupted overnight because ET tube was temporarily out leading to holding of the enteral feedings/fluid.. His stool output is not all that high. Overnight he only made a little more than 100cc. Exam Narrative: WDWN ill looking gentleman on the v
--- NOTE | 2021-06-20 06:40 | PM.PNNEP ---
Progress Note: A&P Assessment and Plan (1) Renal failure: Qualifiers: Renal failure chronicity: unspecified chronicity Qualified Code(s): N19 - Unspecified kidney failure Code(s): N19 - Unspecified kidney failure Status: Acute Assessment and Plan: no reported history of renal insufficiency/CKD creatinine normal in 2018 but no more recent labs/blood work evaluation to date: renal ultrasound normal borderline prerenal urine electrolytes CPK elevated at 9000 suspect multifactorial ATN: dehydration/volume depletion pancreatitis: Now has necrosis rhabdomyolysis: Resolved last HD on Saturday (06/09/21) to optimize clearance and stabilize electrolytes along with volume status. We can pull out the temporary dialysis catheter. Urine output 1355 yesterday. Stool output 100cc. He is off the diuretics. Persistent ATN due to pancreatic necrosis. Creatinine is minimally better. He has hypernatremia. Most likely due to free water loss. Urine specific gravity is somewhat inappropriately high although that is not a perfect surrogate for urine osmolality. The urine osmolality is pending. It seems like this is a combination of free water loss and may be some impairment of free water retention due to his ATN. Will continue D5W and free water per Dobbhoff tube. Will continue D5W. Non anion gap metabolic acidosis. This is better. Will stop the bicarb. (2) Acute pancreatitis: Qualifiers: Acute pancreatitis complication: unspecified Pancreatitis type: unspecified pancreatitis type Qualified Code(s): K85.90 - Acute pancreatitis without necrosis or infection, unspecified Code(s): K85.90 - Acute pancreatitis without necrosis or infection, unspecified Status: Acute Assessment and Plan: as evidenced by admission imaging and lipase lipase is now normal last CT shows areas of pancreatic necrosis. Tube feedings tolerated. Liver enzymes now on the rise. Will recheck a CPK to make sure this is and rhabdo again. Will check an LDH and haptoglobin as well, however his hemoglobin is relatively stable.. (3) Acute respiratory failure: Code(s): J96.00 - Acute respiratory failure, unspecified whether with hypoxia or hypercapnia Status: Acute Assessment and Plan: secondary to pulmonary edema + pleural effusion on supportive care, pulm toilet, (4) Sepsis: Code(s): A41.9 - Sepsis, unspecified organism Status: Acute Assessment and Plan: Pleural fluid cultures are pending Blood cultures from the 06/11 are negative Sputum is growing yeast on vancomycin, levofloxacin and ertapenem T-max 38.5? overnight. White cell count 12.5 (5) Alcohol abuse: Code(s): F10.10 - Alcohol abuse, uncomplicated Status: Acute Assessment and Plan: sedated at this time Subjective Date/time seen: 06/20/21 06:40 Interval history: Patient is on the ventilator. He is sedated. He cannot give a history or review of systems. Still very ill. He is tolerating tube feedings. He is getting free water flushes [id number] q.4 hours. Although both T feedings and free water flushes were interrupted overnight because ET tube was temporarily out leading to holding of the enteral feedings/fluid.. His stool output is not all that high. Overnight he only made a little more than 100cc. Exam Narrative: WDWN ill looking gentleman on the ventilator and IVs skin no rash head ncat lungs course cor reg no rub abd BS+ nontender and soft. It is distended. ext 1+ edema. Objective Data Vital Signs Vital Signs: Vital Signs - 24 hr 06/19/21 08:00 06/19/21 08:09 06/19/21 08:10 Temperature 37.6 C H Pulse Rate 112 H 112 H 113 H Respiratory Rate 18 19 Blood Pressure 111/67 Pulse Oximetry 97 97 06/19/21 08:16 06/19/21 10:00 06/19/21 10:26 Temperature Pulse Rate 116 H 114 H 111 H Respiratory Rate
[2021-06-20] MEDS: ERTAPENEM 1 GM/NS 50 ML 1 GM/50 ML BAG IVPB (08:09)
[2021-06-20] MEDS: levoFLOXacin 250 MG/D5W 50 ML 250 MG/50 ML BAG 50 MG IVPB (08:10)
[2021-06-20] MEDS: FOLIC ACID 1 MG/0.2 ML INJ IV PUSH (08:10)
[2021-06-20] MEDS: MINERAL OIL/WHITE PETROLATUM OINTMENT 1 APPLIC EACH EYE ×2 (08:33→21:25)
[2021-06-20] MEDS: PANTOPRAZOLE SODIUM IV 40 MG VIAL IV PUSH (08:33)
[2021-06-20] MEDS: ENOXAPARIN 30 MG/0.3 ML SYRINGE SUB-Q (08:33)
[2021-06-20] MEDS: TOLNAFTATE 1% POWDER 45 GM BTL 1 APPLIC TOPICAL ×2 (08:34→21:25)
[2021-06-20] MEDS: SODIUM BICARBONATE TAB 650 MG TABLET FEED TUBE ×2 (08:34→17:03)
[2021-06-20] MEDS: THIAMINE HCL 200 MG/2 ML VIAL 100 MG IV PUSH (08:34)
[2021-06-20] MEDS: DORNASE ALFA INH SOLN 1 MG/ML 2.5 ML AMP 2.5 MG INHALATION ×2 (08:50→19:40)
[2021-06-20 10:47] LABS: Creatine Kinase 76 U/L (55-170); Lactate Dehydrogenase 1675 U/L (313-618)
[2021-06-20 11:43] LABS: Glucose Point of Care 170 mg/dl (65-105)
--- NOTE | 2021-06-20 11:57 | PCNFU ---
Nutrition Follow-Up Complete: Inadequate Oral Intake as related to Mechanical vent as evidenced by NPO. Goal: Meet estimated nutritional needs Patient will continue with current goal. Pt current nutrition is Vital HP at 70 ml/hr over 22hours. Last recorded weight is 96 kg-stable Bowel Motility:FMS Labs Reviewed:Glu 120, Cr 2.3,BUN 87,GFR 30, Na 152,Alb 2.5,Hct 26.5,Hgb 8.2 Meds Noted:Protonix, Thiamine, Folic Acid, NovoLog, Lovenox, Bumex, Vancomycin, Levaquin, Atrovent. Skin: WNL Additional Notes: patient remain on mechanical vent and tube feeding of Vital HP at 70 ml/hr over 22 hours. Free water flush increased from 200 ml to 300 ml q 4 hours, Na 152 today. OG tube placed today. Tube feeding at goal rate is providing 1540 kcals/135 gms protein/1287 ml water. Agree with diet orders. Will monitor in ICU rounds and reassess every Saturday and Saturday.
[2021-06-20] MEDS: FENTANYL 2,500MCG/NS250ML(*CRX 2,500 MCG/250 ML BAG 20 MCG IV CONT (12:17)
[2021-06-20] MEDS: DEXTROSE 5% 1,000 ML 1,000 ML 75 ML IV CONT ×2 (12:18→17:06)
--- NOTE | 2021-06-20 13:52 | WPDINTPN ---
Progress Note: A&P Assessment and Plan (1) Acute respiratory failure: Code(s): J96.00 - Acute respiratory failure, unspecified whether with hypoxia or hypercapnia Status: Acute Assessment and Plan: Secondary to pulmonary edema and pleural effusion Patient emergently intubated on 06/08/2021 due to poor mental status and hypoxia /-self extubated and reintubated Chest x-ray and ABGs reviewed, ventilator adjusted decreased pressure controll to 32 Patient dialyzed on 06/09/2021 with removal of 3500 mL of fluid. After which she has been having adequate urine output. CT shows collapse of left lower lobe 06/19 underwent thoracentesis on left side with 175 mL fluid was removed. Pleural fluid pH was 7.4 but other studies are pending -chest x-ray reviewed and shows improvement on the left side -continue bronchodilators, dornase -sedated with fentanyl, Versed and propofol infusion - Continue ertapenem and vancomycin, added Levaquin 06/14/2021 (2) Sepsis: Code(s): A41.9 - Sepsis, unspecified organism Status: Acute Assessment and Plan: Patient met criteria for sepsis with elevated lactic acid, WBC Likely secondary to severe pancreatitis 06/06/2021 blood and urine cultures are negative so far Patient received close to 10 L of fluid since admission appears to have developed volume overload, urology started diuresing the patient. After which she became hypernatremic so diuretics which discontinued. Lactic acid has normalized Patient currently off all pressors - multi organ failure likely related to acute pancreatitis inside according storm secondary to acute pancreatitis -patient has been febrile, continue Invanz, vancomycin, added Levaquin -06/14/2021: Blood cultures negative x2, sputum and urine cultures are pending 06/14/2021: UA was negative WBC count trending down. CONTINUES TO BE FEBRILE CT CHEST ABDOMEN AND PELVIS ON 06/16/2021 -severe acute pancreatitis with suspicion of developing sizable region of pancreatic necrosis, pancolitis and diarrhea, small to moderate left, small right pleural effusion, left lower lobe collapse, right lower lobe multi segmental atelectasis. -discussed with GI, continue tube feeds - Fever and elevated WBC count can be secondary to infection of necrosis versus pneumonia/atelectasis that he has -thoracentesis done yesterday and pH 7.4. Other studies are pending -chest x-ray shows improvement on the left side (3) Renal failure: Qualifiers: Renal failure chronicity: unspecified chronicity Qualified Code(s): N19 - Unspecified kidney failure Code(s): N19 - Unspecified kidney failure Status: Acute Assessment and Plan: Secondary to sepsis ands rhabdomyolysis He appears to have developed ATN Ultrasound did not show any hydronephrosis Nephrology following -dialysis catheter was placed on 06/08/2021 and received his 1st dialysis on 06/09/2021 with removal 3500 mL of fluid - patient's CK level, creatinine in, lipase, LFTs are all trending in the right direction -discussed with Nephrology, HYPERNATREMIA- Increase free water flushes and increase D5 water (4) Rhabdomyolysis: Code(s): M62.82 - Rhabdomyolysis Status: Acute Assessment and Plan: Resolved Off all IV fluids (5) Acute pancreatitis: Qualifiers: Acute pancreatitis complication: unspecified Pancreatitis type: unspecified pancreatitis type Qualified Code(s): K85.90 - Acute pancreatitis without necrosis or infection, unspecified Code(s): K85.90 - Acute pancreatitis without necrosis or infection, unspecified Status: Acute Assessment and Plan: Abdominal CT was read as the following 1. Findings consistent with severe acute pancreatitis. Small reactive ascites. Correlate with amylase, lipase levels. 2. Basilar subsegmental atelectasis. 3. Small left pleural effusion. 4. Hepatic steatosis. 06/16/2021: Repeat CT scan shows severe acute pancre
--- NOTE | 2021-06-20 16:06 | WPDGIPROGNO ---
Progress Note: A&P Assessment and Plan (1) Acute pancreatitis: Qualifiers: Acute pancreatitis complication: unspecified Pancreatitis type: unspecified pancreatitis type Qualified Code(s): K85.90 - Acute pancreatitis without necrosis or infection, unspecified Code(s): K85.90 - Acute pancreatitis without necrosis or infection, unspecified Status: Acute Assessment and Plan: repeat CT scan Saturday showed pancreatic necrosis but no obvious collection to drain and bilirubin is normal but given severity of pancreatitis on presentation with multiorgan failure, he already was accepted as transfer to [facility] given complexity of case continue icu care, he has been tolerating tube feeding now that DHT is beyond 3rd portion duodenum he self-extubated yesterday and was reintubated (2) Elevated liver enzymes: Code(s): R74.8 - Abnormal levels of other serum enzymes Status: Acute Assessment and Plan: noted increase of liver enzymes again continue to monitor he is on abx (3) Acute respiratory failure: Code(s): J96.00 - Acute respiratory failure, unspecified whether with hypoxia or hypercapnia Status: Acute Assessment and Plan: was reintubated again (4) Renal failure: Qualifiers: Renal failure chronicity: unspecified chronicity Qualified Code(s): N19 - Unspecified kidney failure Code(s): N19 - Unspecified kidney failure Status: Acute Assessment and Plan: by nephrology, required dialysis on admission (5) Alcohol abuse: Code(s): F10.10 - Alcohol abuse, uncomplicated Status: Acute (6) Atelectasis: Code(s): J98.11 - Atelectasis Status: Acute Subjective Date/time seen: 06/20/21 16:06 Interval history: yesterdat self-extubated and was reintubated by ER physician. Large amount of secretions were seen and also airway edema was seen during intubation, still with fever but otherwise vitals stable Review of Systems Review of Systems: All systems reviewed & are unremarkable except as noted in HPI and below Exam Const: Other: intubated and sedated, will open eyes to pain stimuli HENMT: Other: DHT in place Also OGT in place Eyes: Other: eyes open to stimuli Neck: Neck: supple Resp: Auscultation: diminished lung sounds Cardio: Rate: regular rate GI: Inspection: distended GI Palp: Yes Tenderness to palpation present (GI) Other: + bowel sounds Urinary Catheter: Urinary Catheter: patent and draining Skin: General skin exam: no erythema Neuro: Other: unable to assess Extrem: General: pedal edema bilaterally Psych: Other: uanble to assess Objective Data Vital Signs Vital Signs: Vital Signs - 24 hr 06/19/21 17:17 06/19/21 18:00 06/19/21 20:00 Temperature 101 F H 101.1 F H Pulse Rate 113 H 112 H Respiratory Rate 18 18 Blood Pressure 97/55 L 112/55 L Pulse Oximetry 96 97 06/19/21 20:01 06/19/21 20:02 06/19/21 20:11 Temperature Pulse Rate 107 H 105 H 105 H Respiratory Rate 18 18 Blood Pressure Pulse Oximetry 95 06/19/21 20:28 06/19/21 20:31 06/19/21 20:32 Temperature 101.1 F H Pulse Rate 110 H 120 H Respiratory Rate 20 20 Blood Pressure Pulse Oximetry 06/19/21 22:00 06/19/21 23:11 06/19/21 23:17 Temperature Pulse Rate 106 H 104 H 104 H Respiratory Rate 18 18 Blood Pressure 115/70 Pulse Oximetry 97 96 06/19/21 23:21 06/20/21 00:00 06/20/21 00:55 Temperature 101.3 F H Pulse Rate 104 H 107 H 135 H Respiratory Rate 18 18 Blood Pressure 119/67 Pulse Oximetry 100 91 06/20/21 01:16 06/20/21 01:17 06/20/21 01:30 Temperature Pulse Rate 124 H 124 H 120 H Respiratory Rate 18 18 18 Blood Pressure 135/77 Pulse Oximetry 97 06/20/21 01:55 06/20/21 02:00 06/20/21 02:05 Temperature Pulse Rate 101 H 110 H 101 H Respiratory Rate 18 18 18 Blood Pressure 115/70 Pulse Oximetry 99 99 06/20/21 03:55
[2021-06-20 17:20] LABS: Anion Gap 6 mmol/L (8-16); Blood Urea Nitrogen 65 mg/dL (9-20); Calcium 6.6 mg/dL (8.4-10.2); Carbon Dioxide 19 mmol/L (22-30); Chloride 100 mmol/L (98-107); Estimated CRCL calculation 50 ml/min; Estimated Glomerular Filt Rate 40; Potassium 2.9 mmol/L (3.4-5.0); Sodium 125 mmol/L (137-145)
[2021-06-20 17:40] LABS: Glucose 799 mg/dL (65-110)
[2021-06-20] MEDS: INSULIN ASPART (*BKC) 100 UNITS/ML SUB-Q (17:46)
[2021-06-20 17:55] LABS: Glucose Point of Care 211 mg/dl (65-105)
[2021-06-20 18:17] LABS: Anion Gap 7 mmol/L (8-16); Blood Urea Nitrogen 77 mg/dL (9-20); Carbon Dioxide 23 mmol/L (22-30); Chloride 118 mmol/L (98-107); Estimated CRCL calculation 45 ml/min; Estimated Glomerular Filt Rate 35; Glucose 214 mg/dL (65-110); Potassium 3.4 mmol/L (3.4-5.0); Sodium 148 mmol/L (137-145)
[2021-06-20 19:48] LABS: Vancomycin Trough 11.6 ug/mL (10.0-20.0)
[2021-06-21] VITALS (38 sets, daily range): BP systolic 113–146; BP diastolic 56–89; PULSE 101–127; RESP 18–33; TEMP 37.1–38.6; O2SAT 92–100
[2021-06-21] MEDS: FENTANYL 2,500MCG/NS250ML(*CRX 2,500 MCG/250 ML BAG 20 MCG IV CONT ×2 (00:20→12:31)
[2021-06-21 00:26] LABS: Glucose Point of Care 230 mg/dl (65-105)
[2021-06-21] MEDS: INSULIN ASPART (*BKC) 100 UNITS/ML SUB-Q ×2 (00:27→05:54)
[2021-06-21] MEDS: IPRATROPIUM BR 0.02% INH SOLN 0.5 MG/2.5 ML VIAL INHALATION ×4 (01:33→20:47)
[2021-06-21] MEDS: LEVALBUTEROL NEB 1.25 MG/3 ML 0.63 MG INHALATION ×4 (01:33→20:48)
[2021-06-21] MEDS: DEXTROSE 5% 1,000 ML 1,000 ML 125 ML IV CONT (03:23)
[2021-06-21] MEDS: ACETAMINOPHEN 325 MG TABLET 650 MG PO ×2 (04:20→16:11)
[2021-06-21 04:44] LABS: Alveolar/Arterial O2 Gradient 84.7 mmHg; Base Excess ABG -4.1 mEq/l (+/-2.0); Carboxyhemoglobin 0.3 % THb (0-2.0); Fractional Inspired Oxygen 25 %; HCO3 ABG 18.9 mEq/l (22.0-26.0); Methemoglobin ABG 0.4 %THb (0-1.5); Oxygen Content ABG 12.1 %vol (16.0-22.0); Oxygen Saturation ABG 92.8 % (95.0-100.0); Oxyhemoglobin 88.9 % THb (90.0-100.0); PCO2 ABG 27.7 mmHg (35.0-45.0); PO2 ABG 60.7 mmHg (80.0-100.0); PO2 FiO2 Ratio Arterial Blood 2.43 %; Reduced Hemoglobin 10.4 %THb (0-5.0); Total Hemoglobin 9.6 g/dL (12.0-18.0); pH ABG 7.452 (7.350-7.450)
[2021-06-21 04:45] LABS: Arterial Blood Gas Vent Mode PRESSURE CONTROL; Arterial Blood Gas Ventilator rate 18 /MIN; Device VENTILATOR; Modified Allen's Test Pass; Site Drawn RIGHT RADIAL
[2021-06-21 04:46] LABS: Arterial Blood Gas PEEP 8 cmH2O; Peak Inspiratory Pressure 32 cmH2O
[2021-06-21 05:55] LABS: Hematocrit 25.2 % (42.0-52.0); Hemoglobin 7.8 g/dL (14.0-18.0); Mean Corpuscular Hemoglobin 34.2 pg (26-34); Mean Corpuscular Volume 110.5 fl (80-100); Mean Platelet Volume 10.9 fl (7.4-10.4); Platelet Count Result 416 k/mm3 (150-375); Red Blood Count 2.28 M/mm3 (4.6-6.20); White Blood Count 18.9 K/mm3 (4.5-10.0)
[2021-06-21] MEDS: CENTRAL LINE FLUSH 10 ML IV PUSH ×3 (05:55→18:49)
[2021-06-21 05:58] LABS: Glucose Point of Care 231 mg/dl (65-105)
[2021-06-21 06:04] LABS: Alanine Aminotransferase 144 U/L (4-50); Albumin Level 2.6 g/dL (3.5-5.1); Alkaline Phosphatase 150 U/L (38-126); Anion Gap 5 mmol/L (8-16); Aspartate Amino Transferase 99 U/L (17-59); Bilirubin,Total 0.4 mg/dL (0.2-1.3); Blood Urea Nitrogen 74 mg/dL (9-20); Calcium 8.1 mg/dL (8.4-10.2); Carbon Dioxide 24 mmol/L (22-30); Chloride 115 mmol/L (98-107); Estimated CRCL calculation 45 ml/min; Estimated Glomerular Filt Rate 35; Glucose 202 mg/dL (65-110); Phosphorus 5.2 mg/dL (2.5-4.5); Potassium 3.4 mmol/L (3.4-5.0); Sodium 144 mmol/L (137-145)
--- NOTE | 2021-06-21 06:55 | P.PNNP_ITS ---
Progress Note: A&P Assessment and Plan (1) Renal failure: Qualifiers: Renal failure chronicity: unspecified chronicity Qualified Code(s): N19 - Unspecified kidney failure Code(s): N19 - Unspecified kidney failure Status: Acute Assessment and Plan: * no reported history of renal insufficiency/CKD * creatinine normal in 2018 but no more recent labs/blood work * evaluation to date: * renal ultrasound normal * borderline prerenal urine electrolytes * CPK elevated at 9000 * suspect multifactorial ATN: * dehydration/volume depletion * pancreatitis: Now has necrosis * rhabdomyolysis: Resolved * last HD on Saturday (06/09/21) to optimize clearance and stabilize electrolytes along with volume status. We can pull out the temporary dialysis catheter. Will discuss with Signing * Urine output 2600 yesterday. Stool output 100cc. NG tube output 1000 * He is off the diuretics. * Persistent ATN due to pancreatic necrosis. * Creatinine is about the same at 2.0 * He has hypernatremia. * Most likely due to free water loss. Stool, gastric output, insensible loss. * Sodium 144 today. * Will continue D5W. * Non anion gap metabolic acidosis. * This is better. Will stop the bicarb. (2) Acute pancreatitis: Qualifiers: Acute pancreatitis complication: unspecified Pancreatitis type: unspecified pancreatitis type Qualified Code(s): K85.90 - Acute pancreatitis without necrosis or infection, unspecified Code(s): K85.90 - Acute pancreatitis without necrosis or infection, unspecified Status: Acute Assessment and Plan: * as evidenced by admission imaging and lipase * lipase is now normal * last CT shows areas of pancreatic necrosis. * Tube feedings tolerated. * Liver enzymes improved. * CK normal. * LDH is moderately high (3) Acute respiratory failure: Code(s): J96.00 - Acute respiratory failure, unspecified whether with hypoxia or hypercapnia Status: Acute Assessment and Plan: * secondary to pulmonary edema + pleural effusion * on supportive care, pulm toilet, (4) Sepsis: Code(s): A41.9 - Sepsis, unspecified organism Status: Acute Assessment and Plan: * Pleural fluid cultures are pending * Blood cultures from the are negative * Sputum is growing yeast * on vancomycin, levofloxacin and ertapenem (5) Alcohol abuse: Code(s): F10.10 - Alcohol abuse, uncomplicated Status: Acute Assessment and Plan: * sedated at this time Subjective Date/time seen: 06/21/21 06:55 Interval history: Patient is on the ventilator. He is sedated. He cannot give a history or review of systems. Still very ill. He is getting tube feedings per Dobbhoff tube in the 3rd part of the duodenum. Stool output is around 100 per day. He has an NG tube to suction which is about 1000 per day. Exam Narrative: WDWN ill looking gentleman on the ventilator and IVs skin no rash or subQ nodules head ncat lungs course bilaterally cor reg no rub or gallop abd BS+ and hypoactive, nontender and soft. It is distended. ext 1+ edema. Objective Data Vital Signs Vital Signs: Vital Signs - 24 hr 06/20/21 07:40 06/20/21 08:00 06/20/21 08:50 Temperature 38.3 C H Pulse Rate 113 H 112 H 110 H Respiratory Rate 18 18 Blood Pressure 109/54 L Pulse Oximetry 99 1
--- NOTE | 2021-06-21 06:55 | PM.PNNEP ---
Progress Note: A&P Assessment and Plan (1) Renal failure: Qualifiers: Renal failure chronicity: unspecified chronicity Qualified Code(s): N19 - Unspecified kidney failure Code(s): N19 - Unspecified kidney failure Status: Acute Assessment and Plan: no reported history of renal insufficiency/CKD creatinine normal in 2018 but no more recent labs/blood work evaluation to date: renal ultrasound normal borderline prerenal urine electrolytes CPK elevated at 9000 suspect multifactorial ATN: dehydration/volume depletion pancreatitis: Now has necrosis rhabdomyolysis: Resolved last HD on Saturday (06/09/21) to optimize clearance and stabilize electrolytes along with volume status. We can pull out the temporary dialysis catheter. Will discuss with Signing Urine output 2600 yesterday. Stool output 100cc. NG tube output 1000 He is off the diuretics. Persistent ATN due to pancreatic necrosis. Creatinine is about the same at 2.0 He has hypernatremia. Most likely due to free water loss. Stool, gastric output, insensible loss. Sodium 144 today. Will continue D5W. Non anion gap metabolic acidosis. This is better. Will stop the bicarb. (2) Acute pancreatitis: Qualifiers: Acute pancreatitis complication: unspecified Pancreatitis type: unspecified pancreatitis type Qualified Code(s): K85.90 - Acute pancreatitis without necrosis or infection, unspecified Code(s): K85.90 - Acute pancreatitis without necrosis or infection, unspecified Status: Acute Assessment and Plan: as evidenced by admission imaging and lipase lipase is now normal last CT shows areas of pancreatic necrosis. Tube feedings tolerated. Liver enzymes improved. CK normal. LDH is moderately high (3) Acute respiratory failure: Code(s): J96.00 - Acute respiratory failure, unspecified whether with hypoxia or hypercapnia Status: Acute Assessment and Plan: secondary to pulmonary edema + pleural effusion on supportive care, pulm toilet, (4) Sepsis: Code(s): A41.9 - Sepsis, unspecified organism Status: Acute Assessment and Plan: Pleural fluid cultures are pending Blood cultures from the are negative Sputum is growing yeast on vancomycin, levofloxacin and ertapenem (5) Alcohol abuse: Code(s): F10.10 - Alcohol abuse, uncomplicated Status: Acute Assessment and Plan: sedated at this time Subjective Date/time seen: 06/21/21 06:55 Interval history: Patient is on the ventilator. He is sedated. He cannot give a history or review of systems. Still very ill. He is getting tube feedings per Dobbhoff tube in the 3rd part of the duodenum. Stool output is around 100 per day. He has an NG tube to suction which is about 1000 per day. Exam Narrative: WDWN ill looking gentleman on the ventilator and IVs skin no rash or subQ nodules head ncat lungs course bilaterally cor reg no rub or gallop abd BS+ and hypoactive, nontender and soft. It is distended. ext 1+ edema. Objective Data Vital Signs Vital Signs: Vital Signs - 24 hr 06/20/21 07:40 06/20/21 08:00 06/20/21 08:50 Temperature 38.3 C H Pulse Rate 113 H 112 H 110 H Respiratory Rate 18 18 Blood Pressure 109/54 L Pulse Oximetry 99 100 96 06/20/21 08:53 06/20/21 09:10 06/20/21 10:00 Temperature Pulse Rate 109 H 108 H 108 H Respiratory Rate 18 18 18 Blood Pressure 142/55 H Pulse Oximetry 96 06/20/21 11:46 06/20/21 11:47 06/20/21 12:00 Temperature 37.3 C Pulse Rate 112 H 113 H 111 H Respiratory Rate 18 18 Blood Pressure 104/68 Pulse Oximetry 96 96 97 06/20/21 12:17 06/20/21 14:00 06/20/21 14:40 Temperature Pulse Rate 111 H 108 H 107 H Respiratory Rate 18 18 18 Blood Pressure 111/63 Pulse Oximetry 96 06/20/21 14:55 06/20/21 16:00 06/20/21 17:47 Temperature 37.5 C Pulse
[2021-06-21 07:41] LABS: Anisocytosis 1+ (NORMAL); Band Neutrophils Percent 6 % (0-6); Eosinophils Absolute Manual 0.37 K/mm3 (0.02-0.5); Eosinophils Percent Manual 2 % (0-4); Hypochromasia 1+ (NORMAL); Lymphocytes Absolute Manual 1.32 K/mm3 (1.1-4.5); Monocytes Absolute Manual 0.56 K/mm3 (0.1-0.90); Monocytes Percent Manual 3 % (3-9); Neutrophils Absolute Manual 16.63 K/mm3 (1.3-6.7); Neutrophils Percent Manual 82 % (46-73); Platelet Estimate Adequate (Adequate); Stomatocytes 1+ (NORMAL); Total Cells Counted 100
--- NOTE | 2021-06-21 08:23 | WPDINTPN ---
Progress Note: A&P Assessment and Plan (1) Acute respiratory failure: Code(s): J96.00 - Acute respiratory failure, unspecified whether with hypoxia or hypercapnia Status: Acute Assessment and Plan: Secondary to pulmonary edema and pleural effusion initially but likely has developed a pneumonia Patient emergently intubated on 06/08/2021 due to poor mental status and hypoxia 06/20-self extubated and reintubated Chest x-ray reviewed ABGs reviewed, ventilator adjusted decreased pressure controll to 32 CT shows collapse of left lower lobe 06/19 underwent thoracentesis on left side with 175 mL fluid was removed. Pleural fluid pH was 7.4 but other studies are pending -patient has increased secretions now and could have aspirated when he self-extubated versus he developed a secondary pneumonia -continue bronchodilators, dornase -sedated with fentanyl, Versed infusion - Continue ertapenem and vancomycin, Levaquin was added 06/14/2021 (2) Sepsis: Code(s): A41.9 - Sepsis, unspecified organism Status: Acute Assessment and Plan: Patient met criteria for sepsis with elevated lactic acid, WBC Likely secondary to severe pancreatitis 06/06/2021 blood and urine cultures are negative so far Patient currently off all pressors - multi organ failure likely related to acute pancreatitis inside according storm secondary to acute pancreatitis -patient has been febrile, continue - Continue ertapenem and vancomycin, Levaquin was added 06/14/2021 -06/14/2021: Blood cultures negative x2, sputum and urine cultures are unremarkable 06/14/2021: UA was negative CT CHEST ABDOMEN AND PELVIS ON 06/16/2021 -severe acute pancreatitis with suspicion of developing sizable region of pancreatic necrosis, pancolitis and diarrhea, small to moderate left, small right pleural effusion, left lower lobe collapse, right lower lobe multi segmental atelectasis. -increased respiratory secretions suggest the patient may have to pneumonia. He did had some a good amount secretions and self-extubated himself on 06/20 WBCs elevated and he continues to be febrile - Fever and elevated WBC count can be secondary to infection of necrosis versus pneumonia/atelectasis that he has -thoracentesis done yesterday and pH 7.4. Other studies are pending -will send repeat set of cultures -remove HD catheter (3) Renal failure: Qualifiers: Renal failure chronicity: unspecified chronicity Qualified Code(s): N19 - Unspecified kidney failure Code(s): N19 - Unspecified kidney failure Status: Acute Assessment and Plan: Secondary to sepsis ands rhabdomyolysis He appears to have developed ATN Ultrasound did not show any hydronephrosis Nephrology following -dialysis catheter was placed on 06/08/2021 and received his 1st dialysis on 06/09/2021 with removal 3500 mL of fluid - patient's CK level, creatinine in, lipase, LFTs are all trending in the right direction -discussed with Nephrology. Will remove HD catheter HYPERNATREMIA-improved with Increased free water flushes and increased D5 water. Will decrease D5 water (4) Rhabdomyolysis: Code(s): M62.82 - Rhabdomyolysis Status: Acute Assessment and Plan: Resolved Off all IV fluids (5) Acute pancreatitis: Qualifiers: Acute pancreatitis complication: unspecified Pancreatitis type: unspecified pancreatitis type Qualified Code(s): K85.90 - Acute pancreatitis without necrosis or infection, unspecified Code(s): K85.90 - Acute pancreatitis without necrosis or infection, unspecified Status: Acute Assessment and Plan: Abdominal CT was read as the following 1. Findings consistent with severe acute pancreatitis. Small reactive ascites. Correlate with amylase, lipase levels. 2. Basilar subsegmental atelectasis. 3. Small left pleural effusion. 4. Hepatic steatosis. 06/16/2021: Repeat CT scan shows severe acute pancreatitis, with suspicion of dev
[2021-06-21] MEDS: DORNASE ALFA INH SOLN 1 MG/ML 2.5 ML AMP 2.5 MG INHALATION ×2 (08:43→20:48)
[2021-06-21] MEDS: SODIUM BICARBONATE TAB 650 MG TABLET FEED TUBE ×2 (08:55→16:07)
[2021-06-21 08:56] LABS: Triglycerides 261 mg/dL (<150)
[2021-06-21] MEDS: POTASSIUM CHLORIDE 20 MEQ PACKET (FOR LIQUID) 40 MEQ FEED TUBE (08:58)
[2021-06-21] MEDS: TOLNAFTATE 1% POWDER 45 GM BTL 1 APPLIC TOPICAL ×2 (08:58→20:40)
[2021-06-21] MEDS: MINERAL OIL/WHITE PETROLATUM OINTMENT 1 APPLIC EACH EYE ×2 (08:58→20:39)
[2021-06-21] MEDS: THIAMINE HCL 200 MG/2 ML VIAL 100 MG IV PUSH (08:58)
[2021-06-21] MEDS: ENOXAPARIN 30 MG/0.3 ML SYRINGE SUB-Q (08:58)
[2021-06-21] MEDS: FOLIC ACID 1 MG/0.2 ML INJ IV PUSH (08:58)
[2021-06-21] MEDS: PANTOPRAZOLE SODIUM IV 40 MG VIAL IV PUSH (08:58)
[2021-06-21] MEDS: INSULIN GLARGINE (*BKC) 100 UNITS/ML 15 UNITS SUB-Q (09:00)
[2021-06-21] MEDS: ERTAPENEM 1 GM/NS 50 ML 1 GM/50 ML BAG IVPB (09:00)
[2021-06-21 09:01] LABS: Glucose Point of Care 169 mg/dl (65-105)
[2021-06-21] MEDS: levoFLOXacin 250 MG/D5W 50 ML 250 MG/50 ML BAG 50 MG IVPB (09:01)
--- NOTE | 2021-06-21 09:33 | PC.NURSE ---
received phone call from [facility] transfer center regarding transfer to [facility]; Transfer center asked if still vented and still requiring transfer; I responded yes to both questions; Transfer center replied that U remains at capacity but will call back if anything changes.
--- NOTE | 2021-06-21 09:37 | PCFNICU ---
ICU Rounding Note: Pt current nutrition is Vital HP at 70 ml/hr over 22 hours. Last recorded weight is 100.4 kg, up from 95.3 kg on admit. Bowel Motility:FMS Labs Reviewed:PO4 5.2,ALb 2.6,GFR 35, BUN 74, Cr 2.0,Glu 202 Meds Noted:Protonix, Thiamine, Folic Acid, NovoLog, Lovenox, Bumex, Vancomycin, Levaquin, Atrovent, Fentanyl, Versed. Skin: WNL Additional Notes: Patient remains on mechanical vent and tube feedings of Vital HP at 70 ml/hr over 22 hours. 300 ml free water flush q 4 hours, Na 138 today. OG tube placed yesterday 1200 ml out overnight. Agree with diet orders. Following daily in ICU rounds. Will monitor every Saturday and Saturday.
[2021-06-21 10:28] LABS: Add Urine Microscopic? YES; Amorphous Sediment Urine Few; Appearance Urine Turbid (Clear); Bilirubin Urine Negative (Negative); Blood Urine 2+ (Negative); Color Urine Yellow (Yellow); Glucose Urine UA Negative (Negative); Ketones Urine Negative (Negative); Leukocyte Esterase Ur Negative LEU/UL (Negative); Mucus Urine Rare /lpf; Nitrate Urine Negative (Negative); Protein Urine Negative (Negative); Specific Grav Ur 1.015 (1.001-1.035); Squamous Epithelial Cell Urine Few /hpf (Few); Uric Acid Crystals Urine Present /hpf; Urobilinogen Urine Negative mg/dL (<2.0)
[2021-06-21] MEDS: PROPOFOL IV EMULSION 100 ML 3.01 MG IV CONT (10:49)
--- NOTE | 2021-06-21 11:15 | WPDGIPROGNO ---
Progress Note: A&P Assessment and Plan (1) Acute pancreatitis: Qualifiers: Acute pancreatitis complication: unspecified Pancreatitis type: unspecified pancreatitis type Qualified Code(s): K85.90 - Acute pancreatitis without necrosis or infection, unspecified Code(s): K85.90 - Acute pancreatitis without necrosis or infection, unspecified Status: Acute Assessment and Plan: repeat CT scan showed pancreatic necrosis but no obvious collection to drain and bilirubin is normal but given severity of pancreatitis on presentation with multiorgan failure, he already was accepted as transfer to tertiary hospital given complexity of case continue icu care, he has been tolerating tube feeding now that DHT is beyond 3rd portion duodenum he self-extubated few days ago and reintubated, has worsening lung changes with low grade fever on antibiotics (2) Elevated liver enzymes: Code(s): R74.8 - Abnormal levels of other serum enzymes Status: Acute Assessment and Plan: stable with improvement of renal failure and rhabdo continue to monitor he is on abx (3) Acute respiratory failure: Code(s): J96.00 - Acute respiratory failure, unspecified whether with hypoxia or hypercapnia Status: Acute Assessment and Plan: was reintubated again and on antibiotics noted more atelectasis and effusion, had thoracentesis few days ago (4) Renal failure: Qualifiers: Renal failure chronicity: unspecified chronicity Qualified Code(s): N19 - Unspecified kidney failure Code(s): N19 - Unspecified kidney failure Status: Acute Assessment and Plan: by nephrology, required dialysis on admission now with good urine output and creatinine stable at 2 (5) Alcohol abuse: Code(s): F10.10 - Alcohol abuse, uncomplicated Status: Acute (6) Atelectasis: Code(s): J98.11 - Atelectasis Status: Acute Subjective Date/time seen: 06/21/21 11:15 Interval history: still with low grade fever, has been tolerating tube feeding by DHT in duodenum. Still intubated Review of Systems Review of Systems: All systems reviewed & are unremarkable except as noted in HPI and below Exam Const: Other: intubated and sedated, will open eyes to pain stimuli HENMT: Other: DHT in place Also OGT in place Eyes: Other: eyes open to stimuli Neck: Neck: supple Resp: Auscultation: diminished lung sounds Cardio: Rate: regular rate GI: Inspection: distended GI Palp: Yes Tenderness to palpation present (GI) Other: + bowel sounds Urinary Catheter: Urinary Catheter: patent and draining Skin: General skin exam: no erythema Neuro: Other: unable to assess Extrem: General: pedal edema bilaterally Psych: Other: uanble to assess Objective Data Vital Signs Vital Signs: Vital Signs - 24 hr 06/20/21 11:46 06/20/21 11:47 06/20/21 12:00 Temperature 99.2 F Pulse Rate 112 H 113 H 111 H Respiratory Rate 18 18 Blood Pressure 104/68 Pulse Oximetry 96 96 97 06/20/21 12:17 06/20/21 14:00 06/20/21 14:40 Temperature Pulse Rate 111 H 108 H 107 H Respiratory Rate 18 18 18 Blood Pressure 111/63 Pulse Oximetry 96 06/20/21 14:55 06/20/21 16:00 06/20/21 17:47 Temperature 99.5 F Pulse Rate 106 H 110 H 102 H Respiratory Rate 18 Blood Pressure 126/66 Pulse Oximetry 98 99 97 06/20/21 18:00 06/20/21 18:04 06/20/21 19:40 Temperature Pulse Rate 111 H 110 H 112 H Respiratory Rate 20 20 19 Blood Pressure 116/65 Pulse Oximetry 99 06/20/21 19:44 06/20/21 19:48 06/20/21 20:00 Temperature 99.1 F Pulse Rate 113 H 115 H 113 H Respiratory Rate 18 18 Blood Pressure 122/67 Pulse Oximetry 99 100 06/20/21 22:00 06/20/21 23:30 06/20/21 23:57 Temperature Pulse Rate 110 H 113 H 114 H Respiratory Rate 18 Blood Pressure 130/64 Pulse Oximetry 99 98 96 06/21/21 00:00 06/21/21 00:20 06/21/21 01:34 Temperature 98.9 F Pulse
[2021-06-21 12:09] LABS: Glucose Point of Care 149 mg/dl (65-105)
[2021-06-21] MEDS: MIDAZOLAM 100MG/NS 100ML(*CRX) 100 MG/100 ML BAG IV CONT (12:30)
[2021-06-21] MEDS: DEXTROSE 5% 1,000 ML 1,000 ML 50 ML IV CONT (15:08)
[2021-06-21 16:38] LABS: Anion Gap 6 mmol/L (8-16); Blood Urea Nitrogen 69 mg/dL (9-20); Calcium 8.2 mg/dL (8.4-10.2); Carbon Dioxide 23 mmol/L (22-30); Chloride 115 mmol/L (98-107); Estimated CRCL calculation 51 ml/min; Estimated Glomerular Filt Rate 40; Glucose 155 mg/dL (65-110); Potassium 3.8 mmol/L (3.4-5.0); Sodium 144 mmol/L (137-145)
[2021-06-21 18:39] LABS: Glucose Point of Care 136 mg/dl (65-105)
[2021-06-21 20:39] LABS: Glucose Pleural Fluid 187 mg/dL; LDH Pleural Fluid 526 U/L; Total Protein Pleural Fluid <3.0 g/dL
[2021-06-21 20:56] LABS: Glucose Point of Care 112 mg/dl (65-105)
[2021-06-22] VITALS (46 sets, daily range): BP systolic 101–142; BP diastolic 58–82; PULSE 101–141; RESP 16–35; TEMP 37.4–38.8; O2SAT 91–99
[2021-06-22 00:23] LABS: Glucose Point of Care 136 mg/dl (65-105)
[2021-06-22] MEDS: IPRATROPIUM BR 0.02% INH SOLN 0.5 MG/2.5 ML VIAL INHALATION ×4 (01:32→20:05)
[2021-06-22] MEDS: LEVALBUTEROL NEB 1.25 MG/3 ML 0.63 MG INHALATION ×4 (01:32→20:04)
[2021-06-22] MEDS: FENTANYL 2,500MCG/NS250ML(*CRX 2,500 MCG/250 ML BAG 20 MCG IV CONT (01:37)
[2021-06-22 04:48] LABS: Base Excess ABG -4.5 mEq/l (+/-2.0); Carboxyhemoglobin 0.2 % THb (0-2.0); Fractional Inspired Oxygen 25 %; HCO3 ABG 18.2 mEq/l (22.0-26.0); Methemoglobin ABG 0.3 %THb (0-1.5); Oxygen Content ABG 11.2 %vol (16.0-22.0); Oxygen Saturation ABG 93.4 % (95.0-100.0); Oxyhemoglobin 88.8 % THb (90.0-100.0); PCO2 ABG 25.4 mmHg (35.0-45.0); PO2 ABG 61.1 mmHg (80.0-100.0); PO2 FiO2 Ratio Arterial Blood 2.44 %; Reduced Hemoglobin 10.7 %THb (0-5.0); Total Hemoglobin 8.9 g/dL (12.0-18.0); pH ABG 7.472 (7.350-7.450)
[2021-06-22 04:49] LABS: Device VENTILATOR; Modified Allen's Test Unable to perform; Site Drawn RIGHT RADIAL
[2021-06-22 04:50] LABS: Arterial Blood Gas PEEP 8 cmH2O; Arterial Blood Gas Vent Mode PRESSURE CONTROL; Arterial Blood Gas Ventilator rate 18 /MIN; Peak Inspiratory Pressure 32 cmH2O
[2021-06-22 05:01] LABS: Hematocrit 22.2 % (42.0-52.0); Hemoglobin 7.1 g/dL (14.0-18.0); Mean Corpuscular Volume 109.4 fl (80-100); Mean Platelet Volume 10.7 fl (7.4-10.4); Platelet Count Result 395 k/mm3 (150-375); Red Blood Count 2.03 M/mm3 (4.6-6.20); Red Cell Distribution Width 14.8 % (11.5-14.5); White Blood Count 17.9 K/mm3 (4.5-10.0)
[2021-06-22 05:10] LABS: Alanine Aminotransferase 90 U/L (4-50); Albumin Level 2.4 g/dL (3.5-5.1); Alkaline Phosphatase 125 U/L (38-126); Anion Gap 8 mmol/L (8-16); Aspartate Amino Transferase 89 U/L (17-59); Bilirubin,Total 0.3 mg/dL (0.2-1.3); Blood Urea Nitrogen 69 mg/dL (9-20); Carbon Dioxide 22 mmol/L (22-30); Chloride 113 mmol/L (98-107); Estimated CRCL calculation 46 ml/min; Estimated Glomerular Filt Rate 35; Glucose 146 mg/dL (65-110); Phosphorus 5.9 mg/dL (2.5-4.5); Potassium 3.7 mmol/L (3.4-5.0); Sodium 143 mmol/L (137-145); Triglycerides 317 mg/dL (<150)
[2021-06-22 05:45] LABS: Anisocytosis 2+ (NORMAL); Band Neutrophils Percent 11 % (0-6); Lymphocytes Absolute Manual 1.61 K/mm3 (1.1-4.5); Monocytes Absolute Manual 0.17 K/mm3 (0.1-0.90); Monocytes Percent Manual 1 % (3-9); Neutrophils Absolute Manual 16.11 K/mm3 (1.3-6.7); Neutrophils Percent Manual 79 % (46-73); Total Cells Counted 100
[2021-06-22 05:46] LABS: Atypical Lymphocytes Present; Tear Drop Cells 1+ (NORMAL)
[2021-06-22] MEDS: ACETAMINOPHEN 325 MG TABLET 650 MG PO ×2 (07:11→15:08)
[2021-06-22 07:38] LABS: Glucose Point of Care 130 mg/dl (65-105)
[2021-06-22] MEDS: DORNASE ALFA INH SOLN 1 MG/ML 2.5 ML AMP 2.5 MG INHALATION ×2 (08:04→20:05)
[2021-06-22] MEDS: THIAMINE HCL 200 MG/2 ML VIAL 100 MG IV PUSH (08:52)
[2021-06-22] MEDS: PANTOPRAZOLE SODIUM IV 40 MG VIAL IV PUSH ×2 (08:52→20:19)
[2021-06-22] MEDS: SODIUM BICARBONATE TAB 650 MG TABLET FEED TUBE ×2 (08:52→16:06)
[2021-06-22] MEDS: FOLIC ACID 1 MG/0.2 ML INJ IV PUSH (08:52)
[2021-06-22] MEDS: MINERAL OIL/WHITE PETROLATUM OINTMENT 1 APPLIC EACH EYE ×2 (08:53→20:19)
[2021-06-22] MEDS: TOLNAFTATE 1% POWDER 45 GM BTL 1 APPLIC TOPICAL ×2 (08:53→20:18)
[2021-06-22] MEDS: ENOXAPARIN 30 MG/0.3 ML SYRINGE SUB-Q (08:53)
[2021-06-22] MEDS: levoFLOXacin 250 MG/D5W 50 ML 250 MG/50 ML BAG 50 MG IVPB (08:56)
[2021-06-22] MEDS: ERTAPENEM 1 GM/NS 50 ML 1 GM/50 ML BAG IVPB (08:56)
[2021-06-22 11:49] LABS: Glucose Point of Care 149 mg/dl (65-105)
--- NOTE | 2021-06-22 11:58 | WPDINTPN ---
Progress Note: A&P Assessment and Plan (1) Acute respiratory failure: Code(s): J96.00 - Acute respiratory failure, unspecified whether with hypoxia or hypercapnia Status: Acute Assessment and Plan: Secondary to pulmonary edema and pleural effusion initially but likely has developed a pneumonia Patient emergently intubated on 06/08/2021 due to poor mental status and hypoxia 06/20-self extubated and reintubated Chest x-ray reviewed ABGs reviewed, ventilator adjusted decreased pressure control to 28 CT shows collapse of left lower lobe 06/19 underwent thoracentesis on left side with 175 mL fluid was removed. Pleural fluid pH was 7.4 but other studies are pending Patient has increased secretions now and could have aspirated when he self-extubated versus he developed a secondary pneumonia Continue bronchodilators, dornase Sedated with fentanyl, Versed infusion Continue ertapenem and vancomycin, Levaquin was added 06/14/2021 Not a candidate for weaning at this time due to encephalopathy, significant amount of thick respiratory secretions and airway edema seen at the time of re-intubation (2) Sepsis: Code(s): A41.9 - Sepsis, unspecified organism Status: Acute Assessment and Plan: Patient met criteria for sepsis with elevated lactic acid, WBC Likely secondary to severe pancreatitis 06/06/2021 blood and urine cultures are negative so far Patient currently off all pressors - multi organ failure likely related to acute pancreatitis inside according storm secondary to acute pancreatitis -patient has been febrile, continue - Continue ertapenem and vancomycin, Levaquin was added 06/14/2021 -06/14/2021: Blood cultures negative x2, sputum and urine cultures are unremarkable 06/14/2021: UA was negative CT CHEST ABDOMEN AND PELVIS ON 06/16/2021 -severe acute pancreatitis with suspicion of developing sizable region of pancreatic necrosis, pancolitis and diarrhea, small to moderate left, small right pleural effusion, left lower lobe collapse, right lower lobe multi segmental atelectasis. -increased respiratory secretions suggest the patient may have to pneumonia. He did had some a good amount secretions and self-extubated himself on 06/20 WBCs elevated and he continues to be febrile - Fever and elevated WBC count can be secondary to infection of necrosis versus pneumonia/atelectasis that he has -thoracentesis done and pH 7.4. Study suggested exudate effusion. G stain cultures are negative as of now -2/ repeat culture sent and pending at this time -rHD catheter removed (3) Renal failure: Qualifiers: Renal failure chronicity: unspecified chronicity Qualified Code(s): N19 - Unspecified kidney failure Code(s): N19 - Unspecified kidney failure Status: Acute Assessment and Plan: Secondary to sepsis ands rhabdomyolysis He appears to have developed ATN Ultrasound did not show any hydronephrosis Nephrology following Dialysis catheter was placed on 06/08/2021 and received his 1st dialysis on 06/09/2021 with removal 3500 mL of fluid His creatinine improved and has stabilized he has good urine output. Discussed with nephrology and Dr. Cerda does not anticipate need for hemodialysis at this time 2/ hemodialysis catheter was removed HYPERNATREMIA-improved with Increased free water flushes and increased D5 water. Will discontinue D5 water at this (4) Acute pancreatitis: Qualifiers: Acute pancreatitis complication: unspecified Pancreatitis type: unspecified pancreatitis type Qualified Code(s): K85.90 - Acute pancreatitis without necrosis or infection, unspecified Code(s): K85.90 - Acute pancreatitis without necrosis or infection, unspecified Status: Acute Assessment and Plan: Abdominal CT was read as the following 1. Findings consistent with severe acute pancreatitis. Small reactive ascites. Correlate with amylase, lipase levels. 2. Basilar subsegmental atelectas
--- NOTE | 2021-06-22 12:15 | P.PNNP_ITS ---
Progress Note: A&P Assessment and Plan (1) Renal failure: Qualifiers: Renal failure chronicity: unspecified chronicity Qualified Code(s): N19 - Unspecified kidney failure Code(s): N19 - Unspecified kidney failure Status: Acute Assessment and Plan: * no reported history of renal insufficiency/CKD * creatinine normal in 2018 but no more recent labs/blood work * evaluation to date: * renal ultrasound normal * borderline prerenal urine electrolytes * CPK elevated at 9000 * suspect multifactorial ATN: * dehydration/volume depletion * pancreatitis: Now has necrosis * rhabdomyolysis: Resolved * acute component of the kidney disease is stable. Dialysis catheter was removed. * Urine output 2675 yesterday. Stool output 100cc. NG tube output 1200 * He is off the diuretics. * Persistent ATN due to pancreatic necrosis. * Creatinine is about the same at 2.0 * He has intermittent hypernatremia. * Most likely due to free water loss. Stool, gastric output, insensible loss. * Sodium normal today * stop IV fluids. He is getting tube feedings plus free water flushes. * Non anion gap metabolic acidosis. * Resolved but will keep an eye on this. (2) Acute pancreatitis: Qualifiers: Acute pancreatitis complication: unspecified Pancreatitis type: unspecified pancreatitis type Qualified Code(s): K85.90 - Acute pancreatitis without necrosis or infection, unspecified Code(s): K85.90 - Acute pancreatitis without necrosis or infection, unspecified Status: Acute Assessment and Plan: * as evidenced by admission imaging and lipase * lipase is now normal * last CT shows areas of pancreatic necrosis. * Tube feedings tolerated. * Liver enzymes improved. * CK normal. * LDH is moderately high (3) Acute respiratory failure: Code(s): J96.00 - Acute respiratory failure, unspecified whether with hypoxia or hypercapnia Status: Acute Assessment and Plan: * secondary to pulmonary edema + pleural effusion * on supportive care, pulm toilet, (4) Sepsis: Code(s): A41.9 - Sepsis, unspecified organism Status: Acute Assessment and Plan: * Pleural fluid cultures are Negative so far * Blood cultures from the are negative * Sputum is growing yeast * on vancomycin, levofloxacin and ertapenem (5) Alcohol abuse: Code(s): F10.10 - Alcohol abuse, uncomplicated Status: Acute Assessment and Plan: * sedated at this time Subjective Date/time seen: 06/22/21 12:15 Interval history: Patient is on the ventilator. He is sedated. He cannot give a history or review of systems. Still very ill. Exam Narrative: WDWN ill looking gentleman on the ventilator and IVs skin no rashb head ncat lungs course breath sounds bilaterally cor reg no rub or gallop abd BS+ and hypoactive, nontender and soft. It is distended. ext 1+ edema. Objective Data Vital Signs Vital Signs: Vital Signs - 24 hr 06/21/21 12:31 06/21/21 13:57 06/21/21 14:00 Temperature Pulse Rate 109 H 111 H 113 H Respiratory Rate 18 18 18 Blood Pressure 117/70 Pulse Oximetry 100 100 06/21/21 14:10 06/21/21 16:00 06/21/21 16:11 Temperature 38.1 C H 38.1 C H Pulse Rate 113 H 112 H Respiratory Rate 18 18 Blood Pressure 132/72
--- NOTE | 2021-06-22 12:15 | PM.PNNEP ---
Progress Note: A&P Assessment and Plan (1) Renal failure: Qualifiers: Renal failure chronicity: unspecified chronicity Qualified Code(s): N19 - Unspecified kidney failure Code(s): N19 - Unspecified kidney failure Status: Acute Assessment and Plan: no reported history of renal insufficiency/CKD creatinine normal in 2018 but no more recent labs/blood work evaluation to date: renal ultrasound normal borderline prerenal urine electrolytes CPK elevated at 9000 suspect multifactorial ATN: dehydration/volume depletion pancreatitis: Now has necrosis rhabdomyolysis: Resolved acute component of the kidney disease is stable. Dialysis catheter was removed. Urine output 2675 yesterday. Stool output 100cc. NG tube output 1200 He is off the diuretics. Persistent ATN due to pancreatic necrosis. Creatinine is about the same at 2.0 He has intermittent hypernatremia. Most likely due to free water loss. Stool, gastric output, insensible loss. Sodium normal today stop IV fluids. He is getting tube feedings plus free water flushes. Non anion gap metabolic acidosis. Resolved but will keep an eye on this. (2) Acute pancreatitis: Qualifiers: Acute pancreatitis complication: unspecified Pancreatitis type: unspecified pancreatitis type Qualified Code(s): K85.90 - Acute pancreatitis without necrosis or infection, unspecified Code(s): K85.90 - Acute pancreatitis without necrosis or infection, unspecified Status: Acute Assessment and Plan: as evidenced by admission imaging and lipase lipase is now normal last CT shows areas of pancreatic necrosis. Tube feedings tolerated. Liver enzymes improved. CK normal. LDH is moderately high (3) Acute respiratory failure: Code(s): J96.00 - Acute respiratory failure, unspecified whether with hypoxia or hypercapnia Status: Acute Assessment and Plan: secondary to pulmonary edema + pleural effusion on supportive care, pulm toilet, (4) Sepsis: Code(s): A41.9 - Sepsis, unspecified organism Status: Acute Assessment and Plan: Pleural fluid cultures are Negative so far Blood cultures from the are negative Sputum is growing yeast on vancomycin, levofloxacin and ertapenem (5) Alcohol abuse: Code(s): F10.10 - Alcohol abuse, uncomplicated Status: Acute Assessment and Plan: sedated at this time Subjective Date/time seen: 06/22/21 12:15 Interval history: Patient is on the ventilator. He is sedated. He cannot give a history or review of systems. Still very ill. Exam Narrative: WDWN ill looking gentleman on the ventilator and IVs skin no rashb head ncat lungs course breath sounds bilaterally cor reg no rub or gallop abd BS+ and hypoactive, nontender and soft. It is distended. ext 1+ edema. Objective Data Vital Signs Vital Signs: Vital Signs - 24 hr 06/21/21 12:31 06/21/21 13:57 06/21/21 14:00 Temperature Pulse Rate 109 H 111 H 113 H Respiratory Rate 18 18 18 Blood Pressure 117/70 Pulse Oximetry 100 100 06/21/21 14:10 06/21/21 16:00 06/21/21 16:11 Temperature 38.1 C H 38.1 C H Pulse Rate 113 H 112 H Respiratory Rate 18 18 Blood Pressure 132/72 Pulse Oximetry 97 06/21/21 17:11 06/21/21 17:22 06/21/21 18:00 Temperature 37.1 C Pulse Rate 102 H 101 H Respiratory Rate 18 Blood Pressure 120/60 Pulse Oximetry 96 97 06/21/21 19:01 06/21/21 20:00 06/21/21 20:01 Temperature 37.3 C Pulse Rate 105 H 112 H 102 H Respiratory Rate 20 22 H Blood Pressure 129/66 129/63 Pulse Oximetry 99 100 99 06/21/21 20:47 06/21/21 20:55 06/21/21 21:01 Temperature 37.3 C Pulse Rate 112 H 116 H 112 H Respiratory Rate 23 H 21 H 21 H Blood Pressure 133/56 L Pulse Oximetry 06/21/21 22:00 06/21/21 22:01 06/21/21 23:00 Temperature Pulse Rate 117 H 115 H 116 H
[2021-06-22] MEDS: CENTRAL LINE FLUSH 10 ML IV PUSH ×2 (13:49→17:10)
--- NOTE | 2021-06-22 13:58 | PCFNICU ---
ICU Rounding Note: Pt current nutrition is Vital High Protein at70 ml/h Last recorded weight is 103.3 kg. Bowel Motility:FMS Labs Reviewed: Hgb 7.1,Hct 22.2,TG 317,GFR 35,BUN 69, Cr 2.0,Alb 2.4 Meds Noted:Propofol 5 mics=79 kclas,Lovenox,Folic Acid, Thiamine,Sodium Bicarbonate,Protonix,Levaquin, Lantus,Atrovent Skin:WNL Additional Notes: Spoke with nursing today , patient remains on mechanical vent and tube feedings of Vital High protein at 70 ml/hr and tolerating . Free water Flush 300 ml q 4 hours. Agree with diet orders. Following daily in ICU rounds. Will monitor every Saturday and Saturday.
[2021-06-22] MEDS: PROPOFOL IV EMULSION 100 ML 6.02 MG IV CONT (15:07)
[2021-06-22] MEDS: MUPIROCIN 2% OINT 22 GM TUBE 1 APPLIC TOPICAL ×2 (15:17→20:17)
[2021-06-22 16:07] LABS: Glucose Point of Care 134 mg/dl (65-105)
[2021-06-22 16:56] LABS: Hematocrit 24.3 % (42.0-52.0); Hemoglobin 7.5 g/dL (14.0-18.0); Mean Corpuscular HGB Conc 30.9 g/dl (32-36); Mean Corpuscular Hemoglobin 34.4 pg (26-34); Mean Corpuscular Volume 111.5 fl (80-100); Mean Platelet Volume 10.5 fl (7.4-10.4); Platelet Count Result 438 k/mm3 (150-375); Red Blood Count 2.18 M/mm3 (4.6-6.20); Red Cell Distribution Width 14.8 % (11.5-14.5); White Blood Count 25.5 K/mm3 (4.5-10.0)
[2021-06-22] MEDS: FENTANYL 2,500MCG/NS250ML(*CRX 2,500 MCG/250 ML BAG 12.5 MCG IV CONT (18:02)
[2021-06-22 20:19] LABS: Glucose Point of Care 122 mg/dl (65-105)
[2021-06-23] VITALS (48 sets, daily range): BP systolic 99–147; BP diastolic 60–85; PULSE 88–146; RESP 16–37; TEMP 36.3–39.3; O2SAT 88–100
[2021-06-23 00:07] LABS: Hematocrit 22.7 % (42.0-52.0); Hemoglobin 7.2 g/dL (14.0-18.0); Mean Corpuscular HGB Conc 31.7 g/dl (32-36); Mean Corpuscular Hemoglobin 35.3 pg (26-34); Mean Corpuscular Volume 111.3 fl (80-100); Mean Platelet Volume 10.7 fl (7.4-10.4); Platelet Count Result 405 k/mm3 (150-375); Red Blood Count 2.04 M/mm3 (4.6-6.20); Red Cell Distribution Width 14.7 % (11.5-14.5)
[2021-06-23] MEDS: ACETAMINOPHEN 325 MG TABLET 650 MG PO ×2 (00:10→13:09)
[2021-06-23] MEDS: PROPOFOL IV EMULSION 100 ML 9.04 MG IV CONT (00:13)
[2021-06-23] MEDS: CENTRAL LINE FLUSH 10 ML IV PUSH ×3 (00:18→13:15)
[2021-06-23 00:43] LABS: Glucose Point of Care 120 mg/dl (65-105)
[2021-06-23] MEDS: LEVALBUTEROL NEB 1.25 MG/3 ML 0.63 MG INHALATION ×3 (01:42→14:31)
[2021-06-23] MEDS: IPRATROPIUM BR 0.02% INH SOLN 0.5 MG/2.5 ML VIAL INHALATION ×3 (01:42→14:31)
[2021-06-23 04:57] LABS: Alveolar/Arterial O2 Gradient 249.3 mmHg; Base Excess ABG -4.4 mEq/l (+/-2.0); Carboxyhemoglobin 0.3 % THb (0-2.0); Fractional Inspired Oxygen 50 %; HCO3 ABG 19.5 mEq/l (22.0-26.0); Methemoglobin ABG 0.3 %THb (0-1.5); Oxygen Content ABG 17.5 %vol (16.0-22.0); Oxygen Saturation ABG 94.2 % (95.0-100.0); Oxyhemoglobin 91.6 % THb (90.0-100.0); PCO2 ABG 32.8 mmHg (35.0-45.0); PO2 ABG 70.3 mmHg (80.0-100.0); PO2 FiO2 Ratio Arterial Blood 1.41 %; Reduced Hemoglobin 7.8 %THb (0-5.0); Total Hemoglobin 13.6 g/dL (12.0-18.0); pH ABG 7.393 (7.350-7.450)
[2021-06-23 05:02] LABS: Device VENTILATOR; Modified Allen's Test Pass; Site Drawn LEFT RADIAL
[2021-06-23 05:03] LABS: Arterial Blood Gas PEEP 8 cmH2O; Arterial Blood Gas Pressure Support 28 cmH2O; Arterial Blood Gas Vent Mode PRESSURE CONTROL; Arterial Blood Gas Ventilator rate 16 /MIN
[2021-06-23 05:12] LABS: Hematocrit 24.9 % (42.0-52.0); Hemoglobin 7.7 g/dL (14.0-18.0); Mean Corpuscular HGB Conc 30.9 g/dl (32-36); Mean Corpuscular Hemoglobin 34.8 pg (26-34); Mean Corpuscular Volume 112.7 fl (80-100); Mean Platelet Volume 10.8 fl (7.4-10.4); Platelet Count Result 468 k/mm3 (150-375); Red Blood Count 2.21 M/mm3 (4.6-6.20); Red Cell Distribution Width 15.1 % (11.5-14.5); White Blood Count 33.1 K/mm3 (4.5-10.0)
[2021-06-23 05:22] LABS: Alanine Aminotransferase 155 U/L (4-50); Albumin Level 2.8 g/dL (3.5-5.1); Alkaline Phosphatase 165 U/L (38-126); Anion Gap 10 mmol/L (8-16); Aspartate Amino Transferase 172 U/L (17-59); Blood Urea Nitrogen 79 mg/dL (9-20); Calcium 8.2 mg/dL (8.4-10.2); Carbon Dioxide 22 mmol/L (22-30); Chloride 114 mmol/L (98-107); Estimated CRCL calculation 38 ml/min; Estimated Glomerular Filt Rate 27; Glucose 124 mg/dL (65-110); Magnesium 3.1 mg/dL (1.6-2.3); Phosphorus 7.9 mg/dL (2.5-4.5); Potassium 4.2 mmol/L (3.4-5.0); Sodium 146 mmol/L (137-145); Triglycerides 516 mg/dL (<150)
[2021-06-23 06:10] LABS: Anisocytosis 2+ (NORMAL); Atypical Lymphocytes Present; Band Neutrophils Percent 9 % (0-6); Eosinophils Absolute Manual 1.32 K/mm3 (0.02-0.5); Eosinophils Percent Manual 4 % (0-4); Hypochromasia 2+ (NORMAL); Lymphocytes Absolute Manual 0.99 K/mm3 (1.1-4.5); Monocytes Absolute Manual 0.66 K/mm3 (0.1-0.90); Monocytes Percent Manual 2 % (3-9); Neutrophils Absolute Manual 30.12 K/mm3 (1.3-6.7); Neutrophils Percent Manual 82 % (46-73); Tear Drop Cells 1+ (NORMAL); Total Cells Counted 100
[2021-06-23] MEDS: MIDAZOLAM 100MG/NS 100ML(*CRX) 100 MG/100 ML BAG IV CONT (07:21)
[2021-06-23] MEDS: dexmedeTOMIDine 400 MCG/100 ML 400 MCG/100 ML BAG 5.16 MCG IV CONT (07:23)
[2021-06-23 07:42] LABS: Glucose Point of Care 137 mg/dl (65-105)
[2021-06-23 07:56] LABS: Osmolality, Urine 460 mOsm/kg (50-1200)
[2021-06-23] MEDS: FOLIC ACID 1 MG/0.2 ML INJ IV PUSH (08:16)
[2021-06-23] MEDS: levoFLOXacin 250 MG/D5W 50 ML 250 MG/50 ML BAG 50 MG IVPB (08:17)
[2021-06-23] MEDS: ERTAPENEM 1 GM/NS 50 ML 1 GM/50 ML BAG IVPB (08:17)
[2021-06-23] MEDS: PANTOPRAZOLE SODIUM IV 40 MG VIAL IV PUSH (08:18)
[2021-06-23] MEDS: SODIUM BICARBONATE TAB 650 MG TABLET FEED TUBE (08:18)
[2021-06-23] MEDS: THIAMINE HCL 200 MG/2 ML VIAL 100 MG IV PUSH (08:18)
[2021-06-23] MEDS: MINERAL OIL/WHITE PETROLATUM OINTMENT 1 APPLIC EACH EYE (08:18)
[2021-06-23] MEDS: MUPIROCIN 2% OINT 22 GM TUBE 1 APPLIC TOPICAL ×2 (08:19→21:45)
[2021-06-23] MEDS: TOLNAFTATE 1% POWDER 45 GM BTL 1 APPLIC TOPICAL ×2 (08:19→21:45)
[2021-06-23] MEDS: DORNASE ALFA INH SOLN 1 MG/ML 2.5 ML AMP 2.5 MG INHALATION (08:44)
--- NOTE | 2021-06-23 10:11 | P.PNNP_ITS ---
Progress Note: A&P Assessment and Plan (1) Renal failure: Qualifiers: Renal failure chronicity: unspecified chronicity Qualified Code(s): N19 - Unspecified kidney failure Code(s): N19 - Unspecified kidney failure Status: Acute Assessment and Plan: * no reported history of renal insufficiency/CKD * creatinine normal in 2018 but no more recent labs/blood work * evaluation to date: * renal ultrasound normal * borderline prerenal urine electrolytes * CPK elevated at 9000 * suspect multifactorial ATN: * dehydration/volume depletion * pancreatitis: Now has necrosis * rhabdomyolysis: Resolved * acute component of the kidney disease is stable. Dialysis catheter was removed. * Urine output 2100 yesterday. Stool output 500cc. NG tube output 2100 * creatinine is a bit higher at 2.5. * He is off the diuretics. * cxr shows infiltrates. * His urine output is good, keeping up with his input. I doubt if he is dehydrated or else his urine output would be lower. I doubt osmotic diuresis. He is not getting diuretics. Urine osmolality was 460 ruling out DI. May be prolonged post ATN diuresis? * Persistent ATN due to pancreatic necrosis. * I talked with Dr Almazan's office. 05/01/18 creat was 0.8. on 06/06/21, creat was 2.8 in her chart but this was the day of admission here. * it us unclear if he has underlying ckd because he had no labs in 2 years in between above. * He has intermittent hypernatremia. * sodium 146 today * He is getting tube feedings plus free water flushes. * Non anion gap metabolic acidosis. * co2 is okay lately * Resolved but will keep an eye on this. (2) Acute pancreatitis: Qualifiers: Acute pancreatitis complication: unspecified Pancreatitis type: unspecified pancreatitis type Qualified Code(s): K85.90 - Acute pancreatitis without necrosis or infection, unspecified Code(s): K85.90 - Acute pancreatitis without necrosis or infection, unspecified Status: Acute Assessment and Plan: * as evidenced by admission imaging and lipase * lipase is now normal * last CT shows areas of pancreatic necrosis. * Tube feedings tolerated. (3) Acute respiratory failure: Code(s): J96.00 - Acute respiratory failure, unspecified whether with hypoxia or hypercapnia Status: Acute Assessment and Plan: * secondary to pulmonary edema + pleural effusion * on supportive care, pulm toilet, (4) Sepsis: Code(s): A41.9 - Sepsis, unspecified organism Status: Acute Assessment and Plan: * Pleural fluid cultures are Negative so far * Blood cultures from the are negative * Sputum is growing yeast again. * on vancomycin, levofloxacin and ertapenem (5) Alcohol abuse: Code(s): F10.10 - Alcohol abuse, uncomplicated Status: Acute Assessment and Plan: * sedated at this time Subjective Date/time seen: 06/23/21 10:11 Interval history: Patient is on the ventilator. Comfortable. He is sedated. He cannot give a history or review of systems. Exam Narrative: WDWN ill looking gentleman on the ventilator and IVs skin no rash or subQ nodules head ncat lungs course breath sounds bilaterally cor reg no rub abd BS+ and hypoactive, nontender and soft. It is distended. ext 1+ edema. Objective Data Vital Signs Vital Signs: Vital Signs - 24 hr 06/22/21 11:24 06/22/21 11:56 06/22/21 12:00
--- NOTE | 2021-06-23 10:11 | PM.PNNEP ---
Progress Note: A&P Assessment and Plan (1) Renal failure: Qualifiers: Renal failure chronicity: unspecified chronicity Qualified Code(s): N19 - Unspecified kidney failure Code(s): N19 - Unspecified kidney failure Status: Acute Assessment and Plan: no reported history of renal insufficiency/CKD creatinine normal in 2018 but no more recent labs/blood work evaluation to date: renal ultrasound normal borderline prerenal urine electrolytes CPK elevated at 9000 suspect multifactorial ATN: dehydration/volume depletion pancreatitis: Now has necrosis rhabdomyolysis: Resolved acute component of the kidney disease is stable. Dialysis catheter was removed. Urine output 2100 yesterday. Stool output 500cc. NG tube output 2100 creatinine is a bit higher at 2.5. He is off the diuretics. cxr shows infiltrates. His urine output is good, keeping up with his input. I doubt if he is dehydrated or else his urine output would be lower. I doubt osmotic diuresis. He is not getting diuretics. Urine osmolality was 460 ruling out DI. May be prolonged post ATN diuresis? Persistent ATN due to pancreatic necrosis. I talked with Dr Almazan's office. 05/01/18 creat was 0.8. on 06/06/21, creat was 2.8 in her chart but this was the day of admission here. it us unclear if he has underlying ckd because he had no labs in 2 years in between above. He has intermittent hypernatremia. sodium 146 today He is getting tube feedings plus free water flushes. Non anion gap metabolic acidosis. co2 is okay lately Resolved but will keep an eye on this. (2) Acute pancreatitis: Qualifiers: Acute pancreatitis complication: unspecified Pancreatitis type: unspecified pancreatitis type Qualified Code(s): K85.90 - Acute pancreatitis without necrosis or infection, unspecified Code(s): K85.90 - Acute pancreatitis without necrosis or infection, unspecified Status: Acute Assessment and Plan: as evidenced by admission imaging and lipase lipase is now normal last CT shows areas of pancreatic necrosis. Tube feedings tolerated. (3) Acute respiratory failure: Code(s): J96.00 - Acute respiratory failure, unspecified whether with hypoxia or hypercapnia Status: Acute Assessment and Plan: secondary to pulmonary edema + pleural effusion on supportive care, pulm toilet, (4) Sepsis: Code(s): A41.9 - Sepsis, unspecified organism Status: Acute Assessment and Plan: Pleural fluid cultures are Negative so far Blood cultures from the are negative Sputum is growing yeast again. on vancomycin, levofloxacin and ertapenem (5) Alcohol abuse: Code(s): F10.10 - Alcohol abuse, uncomplicated Status: Acute Assessment and Plan: sedated at this time Subjective Date/time seen: 06/23/21 10:11 Interval history: Patient is on the ventilator. Comfortable. He is sedated. He cannot give a history or review of systems. Exam Narrative: WDWN ill looking gentleman on the ventilator and IVs skin no rash or subQ nodules head ncat lungs course breath sounds bilaterally cor reg no rub abd BS+ and hypoactive, nontender and soft. It is distended. ext 1+ edema. Objective Data Vital Signs Vital Signs: Vital Signs - 24 hr 06/22/21 11:24 06/22/21 11:56 06/22/21 12:00 Temperature 38.5 C H Pulse Rate 116 H 116 H Respiratory Rate 23 H Blood Pressure 124/66 Pulse Oximetry 99 99 99 06/22/21 13:30 06/22/21 13:50 06/22/21 14:00 Temperature Pulse Rate 127 H 130 H 131 H Respiratory Rate 31 H 30 H 33 H Blood Pressure 124/73 Pulse Oximetry 96 97 06/22/21 15:01 06/22/21 15:08 06/22/21 16:00 Temperature 38.3 C H 38.7 C H Pulse Rate 130 H 141 H Respiratory Rate 30 H 35 H Blood Pressure 125/67 Pulse Oximetry 93 06/22/21 16:03 06/22/21 16:04 06/22/21 16:08 Temperature 3
--- NOTE | 2021-06-23 11:38 | WPDINTPN ---
Progress Note: A&P Assessment and Plan (1) Acute respiratory failure: Code(s): J96.00 - Acute respiratory failure, unspecified whether with hypoxia or hypercapnia Status: Acute Assessment and Plan: Secondary to pulmonary edema and pleural effusion initially but likely has developed a pneumonia Patient emergently intubated on 06/08/2021 due to poor mental status and hypoxia 06/20-self extubated and reintubated Chest x-ray reviewed shows worsening left side ABGs reviewed, ventilator adjusted decreased pressure control is at 28 06/16 CT shows collapse of left lower lobe 06/19 underwent thoracentesis on left side with 175 mL fluid was removed. Pleural fluid pH was 7.4 Study suggested exudate effusion. G stain cultures are negative as of now Patient has increased secretions now and could have aspirated when he self-extubated versus he developed a secondary pneumonia Continue bronchodilators, dornase Sedated with fentanyl, Versed infusion Continue ertapenem and vancomycin, Levaquin was added 06/14/2021 Not a candidate for weaning at this time due to encephalopathy, significant amount of thick respiratory secretions and airway edema seen at the time of re-intubation (2) Sepsis: Code(s): A41.9 - Sepsis, unspecified organism Status: Acute Assessment and Plan: Patient met criteria for sepsis with elevated lactic acid, WBC Likely secondary to severe pancreatitis 06/06/2021 blood and urine cultures are negative so far Patient currently off all pressors - multi organ failure likely related to acute pancreatitis inside according storm secondary to acute pancreatitis -patient has been febrile, continue - Continue ertapenem and vancomycin, Levaquin was added 06/14/2021 -06/14/2021: Blood cultures negative x2, sputum and urine cultures are unremarkable 06/14/2021: UA was negative CT CHEST ABDOMEN AND PELVIS ON 06/16/2021 -severe acute pancreatitis with suspicion of developing sizable region of pancreatic necrosis, pancolitis and diarrhea, small to moderate left, small right pleural effusion, left lower lobe collapse, right lower lobe multi segmental atelectasis. -increased respiratory secretions suggest the patient may have to pneumonia. He did had some a good amount secretions and self-extubated himself on 06/20 WBCs elevated and he continues to be febrile - Fever and elevated WBC count can be secondary to infection of necrosis versus pneumonia/atelectasis that he has -thoracentesis done and pH 7.4. Study suggested exudate effusion. G stain cultures are negative as of now -2/2 repeat culture sent and pending at this time -HD catheter removed (3) Renal failure: Qualifiers: Renal failure chronicity: unspecified chronicity Qualified Code(s): N19 - Unspecified kidney failure Code(s): N19 - Unspecified kidney failure Status: Acute Assessment and Plan: Secondary to sepsis ands rhabdomyolysis He appears to have developed ATN Ultrasound did not show any hydronephrosis Nephrology following Dialysis catheter was placed on 06/08/2021 and received his 1st dialysis on 06/09/2021 with removal 3500 mL of fluid His creatinine improved and has stabilized he has good urine output. Discussed with nephrology and Dr. Cerda does not anticipate need for hemodialysis at this time 2/2 hemodialysis catheter was removed HYPERNATREMIA-improved with Increased free water flushes. off D5 water at this. may need to resume (4) Acute pancreatitis: Qualifiers: Acute pancreatitis complication: unspecified Pancreatitis type: unspecified pancreatitis type Qualified Code(s): K85.90 - Acute pancreatitis without necrosis or infection, unspecified Code(s): K85.90 - Acute pancreatitis without necrosis or infection, unspecified Status: Acute Assessment and Plan: Abdominal CT was read as the following 1. Findings consistent with severe acute pancreatitis. Small reactive ascites. Correlat
--- NOTE | 2021-06-23 12:26 | PCNFU ---
Nutrition Follow-Up Complete: Inadequate Oral Intake as related to Mechanical vent as evidenced by NPO. Goal: Meet estimated nutritional needs We will continue current goal. Pt current nutrition is Vital High Protein at 70 ml/hr over 22 hours. Last recorded weight is 103.1 kg-stable Bowel Motility:FMS Labs Reviewed:TG 516, Glu 124,BUN 79, GFR 27, Na 146, Alb 2.8,Hct 24.9,Hgb 7.7 Meds Noted:Thiamine, Folic Acid, Fentanyl, Versed, Precedex, Protonix, Levaquin, Sodium Bicarbonate. Skin: WNL Additional Notes: Patient remains on mechanical vent and tube feedings of Vital High Protein at 70 ml/hr over 22 hours. Current tube feeding is providing 1540 kcals/135 gms protein/1287 ml water. Free water flush 300 ml q 4 hours, Na 146 today. TG 516-off of Propofol. Agree with diet orders. Monitoring: Will monitor in ICU rounds and reassessing every Saturday and Saturday.
[2021-06-23 12:45] LABS: Glucose Point of Care 144 mg/dl (65-105)
--- NOTE | 2021-06-23 13:06 | WPDGIPROGNO ---
Progress Note: A&P Assessment and Plan (1) Acute pancreatitis: Qualifiers: Acute pancreatitis complication: unspecified Pancreatitis type: unspecified pancreatitis type Qualified Code(s): K85.90 - Acute pancreatitis without necrosis or infection, unspecified Code(s): K85.90 - Acute pancreatitis without necrosis or infection, unspecified Status: Acute Assessment and Plan: last CT scan showed pancreatic necrosis but no obvious collection to drain and normal bilirubin but given severity of pancreatitis on presentation with multiorgan failure and persistent fever last few days, he already was accepted as transfer to [facility] given complexity of case- awaiting on bed continue icu care, he has been tolerating tube feeding now that DHT is beyond 3rd portion duodenum still with fever on broad spectrum antibiotics, noted increasing wbc today (2) Elevated liver enzymes: Code(s): R74.8 - Abnormal levels of other serum enzymes Status: Acute Assessment and Plan: today had some elevation of transaminases but still normal bili, improvement of renal failure and rhabdo continue to monitor he is on abx (3) Acute respiratory failure: Code(s): J96.00 - Acute respiratory failure, unspecified whether with hypoxia or hypercapnia Status: Acute Assessment and Plan: was reintubated again and on antibiotics noted more atelectasis and effusion, had thoracentesis few days ago (4) Renal failure: Qualifiers: Renal failure chronicity: unspecified chronicity Qualified Code(s): N19 - Unspecified kidney failure Code(s): N19 - Unspecified kidney failure Status: Acute Assessment and Plan: by nephrology, required dialysis on admission now with good urine output and creatinine mid 2's (5) Alcohol abuse: Code(s): F10.10 - Alcohol abuse, uncomplicated Status: Acute (6) Atelectasis: Code(s): J98.11 - Atelectasis Status: Acute Subjective Date/time seen: 06/23/21 13:06 Interval history: unchanged, still with fever. Intubated and sedated, tolerating post pyloric feeding with DHT. RN reported small amount blood by ogt but none since Review of Systems Review of Systems: All systems reviewed & are unremarkable except as noted in HPI and below Exam Const: Other: intubated and sedated, will open eyes to pain stimuli HENMT: Other: DHT in place Also OGT in place Eyes: Other: eyes open to stimuli Neck: Neck: supple Resp: Auscultation: diminished lung sounds Cardio: Rate: regular rate GI: Inspection: distended GI Palp: Yes Tenderness to palpation present (GI) Other: + bowel sounds Urinary Catheter: Urinary Catheter: patent and draining Skin: General skin exam: no erythema Neuro: Other: unable to assess Extrem: General: pedal edema bilaterally Psych: Other: uanble to assess Objective Data Vital Signs Vital Signs: Vital Signs - 24 hr 06/22/21 13:30 06/22/21 13:50 06/22/21 14:00 Temperature Pulse Rate 127 H 130 H 131 H Respiratory Rate 31 H 30 H 33 H Blood Pressure 124/73 Pulse Oximetry 96 97 06/22/21 15:01 06/22/21 15:08 06/22/21 16:00 Temperature 101 F H 101.6 F H Pulse Rate 130 H 141 H Respiratory Rate 30 H 35 H Blood Pressure 125/67 Pulse Oximetry 93 06/22/21 16:03 06/22/21 16:04 06/22/21 16:08 Temperature 101.9 F H Pulse Rate 140 H 140 H Respiratory Rate 35 H 35 H Blood Pressure Pulse Oximetry 06/22/21 17:09 06/22/21 18:00 06/22/21 18:02 Temperature 100.8 F H Pulse Rate 134 H 129 H 130 H Respiratory Rate 34 H 34 H Blood Pressure 121/77 Pulse Oximetry 91 92 06/22/21 19:00 06/22/21 20:00 06/22/21 20:10 Temperature 99.8 F H Pulse Rate 127 H 128 H 128 H Respiratory Rate 34 H 34 H Blood Pressure 129/75 129/74 Pulse Oximetry 93 94 94 06/22/21 20:13 06/22/21 20:28 06/22/21 21:00 Temperature Pulse Rate 128 H 124 H 121 H Respiratory
[2021-06-23] MEDS: FENTANYL 2,500MCG/NS250ML(*CRX 2,500 MCG/250 ML BAG 15 MCG IV CONT (15:00)
[2021-06-23] MEDS: dexmedeTOMIDine 400 MCG/100 ML 400 MCG/100 ML BAG 15.47 MCG IV CONT (15:02)
[2021-06-23] MEDS: LORazepam INJ (*CRX) 2 MG/ML VIAL IV PUSH ×2 (16:42→21:43)
[2021-06-23] MEDS: MORPHINE SULFATE INJ (*CRX) 10 MG/ML AMP 5 MG IV PUSH (16:42)
--- NOTE | 2021-06-23 16:43 | PM.EVENT ---
Event Note Event Note Event Note: Family Meeting I had discussed case with rn home care earlier and arranged for patient's to come see him as he was doing poorly and had not made any progress in last 2 weeks. We have had several discussions by phone about goals of care in the past. Please refer to past notes. I met with patient's had other and their son at bedside. Came to see patient. His has been pretty clear from the start about patient's wishes of not being on life support for prolonged period of time as he enjoyed quality of life. After seeing him she told me that she was not aware that patient was doing so poorly. she believes that patient is suffering at this time and would not want to continue like this. She states that she is aware of patient's critical illness and he has not made any significant progress or improvement in last many days. She states that she understands the patient's prognosis is guarded and he has multiorgan failure. She in accordance with pt's wishes wants too discontinue all medical therapy and institute comfort measures only at this time. I will use opioids, anxiolytics and other agents on as needed basis to promote comfort and discontinue all medical therapy, lab testing and invasive monitoring. I have discussed with patient's nurse. Total time spent in advance care planning 30 minutes
--- NOTE | 2021-06-23 18:53 | PC.NURSE ---
This patient, Rashid Fermin, was transferred to [ [facility]] on 06/23/21 at 1853. Personal belongings sent with patient. Report given to [ MERCY Medrano @ 1853]. Appropriate documentation sent with patient.
--- NOTE | 2021-06-23 20:06 | PC.NURSE ---
This patient, Rashid Fermin, was received from [ICU 9 ] on 06/23/21 at 1920. Patient/family oriented to unit policies and routines
[2021-06-23] MEDS: MORPHINE SULFATE (*CRX) 2 MG/ML INJ IV PUSH (21:43)
[2021-06-23 22:51] LABS: Haptoglobin 462 mg/dL (43-212)
[2021-06-24] MEDS: MORPHINE SULFATE (*CRX) 2 MG/ML INJ IV PUSH ×4 (02:52→10:39)
[2021-06-24] MEDS: LORazepam INJ (*CRX) 2 MG/ML VIAL IV PUSH ×4 (02:52→13:45)
[2021-06-24 05:20] VITALS: PULSE 132; RESP 32; TEMP 38.8; O2SAT 62
[2021-06-24 05:31] VITALS: BP 122/58; PULSE 133; RESP 26; O2SAT 77
[2021-06-24 06:36] VITALS: TEMP 38.8
[2021-06-24 07:55] VITALS: BP 114/55; PULSE 131; RESP 40; TEMP 37.1; O2SAT 80
--- NOTE | 2021-06-24 10:54 | PM.IMPN ---
Progress Note: A&P Assessment and Plan (1) Acute respiratory failure: Code(s): J96.00 - Acute respiratory failure, unspecified whether with hypoxia or hypercapnia Status: Acute Assessment and Plan: Continue comfort care 06/24 morphine drip at 1 milligram/hour initiated 06/24 attempted to contact spouse regarding inpatient hospice (2) Sepsis: Code(s): A41.9 - Sepsis, unspecified organism Status: Acute (3) Renal failure: Qualifiers: Renal failure chronicity: unspecified chronicity Qualified Code(s): N19 - Unspecified kidney failure Code(s): N19 - Unspecified kidney failure Status: Acute (4) Acute pancreatitis: Qualifiers: Acute pancreatitis complication: unspecified Pancreatitis type: unspecified pancreatitis type Qualified Code(s): K85.90 - Acute pancreatitis without necrosis or infection, unspecified Code(s): K85.90 - Acute pancreatitis without necrosis or infection, unspecified Status: Acute (5) Alcohol withdrawal: Code(s): F10.239 - Alcohol dependence with withdrawal, unspecified Status: Acute (6) Metabolic acidosis: Code(s): E87.2 - Acidosis Status: Acute (7) Elevated liver enzymes: Code(s): R74.8 - Abnormal levels of other serum enzymes Status: Acute (8) Encephalopathy: Code(s): G93.40 - Encephalopathy, unspecified Status: Acute (9) Rash: Code(s): R21 - Rash and other nonspecific skin eruption Status: Acute (10) Rhabdomyolysis: Code(s): M62.82 - Rhabdomyolysis Status: Acute Assessment and Plan: Resolved (11) High triglycerides: Code(s): E78.1 - Pure hyperglyceridemia Status: Acute (12) Ileus: Code(s): K56.7 - Ileus, unspecified Status: Acute (13) Skin necrosis: Code(s): I96 - Gangrene, not elsewhere classified Status: Acute Assessment and Plan: Left earlobe and helix Continue wound care (14) Upper GI bleed: Code(s): K92.2 - Gastrointestinal hemorrhage, unspecified Status: Acute Assessment and Plan: Resolved Subjective Date/time seen: 06/24/21 10:54 Interval history: 06/24 visit. Tachypneic. No moaning or grimacing. Review of Systems Review of Systems: Middle-aged gentleman who is tachypneic otherwise in no acute distress. Skin warm diaphoretic. Oral mucosa dry. Neck without JVD. Chest coarse crackles throughout. Heart regular rate tachycardic. Extremities no edema. Abdomen hypoactive bowel sounds. Soft. Musculoskeletal no obvious deformity. Neurologic cranial nerves intact to inspection. Objective Data Vital Signs Vital Signs: Vital Signs - 24 hr 06/23/21 12:00 06/23/21 12:10 06/23/21 13:09 Temperature 100.3 F H 101.0 F H Pulse Rate 109 H 106 H Respiratory Rate 28 H 21 H Blood Pressure 111/60 Pulse Oximetry 95 06/23/21 14:00 06/23/21 14:02 06/23/21 14:09 Temperature 99.7 F H 99.8 F H Pulse Rate 100 98 Respiratory Rate 22 H 30 H Blood Pressure 113/70 Pulse Oximetry 100 06/23/21 14:34 06/23/21 14:35 06/23/21 15:00 Temperature Pulse Rate 94 100 98 Respiratory Rate 20 30 H Blood Pressure Pulse Oximetry 95 06/23/21 15:02 06/23/21 15:03 06/23/21 15:06 Temperature Pulse Rate 98 98 96 Respiratory Rate 30 H 30 H 28 H Blood Pressure Pulse Oximetry 06/23/21 16:00 06/23/21 19:00 06/23/21 19:33 Temperature 97.4 F L 97.9 F Pulse Rate 88 101 H 102 H Respiratory Rate 23 H 20 20 Blood Pressure 99/66 L 112/62 Pulse Oximetry 100 90 06/24/21 05:20 06/24/21 05:31 06/24/21 06:36 Temperature 101.8 F H 101.8 F H Pulse Rate 132 H 133 H Respiratory Rate 32 H 26 H Blood Pressure 122/58 L Pulse Oximetry 62 L 77 L 06/24/21 07:55 Temperature 98.8 F Pulse Rate 131 H Respiratory Rate 40 H Blood Pressure 114/55 L Pulse Oximetry 80 L Intake/Output Intake/Output: Intake & Output 06/21/21
[2021-06-24] MEDS: MORPHINE SULFATE INJ (*CRX) 50 MG in SODIUM CHLORIDE 0.9% IV 95 ML IV CONT (11:26)
[2021-06-24] MEDS: ACETAMINOPHEN 650 MG SUPPOSITORY RECTAL (13:12)
[2021-06-24] MEDS: ATROPINE SULFATE 1% OPHTH SOLN 5 ML BOTTLE SUBLINGUAL (13:36)
[2021-06-24] MEDS: TOLNAFTATE 1% POWDER 45 GM BTL 1 APPLIC TOPICAL (13:40)
[2021-06-24] MEDS: MUPIROCIN 2% OINT 22 GM TUBE 1 APPLIC TOPICAL (13:40)
--- NOTE | 2021-06-24 14:18 | PM.DS ---
DS: Discharge Diagnosis Discharge Diagnosis (1) Acute respiratory failure: Code(s): J96.00 - Acute respiratory failure, unspecified whether with hypoxia or hypercapnia Status: Acute Assessment and Plan: Continue comfort care 06/24 morphine drip at 1 milligram/hour initiated 06/24 contacted spouse regarding inpatient hospice and she wishes to proceed (2) Sepsis: Code(s): A41.9 - Sepsis, unspecified organism Status: Acute (3) Renal failure: Qualifiers: Renal failure chronicity: unspecified chronicity Qualified Code(s): N19 - Unspecified kidney failure Code(s): N19 - Unspecified kidney failure Status: Acute (4) Acute pancreatitis: Qualifiers: Acute pancreatitis complication: unspecified Pancreatitis type: unspecified pancreatitis type Qualified Code(s): K85.90 - Acute pancreatitis without necrosis or infection, unspecified Code(s): K85.90 - Acute pancreatitis without necrosis or infection, unspecified Status: Acute (5) Alcohol withdrawal: Code(s): F10.239 - Alcohol dependence with withdrawal, unspecified Status: Acute (6) Metabolic acidosis: Code(s): E87.2 - Acidosis Status: Acute (7) Elevated liver enzymes: Code(s): R74.8 - Abnormal levels of other serum enzymes Status: Acute (8) Encephalopathy: Code(s): G93.40 - Encephalopathy, unspecified Status: Acute (9) Rash: Code(s): R21 - Rash and other nonspecific skin eruption Status: Acute (10) Rhabdomyolysis: Code(s): M62.82 - Rhabdomyolysis Status: Acute Assessment and Plan: Resolved (11) High triglycerides: Code(s): E78.1 - Pure hyperglyceridemia Status: Acute (12) Ileus: Code(s): K56.7 - Ileus, unspecified Status: Acute (13) Skin necrosis: Code(s): I96 - Gangrene, not elsewhere classified Status: Acute Assessment and Plan: Left earlobe and helix Continue wound care (14) Upper GI bleed: Code(s): K92.2 - Gastrointestinal hemorrhage, unspecified Status: Acute Assessment and Plan: Resolved DS: Summary Time Spent with Patient Time attestation: Total time spent providing and/or coordinating discharge services: Exam Narrative: General: Pt is sedated, intubated and on mechanical ventilation Lungs/Chest: Trachea central BS decreased at bases B/L, No crackles or wheezing. Cardiac: RRR. Normal S1 S2. No murmurs Abdomen: Absent bowel sounds. Abdominal is firm and distended, Extremities: No clubbing, cyanosis or edema. Warm : Quiroz in place Neurologic: Intubated sedated, his eyes are open but he does not regard examiner or follow any commands. PERRL Skin: Both inguinal areas are macerated, erythematous induration with areas of skin breakdown, left ear lobe halix area has superficial pressure injury with some necrosis. DS: Data Data Completed and Pending Labs on day of discharge: Labs from last 24 hours 06/20/21 17:02 Haptoglobin 462 H Preliminary micro results at discharge 06/19/21 12:18 Anaerobic Culture - Preliminary Pleural Fluid Fungal Culture - Preliminary 06/19/21 12:18 Acid Fast Bacilli Culture - Preliminary Pleural Fluid 06/22/21 10:40 Fungal Culture - Preliminary Other 06/21/21 08:57 Blood Culture - Preliminary Blood 06/21/21 08:57 Blood Culture - Preliminary Blood Discharge Plan Discharge Consulting providers: Elian Figueroa ; Goyo Hawley ; Sunni Kunz Discharge Medications: No Action lisinopril [Zestril] 20 mg tablet 20 mg PO DAILY RF: 0 hydrochlorothiazide 12.5 mg capsule 12.5 mg PO DAILY RF: 0 Viberzi 100 mg tablet 100 mg PO DAILY RF: 0 Date of admission: 06/07/21 11:35 Primary Care Provider: Norah,Vicki Metz Admitting Provider: Ayush Kaye Attending physician on admission: Ayush Kaye Condition: Guarded P
--- NOTE | 2021-06-24 15:29 | PM.DDS ---
Discharge Summary Probable Cause of Probable Cause of : Sepsis due to acute pancreatitis complicated by multiorgan failure including encephalopathy and respiratory failure Summary Hospital Course: Patient was admitted with acute pancreatitis alcohol withdrawal and metabolic encephalopathy and rhabdomyolysis. He was treated appropriate for all of these. He was stabilized in ICU been able to wean off ventilator due to severe encephalopathy. Family opted to do comfort care only. He was extubated transferred to the medical floor from were comfort medications were titrated to effect. He peacefully.
== END 2021-06-24 14:52 | disposition expired | DRG 870 ==
LOC: ANHED 11:07 → ANH3MEDSUR 15:11 → ANHICU 15:13 → ANHIMU 16:30 → ANHICU 19:53 → ANH2MED 06-23 19:18
PROVIDERS: Internal Medicine; Internal Medicine Gastroenterology; Internal Medicine Nephrology; Nurse Practitioner; Admitting Provider Internal Medicine; Emergency Provider Emergency Medicine; PCP Nurse Practitioner Family; Visit Provider Internal Medicine
DX: A41.9 Sepsis, unspecified organism (principal); K85.90 Acute pancreatitis without necrosis or infection, unspecified; G93.41 Metabolic encephalopathy; R65.21 Severe sepsis with septic shock; J96.01 Acute respiratory failure with hypoxia; J90 Pleural effusion, not elsewhere classified; E87.2 Acidosis; M62.82 Rhabdomyolysis; N17.9 Acute kidney failure, unspecified; F10.239 Alcohol dependence with withdrawal, unspecified; E87.0 Hyperosmolality and hypernatremia; J98.11 Atelectasis; I96 Gangrene, not elsewhere classified; K92.2 Gastrointestinal hemorrhage, unspecified; K56.7 Ileus, unspecified; E87.6 Hypokalemia; R21 Rash and other nonspecific skin eruption; E78.1 Pure hyperglyceridemia; E86.0 Dehydration; F17.290 Nicotine dependence, other tobacco product, uncomplicated; Z20.822 Contact with and (suspected) exposure to COVID-19; K76.0 Fatty (change of) liver, not elsewhere classified; K58.9 Irritable bowel syndrome, unspecified; E78.5 Hyperlipidemia, unspecified; R73.9 Hyperglycemia, unspecified; R74.8 Abnormal levels of other serum enzymes; Z51.5 Encounter for palliative care; Z79.899 Other long term (current) drug therapy; Z88.1 Allergy status to other antibiotic agents; Z88.2 Allergy status to sulfonamides
CPT/HCPCS: 32555; 36415; 36569; 36600; 43752; 70450; 71045; 71250; 74018; 74019; 74176; 76705; 76775; 80048; 80053; 80061; 80069; 80074; 80202; 81001; 82040; 82140; 82375; 82465; 82550; 82570; 82728; 82805; 82945; 82947; 82948; 83010; 83036; 83050; 83605; 83615; 83690; 83735; 83935; 83986; 84100; 84155; 84156; 84157; 84295; 84300; 84478; 85025; 85027; 85610; 85730; 86140; 86703; 87015; 87040; 87070; 87075; 87086; 87102; 87106; 87116; 87205; 87206; 87340; 89051; 92950; 93005; 94002; 94003; 94640; 96361; 96365; 96366; 96367; 96368; 96375; 96376; 99285; A9270; C1751; C1752; C9113; C9803; G0378; G0432; J0131; J0330; J0610; J0743; J1170; J1335; J1644; J1650; J1815; J1940; J1956; J2060; J2250; J2270; J2405; J2704; J3010; J3370; J3411; J3475; J3480; J7030; J7040; J7042; J7070; J7120; U0003; U0005